=== PATIENT | female | born 1955 | race Caucasian/White ===

== ENCOUNTER 2016-03-06 14:26 | Inpatient (IN) | payer BC ==
[2016-03-06] MEDS ORDERED: HYDROmorphone 1 MG/ML 1 ML SYRINGE IVP STA ×2 (15:15→18:24)
[2016-03-06] MEDS ORDERED: SODIUM CHLORIDE 0.9% 1,000 ML IV STA (15:15)
[2016-03-06] MEDS ORDERED: ONDANSETRON ODT 8 MG TAB.RAPDIS PO STA (15:15)
--- NOTE | 2016-03-06 15:19 | ED ---
General Adult HPI - General Source: patient, RN notes reviewed Mode of arrival: ambulatory Limitations: no limitations <Geoff Hale - Last Filed: 03/06/16 18:34> <Maximo Maldonado - Last Filed: 03/10/16 21:47> - General Chief complaint: Abdominal Pain Stated complaint: poss UTI Time Seen by Provider: 03/06/16 14:58 - History of Present Illness Initial comments: Patient is a 60-year-old female who presents emergency room today with a chief complaint of abdominal pain increasing over the last 2 weeks. She also admits to symptoms of nausea vomiting. Admits to history of interstitial cystitis and colon resection back in June 2015. Patient states surgery was performed at [facility]. She states she has a colostomy in place that has been working she's getting either thicker stools or loose and diarrhea over the last 2 weeks. Admits that there have been some sick contacts at home with similar symptoms of nausea vomiting diarrhea. Patient has had nausea vomiting on and off. Has had increased abdominal pain with some distention to the left side. Denies any other complaints or symptoms. Patient denies any recent fever, chills , shortness of breath, chest pain, back pain, numbness or tingling, dysuria or hematuria, headaches or visual changes, or any other complaints. (Geoff Hale ) - Related Data Home Medications Medication Instructions Recorded Confirmed Ferrous Sulfate [Feosol] 325 mg PO DAILY 08/20/15 03/06/16 Folic Acid 1 mg PO DAILY 08/20/15 03/06/16 Levothyroxine Sodium [Synthroid] 75 mcg PO DAILY 08/20/15 03/06/16 Magnesium Oxide [Mag-Ox] 400 mg PO DAILY 08/20/15 03/06/16 Multivitamin [Multivitamins Adult 1 tab PO DAILY 08/20/15 03/06/16 Gummies] Venlafaxine HCl ER [Effexor Xr] 150 mg PO DAILY 08/20/15 03/06/16 azaTHIOprine [Azathioprine] 50 mg PO BID 08/20/15 03/06/16 Multivitamins, Thera [Multivitamin] 1 tab PO DAILY 03/06/16 03/06/16 Allergies Allergy/AdvReac Type Severity Reaction Status Date / Time acetaminophen [From Vicodin] Allergy Itching Verified 03/06/16 15:44 hydrocodone bitartrate Allergy Itching Verified 03/06/16 15:44 [From Vicodin] morphine Allergy Itching Verified 03/06/16 15:44 amoxicillin [From Augmentin] AdvReac Nausea Verified 03/06/16 15:44 clavulanic acid AdvReac Nausea Verified 03/06/16 15:44 [From Augmentin] Review of Systems ROS Other: All systems not noted in ROS Statement are negative. <Geoff Hale - Last Filed: 03/06/16 18:34> ROS Other: All systems not noted in ROS Statement are negative. <Maximo Maldonado - Last Filed: 03/10/16 21:47> ROS Statement: Those systems with pertinent positive or pertinent negative responses have been documented in the HPI. Past Medical History Past Medical History: Liver Disease, Thyroid Disorder Additional Past Medical History / Comment(s): COLOSTOMY History of Any Multi-Drug Resistant Organisms: None Reported Additional Past Surgical History / Comment(s): COLOSTOMY Past Psychological History: Depression Smoking Status: Former smoker Past Alcohol Use History: None Reported Past Drug Use History: Marijuana <Geoff Hale - Last Filed: 03/06/16 18:34> General Exam Limitations: no limitations <HaleGeoff - Last Filed: 03/06/16 18:34> <Maximo Maldonado - Last Filed: 03/10/16 21:47> - General Exam Comments Initial Comments: General: The patient is awake and alert, in no distress, and does not appear acutely ill. Eye: Pupils are equal, round and reactive to light, extra-ocular movements are intact. No nystagmus. There is normal conjunctiva bilaterally. No signs of icterus. Ears, nose, mouth and throat: There are moist mucous membranes and no oral lesions. Neck: The neck is supple, there is no tenderness or JVD. Cardiovascular: There is a regular rate and rhythm. No murmur, rub or gallop is appreciated. Respiratory: Lungs are clear to auscultation, respirations are non-labored, breath sounds are equal. No wheezes, stridor, rales, or rhonchi. Gastrointestinal: Patient does have colostomy in the left side of the abdomen. Mild tenderness locally to left lower quadrant. No rebound tenderness. No guarding. No CVA tenderness. Musculoskeletal: Normal ROM, no tenderness. Strength 5/5. Sensation intact. Pulses equal bilaterally 2+. Neurological: A&O x 3. CN II-XII intact, There are no obvious motor or sensory deficits. Coordination appears grossly intact. Speech is normal. Skin: Skin is warm and dry and no rashes or lesions are noted. Psychiatric: Cooperative, appropriate mood & affect, normal judgment. (Geoff Hale) Medical Decision Making - Lab Data Result diagrams: 03/06/16 15:30 03/06/16 15:30 <Geoff Hale - Last Filed: 03/06/16 18:34> - Lab Data Result diagrams: 03/10/16 07:32 03/10/16 07:32 <Maximo Maldonado - Last Filed: 03/10/16 21:47> - Medical Decision Making Patient's CT reviewed and does show evidence for sigmoid diverticular abscess. Results were discussed with attending physician Dr. Maldonado who did see patient at bedside. Case was discussed with on-call surgeon Dr. Velez will come see the patient here in the emergency room. Case also discussed with admitting physician Dr. Davidson. Patient be started on antibiotics of both Levaquin and Flagyl here in the emergency room. (Geoff Hale) I saw this patient in conjunction with the physician psychiatric assistant. I performed independent history and physical exam. Agree with case management. (Maximo Maldonado) - Lab Data Lab Results 03/06/16 03/06/16 03/06/16 Range/Units 15:30 15:30 15:30 WBC 15.2 H (3.8-10.6) k/uL RBC 4.44 (3.80-5.40) m/uL Hgb 14.0 (11.4-16.0) gm/dL Hct 41.0 (34.0-46.0) % MCV 92.4 (80.0-100.0) fL MCH 31.6 (25.0-35.0) pg MCHC 34.2 (31.0-37.0) g/dL RDW 12.7 (11.5-15.5) % Plt Count 401 (150-450) k/uL Neutrophils % 82 % Lymphocytes % 11 % Monocytes % 6 % Eosinophils % 1 % Basophils % 1 % Neutrophils # 12.5 H (1.3-7.7) k/uL Lymphocytes # 1.6 (1.0-4.8) k/uL Monocytes # 0.9 (0-1.0) k/uL Eosinophils # 0.1 (0-0.7) k/uL Basophils # 0.1 (0-0.2) k/uL Sodium 140 (137-145) mmol/L Potassium 4.2 (3.5-5.1) mmol/L Chloride 100 (98-107) mmol/L Carbon Dioxide 28 (22-30) mmol/L Anion Gap 12 mmol/L BUN 6 L (7-17) mg/dL Creatinine 0.64 (0.52-1.04) mg/dL Est GFR (MDRD) Af Amer >60 (>60 ml/min/1.73 sqM) Est GFR (MDRD) Non-Af >60 (>60 ml/min/1.73 sqM) Glucose 94 (74-99) mg/dL Plasma Lactic Acid Edmundo 0.9 (0.7-2.0) mmol/L Calcium 9.5 (8.4-10.2) mg/dL Total Bilirubin 0.8 (0.2-1.3) mg/dL AST 28 (14-36) U/L ALT 32 (9-52) U/L Alkaline Phosphatase 111 (38-126) U/L Total Protein 8.0 (6.3-8.2) g/dL Albumin 4.1 (3.5-5.0) g/dL Amylase 69 (30-110) U/L Lipase 73 (23-300) U/L Urine Color Urine Appearance (Clear) Urine pH (5.0-8.0) Ur Specific Theodore (1.001-1.035) Urine Protein (Negative) Urine Glucose (UA) (Negative) Urine Ketones (Negative) Urine Blood (Negative) Urine Nitrate (Negative) Urine Bilirubin (Negative) Urine Urobilinogen (<2.0) mg/dL Ur Leukocyte Esterase (Negative) Urine RBC (0-5) /hpf Urine WBC (0-5) /hpf Ur Squamous Epith Cells (0-4) /hpf Urine Bacteria (None) /hpf Urine Mucus (None) /hpf 03/06/16 Range/Units 15:30 WBC (3.8-10.6) k/uL RBC (3.80-5.40) m/uL Hgb (11.4-16.0) gm/dL Hct (34.0-46.0) % MCV (80.0-100.0) fL MCH (25.0-35.0) pg MCHC (31.0-37.0) g/dL RDW (11.5-15.5) % Plt Count (150-450) k/uL Neutrophils % % Lymphocytes % % Monocytes % % Eosinophils % % Basophils % % Neutrophils # (1.3-7.7) k/uL Lymphocytes # (1.0-4.8) k/uL Monocytes # (0-1.0) k/uL Eosinophils # (0-0.7) k/uL Basophils # (0-0.2) k/uL Sodium (137-145) mmol/L Potassium (3.5-5.1) mmol/L Chloride (98-107) mmol/L Carbon Dioxide (22-30) mmol/L Anion Gap mmol/L BUN (7-17) mg/dL Creatinine (0.52-1.04) mg/dL Est GFR (MDRD) Af Amer (>60 ml/min/1.73 sqM) Est GFR (MDRD) Non-Af (>60 ml/min/1.73 sqM) Glucose (74-99) mg/dL Plasma Lactic Acid Edmundo (0.7-2.0) mmol/L Calcium (8.4-10.2) mg/dL Total Bilirubin (0.2-1.3) mg/dL AST (14-36) U/L ALT (9-52) U/L Alkaline Phosphatase (38-126) U/L Total Protein (6.3-8.2) g/dL Albumin (3.5-5.0) g/dL Amylase (30-110) U/L Lipase (23-300) U/L Urine Color Yellow Urine Appearance Clear (Clear) Urine pH 7.5 (5.0-8.0) Ur Specific Theodore 1.007 (1.001-1.035) Urine Protein Negative (Negative) Urine Glucose (UA) Negative (Negative) Urine Ketones Negative (Negative) Urine Blood Trace H (Negative) Urine Nitrate Negative (Negative) Urine Bilirubin Negative (Negative) Urine Urobilinogen <2.0 (<2.0) mg/dL Ur Leukocyte Esterase Negative (Negative) Urine RBC 2 (0-5) /hpf Urine WBC 1 (0-5) /hpf Ur Squamous Epith Cells 5 H (0-4) /hpf Urine Bacteria Rare H (None) /hpf Urine Mucus Rare H (None) /hpf Disposition Time of Disposition: 18:26 <Geoff Hale - Last Filed: 03/06/16 18:34> <Maximo Maldonado - Last Filed: 03/10/16 21:47> Clinical Impression: Colonic diverticular abscess Disposition: ADMITTED IP TO THIS HOSP Condition: Stable
[2016-03-06 15:46] LABS: Basophils # (A) 0.1 k/uL (0-0.2); Basophils % (A) 1 %; CH 32.6; CHCM 35.5; Eosinophils # (A) 0.1 k/uL (0-0.7); Eosinophils % (A) 1 %; HDW 2.92; Luc # (Auto) 0.12; Luc % (Auto) 1; Lymphocytes # (A) 1.6 k/uL (1.0-4.8); Lymphocytes % (A) 11 %; MCH 31.6 pg (25.0-35.0); MCHC 34.2 g/dL (31.0-37.0); MCV 92.4 fL (80.0-100.0); Monocytes # (A) 0.9 k/uL (0-1.0); Monocytes % (A) 6 %; Neutrophils # (A) 12.5 k/uL (1.3-7.7); Neutrophils % (A) 82 %; RBC 4.44 m/uL (3.80-5.40); RDW 12.7 % (11.5-15.5); WBC 15.2 k/uL (3.8-10.6); WBC (Perox) 15.21
[2016-03-06 16:00] LABS: ALT 32 U/L (9-52); AST 28 U/L (14-36); Alkaline Phosphatase 111 U/L (38-126); Amylase 69 U/L (30-110); Anion Gap 12 mmol/L; Blood Urea Nitrogen 6 mg/dL (7-17); Calcium 9.5 mg/dL (8.4-10.2); Carbon Dioxide 28 mmol/L (22-30); Chloride 100 mmol/L (98-107); Glucose 94 mg/dL (74-99); Non-African American GFR(MDRD) >60 (>60 ml/min/1.73 sqM); Potassium 4.2 mmol/L (3.5-5.1); Sodium 140 mmol/L (137-145); Total Bilirubin 0.8 mg/dL (0.2-1.3)
[2016-03-06 16:01] LABS: Appearance,Urine Clear (Clear); Bacteria,Urine Rare /hpf; Bilirubin,Urine Negative (Negative); Glucose,Urine (UA) Negative (Negative); Ketones,Urine Negative (Negative); Leukocyte Esterase,Urine Negative (Negative); Mucus,Urine Rare /hpf; Nitrite,Urine Negative (Negative); PH, Urine 7.5 (5.0-8.0); Particle Count 2877; Protein,Urine Negative (Negative); RBC,Urine 2 /hpf (0-5); Specific Gravity,Urine 1.007 (1.001-1.035); Squamous Epithelial Cell,Urine 5 /hpf (0-4); UA Billing (MACRO vs. MICRO) MICRO; Urobilinogen,Urine <2.0 mg/dL (<2.0); WBC,Urine 1 /hpf (0-5)
[2016-03-06] MEDS ORDERED: RX INFO: IV CONTRAST WAS GIVEN 1 EACH MISC MISCELLANE PRN (16:09)
--- NOTE | 2016-03-06 16:20 | XR ---
EXAMINATION TYPE: XR KUB DATE OF EXAM: 03/06/2016 4:14 PM COMPARISON: 09/29/2014 HISTORY: Left lower quadrant pain FINDINGS: Surgical clips in the right upper quadrant is seen and is evidence of previous lap band surgery. Jake l gas pattern nonspecific. Surgical clips in the pelvis. Arthropathy of the hips. Slight curvature of the spine with mild hypertrophic changes. Previous cholecystectomy clips noted. A few scattered prom inent small bowel loops are seen in the midabdomen with an air-fluid level noted on the left. IMPRESSION: 1. Nonspecific abdomen. Few prominent small bowel loops in the mid abdomen with an air-fluid level o n the left. Could been the basis of an ileitis or enteritis. Correlate clinically.
--- NOTE | 2016-03-06 17:36 | CT ---
EXAMINATION TYPE: CT abdomen pelvis w con DATE OF EXAM: 03/06/2016 5:01 PM COMPARISON: X-ray September 29, 2014 HISTORY: Left lower quadrant pain. CT DLP: 440.4 mGycm Automated exposure control for dose reduction was used. TECHNIQUE: Helical acquisition of images was performed from the lung bases through the pelvis. CONTRAST: Performed without Oral Contrast and with IV Contrast, patient injected with 100 mL of Omnip aque 300. FINDINGS: LUNG BASES: No significant abnormality is appreciated. LIVER/GB: The liver margins are scalloped and there is prominence of the caudate lobe. There are no f ocal findings. Biliary tree unremarkable. PANCREAS: No significant abnormality is seen. SPLEEN: No significant abnormality is seen. ADRENALS: No significant abnormality is seen. KIDNEYS: No significant abnormality is seen. RETROPERITONEAL ADENOPATHY: None visualized URINARY BLADDER: No significant abnormality is seen. PELVIC ADENOPATHY: None visualized. OSSEOUS STRUCTURES: No acute findings, but chronic L5-S1 malalignment due to its on the losses/spond ylolisthesis. BOWEL: In the left lower quadrant, just superior to the urinary bladder, there is a 5 cm diameter bi lobed fluid density spherical mass, with one moiety containing gas bubbles and the other not containi ng gas bubbles. If the left ovary has not been surgically removed, then the fluid moiety could repres ent 2.5 cm ovarian cyst. In any case, the fluid/gas moiety is suspicious for small 2.5 cm distal sigm oid diverticula abscess. There is no associated bowel obstruction or pneumoperitoneum or pneumatosis. A gastric laparoscopic band is in place. The catheter tip does not appear to be related to the left a nterior abdominal subcutaneous port - clinical evaluation requested. Left lower quadrant ostomy is noted. OTHER: Coronary calcifications are noted, and atherosclerotic calcifications throughout the abdominal pelvic arterial vasculature. IMPRESSION: ABNORMALITY IN THE LEFT LOWER QUADRANT; SUSPECT DISTAL SIGMOID DIVERTICULAR ABSCESS.
[2016-03-06] MEDS ORDERED: metroNIDAZOLE-NS PMX 500 MG in SALINE 1 100ML.BAG IVPB STA (18:13)
[2016-03-06] MEDS ORDERED: LEVOFLOXACIN 500MG-D5W PMX 500 MG in DEXTROSE/WATER 1 100ML.BAG IVPB STA (18:13)
[2016-03-06] MEDS ORDERED: SODIUM CHLORIDE 0.9% 1,000 ML IV ONE (18:34)
[2016-03-06] MEDS ORDERED: NALOXONE 0.4 MG/ML 1 ML VIAL IV PRN (18:34)
[2016-03-06] MEDS ORDERED: LORazepam 2 MG/ML SYRINGE IV PRN (18:34)
[2016-03-06] MEDS ORDERED: MELATONIN 5 MG TABLET PO PRN (20:32)
[2016-03-06] MEDS: diphenhydrAMINE 50 MG/ML 1 ML VIAL IVP PRN (21:00)
[2016-03-06] MEDS ORDERED: azaTHIOprine 50 MG TAB PO SCH (21:00)
[2016-03-06] MEDS: HYDROmorphone 1 MG/ML 1 ML SYRINGE IVP PRN (21:01)
[2016-03-06] MEDS: metroNIDAZOLE-NS PMX 500 MG in SALINE 1 100ML.BAG IVPB SCH (23:14)
[2016-03-07] MEDS: HYDROmorphone 1 MG/ML 1 ML SYRINGE IVP PRN ×6 (02:29→22:00)
[2016-03-07] MEDS: diphenhydrAMINE 50 MG/ML 1 ML VIAL IVP PRN ×3 (03:14→15:11)
[2016-03-07] MEDS: LEVOTHYROXINE 75 MCG TAB PO SCH (05:56)
[2016-03-07] MEDS: MAGNESIUM OXIDE 400 MG TAB PO SCH (08:24)
[2016-03-07] MEDS: metroNIDAZOLE-NS PMX 500 MG in SALINE 1 100ML.BAG IVPB SCH ×3 (08:24→23:10)
[2016-03-07] MEDS: FERROUS SULFATE 325 MG TAB PO SCH (08:24)
[2016-03-07] MEDS: FOLIC ACID 1 MG TAB PO SCH (08:24)
[2016-03-07] MEDS: MULTIVITAMINS, THERA 1 EACH TAB PO SCH (08:25)
[2016-03-07] MEDS: VENLAFAXINE HCL ER 150 MG CAP PO SCH ×2 (08:25→11:58)
[2016-03-07 09:12] LABS: ALT 25 U/L (9-52); AST 20 U/L (14-36); Alkaline Phosphatase 86 U/L (38-126); Anion Gap 11 mmol/L; Blood Urea Nitrogen 7 mg/dL (7-17); Calcium 8.8 mg/dL (8.4-10.2); Carbon Dioxide 24 mmol/L (22-30); Chloride 104 mmol/L (98-107); Glucose 78 mg/dL (74-99); Non-African American GFR(MDRD) >60 (>60 ml/min/1.73 sqM); Potassium 4.4 mmol/L (3.5-5.1); Sodium 139 mmol/L (137-145); Total Bilirubin 0.8 mg/dL (0.2-1.3); Total Protein 6.7 g/dL (6.3-8.2)
[2016-03-07 09:14] LABS: Basophils % (A) 0 %; CH 32.6; CHCM 35.2; Eosinophils # (A) 0.1 k/uL (0-0.7); Eosinophils % (A) 1 %; HCT 36.5 % (34.0-46.0); HDW 2.91; HGB 12.7 gm/dL (11.4-16.0); Luc # (Auto) 0.11; Luc % (Auto) 1; Lymphocytes # (A) 1.2 k/uL (1.0-4.8); Lymphocytes % (A) 10 %; MCH 32.4 pg (25.0-35.0); MCHC 34.8 g/dL (31.0-37.0); Mean Platelet Volume 7.7; Monocytes # (A) 0.9 k/uL (0-1.0); Monocytes % (A) 7 %; Neutrophils # (A) 10.1 k/uL (1.3-7.7); Neutrophils % (A) 82 %; RBC 3.93 m/uL (3.80-5.40); RDW 12.8 % (11.5-15.5); WBC 12.4 k/uL (3.8-10.6); WBC (Perox) 13.14
--- NOTE | 2016-03-07 10:28 | P.GSCN ---
History of Present Illness Consult date: 03/07/16 Reason for Consult: Diverticular abscess History of present illness: This is a 60-year-old female who is admitted through the emergency room last night with complaints of abdominal pain. Patient CAT scan performed which shows evidence of a diverticular abscess. The patient states that she has felt sick since [place]. She states the pain is similar to her previous diverticular abscess. The patient underwent Adelaida procedure at [facility] in June of this year for perforated diverticulitis. Patient's colostomy in left lower quadrant. Review of Systems - Constitutional Reports as per HPI Past Medical History Past Medical History: Liver Disease, Thyroid Disorder Additional Past Medical History / Comment(s): COLOSTOMY, stage 4 liver disease, autoimmune hep History of Any Multi-Drug Resistant Organisms: None Reported Past Surgical History: Bariatric Surgery, Breast Surgery, Cholecystectomy, Hysterectomy Additional Past Surgical History / Comment(s): COLOSTOMY, right knee surgery, right foot surgery, benign lump removed from left breast Past Anesthesia/Blood Transfusion Reactions: Unable to Obtain Additional Past Anesthesia/Blood Transfusion Reaction / Comm: pt states problem during surgery Past Psychological History: Depression Smoking Status: Former smoker Past Alcohol Use History: None Reported Past Drug Use History: Marijuana - Past Family History Mother Family Medical History: Cancer, COPD Medications and Allergies Home Medications Medication Instructions Recorded Confirmed Type Ferrous Sulfate [Feosol] 325 mg PO DAILY 08/20/15 03/06/16 History Folic Acid 1 mg PO DAILY 08/20/15 03/06/16 History Levothyroxine Sodium [Synthroid] 75 mcg PO DAILY 08/20/15 03/06/16 History Magnesium Oxide [Mag-Ox] 400 mg PO DAILY 08/20/15 03/06/16 History Multivitamin [Multivitamins Adult 1 tab PO DAILY 08/20/15 03/06/16 History Gummies] Venlafaxine HCl ER [Effexor Xr] 150 mg PO DAILY 08/20/15 03/06/16 History azaTHIOprine [Azathioprine] 50 mg PO BID 08/20/15 03/06/16 History Multivitamins, Thera [Multivitamin] 1 tab PO DAILY 03/06/16 03/06/16 History Allergies Allergy/AdvReac Type Severity Reaction Status Date / Time acetaminophen [From Vicodin] Allergy Itching Verified 03/06/16 15:44 hydrocodone bitartrate Allergy Itching Verified 03/06/16 15:44 [From Vicodin] morphine Allergy Itching Verified 03/06/16 15:44 amoxicillin [From Augmentin] AdvReac Nausea Verified 03/06/16 15:44 clavulanic acid AdvReac Nausea Verified 03/06/16 15:44 [From Augmentin] Surgical - Exam Vital Signs Temp Pulse Resp BP Pulse Ox 97.7 F 76 18 137/71 99 03/06/16 14:28 03/06/16 14:28 03/06/16 14:28 03/06/16 14:28 03/06/16 14:28 - General well developed, moderate distress - Eyes PERRL - ENT normal pinna - Neck no masses - Respiratory normal expansion - Cardiovascular Rhythm: regular - Abdomen Abdomen soft. There is tenderness in the left lower quadrant. The patient has a colostomy in in the left lower quadrant. There is evidence of a parastomal hernia. Results - Labs 03/07/16 08:02 03/07/16 08:02 Abnormal Lab Results - Last 24 Hours (Table) 03/07/16 03/07/16 Range/Units 08:02 08:02 WBC 12.4 H (3.8-10.6) k/uL Neutrophils # 10.1 H (1.3-7.7) k/uL Albumin 3.2 L (3.5-5.0) g/dL Diabetes panel 03/07/16 Range/Units 08:02 Sodium 139 (137-145) mmol/L Potassium 4.4 (3.5-5.1) mmol/L Chloride 104 (98-107) mmol/L Carbon Dioxide 24 (22-30) mmol/L BUN 7 (7-17) mg/dL Creatinine 0.64 (0.52-1.04) mg/dL Glucose 78 (74-99) mg/dL Calcium 8.8 (8.4-10.2) mg/dL AST 20 (14-36) U/L ALT 25 (9-52) U/L Alkaline Phosphatase 86 (38-126) U/L Total Protein 6.7 (6.3-8.2) g/dL Albumin 3.2 L (3.5-5.0) g/dL Calcium panel 03/07/16 Range/Units 08:02 Calcium 8.8 (8.4-10.2) mg/dL Albumin 3.2 L (3.5-5.0) g/dL Pituitary panel 03/07/16 Range/Units 08:02 Sodium 139 (137-145) mmol/L Potassium 4.4 (3.5-5.1) mmol/L Chloride 104 (98-107) mmol/L Carbon Dioxide 24 (22-30) mmol/L BUN 7 (7-17) mg/dL Creatinine 0.64 (0.52-1.04) mg/dL Glucose 78 (74-99) mg/dL Calcium 8.8 (8.4-10.2) mg/dL Adrenal panel 03/07/16 Range/Units 08:02 Sodium 139 (137-145) mmol/L Potassium 4.4 (3.5-5.1) mmol/L Chloride 104 (98-107) mmol/L Carbon Dioxide 24 (22-30) mmol/L BUN 7 (7-17) mg/dL Creatinine 0.64 (0.52-1.04) mg/dL Glucose 78 (74-99) mg/dL Calcium 8.8 (8.4-10.2) mg/dL Total Bilirubin 0.8 (0.2-1.3) mg/dL AST 20 (14-36) U/L ALT 25 (9-52) U/L Alkaline Phosphatase 86 (38-126) U/L Total Protein 6.7 (6.3-8.2) g/dL Albumin 3.2 L (3.5-5.0) g/dL - Imaging Abdominal x-ray: report reviewed Assessment and Plan Plan: History of perforated diverticulitis with recurrent diverticular abscess. The patient received IV antibiotic. We will discuss the case with interventional radiology to see if she is amenable to CT-guided drainage. The potential disconnect between the patient's lap band and port will be repaired as an outpatient once the patient's abscess has resolved. We will follow with you
--- NOTE | 2016-03-07 10:28 | P.CONS ---
History of Present Illness - Reason for Consult Consult date: 03/07/16 Diverticulitis Requesting physician: Chencho Dowling - History of Present Illness 60-year-old female patient Drs. Dowling and Frances Foster; well-known to the GI service for history of autoimmune hepatitis maintained on Azathioprine twice daily, cirrhosis, diverticulosis with perforation July 2015 resulting in colostomy at [facility], depression, and bariatric surgery. Presents with acute generalized abdominal pain, bloatedness, malaise and flulike symptoms since . Pain is diffusely across the abdomen more concentrated around the colostomy site. Intermittent nausea vomiting. Looser stool output. No recent antibiotics. No recurrent episodes of diverticulitis since her surgery in July 2015. CT abdomen and pelvis reported suspected distal sigmoid diverticular abscess 5 cm containing gas bubbles. White count 15.2 currently 12.4. Hemoglobin 12.7. Liver enzymes within normal limits. Denies hematemesis, hematochezia, or melena. Denies fever. Intermittent sweats. Review of Systems All systems: negative (See HPI) Past Medical History Past Medical History: Liver Disease, Thyroid Disorder Additional Past Medical History / Comment(s): COLOSTOMY, stage 4 liver disease, autoimmune hep History of Any Multi-Drug Resistant Organisms: None Reported Past Surgical History: Bariatric Surgery, Breast Surgery, Cholecystectomy, Hysterectomy Additional Past Surgical History / Comment(s): COLOSTOMY, right knee surgery, right foot surgery, benign lump removed from left breast Past Anesthesia/Blood Transfusion Reactions: Unable to Obtain Additional Past Anesthesia/Blood Transfusion Reaction / Comm: pt states problem during surgery Past Psychological History: Depression Smoking Status: Former smoker Past Alcohol Use History: None Reported Past Drug Use History: Marijuana - Past Family History Mother Family Medical History: Cancer, COPD Medications and Allergies Home Medications Medication Instructions Recorded Confirmed Type Ferrous Sulfate [Feosol] 325 mg PO DAILY 08/20/15 03/06/16 History Folic Acid 1 mg PO DAILY 08/20/15 03/06/16 History Levothyroxine Sodium [Synthroid] 75 mcg PO DAILY 08/20/15 03/06/16 History Magnesium Oxide [Mag-Ox] 400 mg PO DAILY 08/20/15 03/06/16 History Multivitamin [Multivitamins Adult 1 tab PO DAILY 08/20/15 03/06/16 History Gummies] Venlafaxine HCl ER [Effexor Xr] 150 mg PO DAILY 08/20/15 03/06/16 History azaTHIOprine [Azathioprine] 50 mg PO BID 08/20/15 03/06/16 History Multivitamins, Thera [Multivitamin] 1 tab PO DAILY 03/06/16 03/06/16 History Allergies Allergy/AdvReac Type Severity Reaction Status Date / Time acetaminophen [From Vicodin] Allergy Itching Verified 03/06/16 15:44 hydrocodone bitartrate Allergy Itching Verified 03/06/16 15:44 [From Vicodin] morphine Allergy Itching Verified 03/06/16 15:44 amoxicillin [From Augmentin] AdvReac Nausea Verified 03/06/16 15:44 clavulanic acid AdvReac Nausea Verified 03/06/16 15:44 [From Augmentin] Physical Exam Vitals: Vital Signs Temp Pulse Resp BP BP Pulse Ox 03/07/16 07:00 98.4 F 78 16 127/83 95 03/06/16 23:00 97.2 F L 76 18 122/69 97 03/06/16 19:49 98.4 F 76 18 140/92 96 Intake and Output 03/06/16 03/07/16 03/07/16 22:59 06:59 14:59 Other: Voiding Method Toilet Toilet # Voids 1 1 General appearance: The patient is alert, oriented, in no acute distress. HET: Head is normocephalic and atraumatic. Pupils are equal and reactive. Oropharynx is clear without lesions. Neck: Supple without lymphadenopathy. Trachea midline. Heart: S1 S2. Regular rate and rhythm. Lungs: No crackles or wheezes are heard. Abdomen: Soft, tenderness around colostomy site/LLQ. Left sided colostomy, nondistended with bowel sounds. No peritoneal signs. No palpable organomegaly or masses. Extremities: Normal skin color and turgor. No cyanosis, rash, ulceration, clubbing, or edema. Radial and pedal pulses are 2/4 bilaterally. Neurological: No focal deficits. Strength and sensation are grossly intact. Results CBC & Chem 7: 03/07/16 08:02 03/07/16 08:02 Labs: Abnormal Lab Results - Last 24 Hours (Table) 03/07/16 03/07/16 Range/Units 08:02 08:02 WBC 12.4 H (3.8-10.6) k/uL Neutrophils # 10.1 H (1.3-7.7) k/uL Albumin 3.2 L (3.5-5.0) g/dL CT scan - abdomen: report reviewed CT scan - pelvis: report reviewed (Reviewed by Dr. Oropeza) Assessment and Plan Plan: Impression: 1. 60-year-old female with a history of autoimmune hepatitis liver cirrhosis presents with 1 month history of diffuse abdominal discomfort flulike symptoms with a history of perforated diverticulitis status post bowel resection/ colostomy July 2015 at [facility] with admission radiographic imaging suggestive of sigmoid diverticular abscess. Plan: 1. IV antibiotics. 2. General surgical consultation we'll defer to surgery for diet and further management of diverticular abscess. 3. In regards to patient's history of autoimmune hepatitis cirrhosis she is scheduled to be seen by Dr. Foster in GI office on 03/17/2016. 4. Will follow closely with you. Thank you for this kind referral and the opportunity to participate in the care of your patient. This consultation was discussed with Dr. Oropeza. The impression and plan of care have been directed as dictated.
[2016-03-07 11:28] VITALS: BMI 24.7
--- NOTE | 2016-03-07 14:04 | P.PN ---
Progress Note - Text Computed tomography scan reviewed with radiologist. No plans for CT-guided drainage of diverticular abscess at this time secondary to small size and inaccessibility. The above impression and plan have been discussed and directed by Dr. Spears. Itz KWONG acting as scribe for Dr. Spears.
--- NOTE | 2016-03-07 14:07 | P.HPIM ---
<Sallie Cintron A - Last Filed: 03/07/16 13:47> History of Present Illness H&P Date: 03/07/16 Chief Complaint: Abdominal pain This is a 60-year-old female. Her primary care doctor is Dr. Dowling. She also follows with Dr. Lugo for autoimmune hepatitis. She has a past medical history for autoimmune hepatitis, cirrhosis of the liver, hypothyroidism , morbid obesity status post lap band, perforated diverticulitis status post colon resection and colostomy by Dr. Sepulveda at [facility] in July 2015 with no plan for reversal of colostomy. Patient states that on February 17 she started feeling sick with watery diarrhea. Her other family members had the same so she wasn't too concerned about it. She states she would have it for about 3-4 days and then she would feel better for about 2 days and then become worse again. She had continued abdominal pain. She finally came into [facility] emergency center for evaluation. CAT scan of the abdomen showed a distal sigmoid diverticular abscess. Patient was afebrile. White count was 15.2 and repeat 12.4. Patient was started on Flagyl and Levaquin and admitted to the [facility] floor. She has been seen in consultation by Dr. Lugo and general surgeon, Dr. Spears, with plan for CT-guided drainage but abscess is not accessible at this time. She is currently nothing by mouth except for ice chips and medications. Review of Systems All systems: negative Constitutional: Denies chills, Denies fever Eyes: denies blurred vision, denies pain Ears, nose, mouth and throat: Denies headache, Denies sore throat Cardiovascular: Denies chest pain, Denies shortness of breath Respiratory: Denies cough Gastrointestinal: Reports abdominal pain, Reports diarrhea, Reports nausea, Reports vomiting Genitourinary: Denies dysuria, Denies hematuria Musculoskeletal: Denies myalgias Integumentary: Denies pruritus, Denies rash Neurological: Denies numbness, Denies weakness Psychiatric: Denies anxiety, Denies depression Endocrine: Denies fatigue, Denies weight change Past Medical History Past Medical History: Liver Disease, Thyroid Disorder Additional Past Medical History / Comment(s): Perforated diverticulum status post colon resection and colostomy at [facility] July 2015, autoimmune hepatitis, cirrhosis of the liver History of Any Multi-Drug Resistant Organisms: None Reported Past Surgical History: Bariatric Surgery, Breast Surgery, Cholecystectomy, Hysterectomy Additional Past Surgical History / Comment(s): Colon resection and colostomy in July 2015 at [facility] with Dr. Baugh knee surgery, right foot surgery, benign lump removed from left breast Past Anesthesia/Blood Transfusion Reactions: Unable to Obtain Additional Past Anesthesia/Blood Transfusion Reaction / Comment(s): pt states problem during surgery Past Psychological History: Depression Smoking Status: Former smoker Past Alcohol Use History: None Reported Additional Past Alcohol Use History / Comment(s): Patient was a smoker one pack per day for 17 years and quit 25 years ago. She denies any medical marijuana, marijuana or street drug use. She drinks alcohol on a rare basis. Past Drug Use History: Marijuana - Past Family History Mother Family Medical History: Cancer, COPD Additional Family Medical History / Comment(s): Mother is age 80 and dying from lung cancer. Father Additional Family Medical History / Comment(s): Father at age 80 from leukemia. Sister(s) Additional Family Medical History / Comment(s): Patient has 1 sister with no major medical problems. She does not have any brothers. She has one daughter and one son with no major medical problems. Medications and Allergies Home Medications Medication Instructions Recorded Confirmed Type Ferrous Sulfate [Feosol] 325 mg PO DAILY 08/20/15 03/06/16 History Folic Acid 1 mg PO DAILY 08/20/15 03/06/16 History Levothyroxine Sodium [Synthroid] 75 mcg PO DAILY 08/20/15 03/06/16 History Magnesium Oxide [Mag-Ox] 400 mg PO DAILY 08/20/15 03/06/16 History Multivitamin [Multivitamins Adult 1 tab PO DAILY 08/20/15 03/06/16 History Gummies] Venlafaxine HCl ER [Effexor Xr] 150 mg PO DAILY 08/20/15 03/06/16 History azaTHIOprine [Azathioprine] 50 mg PO BID 08/20/15 03/06/16 History Multivitamins, Thera [Multivitamin] 1 tab PO DAILY 03/06/16 03/06/16 History Allergies Allergy/AdvReac Type Severity Reaction Status Date / Time acetaminophen [From Vicodin] Allergy Itching Verified 03/06/16 15:44 hydrocodone bitartrate Allergy Itching Verified 03/06/16 15:44 [From Vicodin] morphine Allergy Itching Verified 03/06/16 15:44 amoxicillin [From Augmentin] AdvReac Nausea Verified 03/06/16 15:44 clavulanic acid AdvReac Nausea Verified 03/06/16 15:44 [From Augmentin] Physical Exam Vitals: Vital Signs Temp Pulse Resp BP BP Pulse Ox 03/07/16 07:00 98.4 F 78 16 127/83 95 03/06/16 23:00 97.2 F L 76 18 122/69 97 03/06/16 19:49 98.4 F 76 18 140/92 96 Intake and Output 03/06/16 03/07/16 03/07/16 22:59 06:59 14:59 Other: Voiding Method Toilet Toilet # Voids 1 1 Gen: This is a 60-year-old female. She is sitting up in bed and appears to be in no acute distress. HEENT: Head is atraumatic, normocephalic. Pupils equal, round. Sclerae is anicteric. NECK: Supple. No JVD. No lymphadenopathy. No thyromegaly. LUNGS: Clear to auscultation. No wheezes or rhonchi. No intercostal retractions. HEART: Regular rate and rhythm. No murmur. ABDOMEN: Soft. Bowel sounds are present. No masses. Ostomy in the left abdomen. Mild tenderness to the left lower quadrant. EXTREMITIES: No pedal edema. No calf tenderness. Dorsalis pedis +2 bilaterally NEUROLOGICAL: Patient is awake, alert and oriented x3. Cranial nerves 2 through 12 are grossly intact. Results CBC & Chem 7: 03/07/16 08:02 03/07/16 08:02 Labs: Abnormal Lab Results - Last 24 Hours (Table) 03/07/16 03/07/16 Range/Units 08:02 08:02 WBC 12.4 H (3.8-10.6) k/uL Neutrophils # 10.1 H (1.3-7.7) k/uL Albumin 3.2 L (3.5-5.0) g/dL Thrombosis Risk Factor Assmnt - DVT/VTE Prophylaxis DVT/VTE Prophylaxis: Pharmacologic Prophylaxis ordered - Choose All That Apply Any of the Below Risk Factors Present?: Yes Each Factor Represents 1 point: Age 41-60 years Other Risk Factors: Yes Each Risk Factor Represents 3 Points: History of DVT/PE Other congenital or acquired thrombophilia - If yes, enter type in comment: No Thrombosis Risk Factor Assessment Total Risk Factor Score: 4 Thrombosis Risk Factor Assessment Level: Moderate Risk Assessment and Plan Plan: 1. Diverticulitis. Consult appreciated. Patient is continued on Levaquin and Flagyl. Diet is currently nothing by mouth except for ice chips and medications. Continue current pain management with Dilaudid. Zofran as needed for nausea. Continue incentive spirometry to reduce incidence of atelectasis and hospital-acquired pneumonia. Continue heparin for DVT prophylaxis. 2. History of autoimmune hepatitis and cirrhosis of the liver. Consult with Dr. Lugo appreciated. Patient is normally maintained on azathioprine. 3. Hypothyroidism. Continue Synthroid 75 g daily. 4. History of bowel resection and colostomy for perforated diverticulum, stable. 5. Remote history of obacco use and dependence. 6. Depression recurrent. Continue Effexor XR 150 g daily. 7. Gastrointestinal prophylaxis.. 8. DVT prophylaxis. Heparin subcu. Patient will be admitted to the hospital for a minimum of 3 night stay. Discharge plan: Return home Impression and plan of care have been directed as dictated by the signing physician. Sallie Cintron nurse practitioner acting as scribe for signing physician. Time with Patient: Greater than 30 <Alicia Davidson - Last Filed: 03/09/16 07:49> Physical Exam Vitals: Vital Signs Temp Pulse Resp BP Pulse Ox 03/08/16 23:00 97.4 F L 75 18 130/84 98 03/08/16 15:00 99.5 F 83 16 133/74 95 Intake and Output 03/08/16 03/09/16 03/09/16 22:59 06:59 14:59 Intake Total 500 400 Balance 500 400 Intake: Oral 500 400 Other: # Voids 2 1 Results CBC & Chem 7: 03/08/16 07:47 03/08/16 07:47 Labs: Abnormal Lab Results - Last 24 Hours (Table) 03/08/16 03/08/16 Range/Units 07:47 07:47 WBC 13.7 H (3.8-10.6) k/uL RBC 3.75 L (3.80-5.40) m/uL Glucose 60 L (74-99) mg/dL Assessment and Plan Plan: Diverticulitis with diverticular Abscess not amenable to CT-guided aspiration and drain placement,patient was given the option of going to [facility] to follow up with but she declined. We will continue with conservative treatment and our surgical team led by will continue to follow up with the patient.
[2016-03-07] MEDS: HEPARIN SODIUM,PORCINE 5,000 UNIT/ML 1 ML VIAL SQ SCH ×2 (15:09→23:10)
[2016-03-07] MEDS: LEVOFLOXACIN 500MG-D5W PMX 500 MG in DEXTROSE/WATER 1 100ML.BAG IVPB SCH (17:16)
[2016-03-07] MEDS: ONDANSETRON 4 MG/2 ML VIAL IVP PRN (18:46)
[2016-03-08] MEDS: HYDROmorphone 1 MG/ML 1 ML SYRINGE IVP PRN ×6 (01:22→21:41)
[2016-03-08] MEDS: diphenhydrAMINE 50 MG/ML 1 ML VIAL IVP PRN ×2 (01:22→21:41)
[2016-03-08] MEDS: LEVOTHYROXINE 75 MCG TAB PO SCH (06:32)
[2016-03-08 08:46] LABS: CH 32.4; HDW 3.04; HGB 11.8 gm/dL (11.4-16.0); MCH 31.5 pg (25.0-35.0); MCHC 33.8 g/dL (31.0-37.0); MCV 93.1 fL (80.0-100.0); Mean Platelet Volume 7.4; RBC 3.75 m/uL (3.80-5.40); WBC 13.7 k/uL (3.8-10.6)
[2016-03-08 08:50] LABS: Anion Gap 10 mmol/L; Blood Urea Nitrogen 9 mg/dL (7-17); Calcium 8.7 mg/dL (8.4-10.2); Carbon Dioxide 25 mmol/L (22-30); Chloride 102 mmol/L (98-107); Glucose 60 mg/dL (74-99); Non-African American GFR(MDRD) >60 (>60 ml/min/1.73 sqM); Potassium 4.3 mmol/L (3.5-5.1); Sodium 137 mmol/L (137-145)
[2016-03-08] MEDS: HEPARIN SODIUM,PORCINE 5,000 UNIT/ML 1 ML VIAL SQ SCH ×3 (10:08→23:09)
[2016-03-08] MEDS: MAGNESIUM OXIDE 400 MG TAB PO SCH (10:09)
[2016-03-08] MEDS: MULTIVITAMINS, THERA 1 EACH TAB PO SCH (10:09)
[2016-03-08] MEDS: metroNIDAZOLE-NS PMX 500 MG in SALINE 1 100ML.BAG IVPB SCH ×3 (10:09→23:09)
[2016-03-08] MEDS: VENLAFAXINE HCL ER 150 MG CAP PO SCH (10:09)
[2016-03-08] MEDS: FERROUS SULFATE 325 MG TAB PO SCH (10:09)
[2016-03-08] MEDS: FOLIC ACID 1 MG TAB PO SCH (10:09)
--- NOTE | 2016-03-08 11:56 | PN ---
DATE OF SERVICE: 03/08/2016 The patient is a 60-year-old pleasant lady admitted to the hospital with abdominal pain and low-grade fever for the last few days duration. She underwent colostomy for diverticular abscess at [facility] in July 2015 and they were contemplating for reversal sometime next month. The patient is known to me from her previous autoimmune hepatitis with cirrhosis of the liver that was diagnosed about 3 years ago and she is presently maintained on Imuran 100 mg daily and has been in biochemical remission. Because of the ongoing abdominal pain, low-grade fever, not feeling well and flu-like symptoms, she came into the emergency room and she had a CT scan of the abdomen and pelvis done that showed a 5 cm and 2 cm abscesses in the left lower quadrant suggestive of diverticular abscess and hence Surgery has been consulted. Today she says that she still has some low-grade fever and pain in the left lower quadrant area. She denies any nausea or vomiting. She had low grade fever also. No fever, chills, night sweats. REVIEW OF SYSTEMS: CARDIOPULMONARY: No chest pain or shortness of breath. GENITOURINARY: No dysuria or hematuria. MUSCULOSKELETAL: Unremarkable. SKIN: Unremarkable. ENDOCRINE: Unremarkable. PSYCHIATRIC: Unremarkable. NEUROLOGY: Unremarkable. CONSTITUTIONAL: Low-grade fever. GI: As mentioned above. On physical examination, she appears comfortable in no apparent distress. Vital signs are stable. Blood pressure is 141/80, pulse 88, temperature 98.7. HEENT examination unremarkable. Conjunctivae pink. Sclerae anicteric. Oral cavity, no lesions. NECK: No JVD or lymph node enlargement. CHEST: Clear to auscultation. HEART: Regular rate and rhythm. ABDOMEN: Soft. Bowel sounds are positive. There was tenderness in the left lower quadrant area. Colostomy bag in midline. EXTREMITIES: No pedal edema. SKIN: No rashes. NEURO: Alert and oriented x3. No focal deficits. Labs done from today, WBC 13.7, hemoglobin 11.8, platelets are normal. The rest of the basic metabolic panel is within normal limits. IMPRESSION: 1. Acute sigmoid diverticulitis complicated with left lower quadrant abscess, presently on IV Flagyl and Levaquin. The patient had a similar complicated diverticulitis with pelvic abscess in July of 2015 at which time she was admitted to [facility] and underwent emergency colostomy. Presently Dr. Spears is following the patient closely. Apparently Interventional Radiology did not think it was safe to do CT-guided drainage because of inaccessibility of the abscess. 2. History of autoimmune hepatitis with cirrhosis of the liver diagnosed in 2012, maintained on immunosuppressive therapy with Imuran 100 mg daily and patient has been in clinical and biochemical remission for the last one and a half years. RECOMMENDATIONS: 1. Continue with broad-spectrum antibiotics with IV Levaquin and Flagyl. 2. Keep her n.p.o. 3. In regards to the immunosuppressive therapy, since we are dealing with an active infection I suggested that we can hold off on the Imuran for a couple of weeks and resume her once the infection has been treated appropriately. In the meantime I will follow her serum transaminases on a close basis to see for any relapse. I will follow the patient closely during her hospital stay. Thank you for this consultation.
--- NOTE | 2016-03-08 13:51 | P.PN ---
Subjective Principal diagnosis: The patient is having less pain. She is thirsty. Denies nausea or vomiting. Objective - Vital Signs Vital signs: Vital Signs Temp 99.0 F 03/08/16 07:00 Pulse 82 03/08/16 07:00 Resp 16 03/08/16 07:00 BP 122/69 03/08/16 07:00 Pulse Ox 93 L 03/08/16 07:00 Intake & Output 03/07/16 03/08/16 03/08/16 18:59 06:59 18:59 Intake Total 360 Balance 360 Weight 61.235 kg Intake: Oral 360 Other: Voiding Method Toilet Toilet # Voids 1 2 - Constitutional General appearance: Present: cooperative, no acute distress - Respiratory Respiratory: bilateral: CTA - Gastrointestinal General gastrointestinal: Present: decreased bowel sounds, soft, tenderness ( Minimal right sided and. Umbilical) - Labs CBC & Chem 7: 03/08/16 07:47 03/08/16 07:47 Labs: Abnormal Lab Results - Last 24 Hours (Table) 03/08/16 03/08/16 Range/Units 07:47 07:47 WBC 13.7 H (3.8-10.6) k/uL RBC 3.75 L (3.80-5.40) m/uL Glucose 60 L (74-99) mg/dL Assessment and Plan (1) Colonic diverticular abscess Status: Acute Plan: Continue IV antibiotics, start clear liquid diet. Progressing slowly.
--- NOTE | 2016-03-08 16:52 | P.PN ---
Subjective This is a 60-year-old female. Her primary care doctor is Dr. Dowling. She also follows with Dr. Lugo for autoimmune hepatitis. She has a past medical history for autoimmune hepatitis, cirrhosis of the liver, hypothyroidism , morbid obesity status post lap band, perforated diverticulitis status post colon resection and colostomy by Dr. Sepulveda at [facility] in July 2015 with no plan for reversal of colostomy. Patient states that on February 17 she started feeling sick with watery diarrhea. Her other family members had the same so she wasn't too concerned about it. She states she would have it for about 3-4 days and then she would feel better for about 2 days and then become worse again. She had continued abdominal pain. She finally came into [facility] emergency center for evaluation. CAT scan of the abdomen showed a distal sigmoid diverticular abscess. Patient was afebrile. White count was 15.2 and repeat 12.4. Patient was started on Flagyl and Levaquin and [facility]. She has been seen in consultation by Dr. Lugo and general surgeon, Dr. Spears, with plan for CT-guided drainage but abscess is not accessible at this time. 03/08: Patient still has intermittent chills. Low-grade failure, patient is currently on IV antibiotics with no plan for CT-guided drainage as it is small and inaccessible, Dr. Lugo in Dr. Spears is following. Clear liquid diet was started by Dr. España today. Patient has tattoos no bowel movement in the colostomy Objective - Vital Signs Vital signs: Vital Signs Temp 99.5 F 03/08/16 15:00 Pulse 83 03/08/16 15:00 Resp 16 03/08/16 15:00 BP 133/74 03/08/16 15:00 Pulse Ox 95 03/08/16 15:00 Intake & Output 03/07/16 03/08/16 03/08/16 18:59 06:59 18:59 Intake Total 360 Balance 360 Weight 61.235 kg Intake: Oral 360 Other: Voiding Method Toilet Toilet # Voids 1 2 1 - Constitutional General appearance: Present: cooperative, no acute distress - EENT Eyes: Present: anicteric sclerae, EOMI, PERRLA, dentition normal, normal appearance ENT: Present: hearing grossly normal, NA/AT, normal oropharynx - Neck Neck: Present: normal ROM. Absent: lymphadenopathy, other, rigidity, stridor, thyromegaly - Respiratory Respiratory: bilateral: CTA, negative: diminished, dullness, rales, rhonchi - Cardiovascular Rhythm: regular Heart sounds: normal: S1, S2 Abnormal Heart Sounds: Absent: systolic murmur, diastolic murmur, rub, S3 Gallop , S4 Gallop, click, other - Gastrointestinal General gastrointestinal: Present: normal bowel sounds, soft Localized gastrointestinal: tender: RLQ, LLQ, suprabubic - Integumentary Integumentary: Present: decreased turgor, normal - Neurologic Neurologic: Present: CNII-XII intact - Musculoskeletal Musculoskeletal: Present: gait normal, strength equal bilaterally - Psychiatric Psychiatric: Present: A&O x's 3, appropriate affect, intact judgment & insight - Labs CBC & Chem 7: 03/08/16 07:47 03/08/16 07:47 Labs: Abnormal Lab Results - Last 24 Hours (Table) 03/08/16 03/08/16 Range/Units 07:47 07:47 WBC 13.7 H (3.8-10.6) k/uL RBC 3.75 L (3.80-5.40) m/uL Glucose 60 L (74-99) mg/dL Laboratory Results - last 24 hr 03/08/16 03/08/16 07:47 07:47 WBC 13.7 H RBC 3.75 L Hgb 11.8 Hct 35.0 MCV 93.1 MCH 31.5 MCHC 33.8 RDW 13.0 Plt Count 290 Sodium 137 Potassium 4.3 Chloride 102 Carbon Dioxide 25 Anion Gap 10 BUN 9 Creatinine 0.61 Est GFR (MDRD) Af Amer >60 Est GFR (MDRD) Non-Af >60 Glucose 60 L Calcium 8.7 Assessment and Plan Plan: 1. Diverticulicular abscess. Consult appreciated. Patient is continued on Levaquin and Flagyl. Diet is currently nothing by mouth except for ice chips and medications. Continue current pain management with Dilaudid. Zofran as needed for nausea. Continue incentive spirometry to reduce incidence of atelectasis and hospital-acquired pneumonia. Continue heparin for DVT prophylaxis. 2. History of autoimmune hepatitis and cirrhosis of the liver. Consult with Dr. Parish appreciated. Patient is normally maintained on azathioprine. Imuran currently is held until resolution off diverticular abscess. CAT scan is anticipated as an outpatient for the abscess 3. Hypothyroidism. Continue Synthroid 75 g daily. 4. History of bowel resection and colostomy for perforated diverticulum, stable. 5. Remote history of obacco use and dependence. 6. Depression recurrent. Continue Effexor XR 150 g daily. 7. Gastrointestinal prophylaxis.. 8. DVT prophylaxis. Heparin subcu.
[2016-03-08] MEDS: LEVOFLOXACIN 500MG-D5W PMX 500 MG in DEXTROSE/WATER 1 100ML.BAG IVPB SCH (18:56)
[2016-03-09] MEDS: HYDROmorphone 1 MG/ML 1 ML SYRINGE IVP PRN ×4 (01:19→20:53)
[2016-03-09] MEDS: LEVOTHYROXINE 75 MCG TAB PO SCH (06:41)
[2016-03-09] MEDS: diphenhydrAMINE 50 MG/ML 1 ML VIAL IVP PRN ×2 (06:48→21:15)
[2016-03-09] MEDS: metroNIDAZOLE-NS PMX 500 MG in SALINE 1 100ML.BAG IVPB SCH ×3 (07:42→23:26)
[2016-03-09] MEDS: HEPARIN SODIUM,PORCINE 5,000 UNIT/ML 1 ML VIAL SQ SCH ×3 (07:43→23:26)
[2016-03-09] MEDS: MULTIVITAMINS, THERA 1 EACH TAB PO SCH (07:43)
[2016-03-09] MEDS: FERROUS SULFATE 325 MG TAB PO SCH (07:43)
[2016-03-09] MEDS: VENLAFAXINE HCL ER 150 MG CAP PO SCH (07:43)
[2016-03-09] MEDS: FOLIC ACID 1 MG TAB PO SCH (07:43)
[2016-03-09] MEDS: MAGNESIUM OXIDE 400 MG TAB PO SCH (07:43)
[2016-03-09 08:20] LABS: Basophils % (A) 0 %; CH 32.5; CHCM 35.4; Eosinophils # (A) 0.1 k/uL (0-0.7); Eosinophils % (A) 1 %; HDW 2.97; Luc # (Auto) 0.12; Luc % (Auto) 1; Lymphocytes # (A) 1.3 k/uL (1.0-4.8); Lymphocytes % (A) 13 %; MCH 30.9 pg (25.0-35.0); MCHC 33.5 g/dL (31.0-37.0); MCV 92.2 fL (80.0-100.0); Mean Platelet Volume 6.7; Monocytes # (A) 0.6 k/uL (0-1.0); Monocytes % (A) 6 %; Neutrophils # (A) 7.8 k/uL (1.3-7.7); Neutrophils % (A) 79 %; RDW 12.7 % (11.5-15.5); WBC 9.9 k/uL (3.8-10.6); WBC (Perox) 10.34
[2016-03-09 08:26] LABS: ALT 30 U/L (9-52); AST 29 U/L (14-36); Alkaline Phosphatase 90 U/L (38-126); Anion Gap 11 mmol/L; Blood Urea Nitrogen 5 mg/dL (7-17); Calcium 9.1 mg/dL (8.4-10.2); Carbon Dioxide 30 mmol/L (22-30); Chloride 101 mmol/L (98-107); Glucose 89 mg/dL (74-99); Non-African American GFR(MDRD) >60 (>60 ml/min/1.73 sqM); Potassium 3.9 mmol/L (3.5-5.1); Sodium 142 mmol/L (137-145); Total Bilirubin 0.6 mg/dL (0.2-1.3); Total Protein 6.9 g/dL (6.3-8.2)
--- NOTE | 2016-03-09 12:08 | P.PN ---
Subjective Principal diagnosis: The patient is having less pain. She is thirsty. Denies nausea or vomiting. The patient is feeling better. She's tolerating a diet of clear liquids without nausea or vomiting. She is hungry. Passing some flatus into the ostomy appliance but no bowel movement as of yet. Objective - Vital Signs Vital signs: Vital Signs Temp 97.3 F L 03/09/16 07:00 Pulse 62 03/09/16 11:40 Resp 16 03/09/16 11:40 BP 122/82 03/09/16 07:00 Pulse Ox 98 03/09/16 07:00 Intake & Output 03/08/16 03/09/16 03/09/16 18:59 06:59 18:59 Intake Total 900 Balance 900 Intake: Oral 900 Other: Voiding Method Toilet # Voids 1 1 - Constitutional General appearance: Present: cooperative, no acute distress - Gastrointestinal General gastrointestinal: Present: normal bowel sounds, soft. Absent: tenderness - Labs CBC & Chem 7: 03/09/16 07:25 03/09/16 07:25 Labs: Abnormal Lab Results - Last 24 Hours (Table) 03/09/16 03/09/16 Range/Units 07:25 07:25 Neutrophils # 7.8 H (1.3-7.7) k/uL BUN 5 L (7-17) mg/dL Albumin 3.4 L (3.5-5.0) g/dL Assessment and Plan (1) Colonic diverticular abscess Status: Acute Plan: We will have her diet advanced. Continue antibiotics. Progressing slowly.
[2016-03-09] MEDS: DOCUSATE 100 MG CAP PO SCH (12:20)
--- NOTE | 2016-03-09 12:21 | PN ---
DATE OF SERVICE: 03/09/2016 Patient is a 60-year-old pleasant lady admitted to the hospital with acute diverticulitis/diverticular abscess. She underwent colostomy for acute sigmoid diverticulitis complicated with a pelvic abscess in July of 2015 at [facility] and they were contemplating for reversal next month. In the meantime, she was admitted to the hospital with rectum diverticulitis. She is presently on broad-spectrum antibiotics, Dr. Spears following the patient closely. She has an abscess that is 5 cm which is not drainable as per Interventional Radiology. For now, she is doing much better. Her left lower quadrant abdominal pain is improving. She does have history of autoimmune hepatitis/cirrhosis of the liver and Imuran presently is on hold because of ongoing infection. On physical examination, she appears comfortable, temperature 97.4, blood pressure 130/84, pulse is 75. HEENT: Unremarkable. Conjunctivae pink. Sclerae nonicteric. Oral cavity no lesions. NECK: No JVD or lymph node enlargement. Chest was clear to auscultation. HEART: Regular rate and rhythm. Abdomen is soft. There was tenderness in the left lower quadrant area. Colostomy noted in the midabdomen. EXTREMITIES: No pedal edema. SKIN: No rashes. NEURO: Alert and oriented x3. No further deficits. LABS: WBC 9.9, hemoglobin 12, platelets are normal. The rest of the basic metabolic panel is within normal limits. IMPRESSION: 1. Acute left-sided diverticulitis complicated with a diverticular abscess. Presently on IV Levaquin and Flagyl and gradually improving. Surgery following the patient closely. 2. Status post colostomy in July 2063 for diverticular abscess. 3. Autoimmune hepatitis with cirrhosis of the liver, presently in clinical and biochemical remission. LFTs are within normal limits. Imuran has been on hold for the last 2 days. RECOMMENDATIONS: 1. Continue with broad-spectrum antibiotics. 2. Continue to hold Imuran. Will follow the patient closely.
[2016-03-09] MEDS: ONDANSETRON 4 MG/2 ML VIAL IVP PRN (13:10)
[2016-03-09] MEDS: LEVOFLOXACIN 500MG-D5W PMX 500 MG in DEXTROSE/WATER 1 100ML.BAG IVPB SCH (17:44)
--- NOTE | 2016-03-09 20:45 | P.PN ---
Subjective Principal diagnosis: Diverticular abscess This is a 60-year-old female. Her primary care doctor is Dr. Dowling. She also follows with Dr. Lugo for autoimmune hepatitis. She has a past medical history for autoimmune hepatitis, cirrhosis of the liver, hypothyroidism , morbid obesity status post lap band, perforated diverticulitis status post colon resection and colostomy by Dr. Sepulveda at [facility] in July 2015 with no plan for reversal of colostomy. Patient states that on February 17 she started feeling sick with watery diarrhea. Her other family members had the same so she wasn't too concerned about it. She states she would have it for about 3-4 days and then she would feel better for about 2 days and then become worse again. She had continued abdominal pain. She finally came into [facility] emergency center for evaluation. CAT scan of the abdomen showed a distal sigmoid diverticular abscess. Patient was afebrile. White count was 15.2 and repeat 12.4. Patient was started on Flagyl and Levaquin and admitted to the [facility] floor. She has been seen in consultation by Dr. Lugo and general surgeon, Dr. Spears, with plan for CT-guided drainage but abscess is not accessible at this time. 03/08: Patient still has intermittent chills. Low-grade failure, patient is currently on IV antibiotics with no plan for CT-guided drainage as it is small and inaccessible, Dr. Lugo in Dr. Spears is following. Clear liquid diet was started by Dr. España today. Patient has tattoos no bowel movement in the colostomy 03/09: Patient has some nausea earlier today with few bites of food no increase in abdominal pain. Patient has some flatus no stools from colostomy. One episode of chills no spiking fevers noted Objective - Vital Signs Vital signs: Vital Signs Temp 98.0 F 03/09/16 15:00 Pulse 60 03/09/16 15:00 Resp 18 03/09/16 15:00 BP 109/57 03/09/16 15:00 Pulse Ox 96 03/09/16 15:00 Intake & Output 03/09/16 03/09/16 03/10/16 06:59 18:59 06:59 Intake Total 900 200 Balance 900 200 Intake: Oral 900 200 Other: Voiding Method Toilet # Voids 1 2 - Constitutional General appearance: Present: cooperative, no acute distress - EENT Eyes: Present: anicteric sclerae, EOMI, PERRLA, dentition normal - Neck Neck: Present: normal ROM - Respiratory Respiratory: bilateral: CTA, negative: diminished, dullness, rales, rhonchi, wheezing, prolonged expiration - Cardiovascular Rhythm: regular Heart sounds: normal: S1, S2 - Gastrointestinal General gastrointestinal: Present: normal bowel sounds, soft - Integumentary Integumentary: Present: decreased turgor, normal, normal turgor - Neurologic Neurologic: Present: CNII-XII intact - Musculoskeletal Musculoskeletal: Present: gait normal, strength equal bilaterally - Psychiatric Psychiatric: Present: A&O x's 3, appropriate affect, intact judgment & insight - Labs CBC & Chem 7: 03/09/16 07:25 03/09/16 07:25 Labs: Abnormal Lab Results - Last 24 Hours (Table) 03/09/16 03/09/16 Range/Units 07:25 07:25 Neutrophils # 7.8 H (1.3-7.7) k/uL BUN 5 L (7-17) mg/dL Albumin 3.4 L (3.5-5.0) g/dL Assessment and Plan Plan: 1. Diverticulicular abscess. Consult appreciated. Patient is continued on Levaquin and Flagyl. Diet is currently nothing by mouth except for ice chips and medications. Continue current pain management with Dilaudid. Zofran as needed for nausea. Continue incentive spirometry to reduce incidence of atelectasis and hospital-acquired pneumonia. Continue heparin for DVT prophylaxis. . Patient is slowly progressing, anticipate 2 more days of IV antibiotics prior to switch to oral 2. History of autoimmune hepatitis and cirrhosis of the liver. Consult with Dr. Lugo appreciated. Patient is normally maintained on azathioprine. Imuran currently is held until resolution off diverticular abscess. CAT scan is anticipated as an outpatient for the abscess 3. Hypothyroidism. Continue Synthroid 75 g daily. 4. History of bowel resection and colostomy for perforated diverticulum, stable. 5. Remote history of obacco use and dependence. 6. Depression recurrent. Continue Effexor XR 150 g daily. 7. Gastrointestinal prophylaxis.. 8. DVT prophylaxis. Heparin subcu.
[2016-03-10] MEDS: LEVOTHYROXINE 75 MCG TAB PO SCH (06:40)
[2016-03-10 08:11] LABS: Basophils # (A) 0.1 k/uL (0-0.2); Basophils % (A) 1 %; CH 32.3; CHCM 35.2; Eosinophils # (A) 0.1 k/uL (0-0.7); Eosinophils % (A) 1 %; HCT 34.4 % (34.0-46.0); HDW 3.05; HGB 11.7 gm/dL (11.4-16.0); Luc # (Auto) 0.13; Luc % (Auto) 2; Lymphocytes # (A) 1.1 k/uL (1.0-4.8); Lymphocytes % (A) 18 %; MCH 31.4 pg (25.0-35.0); MCV 92.3 fL (80.0-100.0); Mean Platelet Volume 7.4; Monocytes # (A) 0.5 k/uL (0-1.0); Monocytes % (A) 8 %; Neutrophils # (A) 4.2 k/uL (1.3-7.7); Neutrophils % (A) 71 %; RBC 3.72 m/uL (3.80-5.40); WBC 5.9 k/uL (3.8-10.6); WBC (Perox) 6.04
[2016-03-10] MEDS: DOCUSATE 100 MG CAP PO SCH (08:23)
[2016-03-10] MEDS: HEPARIN SODIUM,PORCINE 5,000 UNIT/ML 1 ML VIAL SQ SCH ×3 (08:23→21:56)
[2016-03-10] MEDS: metroNIDAZOLE-NS PMX 500 MG in SALINE 1 100ML.BAG IVPB SCH ×2 (08:23→16:16)
[2016-03-10] MEDS: MAGNESIUM OXIDE 400 MG TAB PO SCH (08:24)
[2016-03-10] MEDS: VENLAFAXINE HCL ER 150 MG CAP PO SCH (08:24)
[2016-03-10] MEDS: FERROUS SULFATE 325 MG TAB PO SCH (08:24)
[2016-03-10] MEDS: MULTIVITAMINS, THERA 1 EACH TAB PO SCH (08:24)
[2016-03-10] MEDS: FOLIC ACID 1 MG TAB PO SCH (08:24)
[2016-03-10] MEDS: HYDROmorphone 1 MG/ML 1 ML SYRINGE IVP PRN ×4 (08:31→21:12)
[2016-03-10 08:33] LABS: ALT 30 U/L (9-52); AST 25 U/L (14-36); Alkaline Phosphatase 82 U/L (38-126); Anion Gap 8 mmol/L; Blood Urea Nitrogen 5 mg/dL (7-17); Carbon Dioxide 32 mmol/L (22-30); Chloride 102 mmol/L (98-107); Glucose 99 mg/dL (74-99); Non-African American GFR(MDRD) >60 (>60 ml/min/1.73 sqM); Potassium 3.8 mmol/L (3.5-5.1); Sodium 142 mmol/L (137-145); Total Bilirubin 0.4 mg/dL (0.2-1.3); Total Protein 6.2 g/dL (6.3-8.2)
--- NOTE | 2016-03-10 14:14 | PN ---
DATE OF SERVICE: 03/10/2016 Patient is a 60-year-old pleasant lady with history of autoimmune hepatitis/cirrhosis of the liver, diagnosed 3 years ago. Was admitted to the hospital with diverticulitis/diverticular abscess for which Surgery is following the patient closely. She is presently on IV Flagyl and Levaquin and she is feeling better. She still has some pain in the left lower quadrant area. She was started on a soft diet yesterday and tolerating reasonably well. She has complaints of persistent nausea. On physical examination, she appears comfortable, in no apparent distress. Vitals signs are stable. Blood pressure is 118/70, pulse rate 64, temperature 99.1. HEENT EXAMINATION: Unremarkable. Conjunctivae are pink. Sclerae nonicteric. Oral cavity no lesions. NECK: No JVD or lymph node enlargement. Chest was clear to auscultation. HEART: Regular rate and rhythm. Abdomen is soft. Colostomy bag in the lower midline. There is mild tenderness in the left lower quadrant area, but no rebound or rigidity. EXTREMITIES: No pedal edema. SKIN: No rashes. NEURO: Alert and oriented x3. No focal deficits. Labs from today, WBC is 5.9, hemoglobin 11.7, platelets are 283. Basic metabolic panel is within normal limits. IMPRESSION: 1. Acute diverticulitis with diverticular abscess in the left lower quadrant area, presently on IV Flagyl and Levaquin and Surgery following the patient closely. 2. History of colostomy in July of 2014 for diverticular abscess. 3. Autoimmune hepatitis/cirrhosis of the liver. Patient has been maintained on Imuran 100 mg daily for the last 3 years and was in remission. Because of the ongoing infection, the Imuran has been on hold for now and her serum transaminases are still within normal limits. RECOMMENDATIONS: 1. Continue with broad-spectrum antibiotics. 2. Agree with advancing diet as tolerated. 3. Will continue to hold Imuran, possibly for the next 2 weeks and will follow her closely during her hospital stay.
[2016-03-10] MEDS: diphenhydrAMINE 50 MG/ML 1 ML VIAL IVP PRN ×2 (14:31→21:12)
--- NOTE | 2016-03-10 14:41 | P.PN ---
Subjective This is a 60-year-old female. Her primary care doctor is Dr. Dowling. She also follows with Dr. Lugo for autoimmune hepatitis. She has a past medical history for autoimmune hepatitis, cirrhosis of the liver, hypothyroidism , morbid obesity status post lap band, perforated diverticulitis status post colon resection and colostomy by Dr. Sepulveda at [facility] in July 2015 with no plan for reversal of colostomy. Patient states that on February 17 she started feeling sick with watery diarrhea. Her other family members had the same so she wasn't too concerned about it. She states she would have it for about 3-4 days and then she would feel better for about 2 days and then become worse again. She had continued abdominal pain. She finally came into [facility] emergency center for evaluation. CAT scan of the abdomen showed a distal sigmoid diverticular abscess. Patient was afebrile. White count was 15.2 and repeat 12.4. Patient was started on Flagyl and Levaquin and [facility]. She has been seen in consultation by Dr. Lugo and general surgeon, Dr. Spears, with plan for CT-guided drainage but abscess is not accessible at this time. 03/08: Patient still has intermittent chills. Low-grade failure, patient is currently on IV antibiotics with no plan for CT-guided drainage as it is small and inaccessible, Dr. Lugo in Dr. Spears is following. Clear liquid diet was started by Dr. España today. Patient has tattoos no bowel movement in the colostomy 03/09: Patient has some nausea earlier today with few bites of food no increase in abdominal pain. Patient has some flatus no stools from colostomy. One episode of chills no spiking fevers noted 03/10: She is complaining of yeast infection to the belly button area for which nystatin added. She is currently tolerating a soft diet. She is passing flatus. No bowel movement. Objective - Vital Signs Vital signs: Vital Signs Temp 97.7 F 03/10/16 07:00 Pulse 60 03/10/16 07:00 Resp 18 03/10/16 07:00 BP 128/76 03/10/16 07:00 Pulse Ox 98 03/10/16 07:00 Intake & Output 03/09/16 03/10/16 03/10/16 18:59 06:59 18:59 Intake Total 200 Balance 200 Intake: Oral 200 Other: Voiding Method Toilet Toilet # Voids 2 2 # Bowel Movements 0 - Exam General appearance: Present: cooperative, no acute distress - EENT Eyes: Present: anicteric sclerae, EOMI, PERRLA, dentition normal - Neck Neck: Present: normal ROM - Respiratory Respiratory: bilateral: CTA, negative: diminished, dullness, rales, rhonchi, wheezing, prolonged expiration - Cardiovascular Rhythm: regular Heart sounds: normal: S1, S2 - Gastrointestinal General gastrointestinal: Present: normal bowel sounds, soft - Integumentary Integumentary: Present: decreased turgor, normal, normal turgor - Neurologic Neurologic: Present: CNII-XII intact - Musculoskeletal Musculoskeletal: Present: gait normal, strength equal bilaterally - Psychiatric Psychiatric: Present: A&O x's 3, appropriate affect, intact judgment & insight - Labs CBC & Chem 7: 03/10/16 07:32 03/10/16 07:32 Labs: Abnormal Lab Results - Last 24 Hours (Table) 03/10/16 03/10/16 Range/Units 07:32 07:32 RBC 3.72 L (3.80-5.40) m/uL Carbon Dioxide 32 H (22-30) mmol/L BUN 5 L (7-17) mg/dL Total Protein 6.2 L (6.3-8.2) g/dL Albumin 3.1 L (3.5-5.0) g/dL Assessment and Plan Plan: 1. Diverticulitis. Consult appreciated. Patient is continued on Levaquin and Flagyl. Diet is currently soft diet. Continue current pain management with Dilaudid. Zofran as needed for nausea. Continue incentive spirometry to reduce incidence of atelectasis and hospital-acquired pneumonia. Continue heparin for DVT prophylaxis. 2. History of autoimmune hepatitis and cirrhosis of the liver. Consult with Dr. Lugo appreciated. Patient is normally maintained on azathioprine. 3. Hypothyroidism. Continue Synthroid 75 g daily. 4. History of bowel resection and colostomy for perforated diverticulum, stable. 5. Remote history of obacco use and dependence. 6. Depression recurrent. Continue Effexor XR 150 g daily. 7. Gastrointestinal prophylaxis.. 8. DVT prophylaxis. Heparin subcu. Discharge plan: Return home Impression and plan of care have been directed as dictated by the signing physician. Sallie Cintron nurse practitioner acting as scribe for signing physician. Time with Patient: Greater than 30
--- NOTE | 2016-03-10 15:56 | P.PN ---
Subjective Principal diagnosis: Diverticular abscess Patient is a 60-year-old female admitted with diverticular abscess. Patient is evaluated in the medical unit where she is currently complaining of abdominal pain rated 3 out of 10. Tolerating a full liquid diet but states after 3-4 bites she is nauseated. Minimal flatus into ostomy appliance with no bowel movements since admission. Urinating without difficulty. T-max last 24 hours 99.1 at 11 PM last night. Vital signs stable.WBC 5.9. Hemoglobin 11.7. Objective - Vital Signs Vital signs: Vital Signs Temp 97.7 F 03/10/16 07:00 Pulse 60 03/10/16 07:00 Resp 18 03/10/16 07:00 BP 128/76 03/10/16 07:00 Pulse Ox 98 03/10/16 07:00 Intake & Output 03/09/16 03/10/16 03/10/16 18:59 06:59 18:59 Intake Total 200 Balance 200 Intake: Oral 200 Other: Voiding Method Toilet Toilet # Voids 2 2 # Bowel Movements 0 - Exam GENERAL: Pt awake and alert, well-appearing, well-nourished, and in no acute distress. LUNGS: Breath sounds clear to auscultation bilaterally. No wheezes, rales, or rhonchi. HEART: Heart S1, S2, no S3 or S4. Regular rate and rhythm. No murmurs, rubs or gallops. ABDOMEN: Soft, nontender, nondistended, hypoactive bowel sounds. No guarding, no rebound. NEUROLOGICAL: Pt oriented x 3. - Labs CBC & Chem 7: 03/10/16 07:32 03/10/16 07:32 Labs: Abnormal Lab Results - Last 24 Hours (Table) 03/10/16 03/10/16 Range/Units 07:32 07:32 RBC 3.72 L (3.80-5.40) m/uL Carbon Dioxide 32 H (22-30) mmol/L BUN 5 L (7-17) mg/dL Total Protein 6.2 L (6.3-8.2) g/dL Albumin 3.1 L (3.5-5.0) g/dL Assessment and Plan Plan: Impression: 1. Diverticular abscess. Plan: 1. Continue full liquid diet. Continue antibiotics. Continue supportive treatment and pain management. Continue follow with primary service. The above impression and plan have been discussed and directed by Dr. Spears. Itz KWONG acting as scribe for Dr. Spears.
[2016-03-10] MEDS: NYSTATIN 100,000 UNIT/GM OINT 30 GM TUBE TOPICAL SCH ×2 (16:15→21:44)
[2016-03-10] MEDS: LEVOFLOXACIN 500MG-D5W PMX 500 MG in DEXTROSE/WATER 1 100ML.BAG IVPB SCH (18:09)
[2016-03-11] MEDS: metroNIDAZOLE-NS PMX 500 MG in SALINE 1 100ML.BAG IVPB SCH ×4 (00:20→23:18)
[2016-03-11] MEDS: HYDROmorphone 1 MG/ML 1 ML SYRINGE IVP PRN ×6 (00:42→20:38)
[2016-03-11] MEDS: LEVOTHYROXINE 75 MCG TAB PO SCH (06:35)
[2016-03-11] MEDS: diphenhydrAMINE 50 MG/ML 1 ML VIAL IVP PRN ×3 (06:37→20:39)
[2016-03-11] MEDS: DOCUSATE 100 MG CAP PO SCH (08:07)
[2016-03-11] MEDS: HEPARIN SODIUM,PORCINE 5,000 UNIT/ML 1 ML VIAL SQ SCH ×3 (08:07→23:17)
[2016-03-11] MEDS: FOLIC ACID 1 MG TAB PO SCH (08:08)
[2016-03-11] MEDS: VENLAFAXINE HCL ER 150 MG CAP PO SCH (08:08)
[2016-03-11] MEDS: NYSTATIN 100,000 UNIT/GM OINT 30 GM TUBE TOPICAL SCH ×3 (08:08→20:44)
[2016-03-11] MEDS: FERROUS SULFATE 325 MG TAB PO SCH (08:08)
[2016-03-11] MEDS: MAGNESIUM OXIDE 400 MG TAB PO SCH (08:08)
[2016-03-11] MEDS: MULTIVITAMINS, THERA 1 EACH TAB PO SCH (08:08)
[2016-03-11 08:39] LABS: Basophils % (A) 1 %; CH 32.1; CHCM 35.1; Eosinophils # (A) 0.1 k/uL (0-0.7); Eosinophils % (A) 2 %; HCT 35.8 % (34.0-46.0); HDW 3.12; HGB 11.9 gm/dL (11.4-16.0); Luc # (Auto) 0.11; Luc % (Auto) 2; Lymphocytes % (A) 19 %; MCH 30.7 pg (25.0-35.0); MCHC 33.4 g/dL (31.0-37.0); Mean Platelet Volume 7.3; Monocytes # (A) 0.4 k/uL (0-1.0); Monocytes % (A) 8 %; Neutrophils # (A) 3.8 k/uL (1.3-7.7); Neutrophils % (A) 69 %; RBC 3.89 m/uL (3.80-5.40); RDW 13.1 % (11.5-15.5); WBC 5.5 k/uL (3.8-10.6); WBC (Perox) 5.55
[2016-03-11] MEDS: SENNOSIDES-DOCUSATE SODIUM 1 EACH TAB PO SCH (13:01)
--- NOTE | 2016-03-11 13:14 | P.PN ---
Subjective Principal diagnosis: Diverticulitis 60-year-old female with a history of autoimmune hepatitis cirrhosis admitted with acute diverticulitis. Feels better. Tolerating soft diet. Afebrile. Objective - Vital Signs Vital signs: Vital Signs Temp 97.7 F 03/11/16 07:00 Pulse 63 03/11/16 07:00 Resp 18 03/11/16 07:00 BP 122/71 03/11/16 07:00 Pulse Ox 96 03/11/16 07:00 Intake & Output 03/10/16 03/11/16 03/11/16 18:59 06:59 18:59 Intake Total 220 200 100 Balance 220 200 100 Intake: Intake, IV Titration 100 Amount Levofloxacin 500Mg-D5w 100 Pmx 500 mg In Dextrose/ Water 1 100ml.bag @ 100 mls/hr IVPB Q24H [facility] Rx#: [id number] Oral 220 100 100 Other: # Voids 1 0 # Bowel Movements 0 - Exam General appearance: The patient is alert, oriented, in no acute distress. HET: Head is normocephalic and atraumatic. Pupils are equal and reactive. Oropharynx is clear without lesions. Neck: Supple without lymphadenopathy. Trachea midline. Heart: S1 S2. Regular rate and rhythm. Lungs: No crackles or wheezes are heard. Abdomen: Soft, tenderness around colostomy site/LLQ. Left sided colostomy, nondistended with bowel sounds. No peritoneal signs. No palpable organomegaly or masses. Extremities: Normal skin color and turgor. No cyanosis, rash, ulceration, clubbing, or edema. Radial and pedal pulses are 2/4 bilaterally. Neurological: No focal deficits. Strength and sensation are grossly intact. - Labs CBC & Chem 7: 03/11/16 08:07 03/10/16 07:32 Assessment and Plan Plan: Impression: 1. 60-year-old female with a history of autoimmune hepatitis liver cirrhosis presents with 1 month history of diffuse abdominal discomfort flulike symptoms with a history of perforated diverticulitis status post bowel resection/ colostomy July 2015 at [facility] with admission radiographic imaging suggestive of sigmoid diverticular abscess. Plan: 1. Continue IV antibiotics. 2. Hold azathioprine x 2 weeks she is scheduled to be seen by Dr. Foster in GI office on 03/17/2016. Restarting azathioprine will be discussed in follow up office visit. Assessment and plan of care discussed with Dr. Foster
--- NOTE | 2016-03-11 13:15 | XR ---
EXAMINATION TYPE: XR abdomen 1V DATE OF EXAM: 03/11/2016 12:55 PM COMPARISON: 03/06/2016 HISTORY: Pain TECHNIQUE: Single supine KUB image of the abdomen is obtained FINDINGS: Gastric banding device is in place. Cholecystectomy clips are also evident. Small bowel demonstrates no evidence for dilatation or air fluid levels. Gas and fecal material is seen in non-distended colon. No convincing evidence for pneumoperitoneum. No unusual calcifications. The lung bases are clear. The osseous structures are intact. IMPRESSION: 1. Overall nonobstructive bowel gas pattern.
--- NOTE | 2016-03-11 13:28 | P.PN ---
Subjective Principal diagnosis: Diverticulitis; Diverticular abscess Patient is a 60-year-old female admitted with diverticulitis and diverticular abscess. Patient is evaluated on the medical unit. Patient reports intermittent abdominal pain with mild nausea without vomiting. Tolerating a full liquid diet. Minimal flatus into ostomy appliance with no bowel movements since admission. Urinating without difficulty. Afebrile. Vital signs stable. WBC 5.5. Objective - Vital Signs Vital signs: Vital Signs Temp 97.7 F 03/11/16 07:00 Pulse 63 03/11/16 07:00 Resp 18 03/11/16 07:00 BP 122/71 03/11/16 07:00 Pulse Ox 96 03/11/16 07:00 Intake & Output 03/10/16 03/11/16 03/11/16 18:59 06:59 18:59 Intake Total 220 200 100 Balance 220 200 100 Intake: Intake, IV Titration 100 Amount Levofloxacin 500Mg-D5w 100 Pmx 500 mg In Dextrose/ Water 1 100ml.bag @ 100 mls/hr IVPB Q24H [facility] Rx#: [id number] Oral 220 100 100 Other: # Voids 1 0 # Bowel Movements 0 - Exam GENERAL: Pt awake and alert, well-appearing, well-nourished, and in no acute distress. LUNGS: Breath sounds clear to auscultation bilaterally. No wheezes, rales, or rhonchi. HEART: Heart S1, S2, no S3 or S4. Regular rate and rhythm. No murmurs, rubs or gallops. ABDOMEN: Soft, mild left lower quadrant tenderness, nondistended, hypoactive bowel sounds. No guarding, no rebound. Left-sided colostomy. NEUROLOGICAL: Pt oriented x 3. - Labs CBC & Chem 7: 03/11/16 08:07 03/10/16 07:32 Assessment and Plan Plan: Impression: 1. Diverticulitis. 2. Sigmoid diverticular abscess. 3. History of perforated diverticulitis status post bowel resection with colostomy in July 2015. 4. History of autoimmune hepatitis and cirrhosis of the liver. Plan: 1. Continue soft diet. Continue IV antibiotics. Continue supportive treatment and pain management. Continue follow with primary service and gastroenterology. The above impression and plan have been discussed and directed by Dr. Spears. Itz KWONG acting as scribe for Dr. Spears.
[2016-03-11] MEDS ORDERED: MAGNESIUM CITRATE 296 ML BOTTLE PO ONE (13:36)
[2016-03-11 15:06] VITALS: RESP 20
--- NOTE | 2016-03-11 15:10 | P.PN ---
Subjective This is a 60-year-old female. Her primary care doctor is Dr. Dowling. She also follows with Dr. Lugo for autoimmune hepatitis. She has a past medical history for autoimmune hepatitis, cirrhosis of the liver, hypothyroidism , morbid obesity status post lap band, perforated diverticulitis status post colon resection and colostomy by Dr. Sepulveda at [facility] in July 2015 with no plan for reversal of colostomy. Patient states that on February 17 she started feeling sick with watery diarrhea. Her other family members had the same so she wasn't too concerned about it. She states she would have it for about 3-4 days and then she would feel better for about 2 days and then become worse again. She had continued abdominal pain. She finally came into [facility] emergency center for evaluation. CAT scan of the abdomen showed a distal sigmoid diverticular abscess. Patient was afebrile. White count was 15.2 and repeat 12.4. Patient was started on Flagyl and Levaquin and admitted to the [facility] floor. She has been seen in consultation by Dr. Lugo and general surgeon, Dr. Spears, with plan for CT-guided drainage but abscess is not accessible at this time. 03/08: Patient still has intermittent chills. Low-grade failure, patient is currently on IV antibiotics with no plan for CT-guided drainage as it is small and inaccessible, Dr. Lugo in Dr. Spears is following. Clear liquid diet was started by Dr. España today. Patient has tattoos no bowel movement in the colostomy 03/09: Patient has some nausea earlier today with few bites of food no increase in abdominal pain. Patient has some flatus no stools from colostomy. One episode of chills no spiking fevers noted 03/10: She is complaining of yeast infection to the belly button area for which nystatin added. She is currently tolerating a soft diet. She is passing flatus. No bowel movement. 03/11: Patient is complaining of constipation despite use with Colace. This discontinued and patient started on Senokot. White count is 5.5. She states she is eating a little bit more and denies having any vomiting. Abdominal pain is intermittent. Objective - Vital Signs Vital signs: Vital Signs Temp 97.5 F L 03/11/16 15:00 Pulse 74 03/11/16 15:00 Resp 20 03/11/16 15:00 BP 130/79 03/11/16 15:00 Pulse Ox 95 03/11/16 15:00 Intake & Output 03/10/16 03/11/16 03/11/16 18:59 06:59 18:59 Intake Total 220 200 820 Balance 220 200 820 Intake: Intake, IV Titration 100 Amount Levofloxacin 500Mg-D5w 100 Pmx 500 mg In Dextrose/ Water 1 100ml.bag @ 100 mls/hr IVPB Q24H [facility] Rx#: [id number] Oral 220 100 820 Other: # Voids 1 0 3 # Bowel Movements 0 - Exam General appearance: Present: cooperative, no acute distress - EENT Eyes: Present: anicteric sclerae, EOMI, PERRLA, dentition normal - Neck Neck: Present: normal ROM - Respiratory Respiratory: bilateral: CTA, negative: diminished, dullness, rales, rhonchi, wheezing, prolonged expiration - Cardiovascular Rhythm: regular Heart sounds: normal: S1, S2 - Gastrointestinal General gastrointestinal: Present: normal bowel sounds, soft - Integumentary Integumentary: Present: decreased turgor, normal, normal turgor - Neurologic Neurologic: Present: CNII-XII intact - Musculoskeletal Musculoskeletal: Present: gait normal, strength equal bilaterally - Psychiatric Psychiatric: Present: A&O x's 3, appropriate affect, intact judgment & insight - Labs CBC & Chem 7: 03/11/16 08:07 03/10/16 07:32 Assessment and Plan Plan: 1. Diverticulitis. Consult appreciated. Patient is continued on Levaquin and Flagyl. Diet is currently soft diet. Continue current pain management with Dilaudid. Zofran as needed for nausea. Continue incentive spirometry to reduce incidence of atelectasis and hospital-acquired pneumonia. Continue heparin for DVT prophylaxis. 2. History of autoimmune hepatitis and cirrhosis of the liver. Consult with Dr. Lugo appreciated. Patient is normally maintained on azathioprine. 3. Hypothyroidism. Continue Synthroid 75 g daily. 4. History of bowel resection and colostomy for perforated diverticulum, stable. 5. Remote history of tobacco use and dependence. 6. Depression recurrent. Continue Effexor XR 150 g daily. 7. Gastrointestinal prophylaxis.. 8. DVT prophylaxis. Heparin subcu. Discharge plan: Return home Impression and plan of care have been directed as dictated by the signing physician. Sallie Cintron nurse practitioner acting as scribe for signing physician. Time with Patient: Greater than 30
[2016-03-11] MEDS: LEVOFLOXACIN 500MG-D5W PMX 500 MG in DEXTROSE/WATER 1 100ML.BAG IVPB SCH (17:20)
[2016-03-12] MEDS: HYDROmorphone 1 MG/ML 1 ML SYRINGE IVP PRN ×3 (00:13→06:51)
[2016-03-12] MEDS: diphenhydrAMINE 50 MG/ML 1 ML VIAL IVP PRN (03:48)
[2016-03-12] MEDS: LEVOTHYROXINE 75 MCG TAB PO SCH (06:51)
[2016-03-12 07:17] VITALS: BP 120/59; PULSE 65; TEMP 97.3
[2016-03-12 08:48] LABS: Basophils # (A) 0.1 k/uL (0-0.2); Basophils % (A) 1 %; CH 32.2; CHCM 34.7; Eosinophils # (A) 0.1 k/uL (0-0.7); Eosinophils % (A) 2 %; HCT 36.7 % (34.0-46.0); HDW 3.07; HGB 12.1 gm/dL (11.4-16.0); Luc # (Auto) 0.14; Luc % (Auto) 2; Lymphocytes # (A) 1.6 k/uL (1.0-4.8); Lymphocytes % (A) 23 %; MCH 30.7 pg (25.0-35.0); MCHC 32.9 g/dL (31.0-37.0); MCV 93.4 fL (80.0-100.0); Mean Platelet Volume 7.2; Monocytes # (A) 0.5 k/uL (0-1.0); Monocytes % (A) 8 %; Neutrophils # (A) 4.6 k/uL (1.3-7.7); Neutrophils % (A) 65 %; RBC 3.93 m/uL (3.80-5.40); WBC 7.1 k/uL (3.8-10.6); WBC (Perox) 7.17
[2016-03-12 09:16] LABS: Anion Gap 8 mmol/L; Blood Urea Nitrogen 5 mg/dL (7-17); Calcium 8.9 mg/dL (8.4-10.2); Carbon Dioxide 34 mmol/L (22-30); Chloride 100 mmol/L (98-107); Glucose 85 mg/dL (74-99); Non-African American GFR(MDRD) >60 (>60 ml/min/1.73 sqM); Potassium 3.9 mmol/L (3.5-5.1); Sodium 142 mmol/L (137-145)
[2016-03-12] MEDS: SENNOSIDES-DOCUSATE SODIUM 1 EACH TAB PO SCH (09:38)
[2016-03-12] MEDS: HEPARIN SODIUM,PORCINE 5,000 UNIT/ML 1 ML VIAL SQ SCH (09:38)
[2016-03-12] MEDS: NYSTATIN 100,000 UNIT/GM OINT 30 GM TUBE TOPICAL SCH (09:38)
[2016-03-12] MEDS: MAGNESIUM OXIDE 400 MG TAB PO SCH (09:39)
[2016-03-12] MEDS: FERROUS SULFATE 325 MG TAB PO SCH (09:39)
[2016-03-12] MEDS: MULTIVITAMINS, THERA 1 EACH TAB PO SCH (09:39)
[2016-03-12] MEDS: FOLIC ACID 1 MG TAB PO SCH (09:39)
[2016-03-12] MEDS: VENLAFAXINE HCL ER 150 MG CAP PO SCH (09:41)
--- NOTE | 2016-03-12 12:01 | P.PN ---
Subjective Principal diagnosis: Diverticulitis; Diverticular abscess Patient is a 60-year-old female admitted with diverticulitis and diverticular abscess. Patient is evaluated on the medical unit. Patient is feeling better. Patient continues to complain of minimal cramping left lower quadrant but states it's controlled with current pain regimen. Tolerating a soft foods diet. Patient reports flatus with bowel movements. Urinating without difficulty. Afebrile. Vital signs stable. WBC 5.5. Objective - Vital Signs Vital signs: Vital Signs Temp 97.3 F L 03/12/16 07:00 Pulse 65 03/12/16 07:00 Resp 20 03/12/16 07:00 BP 120/59 03/12/16 07:00 Pulse Ox 95 03/12/16 07:00 Intake & Output 03/11/16 03/12/16 03/12/16 18:59 06:59 18:59 Intake Total 820 400 Balance 820 400 Weight 61.235 kg Intake: Oral 820 400 Other: Voiding Method Toilet # Voids 1 1 # Bowel Movements 2 - Exam GENERAL: Pt awake and alert, well-appearing, well-nourished, and in no acute distress. LUNGS: Breath sounds clear to auscultation bilaterally. No wheezes, rales, or rhonchi. HEART: Heart S1, S2, no S3 or S4. Regular rate and rhythm. No murmurs, rubs or gallops. ABDOMEN: Soft, mild left lower quadrant tenderness, nondistended, hyperactive bowel sounds. No guarding, no rebound. Left-sided colostomy. NEUROLOGICAL: Pt oriented x 3. - Labs CBC & Chem 7: 03/12/16 07:58 03/12/16 07:58 Labs: Abnormal Lab Results - Last 24 Hours (Table) 03/12/16 Range/Units 07:58 Carbon Dioxide 34 H (22-30) mmol/L BUN 5 L (7-17) mg/dL Assessment and Plan Plan: Impression: 1. Diverticulitis. 2. Sigmoid diverticular abscess. 3. History of perforated diverticulitis status post bowel resection with colostomy in July 2015. 4. History of autoimmune hepatitis and cirrhosis of the liver. Plan: 1. Continue soft diet. Antibiotics has been transitioned to orals. Continue supportive treatment and pain management. Continue follow with primary service and gastroenterology. Discharge planning in progress per primary service. Patient will follow-up with Dr. Spears in the outpatient setting in 1 week. The above impression and plan have been discussed and directed by Dr. Spears. Itz KWONG acting as scribe for Dr. Spears.
--- NOTE | 2016-03-12 14:46 | P.DS ---
Providers Date of admission: 03/06/16 18:33 Expected date of discharge: 03/12/16 Attending physician: Alicia Davidson Consults: 03/06/16 18:34 Consult Physician Stat Consulting Provider: Taiwo Spears Consult Reason/Comments: Diverticular abscess Do you want consulting provider notified?: Yes Primary care physician: [facility] Course: This is a 60-year-old female. Her primary care doctor is Dr. Dowling. She also follows with Dr. Lugo for autoimmune hepatitis. She has a past medical history for autoimmune hepatitis, cirrhosis of the liver, hypothyroidism , morbid obesity status post lap band, perforated diverticulitis status post colon resection and colostomy by Dr. Sepulveda at [facility] in July 2015 with no plan for reversal of colostomy. Patient states that on February 17 she started feeling sick with watery diarrhea. Her other family members had the same so she wasn't too concerned about it. She states she would have it for about 3-4 days and then she would feel better for about 2 days and then become worse again. She had continued abdominal pain. She finally came into [facility] emergency center for evaluation. CAT scan of the abdomen showed a distal sigmoid diverticular abscess. Patient was afebrile. White count was 15.2 and repeat 12.4. Patient was started on Flagyl and Levaquin and admitted to the [facility] floor. She has been seen in consultation by Dr. Lugo and general surgeon, Dr. Spears, with plan for CT-guided drainage but abscess is not accessible at this time. 03/08: Patient still has intermittent chills. Low-grade failure, patient is currently on IV antibiotics with no plan for CT-guided drainage as it is small and inaccessible, Dr. Lugo in Dr. Spears is following. Clear liquid diet was started by Dr. España today. Patient has tattoos no bowel movement in the colostomy 03/09: Patient has some nausea earlier today with few bites of food no increase in abdominal pain. Patient has some flatus no stools from colostomy. One episode of chills no spiking fevers noted 03/10: She is complaining of yeast infection to the belly button area for which nystatin added. She is currently tolerating a soft diet. She is passing flatus. No bowel movement. 03/11: Patient is complaining of constipation despite use with Colace. This discontinued and patient started on Senokot. White count is 5.5. She states she is eating a little bit more and denies having any vomiting. Abdominal pain is intermittent. 03/12: Patient has had 2 bowel movements after magnesium citrate. She is tolerating a soft diet. Plan for discharge home today in stable condition. Discharge diagnoses: 1. Diverticulitis. 2. History of autoimmune hepatitis and cirrhosis of the liver. 3. Hypothyroidism. 4. History of bowel resection and colostomy for perforated diverticulum, stable. 5. Remote history of tobacco use and dependence. 6. Depression recurrent. Discharge plan: Return home Impression and plan of care have been directed as dictated by the signing physician. Sallie Cintron nurse practitioner acting as scribe for signing physician. Patient Condition at Discharge: Good Plan - Discharge Summary New Discharge Prescriptions: Ciprofloxacin HCl [Cipro] 500 mg PO Q12HR #28 tablet HYDROcodone/APAP 7.5-325MG [[place] 7.5-325] 1 tab PO Q6HR PRN #30 tab PRN Reason: Pain Nystatin 100,000 Unit/gm Oint [Mycostatin Oint] 1 applic TOPICAL TID #30 applic metroNIDAZOLE [Flagyl] 500 mg PO TID #42 tab Discharge Medication List Ferrous Sulfate [Iron (65 MG Elemental)] 325 mg PO DAILY 08/20/15 [History] Folic Acid 1 mg PO DAILY 08/20/15 [History] Levothyroxine Sodium [Synthroid] 75 mcg PO DAILY 08/20/15 [History] Magnesium Oxide [Mag-Ox] 400 mg PO DAILY 08/20/15 [History] Multivitamin [Multivitamins Adult Gummies] 1 tab PO DAILY 08/20/15 [History] Venlafaxine HCl ER [Effexor XR] 150 mg PO DAILY 08/20/15 [History] azaTHIOprine [Azathioprine] 50 mg PO BID 08/20/15 [History] Multivitamins, Thera [Multivitamin] 1 tab PO DAILY 03/06/16 [History] Ciprofloxacin HCl [Cipro] 500 mg PO Q12HR #28 tablet 03/12/16 [Rx] HYDROcodone/APAP 7.5-325MG [[place] 7.5-325] 1 tab PO Q6HR PRN #30 tab 03/12/16 [ Rx] Nystatin 100,000 Unit/gm Oint [Mycostatin Oint] 1 applic TOPICAL TID #30 applic 03/12/16 [Rx] metroNIDAZOLE [Flagyl] 500 mg PO TID #42 tab 03/12/16 [Rx] Follow up Appointment(s)/Referral(s): Chencho Dowling MD [Primary Care Provider] - 03/20/16 10:00 am Frances Foster MD [STAFF PHYSICIAN] - 03/17/16 3:15 pm Taiwo Spears MD [STAFF PHYSICIAN] - 03/20/16 4:00 pm Patient Instructions/Handouts: Diverticulitis (DC) Activity/Diet/Wound Care/Special Instructions: Soft diet. Activity as tolerated. Discharge Disposition: HOME SELF-CARE
== END 2016-03-12 12:59 | disposition home or self-care (01) | DRG 392 ==
LOC: EC 14:26 → 4MS4W 18:33
PROVIDERS: ADMIT Internal Medicine; ATTEND Internal Medicine
DX: K57.20 Diverticulitis of large intestine with perforation and abscess without bleeding (principal); B37.89 Other sites of candidiasis; K74.60 Unspecified cirrhosis of liver; K75.4 Autoimmune hepatitis; F32.9 Major depressive disorder, single episode, unspecified; E03.9 Hypothyroidism, unspecified; K59.00 Constipation, unspecified; Z87.891 Personal history of nicotine dependence; Z93.3 Colostomy status; Z98.84 Bariatric surgery status
CPT/HCPCS: 36415; 74000; 74177; 80048; 80053; 81001; 82150; 83605; 83690; 85025; 85027; 87040; 87086; 96361; 96365; 96375; 96376; 99285

== ENCOUNTER 2016-03-19 14:50 | Inpatient (IN) | payer BC ==
[2016-03-19] MEDS ORDERED: SODIUM CHLORIDE 0.9% 1,000 ML IV STA ×2 (16:01)
[2016-03-19] MEDS ORDERED: PANTOPRAZOLE 40 MG/10 ML VIAL IVP STA (16:01)
[2016-03-19] MEDS ORDERED: ONDANSETRON 4 MG/2 ML VIAL IVP STA (16:01)
[2016-03-19] MEDS ORDERED: MEPERIDINE 50 MG/ML SYRINGE IVP STA ×2 (16:03→17:47)
--- NOTE | 2016-03-19 16:12 | ED ---
General Adult HPI - General Chief complaint: Abdominal Pain Stated complaint: abdominal pain/lightheaded/nausea Time Seen by Provider: 03/19/16 15:36 Source: patient, family, RN notes reviewed, old records reviewed Mode of arrival: ambulatory Limitations: no limitations - History of Present Illness Initial comments: Chief complaint history of present illness a 60-year-old female here with . The patient was recently in hospital for diverticulitis with an abscess. She's been home for 1 week on by mouth antibiotics. This morning she developed increased lower abdominal pain nausea. Increase stool via her colostomy bag. Patient had a perforated diverticulum in July and had partial colon resection at that time and a colostomy was established. - Related Data Home Medications Medication Instructions Recorded Confirmed Ferrous Sulfate [Iron (65 MG 325 mg PO DAILY 08/20/15 03/19/16 Elemental)] Folic Acid 1 mg PO DAILY 08/20/15 03/19/16 Levothyroxine Sodium [Synthroid] 75 mcg PO DAILY 08/20/15 03/19/16 Magnesium Oxide [Mag-Ox] 400 mg PO DAILY 08/20/15 03/19/16 Multivitamin [Multivitamins Adult 1 tab PO DAILY 08/20/15 03/19/16 Gummies] Venlafaxine HCl ER [Effexor XR] 150 mg PO DAILY 08/20/15 03/19/16 azaTHIOprine [Azathioprine] 50 mg PO BID 08/20/15 03/19/16 Multivitamins, Thera [Multivitamin] 1 tab PO DAILY 03/06/16 03/19/16 Previous Rx's Medication Instructions Recorded Ciprofloxacin HCl [Cipro] 500 mg PO Q12HR #28 tablet 03/12/16 HYDROcodone/APAP 7.5-325MG [[place] 1 tab PO Q6HR PRN #30 tab 03/12/16 7.5-325] Nystatin 100,000 Unit/gm Oint 1 applic TOPICAL TID #30 applic 03/12/16 [Mycostatin Oint] metroNIDAZOLE [Flagyl] 500 mg PO TID #42 tab 03/12/16 Allergies Allergy/AdvReac Type Severity Reaction Status Date / Time acetaminophen [From Vicodin] Allergy Itching Verified 03/19/16 15:14 hydrocodone bitartrate Allergy Itching Verified 03/19/16 15:14 [From Vicodin] morphine Allergy Itching Verified 03/19/16 15:14 amoxicillin [From Augmentin] AdvReac Nausea Verified 03/19/16 15:14 clavulanic acid AdvReac Nausea Verified 03/19/16 15:14 [From Augmentin] Review of Systems ROS Statement: Those systems with pertinent positive or pertinent negative responses have been documented in the HPI. Review of systems. No headache no visual acuity changes no chest pain or shortness of breath patient has lower abdominal pain that goes up to the middle of the abdomen. Nausea but no vomiting. No back pain. No neuro deficits. Decreased appetite. All systems were otherwise reviewed. Past medical problems significant for autoimmune cirrhosis, liver disease. Hypothyroidism. Rate ever taken July of this year. Surgeries colostomy at that same time. Patient also had bariatric surgery 15 years ago, breast surgery, post cystectomy and appendectomy. She's had hysterectomy as well. Family history mother had lung cancer and COPD father had leukemia. Patient quit smoking 25 years ago. Drink alcohol socially. ALLERGIES hydrocodone, morphine, penicillin. The patient states she can take Dilaudid but Demerol is preferred. ROS Other: All systems not noted in ROS Statement are negative. Past Medical History Past Medical History: Liver Disease, Thyroid Disorder Additional Past Medical History / Comment(s): Perforated diverticulum status post colon resection and colostomy at [facility] July 2015, autoimmune hepatitis, cirrhosis of the liver History of Any Multi-Drug Resistant Organisms: None Reported Past Surgical History: Bariatric Surgery, Breast Surgery, Cholecystectomy, Hysterectomy Additional Past Surgical History / Comment(s): Colon resection and colostomy in July 2015 at [facility] with Dr. Baugh knee surgery, right foot surgery, benign lump removed from left breast Past Anesthesia/Blood Transfusion Reactions: Unable to Obtain Additional Past Anesthesia/Blood Transfusion Reaction / Comment(s): pt states problem during surgery Past Psychological History: Depression Smoking Status: Former smoker Past Alcohol Use History: None Reported Additional Past Alcohol Use History / Comment(s): Patient was a smoker one pack per day for 17 years and quit 25 years ago. She denies any medical marijuana, marijuana or street drug use. She drinks alcohol on a rare basis. Past Drug Use History: Marijuana - Past Family History Mother Family Medical History: Cancer, COPD Additional Family Medical History / Comment(s): Mother is age 80 and dying from lung cancer. Father Additional Family Medical History / Comment(s): Father at age 80 from leukemia. Sister(s) Additional Family Medical History / Comment(s): Patient has 1 sister with no major medical problems. She does not have any brothers. She has one daughter and one son with no major medical problems. General Exam - General Exam Comments Initial Comments: General: The patient is awake and alert, in moderate distress because of lower abdominal pain nausea. Vital signs show temperature 97.9 pulse 86 respiratory rate 18 pulse ox 97% room air blood pressure 131/89. Elevated systolic and diastolic noted. Patient is in pain. She will be seen by her family physician this week. Eye: Pupils are equal, round and reactive to light, extra-ocular movements are intact ; there is normal conjunctiva bilaterally. No signs of icterus. Ears, nose, mouth and throat: There are moist mucous membranes and no oral lesions. Neck: The neck is supple, there is no tenderness . Cardiovascular: There is a regular rate and rhythm. No murmur, rub or gallop is appreciated. Respiratory: Lungs are clear to auscultation, respirations are non-labored, breath sounds are equal. No wheezes, stridor, rales, or rhonchi. Gastrointestinal: Patient has abdominal pain, is nauseated but not vomiting. Patient has a colostomy. Recently diagnosed with a abdominal abscess secondary to diverticulitis. Currently on oral antibiotics. Colostomy bag functioning. Abdomen tender to palpation. Voluntary guarding. Back: There is no tenderness to palpation in the midline. There is no obvious deformity. No rashes noted. Musculoskeletal: Normal ROM, no tenderness, There is no pedal edema. There is no calf tenderness or swelling. Sensation intact. Pulses equal bilaterally 2+. Neurological: No neuro deficits complained of were noted. Skin: Skin is warm and dry and no rashes or lesions are noted. Limitations: no limitations Course Vital Signs 03/19/16 03/19/16 03/19/16 15:15 17:00 18:59 Temperature 97.9 F Pulse Rate 86 62 76 Respiratory 18 18 20 Rate Blood Pressure 131/89 174/85 153/89 O2 Sat by Pulse 97 96 97 Oximetry Medical Decision Making - Medical Decision Making Medical decision making; patient white count is 9.3 hemoglobin 14 hematocrit 41 , INR 1.3, potassium 4.3, BUN 6 creatinine 0.67 with a GFR greater than 60. Glucose 92. Amylase mildly elevated 115. Lipase normal at 261. Urine clean no signs of infection or blood. Two-view x-rays of the abdomen was done and reviewed by radiologist his findings are there is been a previous cholecystectomy. There is a lap band in place. The tubing is disconnected from the lap band port. There are minimally dilated loops of small bowel throughout the mid abdomen. There are multiple air -fluid levels. There is no evidence obstruction or free air. There are phleboliths within the pelvis. Impression; #1 disconnected LAP-BAND. #2 localized ileus versus early small bowel obstruction. As read by Dr. Young CT of the abdomen was done with IV and oral contrast. The entire report was reviewed. The final impression is #1 staple abscess in the left lower quadrant. The abscess measured 5.2 x 3.8 last week currently is 4.3 x 3.8 cm. There was no evidence of bowel obstruction, no evidence of free fluid or free air is seen. Also #2 stable left lower osteotomy with associated herniation of small bowel but without obstruction. #3 status post LAP-BAND. 4) dilatation of the distal common bile duct as well as pancreatic duct without a definite pancreatic lesion. ERCP versus MRCP may be worthwhile. #5 stable spondylolisthesis of L5 on S1. As read by Dr. Young The case discussed with Dr. dr ruiz, the patient's surgeon. He wants patient admitted his service with IV fluids, pain medication and antibiotics. - Lab Data Result diagrams: 03/19/16 16:20 03/19/16 16:20 Lab Results 03/19/16 03/19/16 03/19/16 Range/Units 16:20 16:20 16:20 WBC 9.3 (3.8-10.6) k/uL RBC 4.46 (3.80-5.40) m/uL Hgb 14.1 (11.4-16.0) gm/dL Hct 41.4 (34.0-46.0) % MCV 92.9 (80.0-100.0) fL MCH 31.7 (25.0-35.0) pg MCHC 34.1 (31.0-37.0) g/dL RDW 13.8 (11.5-15.5) % Plt Count 374 (150-450) k/uL Neutrophils % 72 % Lymphocytes % 19 % Monocytes % 6 % Eosinophils % 1 % Basophils % 1 % Neutrophils # 6.7 (1.3-7.7) k/uL Lymphocytes # 1.8 (1.0-4.8) k/uL Monocytes # 0.5 (0-1.0) k/uL Eosinophils # 0.1 (0-0.7) k/uL Basophils # 0.0 (0-0.2) k/uL PT (9.0-12.0) sec INR (<1.1) APTT (22.0-30.0) sec Sodium 141 (137-145) mmol/L Potassium 4.3 (3.5-5.1) mmol/L Chloride 106 (98-107) mmol/L Carbon Dioxide 23 (22-30) mmol/L Anion Gap 12 mmol/L BUN 6 L (7-17) mg/dL Creatinine 0.67 (0.52-1.04) mg/dL Est GFR (MDRD) Af Amer >60 (>60 ml/min/1.73 sqM) Est GFR (MDRD) Non-Af >60 (>60 ml/min/1.73 sqM) Glucose 92 (74-99) mg/dL Plasma Lactic Acid Edmundo 1.1 (0.7-2.0) mmol/L Calcium 9.7 (8.4-10.2) mg/dL Total Bilirubin 0.5 (0.2-1.3) mg/dL AST 34 (14-36) U/L ALT 37 (9-52) U/L Alkaline Phosphatase 87 (38-126) U/L Total Protein 8.0 (6.3-8.2) g/dL Albumin 4.1 (3.5-5.0) g/dL Amylase 115 H (30-110) U/L Lipase 261 (23-300) U/L Urine Color Urine Appearance (Clear) Urine pH (5.0-8.0) Ur Specific Electra (1.001-1.035) Urine Protein (Negative) Urine Glucose (UA) (Negative) Urine Ketones (Negative) Urine Blood (Negative) Urine Nitrate (Negative) Urine Bilirubin (Negative) Urine Urobilinogen (<2.0) mg/dL Ur Leukocyte Esterase (Negative) 03/19/16 03/19/16 Range/Units 16:20 16:20 WBC (3.8-10.6) k/uL RBC (3.80-5.40) m/uL Hgb (11.4-16.0) gm/dL Hct (34.0-46.0) % MCV (80.0-100.0) fL MCH (25.0-35.0) pg MCHC (31.0-37.0) g/dL RDW (11.5-15.5) % Plt Count (150-450) k/uL Neutrophils % % Lymphocytes % % Monocytes % % Eosinophils % % Basophils % % Neutrophils # (1.3-7.7) k/uL Lymphocytes # (1.0-4.8) k/uL Monocytes # (0-1.0) k/uL Eosinophils # (0-0.7) k/uL Basophils # (0-0.2) k/uL PT 12.4 H (9.0-12.0) sec INR 1.3 (<1.1) APTT 22.3 (22.0-30.0) sec Sodium (137-145) mmol/L Potassium (3.5-5.1) mmol/L Chloride (98-107) mmol/L Carbon Dioxide (22-30) mmol/L Anion Gap mmol/L BUN (7-17) mg/dL Creatinine (0.52-1.04) mg/dL Est GFR (MDRD) Af Amer (>60 ml/min/1.73 sqM) Est GFR (MDRD) Non-Af (>60 ml/min/1.73 sqM) Glucose (74-99) mg/dL Plasma Lactic Acid Edmundo (0.7-2.0) mmol/L Calcium (8.4-10.2) mg/dL Total Bilirubin (0.2-1.3) mg/dL AST (14-36) U/L ALT (9-52) U/L Alkaline Phosphatase (38-126) U/L Total Protein (6.3-8.2) g/dL Albumin (3.5-5.0) g/dL Amylase (30-110) U/L Lipase (23-300) U/L Urine Color Light Yellow Urine Appearance Clear (Clear) Urine pH 7.0 (5.0-8.0) Ur Specific Electra 1.003 (1.001-1.035) Urine Protein Negative (Negative) Urine Glucose (UA) Negative (Negative) Urine Ketones Negative (Negative) Urine Blood Negative (Negative) Urine Nitrate Negative (Negative) Urine Bilirubin Negative (Negative) Urine Urobilinogen <2.0 (<2.0) mg/dL Ur Leukocyte Esterase Negative (Negative) Disposition Clinical Impression: Abdominal abscess, History of diverticulitis of colon Disposition: ADMITTED IP TO THIS HOSP Condition: Serious
[2016-03-19] MEDS ORDERED: RX INFO: IV CONTRAST WAS GIVEN 1 EACH MISC MISCELLANE PRN (16:22)
[2016-03-19] MEDS ORDERED: IOHEXOL 350 MG/ML 25 ML BOTTLE (ORAL USE) PO PRN (16:22)
[2016-03-19 16:39] LABS: Basophils % (A) 1 %; CH 32.3; CHCM 34.9; Eosinophils # (A) 0.1 k/uL (0-0.7); Eosinophils % (A) 1 %; HCT 41.4 % (34.0-46.0); HDW 2.99; HGB 14.1 gm/dL (11.4-16.0); Luc # (Auto) 0.18; Luc % (Auto) 2; Lymphocytes # (A) 1.8 k/uL (1.0-4.8); Lymphocytes % (A) 19 %; MCH 31.7 pg (25.0-35.0); MCHC 34.1 g/dL (31.0-37.0); MCV 92.9 fL (80.0-100.0); Mean Platelet Volume 6.9; Monocytes # (A) 0.5 k/uL (0-1.0); Monocytes % (A) 6 %; Neutrophils # (A) 6.7 k/uL (1.3-7.7); Neutrophils % (A) 72 %; RBC 4.46 m/uL (3.80-5.40); RDW 13.8 % (11.5-15.5); WBC 9.3 k/uL (3.8-10.6); WBC (Perox) 9.47
[2016-03-19 16:42] LABS: Appearance,Urine Clear (Clear); Bilirubin,Urine Negative (Negative); Glucose,Urine (UA) Negative (Negative); Ketones,Urine Negative (Negative); Leukocyte Esterase,Urine Negative (Negative); Nitrite,Urine Negative (Negative); Protein,Urine Negative (Negative); Specific Gravity,Urine 1.003 (1.001-1.035); UA Billing (MACRO vs. MICRO) CHEM; Urobilinogen,Urine <2.0 mg/dL (<2.0)
--- NOTE | 2016-03-19 16:52 | XR ---
EXAMINATION TYPE: XR abdomen 2V DATE OF EXAM ORDERED: 03/19/2016 4:48 PM HISTORY: Right-sided abdominal pain. COMPARISON: Previous study dated 03/11/2016. FINDINGS: There has been a previous cholecystectomy. There is a lap band in place. The tubing is dis connected from the lap band port. There are minimally dilated loops of small bowel throughout the mid abdomen. There are multiple air-f luid levels. There is no evidence of obstruction or free air. There are phleboliths within the pelvis . IMPRESSION: 1. DISCONNECTED LAP BAND. 2. LOCALIZED ILEUS VERSUS EARLY SMALL BOWEL OBSTRUCTION.
[2016-03-19 16:55] LABS: ALT 37 U/L (9-52); AST 34 U/L (14-36); Alkaline Phosphatase 87 U/L (38-126); Amylase 115 U/L (30-110); Anion Gap 12 mmol/L; Blood Urea Nitrogen 6 mg/dL (7-17); Calcium 9.7 mg/dL (8.4-10.2); Carbon Dioxide 23 mmol/L (22-30); Chloride 106 mmol/L (98-107); Glucose 92 mg/dL (74-99); Non-African American GFR(MDRD) >60 (>60 ml/min/1.73 sqM); Potassium 4.3 mmol/L (3.5-5.1); Sodium 141 mmol/L (137-145); Total Bilirubin 0.5 mg/dL (0.2-1.3)
[2016-03-19 17:05] LABS: INR 1.3 (<1.1); Partial Thromboplastin Time 22.3 sec (22.0-30.0); Prothrombin Time 12.4 sec (9.0-12.0)
--- NOTE | 2016-03-19 19:00 | CT ---
EXAMINATION TYPE: CT abdomen pelvis w con DATE OF EXAM: 03/19/2016 6:46 PM REFERENCE: Previous study dated 03/06/2016 HISTORY: Abdominal pain, recent dx diverticular abscess HISTORY: Mid to left pelvic pain. History of diverticular abscess. CT DLP: 389.90 mGy Automated exposure control for dose reduction was used. TECHNIQUE: Helical acquisition through the abdomen and pelvis was obtained following the oral ingesti on of with Oral Contrast and following intravenous administration of 100 mL of Omnipaque 300. The cindy a was reformatted in axial, coronal and sagittal projections. Delayed images were also obtained. FINDINGS: There is minimal dependent atelectasis in the dependent portions of the lungs. There is no pleural or pericardial fluid. There is a lap band in place. There is a mature pouch. Within the abdomen, the gallbladder has been removed. The liver and spleen appear normal. Both adrenal glands are normal. There is prominence of the distal common bile duct. The pancreatic duct is also prominent measuring 3.8 mm. No definite pancreatic lesion is seen. There are parapelvic cysts involving the left kidney. The kidneys are otherwise unremarkable. There is no significant retroperitoneal, iliac or inguinal adenopathy. There is vascular calcification including the coronary arteries. The uterus and ovaries are not visualized. The bladder is unremarkable. The loculated fluid collection in the left hemipelvis which previously measured 5.2 x 3.8 cm today me asures 4.3 x 3.8 cm. There is a left lower quadrant osteotomy and there is an associated hernia containing nonobstructed s mall bowel. There is no evidence of bowel obstruction. No free fluid and no free air is seen. There is a grade 3 bordering on grade 4 fused spondylolisthesis of L5 on S1 due to a bilateral lysis. IMPRESSION: 1. STABLE ABSCESS IN THE LEFT LOWER QUADRANT. 2. STABLE LEFT LOWER OSTEOTOMY WITH ASSOCIATED HERNIATION OF SMALL BOWEL BUT WITHOUT OBSTRUCTION. 3. STATUS POST LAP BAND. 4. DILATATION OF THE DISTAL COMMON BILE DUCT WELL THE PANCREATIC DUCT WITHOUT A DEFINITE PANCRE ATIC LESION. ERCP VERSUS MRCP MAY BE WORTHWHILE. 5. STABLE SPONDYLOLISTHESIS OF L5 ON S1.
[2016-03-19] MEDS ORDERED: ONDANSETRON 4 MG/2 ML VIAL IVP PRN (19:27)
[2016-03-19] MEDS ORDERED: NALOXONE 0.4 MG/ML 1 ML VIAL IV PRN (19:27)
[2016-03-19] MEDS ORDERED: LEVOFLOXACIN 500MG-D5W PMX 500 MG in DEXTROSE/WATER 1 100ML.BAG IVPB STA (19:31)
[2016-03-19] MEDS: HYDROmorphone 1 MG/ML 1 ML SYRINGE IV PRN ×2 (19:50→23:25)
[2016-03-19] MEDS: SODIUM CHLORIDE 0.9% 1,000 ML IV SCH (22:00)
[2016-03-19] MEDS: metroNIDAZOLE-NS PMX 500 MG in SALINE 1 100ML.BAG IVPB SCH ×2 (22:09→23:33)
[2016-03-19 22:31] VITALS: BMI 24.7
[2016-03-19] MEDS: diphenhydrAMINE 50 MG/ML 1 ML VIAL IVP PRN (23:27)
[2016-03-20] MEDS: HYDROmorphone 1 MG/ML 1 ML SYRINGE IV PRN ×6 (02:29→20:29)
[2016-03-20] MEDS: metroNIDAZOLE-NS PMX 500 MG in SALINE 1 100ML.BAG IVPB SCH ×4 (05:41→22:59)
[2016-03-20] MEDS: SODIUM CHLORIDE 0.9% 1,000 ML IV SCH ×3 (05:43→21:16)
[2016-03-20] MEDS: diphenhydrAMINE 50 MG/ML 1 ML VIAL IVP PRN (05:46)
[2016-03-20 08:15] LABS: Basophils # (A) 0.1 k/uL (0-0.2); Basophils % (A) 1 %; CH 31.7; CHCM 33.3; Eosinophils # (A) 0.2 k/uL (0-0.7); Eosinophils % (A) 4 %; HCT 39.7 % (34.0-46.0); HGB 12.9 gm/dL (11.4-16.0); Luc # (Auto) 0.17; Luc % (Auto) 3; Lymphocytes # (A) 1.8 k/uL (1.0-4.8); Lymphocytes % (A) 29 %; MCH 31.2 pg (25.0-35.0); MCHC 32.5 g/dL (31.0-37.0); MCV 95.9 fL (80.0-100.0); Mean Platelet Volume 6.9; Monocytes # (A) 0.4 k/uL (0-1.0); Monocytes % (A) 7 %; Neutrophils # (A) 3.6 k/uL (1.3-7.7); Neutrophils % (A) 57 %; RBC 4.14 m/uL (3.80-5.40); RDW 13.8 % (11.5-15.5); WBC 6.3 k/uL (3.8-10.6); WBC (Perox) 6.46
--- NOTE | 2016-03-20 08:29 | P.GSHP ---
History of Present Illness H&P Date: 03/20/16 Chief Complaint: Severe lower quadrant pain This a 60-year-old female who presents emergency room last night. Patient is a known history of diverticular abscess. Patient states the pain increased significantly last night. She was unable tolerate the pain with her oral medication. She has been on outpatient treatment for diverticular abscess for several weeks. - Constitutional Constitutional: Reports as per HPI Past Medical History Past Medical History: Liver Disease, Thyroid Disorder Additional Past Medical History / Comment(s): Perforated diverticulum status post colon resection and colostomy at [facility] July 2015, autoimmune hepatitis, cirrhosis of the liver History of Any Multi-Drug Resistant Organisms: None Reported Past Surgical History: Bariatric Surgery, Breast Surgery, Cholecystectomy, Hysterectomy Additional Past Surgical History / Comment(s): Colon resection and colostomy in July 2015 at [facility] with Dr. Baugh knee surgery, right foot surgery, benign lump removed from left breast Past Anesthesia/Blood Transfusion Reactions: Unable to Obtain Additional Past Anesthesia/Blood Transfusion Reaction / Comment(s): pt states problem during surgery Past Psychological History: Depression Smoking Status: Former smoker Past Alcohol Use History: None Reported Additional Past Alcohol Use History / Comment(s): Patient was a smoker one pack per day for 17 years and quit 25 years ago. She denies any medical marijuana, marijuana or street drug use. She drinks alcohol on a rare basis. Past Drug Use History: Marijuana - Past Family History Mother Family Medical History: Cancer, COPD Additional Family Medical History / Comment(s): Mother is age 80 and dying from lung cancer. Father Additional Family Medical History / Comment(s): Father at age 80 from leukemia. Sister(s) Additional Family Medical History / Comment(s): Patient has 1 sister with no major medical problems. She does not have any brothers. She has one daughter and one son with no major medical problems. Medications and Allergies Home Medications Medication Instructions Recorded Confirmed Type Ferrous Sulfate [Iron (65 MG 325 mg PO DAILY 08/20/15 03/19/16 History Elemental)] Folic Acid 1 mg PO DAILY 08/20/15 03/19/16 History Levothyroxine Sodium [Synthroid] 75 mcg PO DAILY 08/20/15 03/19/16 History Magnesium Oxide [Mag-Ox] 400 mg PO DAILY 08/20/15 03/19/16 History Multivitamin [Multivitamins Adult 1 tab PO DAILY 08/20/15 03/19/16 History Gummies] Venlafaxine HCl ER [Effexor XR] 150 mg PO DAILY 08/20/15 03/19/16 History azaTHIOprine [Azathioprine] 50 mg PO BID 08/20/15 03/19/16 History Multivitamins, Thera [Multivitamin] 1 tab PO DAILY 03/06/16 03/19/16 History Allergies Allergy/AdvReac Type Severity Reaction Status Date / Time acetaminophen [From Vicodin] Allergy Itching Verified 03/19/16 15:14 hydrocodone bitartrate Allergy Itching Verified 03/19/16 15:14 [From Vicodin] morphine Allergy Itching Verified 03/19/16 15:14 amoxicillin [From Augmentin] AdvReac Nausea Verified 03/19/16 15:14 clavulanic acid AdvReac Nausea Verified 03/19/16 15:14 [From Augmentin] Surgical - Exam Vital Signs Temp Pulse Resp BP Pulse Ox 97.9 F 86 18 131/89 97 03/19/16 15:15 03/19/16 15:15 03/19/16 15:15 03/19/16 15:15 03/19/16 15:15 - General well developed, moderate distress - Eyes PERRL - ENT normal pinna - Neck no masses - Respiratory normal expansion - Cardiovascular Rhythm: regular - Abdomen Abdomen soft. There is tenderness in the right left lower quadrant. There is minimal rebound tenderness. There is a parastomal hernia. Abdomen: soft Results - Labs 03/20/16 07:49 03/19/16 16:20 - Imaging CT scan - abdomen: report reviewed (4 x 4 centimeter loculated fluid collection in the left lower quadrant.) Assessment and Plan Plan: Diverticular abscess with failed outpatient antibiotic therapy. Patient will undergo exploratory laparotomy and drainage of abscess today.
[2016-03-20 08:35] LABS: Anion Gap 10 mmol/L; Blood Urea Nitrogen 4 mg/dL (7-17); Calcium 9.1 mg/dL (8.4-10.2); Carbon Dioxide 24 mmol/L (22-30); Chloride 110 mmol/L (98-107); Glucose 78 mg/dL (74-99); Non-African American GFR(MDRD) >60 (>60 ml/min/1.73 sqM); Potassium 4.3 mmol/L (3.5-5.1); Sodium 144 mmol/L (137-145)
[2016-03-20] MEDS: PANTOPRAZOLE 40 MG/10 ML VIAL IV SCH (09:18)
[2016-03-20] MEDS ORDERED: IV FLUID CONTINUATION 1,000 ML IV ONE (11:08)
[2016-03-20] MEDS ORDERED: MIDAZOLAM 2 MG/2 ML VIAL IV ONE (11:29)
[2016-03-20] MEDS ORDERED: MIDAZOLAM 2 MG/2 ML VIAL ONE (12:12)
[2016-03-20] MEDS ORDERED: ePHEDrine 50 MG/ML 1 ML AMP ONE (12:12)
[2016-03-20] MEDS ORDERED: ROCURONIUM BROMIDE 10 MG/ML 10 ML VIAL IV ONE (12:12)
[2016-03-20] MEDS ORDERED: PROPOFOL 10 MG/ML 20 ML VIAL IV ONE (12:12)
[2016-03-20] MEDS ORDERED: PHENYLEPHRINE-0.9% NACL SYG 1 MG/10 ML SYRINGE ONE (12:12)
[2016-03-20] MEDS ORDERED: GLYCOPYRROLATE 0.2 MG/ML 2 ML VIAL ONE (12:12)
[2016-03-20] MEDS ORDERED: SUCCINYLCHOLINE CHLORIDE 100 MG/5 ML SYR IV ONE (12:12)
[2016-03-20] MEDS ORDERED: HYDROmorphone (PF) 1 MG/ML ONE (12:12)
[2016-03-20] MEDS ORDERED: ONDANSETRON 4 MG/2 ML VIAL ONE (12:12)
[2016-03-20] MEDS ORDERED: HEPARIN SODIUM,PORCINE 5,000 UNIT/ML 1 ML VIAL ONE (12:12)
[2016-03-20] MEDS ORDERED: NEOSTIGMINE 1 MG/ML 10 ML VIAL ONE (12:12)
[2016-03-20] MEDS ORDERED: LIDOCAINE 1% INJ 10MG/ML (20 ML MDV) ONE (12:12)
[2016-03-20] MEDS ORDERED: fentaNYL (PF) 50 MCG/ML 2 ML AMP ONE (12:12)
[2016-03-20] MEDS ORDERED: LACTATED RINGERS 1,000 ML IV ONE ×3 (12:53→13:16)
[2016-03-20] MEDS ORDERED: fentaNYL (PF) 50 MCG/ML 2 ML AMP IV ONE ×2 (13:06→13:11)
[2016-03-20] MEDS ORDERED: KETOROLAC 30 MG/ML 1 ML VIAL IVP PRN (13:25)
[2016-03-20] MEDS ORDERED: BENZOCAINE/MENTHOL LOZENG 1 EACH LOZENGE MUCOUS MEM PRN (13:25)
--- NOTE | 2016-03-20 13:30 | P.OP ---
Date of Procedure: 03/20/16 Preoperative Diagnosis: Diverticular abscess Postoperative Diagnosis: Left lower quadrant abscess related to rectal stump Procedure(s) Performed: Exposure laparotomy Lysis adhesion Drainage of intra-abdominal abscess Small bowel resection Anesthesia: PEDRO Surgeon: Taiwo Spears Estimated Blood Loss (ml): 40 Pathology: other (Small bowel) Condition: stable Disposition: PACU Description of Procedure: The patient's placed the operative table in the supine position. She received general anesthesia. Her abdomen was prepped and draped in usual sterile fashion. The axilla was entered through a low midline incision. Upon entering the pleural cavity there were dense adhesions. These were lysed with sharp dissection. The small bowel was stuck down on the left pelvis. The small bowel was freed using sharp dissection. The abscess cavity is entered. The abscess cavity appeared to be related to the rectal stump. Prolene sutures rectal stump were seen. At this point the abscess cavity inflamed tissue resected. And then a NELDA drain is placed across here the abscess cavity. The small bowel was examined. There appeared to be evidence of inflammation of serosal tears where the small bowel stuck to the abscess. A limited small bowel resection was performed by dividing the small bowel proximally distally with the FELICITAS stapler and then a [id number] functional end-to-end staple as was created with the FELICITAS and TA stapler. At this point the abdomen was irrigated. There is no bleeding seen. The patient had a pair colostomy hernia. Due to the abscess cavity infection. Decided not repair the hernia. The fascial was closed with looped #1 PDS suture. The skin was closed with serafin. Several Telfa celia were placed in the skin incision site. The patient was sent to recovery in stable condition.
[2016-03-20 16:19] LABS: Anion Gap 8 mmol/L; Blood Urea Nitrogen 4 mg/dL (7-17); Calcium 8.5 mg/dL (8.4-10.2); Carbon Dioxide 25 mmol/L (22-30); Chloride 106 mmol/L (98-107); Glucose 110 mg/dL (74-99); Non-African American GFR(MDRD) >60 (>60 ml/min/1.73 sqM); Potassium 4.1 mmol/L (3.5-5.1); Sodium 139 mmol/L (137-145)
[2016-03-20 16:25] LABS: Basophils # (A) 0.1 k/uL (0-0.2); Basophils % (A) 1 %; CH 31.8; CHCM 33.8; Eosinophils # (A) 0.1 k/uL (0-0.7); Eosinophils % (A) 1 %; HCT 38.8 % (34.0-46.0); HDW 3.06; HGB 12.8 gm/dL (11.4-16.0); Luc # (Auto) 0.07; Luc % (Auto) 1; Lymphocytes # (A) 0.8 k/uL (1.0-4.8); Lymphocytes % (A) 6 %; MCH 31.2 pg (25.0-35.0); MCHC 32.9 g/dL (31.0-37.0); MCV 94.9 fL (80.0-100.0); Mean Platelet Volume 7.8; Monocytes # (A) 0.6 k/uL (0-1.0); Monocytes % (A) 4 %; Neutrophils # (A) 12.5 k/uL (1.3-7.7); Neutrophils % (A) 88 %; RBC 4.09 m/uL (3.80-5.40); RDW 13.8 % (11.5-15.5); WBC 14.1 k/uL (3.8-10.6); WBC (Perox) 14.93
[2016-03-20] MEDS: D5-0.45% NACL WITH KCL 20MEQ/L 1,000 ML IV SCH ×2 (21:06→21:41)
[2016-03-20] MEDS: LEVOFLOXACIN 500MG-D5W PMX 500 MG in DEXTROSE/WATER 1 100ML.BAG IVPB SCH (21:12)
[2016-03-20] MEDS: HEPARIN SODIUM,PORCINE 5,000 UNIT/ML 1 ML VIAL SQ SCH (21:15)
[2016-03-20] MEDS: HYDROmorphone 2 MG/ML 1 ML SYRINGE IVP PRN (23:01)
[2016-03-21] MEDS: HYDROmorphone 2 MG/ML 1 ML SYRINGE IVP PRN ×5 (02:25→12:40)
[2016-03-21] MEDS: SODIUM CHLORIDE 0.9% 1,000 ML IV SCH ×3 (05:30→21:43)
[2016-03-21] MEDS: D5-0.45% NACL WITH KCL 20MEQ/L 1,000 ML IV SCH ×3 (05:30→21:44)
[2016-03-21] MEDS: HEPARIN SODIUM,PORCINE 5,000 UNIT/ML 1 ML VIAL SQ SCH ×2 (07:36→20:21)
[2016-03-21] MEDS: PANTOPRAZOLE 40 MG/10 ML VIAL IV SCH (07:36)
[2016-03-21] MEDS: metroNIDAZOLE-NS PMX 500 MG in SALINE 1 100ML.BAG IVPB SCH ×4 (07:40→23:27)
[2016-03-21 09:46] LABS: Basophils # (A) 0.1 k/uL (0-0.2); Basophils % (A) 1 %; Eosinophils # (A) 0.2 k/uL (0-0.7); Eosinophils % (A) 2 %; HCT 40.5 % (34.0-46.0); HDW 3.06; HGB 13.2 gm/dL (11.4-16.0); Luc # (Auto) 0.07; Luc % (Auto) 1; Lymphocytes # (A) 0.9 k/uL (1.0-4.8); Lymphocytes % (A) 7 %; MCH 30.9 pg (25.0-35.0); MCHC 32.6 g/dL (31.0-37.0); MCV 94.6 fL (80.0-100.0); Monocytes # (A) 0.7 k/uL (0-1.0); Monocytes % (A) 6 %; Neutrophils % (A) 84 %; RBC 4.28 m/uL (3.80-5.40); RDW 13.7 % (11.5-15.5); WBC 11.8 k/uL (3.8-10.6); WBC (Perox) 12.92
[2016-03-21 10:11] LABS: Anion Gap 9 mmol/L; Blood Urea Nitrogen 8 mg/dL (7-17); Calcium 8.4 mg/dL (8.4-10.2); Carbon Dioxide 23 mmol/L (22-30); Chloride 106 mmol/L (98-107); Glucose 114 mg/dL (74-99); Non-African American GFR(MDRD) >60 (>60 ml/min/1.73 sqM); Potassium 4.2 mmol/L (3.5-5.1); Sodium 138 mmol/L (137-145)
[2016-03-21] MEDS: ONDANSETRON 4 MG/2 ML VIAL IVP PRN ×2 (12:42→19:40)
[2016-03-21] MEDS ORDERED: NALOXONE 0.4 MG/ML 1 ML VIAL IV PRN (14:55)
[2016-03-21] MEDS: HYDROmorphone PCA 5 MG/25 ML SYRINGE IV PRN ×2 (15:14→21:22)
--- NOTE | 2016-03-21 15:28 | P.CONS ---
History of Present Illness - Reason for Consult Consult date: 03/19/16 Medical management Requesting physician: Taiwo Spears - Chief Complaint Abdominal pain, distal sigmoid abscess, autoimmune hepatitis, hypothyroidis - History of Present Illness 60-year-old female one of my office patient who seen Dr. Lugo for autoimmune hepatitis who is known to have history of hypothyroidism and advance liver disease who was admitted to [facility] back in July 2015 and was taking care by Dr. Mitchell for perforated diverticuli had colon resection and colostomy at the time and has done well up till January 2016 when around the developed to have significant pain and discomfort with increase diarrhea ended up coming to [facility] on 03/06 and admitted until 03/12/2016 for severe abdominal pain found to have diverticulitis with abscess measure at the time 5.2 time 3.[address] Spears and Dr. Lugo, was stabilized and sent home on March 12 on Cipro and metronidazole. Patient for the last 48 hours developed to have severe pain and increase symptom was with worsening discomfort lower abdominal region especially the left lower quadrant become much worse. Ended up coming to the emergency department at [facility] was seen by Dr. Lujan CAT scan of the abdomen showed the abscess currently slightly bit smaller and stable with no sign of free air under the diaphragma. She had other finding consistent with previous surgery and dilated common duct and pancreatic duct as well recommended possibly doing MRCP or ERCP down the road. Patient was started on Levaquin and metronidazole IV along with pantoprazole and admitted to the hospital Review of Systems Constitutional: Reports anorexia, Reports chronic headaches, Reports chronic pain, Reports fatigue, Reports fever, Reports lethargy, Reports malaise, Reports poor appetite, Reports weakness, Reports weight loss, Denies as per HPI , Denies chills, Denies daytime sleepiness, Denies night sweats, Denies sweats, Denies weight gain Eyes: bilateral as per HPI Ears: bilateral: decreased hearing Ears, nose, mouth and throat: Reports ant. neck pain, Reports mouth pain, Reports nasal congestion, Reports sinus pain, Reports sinus pressure, Denies as per HPI, Denies bleeding gums, Denies dental pain, Denies dysphagia, Denies epistaxis, Denies headache, Denies hoarseness, Denies nasal discharge, Denies neck fullness/pressure, Denies neck lump, Denies nose pain, Denies odynophagia, Denies post-nasal drip, Denies swelling in mouth, Denies swelling in throat, Denies sore throat, Denies vertigo, Denies voice changes Breasts: bilateral: as per HPI Cardiovascular: Reports chest pain, Reports decreased exercise tolerance, Reports edema, Reports high blood pressure, Reports irregular heart beat, Reports orthopnea, Reports phlebitis, Reports shortness of breath, Denies as per HPI, Denies claudication, Denies dyspnea on exertion, Denies leg edema, Denies lightheadedness, Denies palpitations, Denies paroxysmal nocturnal dyspnea , Denies rapid heart beat, Denies syncope Respiratory: Reports congestion, Reports cough with sputum, Reports pain on inspiration, Denies as per HPI, Denies cough, Denies dyspnea, Denies excessive sputum, Denies hemoptysis, Denies home oxygen, Denies pain, Denies pleurisy, Denies respiratory infections, Denies sleep apnea, Denies snoring, Denies wheezing Gastrointestinal: Reports abdominal pain, Reports bloating, Reports change in bowel habits, Reports dyspepsia, Reports loss of appetite, Reports nausea, Reports vomiting, Denies as per HPI, Denies belching, Denies BRBPR, Denies coffee ground emesis, Denies constipation, Denies diarrhea, Denies early satiety , Denies excessive gas, Denies heartburn, Denies hematemesis, Denies hematochezia, Denies indigestion, Denies jaundice, Denies lactose intolerance, Denies melena Genitourinary: Reports stress incontinence, Reports urge incontinence, Reports urgency, Reports urinary frequency, Denies as per HPI, Denies abnormal vaginal bleeding, Denies decreased libido, Denies difficulty conceiving, Denies difficulty voiding, Denies dysmenorrhea, Denies dyspareunia, Denies dysuria, Denies flank pain, Denies genital sores, Denies hematuria, Denies hot flashes, Denies incomplete emptying, Denies kidney stones, Denies menorrhagia, Denies mixed incontinence, Denies nocturia, Denies pelvic pain, Denies post void dribbling, Denies , Denies prolapse symptoms, Denies vaginal discharge, Denies vaginal dryness, Denies vaginal itching, Denies vaginal odor Menstruation: Denies as per HPI, Denies amenorrhea, Denies amenorrhea on BC, Denies currently menstrual, Denies cycle < 21 days, Denies cycle > 35 days, Denies cycle variable, Denies menses 1-7 days, Denies menses 8 or > days, Denies menses variable, Denies period heavy, Denies period light, Denies period normal, Denies period spotting, Denies post hysterectomy, Denies postmenopausal , Denies premenarcheal Musculoskeletal: Reports arm numbness/tingling, Reports leg numbness/tingling, Reports limitation of motion, Reports myalgias, Reports neck pain, Denies as per HPI, Denies atrophy, Denies fractures, Denies frequent falls, Denies gait dysfunction, Denies hot joints, Denies loss of height, Denies low back pain, Denies morning stiffness, Denies muscle cramps, Denies muscle weakness, Denies neck stiffness, Denies prior amputations, Denies redness of joints, Denies shooting arm pain, Denies shooting leg pain Musculoskeletal: bilateral: ankle stiffness Integumentary: Reports rash, Reports sores, Denies as per HPI, Denies acne, Denies boils, Denies brittle nails, Denies change in hair/nails, Denies color changes, Denies darkening of skin, Denies depigmentation, Denies dryness, Denies foot/leg ulcers, Denies growths, Denies hirsutism, Denies lesions, Denies onychomycosis, Denies pruritus, Denies striae, Denies unusual bruising, Denies wounds Neurological: Reports ataxia, Reports migraines, Reports motor disturbance, Reports numbness, Reports paralysis, Reports spasticity, Reports tingling, Denies as per HPI, Denies aphasia, Denies balance difficulties, Denies burning pain, Denies change in mentation, Denies change in smell/taste, Denies change in speech, Denies confusion, Denies convulsions, Denies double vision, Denies gait dysfunction, Denies head injury, Denies headaches, Denies hearing difficulties, Denies lack of coordination, Denies loss of vision, Denies memory loss, Denies paresthesias, Denies seizures, Denies sensory deficit, Denies syncope, Denies tic, Denies transient paralysis, Denies tremors, Denies vertigo , Denies weakness, Denies visual changes Psychiatric: Reports anhedonia, Reports anxiety, Reports depression, Reports mood swings, Denies as per HPI, Denies anxiety attacks, Denies change in appetite, Denies change in libido, Denies change in sleep habits, Denies confusion, Denies difficulty concentrating, Denies disorientation, Denies hallucinations, Denies hopelessness, Denies hypersomnia, Denies insomnia, Denies irritability, Denies memory loss, Denies paranoia, Denies sadness/ tearfulness, Denies sleep disturbances, Denies suicidal ideation Endocrine: Reports cold intolerance, Reports excessive sweating, Reports excessive thirst, Reports fatigue, Reports polyphagia, Reports polyuria, Denies as per HPI, Denies deepening of the voice, Denies flushing, Denies heat intolerance, Denies high blood sugars, Denies increase in ring/shoe/hat size, Denies low blood sugars, Denies nocturia, Denies palpitations, Denies polydipsia , Denies proptosis, Denies recent glucocorticoid use, Denies thyroid mass, Denies weight change Hematologic/Lymphatic: Reports easy bruising, Denies as per HPI, Denies easy bleeding, Denies lymphadenopathy, Denies lymphedema, Denies thrombophilia Allergic/Immunologic: Denies as per HPI, Denies allergic rhinitis, Denies anaphylaxis, Denies angioedema, Denies gluten intolerance, Denies persistent infections, Denies seasonal allergies, Denies urticaria, Denies wheezing Past Medical History Past Medical History: Liver Disease, Thyroid Disorder Additional Past Medical History / Comment(s): Perforated diverticulum status post colon resection and colostomy at [facility] July 2015, autoimmune hepatitis, cirrhosis of the liver History of Any Multi-Drug Resistant Organisms: None Reported Past Surgical History: Bariatric Surgery, Breast Surgery, Cholecystectomy, Hysterectomy Additional Past Surgical History / Comment(s): Colon resection and colostomy in July 2015 at [facility] with Dr. Baugh knee surgery, right foot surgery, benign lump removed from left breast Past Anesthesia/Blood Transfusion Reactions: Unable to Obtain Additional Past Anesthesia/Blood Transfusion Reaction / Comm: pt states problem during surgery Past Psychological History: Depression Smoking Status: Former smoker Past Alcohol Use History: None Reported Additional Past Alcohol Use History / Comment(s): Patient was a smoker one pack per day for 17 years and quit 25 years ago. She denies any medical marijuana, marijuana or street drug use. She drinks alcohol on a rare basis. Past Drug Use History: Marijuana - Past Family History Mother Family Medical History: Cancer, COPD Additional Family Medical History / Comment(s): Mother is age 80 and dying from lung cancer. Father Additional Family Medical History / Comment(s): Father at age 80 from leukemia. Sister(s) Additional Family Medical History / Comment(s): Patient has 1 sister with no major medical problems. She does not have any brothers. She has one daughter and one son with no major medical problems. Medications and Allergies Home Medications Medication Instructions Recorded Confirmed Type Ferrous Sulfate [Iron (65 MG 325 mg PO DAILY 08/20/15 03/19/16 History Elemental)] Folic Acid 1 mg PO DAILY 08/20/15 03/19/16 History Levothyroxine Sodium [Synthroid] 75 mcg PO DAILY 08/20/15 03/19/16 History Magnesium Oxide [Mag-Ox] 400 mg PO DAILY 08/20/15 03/19/16 History Multivitamin [Multivitamins Adult 1 tab PO DAILY 08/20/15 03/19/16 History Gummies] Venlafaxine HCl ER [Effexor XR] 150 mg PO DAILY 08/20/15 03/19/16 History azaTHIOprine [Azathioprine] 50 mg PO BID 08/20/15 03/19/16 History Multivitamins, Thera [Multivitamin] 1 tab PO DAILY 03/06/16 03/19/16 History Allergies Allergy/AdvReac Type Severity Reaction Status Date / Time acetaminophen [From Vicodin] Allergy Itching Verified 03/20/16 10:56 hydrocodone bitartrate Allergy Itching Verified 03/20/16 10:56 [From Vicodin] morphine Allergy Nausea Verified 03/20/16 10:56 amoxicillin [From Augmentin] AdvReac Nausea Verified 03/20/16 10:56 clavulanic acid AdvReac Nausea Verified 03/20/16 10:56 [From Augmentin] Physical Exam Vitals: Vital Signs Temp Pulse Resp BP Pulse Ox 03/19/16 20:22 97.9 F 64 18 155/91 96 03/19/16 19:53 78 18 146/84 96 - Constitutional General appearance: no average body habitus, cooperative, no disheveled, no mild distress, no morbidly obese, no acute distress, no obese, no severe distress, thin - EENT Eyes: abnormal pupil, no anicteric sclerae, no disc margins sharp, no edentulous , no EOMI, no PERRLA, no fundus normal, no photophobia, no dentition normal, no poor dentition, no ptosis, no scleral icterus, normal appearance ENT: no hard of hearing, no hearing grossly normal, no NA/AT, normal oropharynx , no other, pharyngeal erythema, no thrush, no tonsillar exudates, no tonsillar swelling Ears: bilateral: normal - Neck Neck: no lymphadenopathy, normal ROM, no other, no rigidity, no stridor, no thyromegaly Carotids: bilateral: upstroke normal, upstroke delayed Thyroid: bilateral: normal size - Respiratory Respiratory: bilateral: CTA, diminished - Cardiovascular Rhythm: regular Heart sounds: normal: S1, S2 Abnormal Heart Sounds: systolic murmur, S3 Gallop - Gastrointestinal There is colostomy bag with significant tenderness in the lower part of the abdominal region with slight distention and hyper active bowel sounds General gastrointestinal: distended, hyperactive bowel sounds, organomegaly, tenderness - Integumentary Integumentary: no calor, no cellulitis, no cyanotic, no decreased turgor, flushed, no jaundiced, normal, no normal turgor, pale, rash, no ulcer - Neurologic Neurologic: CNII-XII intact - Musculoskeletal Musculoskeletal: gait normal, generalized weakness, strength equal bilaterally, no right sided weakness, no left sided weakness - Psychiatric Psychiatric: A&O x's 3, appropriate affect Results CBC & Chem 7: 03/21/16 09:32 03/21/16 09:32 Assessment and Plan Plan: 1 severe abdominal pain: Secondary to diverticulitis with large abscess, continue IV antibiotics continue surgical observation whether she is getting need surgical drain are not scaly be left up to surgery. 2 severe diverticulitis: Continue antibiotics at least for the next 2 weeks. 3 anemia: Has been on iron supplement. 4 autoimmune hepatitis: Was on Azathioprine and seen Dr. Lugo on regular basis continue current management. 5 hypothyroidism: Continue patient on levothyroxine. 6 pain and pain management: Patient will be on hydrocodone and IV Dilaudid as needed. 7 GI prophylaxis: Patient will be on pantoprazole IV. 8 DVT prophylaxis: Patient will be on heparin 5000 units subcutaneous twice a day. CODE STATUS: Full code. Dr. Spears thank you very much for the consult if I can be any further help to please let me know.
--- NOTE | 2016-03-21 16:14 | P.PN ---
Subjective 60-year-old female one of my office patient who seen Dr. Lugo for autoimmune hepatitis who is known to have history of hypothyroidism and advance liver disease who was admitted to [facility] back in July 2015 and was taking care by Dr. Mitchell for perforated diverticuli had colon resection and colostomy at the time and has done well up till January 2016 when around the developed to have significant pain and discomfort with increase diarrhea ended up coming to [facility] on 03/06 and admitted until 03/12/2016 for severe abdominal pain found to have diverticulitis with abscess measure at the time 5.2 time 3.[address] Spears and Dr. Lugo, was stabilized and sent home on March 12 on Cipro and metronidazole. Patient for the last 48 hours developed to have severe pain and increase symptom was with worsening discomfort lower abdominal region especially the left lower quadrant become much worse. Ended up coming to the emergency department at [facility] was seen by Dr. Lujan CAT scan of the abdomen showed the abscess currently slightly bit smaller and stable with no sign of free air under the diaphragma. She had other finding consistent with previous surgery and dilated common duct and pancreatic duct as well recommended possibly doing MRCP or ERCP down the road. Patient was started on Levaquin and metronidazole IV along with pantoprazole and admitted to the hospital 03/20: Patient underwent laparotomy with lysis of adhesions and drainage of intra -abdominal abscess and small bowel resection. Objective - Vital Signs Vital signs: Vital Signs Temp 97.8 F 03/20/16 10:47 Pulse 69 03/20/16 10:47 Resp 16 03/20/16 10:47 BP 143/92 03/20/16 10:47 Pulse Ox 96 03/20/16 10:47 Intake & Output 03/19/16 03/20/16 03/20/16 18:59 06:59 18:59 Intake Total 500 300 Balance 500 300 Weight 61.235 kg Intake: IV 300 Intake, IV Titration 500 Amount Sodium Chloride 0.9% 1, 500 000 ml @ 125 mls/hr IV . Q8H [facility] Rx#:[id number] Other: Voiding Method Toilet Toilet # Voids 1 1 - Exam General appearance: no average body habitus, cooperative, no disheveled, no mild distress, no morbidly obese, no acute distress, no obese, no severe distress, thin - EENT Eyes: abnormal pupil, no anicteric sclerae, no disc margins sharp, no edentulous , no EOMI, no PERRLA, no fundus normal, no photophobia, no dentition normal, no poor dentition, no ptosis, no scleral icterus, normal appearance ENT: no hard of hearing, no hearing grossly normal, no NA/AT, normal oropharynx , no other, pharyngeal erythema, no thrush, no tonsillar exudates, no tonsillar swelling Ears: bilateral: normal - Neck Neck: no lymphadenopathy, normal ROM, no other, no rigidity, no stridor, no thyromegaly Carotids: bilateral: upstroke normal, upstroke delayed Thyroid: bilateral: normal size - Respiratory Respiratory: bilateral: CTA, diminished - Cardiovascular Rhythm: regular Heart sounds: normal: S1, S2 Abnormal Heart Sounds: systolic murmur, S3 Gallop - Gastrointestinal There is colostomy bag with significant tenderness in the lower part of the abdominal region with slight distention and hyper active bowel sounds General gastrointestinal: distended, hyperactive bowel sounds, organomegaly, tenderness - Integumentary Integumentary: no calor, no cellulitis, no cyanotic, no decreased turgor, flushed, no jaundiced, normal, no normal turgor, pale, rash, no ulcer - Neurologic Neurologic: CNII-XII intact - Musculoskeletal Musculoskeletal: gait normal, generalized weakness, strength equal bilaterally, no right sided weakness, no left sided weakness - Psychiatric Psychiatric: A&O x's 3, appropriate affect - Labs CBC & Chem 7: 03/21/16 09:32 03/21/16 09:32 Labs: Abnormal Lab Results - Last 24 Hours (Table) 03/20/16 Range/Units 07:49 Chloride 110 H (98-107) mmol/L BUN 4 L (7-17) mg/dL Assessment and Plan Plan: 1 severe abdominal pain: Secondary to diverticulitis with large abscess, continue IV antibiotics continue surgical observation whether she is getting need surgical drain are not scaly be left up to surgery. 2 severe diverticulitis: Continue antibiotics at least for the next 2 weeks. 3 anemia: Has been on iron supplement. 4 autoimmune hepatitis: Was on Azathioprine and seen Dr. Lugo on regular basis continue current management. 5 hypothyroidism: Continue patient on levothyroxine. 6 pain and pain management: Patient will be on hydrocodone and IV Dilaudid as needed. 7 GI prophylaxis: Patient will be on pantoprazole IV. 8 DVT prophylaxis: Patient will be on heparin 5000 units subcutaneous twice a day. CODE STATUS: Full code. Impression and plan of care have been directed as dictated by the signing physician. Sallie Cintron nurse practitioner acting as scribe for signing physician. Time with Patient: Greater than 30
--- NOTE | 2016-03-21 16:16 | P.PN ---
Subjective 60-year-old female one of my office patient who seen Dr. Lugo for autoimmune hepatitis who is known to have history of hypothyroidism and advance liver disease who was admitted to [facility] back in July 2015 and was taking care by Dr. Mitchell for perforated diverticuli had colon resection and colostomy at the time and has done well up till January 2016 when around the developed to have significant pain and discomfort with increase diarrhea ended up coming to [facility] on 03/06 and admitted until 03/12/2016 for severe abdominal pain found to have diverticulitis with abscess measure at the time 5.2 time 3.[address] Spears and Dr. Lugo, was stabilized and sent home on March 12 on Cipro and metronidazole. Patient for the last 48 hours developed to have severe pain and increase symptom was with worsening discomfort lower abdominal region especially the left lower quadrant become much worse. Ended up coming to the emergency department at [facility] was seen by Dr. Lujan CAT scan of the abdomen showed the abscess currently slightly bit smaller and stable with no sign of free air under the diaphragma. She had other finding consistent with previous surgery and dilated common duct and pancreatic duct as well recommended possibly doing MRCP or ERCP down the road. Patient was started on Levaquin and metronidazole IV along with pantoprazole and admitted to the hospital 03/20: Patient underwent laparotomy with lysis of adhesions and drainage of intra -abdominal abscess and small bowel resection. 03/21: Patient is having severe pain and unable to get comfortable. ACADEMIC MANAGER ordered and Valium as well. Soto catheter in place. No gas in her colostomy. WBC count 11.8 and hemoglobin 13.2. She has been afebrile. Objective - Vital Signs Vital signs: Vital Signs Temp 98.9 F 03/21/16 07:17 Pulse 81 03/21/16 07:17 Resp 16 03/21/16 07:17 BP 130/79 03/21/16 07:17 Pulse Ox 94 L 03/21/16 07:17 Intake & Output 03/20/16 03/21/16 03/21/16 18:59 06:59 18:59 Intake Total 1999 Output Total 640 0 40 Balance 1360 -0 -40 Intake: IV 1999 Output: Drainage 50 50 40 Right Lower Abdomen 50 50 40 Urine 500 1999 Estimated Blood Loss 90 Other: Voiding Method Toilet Indwelling Catheter Indwelling Catheter # Voids 1 - Exam General appearance: no average body habitus, cooperative, no disheveled, no mild distress, no morbidly obese, no acute distress, no obese, no severe distress, thin - EENT Eyes: abnormal pupil, no anicteric sclerae, no disc margins sharp, no edentulous , no EOMI, no PERRLA, no fundus normal, no photophobia, no dentition normal, no poor dentition, no ptosis, no scleral icterus, normal appearance ENT: no hard of hearing, no hearing grossly normal, no NA/AT, normal oropharynx , no other, pharyngeal erythema, no thrush, no tonsillar exudates, no tonsillar swelling Ears: bilateral: normal - Neck Neck: no lymphadenopathy, normal ROM, no other, no rigidity, no stridor, no thyromegaly Carotids: bilateral: upstroke normal, upstroke delayed Thyroid: bilateral: normal size - Respiratory Respiratory: bilateral: CTA, diminished - Cardiovascular Rhythm: regular Heart sounds: normal: S1, S2 Abnormal Heart Sounds: systolic murmur, S3 Gallop - Gastrointestinal There is colostomy bag with significant tenderness in the lower part of the abdominal region with slight distention and hyper active bowel sounds General gastrointestinal: distended, hyperactive bowel sounds, organomegaly, tenderness - Integumentary Integumentary: no calor, no cellulitis, no cyanotic, no decreased turgor, flushed, no jaundiced, normal, no normal turgor, pale, rash, no ulcer - Neurologic Neurologic: CNII-XII intact - Musculoskeletal Musculoskeletal: gait normal, generalized weakness, strength equal bilaterally, no right sided weakness, no left sided weakness - Psychiatric Psychiatric: A&O x's 3, appropriate affect - Labs CBC & Chem 7: 03/21/16 09:32 03/21/16 09:32 Labs: Abnormal Lab Results - Last 24 Hours (Table) 03/20/16 03/20/16 03/21/16 Range/Units 15:46 15:46 09:32 WBC 14.1 H 11.8 H (3.8-10.6) k/uL Neutrophils # 12.5 H 10.0 H (1.3-7.7) k/uL Lymphocytes # 0.8 L 0.9 L (1.0-4.8) k/uL BUN 4 L (7-17) mg/dL Glucose 110 H (74-99) mg/dL 03/21/16 Range/Units 09:32 WBC (3.8-10.6) k/uL Neutrophils # (1.3-7.7) k/uL Lymphocytes # (1.0-4.8) k/uL BUN (7-17) mg/dL Glucose 114 H (74-99) mg/dL Microbiology - Last 24 Hours (Table) 03/20/16 13:49 Gram Stain - Preliminary Abdomen Wound Culture - Preliminary Gram Neg Bacilli 03/20/16 13:49 Anaerobic Culture - Preliminary Abdomen Assessment and Plan Plan: 1 severe abdominal pain: Secondary to diverticulitis with large abscess, continue IV antibiotics status post laparotomy, lysis of adhesion and small bowel resection. ACADEMIC MANAGER to be started for pain control and Valium added. 2 severe diverticulitis: Continue antibiotics at least for the next 2 weeks. 3 anemia: Has been on iron supplement. 4 autoimmune hepatitis: Was on Azathioprine and seen Dr. Lugo on regular basis continue current management. 5 hypothyroidism: Continue patient on levothyroxine. 6 pain and pain management: Patient will be on hydrocodone and IV Dilaudid as needed. 7 GI prophylaxis: Patient will be on pantoprazole IV. 8 DVT prophylaxis: Patient will be on heparin 5000 units subcutaneous twice a day. CODE STATUS: Full code. Impression and plan of care have been directed as dictated by the signing physician. Sallie Cintron nurse practitioner acting as scribe for signing physician. Time with Patient: Greater than 30
[2016-03-21] MEDS: LEVOFLOXACIN 500MG-D5W PMX 500 MG in DEXTROSE/WATER 1 100ML.BAG IVPB SCH (20:21)
[2016-03-21] MEDS: METOCLOPRAMIDE 5 MG/ML 2 ML VIAL IVP PRN (23:29)
[2016-03-22] MEDS: SODIUM CHLORIDE 0.9% 1,000 ML IV SCH ×3 (04:14→19:36)
[2016-03-22] MEDS: D5-0.45% NACL WITH KCL 20MEQ/L 1,000 ML IV SCH ×2 (04:14→13:35)
[2016-03-22] MEDS: ONDANSETRON 4 MG/2 ML VIAL IVP PRN ×3 (05:11→19:39)
[2016-03-22] MEDS: metroNIDAZOLE-NS PMX 500 MG in SALINE 1 100ML.BAG IVPB SCH ×2 (05:23→12:20)
[2016-03-22 07:26] LABS: Basophils % (A) 0 %; CH 32.1; CHCM 33.7; Eosinophils # (A) 0.3 k/uL (0-0.7); Eosinophils % (A) 2 %; HCT 38.4 % (34.0-46.0); HDW 2.91; HGB 12.5 gm/dL (11.4-16.0); Luc # (Auto) 0.17; Luc % (Auto) 1; Lymphocytes # (A) 1.3 k/uL (1.0-4.8); Lymphocytes % (A) 11 %; MCH 31.2 pg (25.0-35.0); MCHC 32.6 g/dL (31.0-37.0); MCV 95.7 fL (80.0-100.0); Mean Platelet Volume 6.8; Monocytes # (A) 0.7 k/uL (0-1.0); Monocytes % (A) 6 %; Neutrophils # (A) 9.5 k/uL (1.3-7.7); Neutrophils % (A) 79 %; RBC 4.01 m/uL (3.80-5.40); RDW 13.6 % (11.5-15.5); WBC 11.9 k/uL (3.8-10.6); WBC (Perox) 11.59
[2016-03-22 07:30] LABS: Anion Gap 10 mmol/L; Blood Urea Nitrogen 8 mg/dL (7-17); Calcium 8.4 mg/dL (8.4-10.2); Carbon Dioxide 22 mmol/L (22-30); Chloride 104 mmol/L (98-107); Glucose 101 mg/dL (74-99); Non-African American GFR(MDRD) >60 (>60 ml/min/1.73 sqM); Potassium 4.4 mmol/L (3.5-5.1); Sodium 136 mmol/L (137-145)
[2016-03-22] MEDS: HEPARIN SODIUM,PORCINE 5,000 UNIT/ML 1 ML VIAL SQ SCH ×2 (08:39→19:40)
[2016-03-22] MEDS: PANTOPRAZOLE 40 MG/10 ML VIAL IV SCH (08:39)
--- NOTE | 2016-03-22 09:25 | P.PN ---
Subjective 60-year-old female one of my office patient who seen Dr. Lugo for autoimmune hepatitis who is known to have history of hypothyroidism and advance liver disease who was admitted to [facility] back in July 2015 and was taking care by Dr. Mitchell for perforated diverticuli had colon resection and colostomy at the time and has done well up till January 2016 when around the developed to have significant pain and discomfort with increase diarrhea ended up coming to [facility] on 03/06 and admitted until 03/12/2016 for severe abdominal pain found to have diverticulitis with abscess measure at the time 5.2 time 3.[address] Spears and Dr. Lugo, was stabilized and sent home on March 12 on Cipro and metronidazole. Patient for the last 48 hours developed to have severe pain and increase symptom was with worsening discomfort lower abdominal region especially the left lower quadrant become much worse. Ended up coming to the emergency department at [facility] was seen by Dr. Lujan CAT scan of the abdomen showed the abscess currently slightly bit smaller and stable with no sign of free air under the diaphragma. She had other finding consistent with previous surgery and dilated common duct and pancreatic duct as well recommended possibly doing MRCP or ERCP down the road. Patient was started on Levaquin and metronidazole IV along with pantoprazole and admitted to the hospital 03/20: Patient underwent laparotomy with lysis of adhesions and drainage of intra -abdominal abscess and small bowel resection. 03/21: Patient is having severe pain and unable to get comfortable. ELECTRONICS TECHNICIAN APPRENTICE ordered and Valium as well. Soto catheter in place. No gas in her colostomy. WBC count 11.8 and hemoglobin 13.2. She has been afebrile. 03/22: Patient complains of feeling tired today and only slept on and off during the night. She is still nauseated. Patient's pain is much better controlled with ELECTRONICS TECHNICIAN APPRENTICE. She has not had gas or output from ostomy. She remains nothing by mouth. Objective - Vital Signs Vital signs: Vital Signs Temp 97.9 F 03/22/16 01:36 Pulse 82 03/22/16 01:36 Resp 18 03/22/16 01:36 BP 140/83 03/22/16 01:36 Pulse Ox 96 03/22/16 01:36 Intake & Output 03/21/16 03/22/16 03/22/16 18:59 06:59 18:59 Intake Total 1000 Output Total 1040 1580 Balance -1040 -580 Intake: IV 1000 D5-0.45% NaCl with KCl 1000 20Meq/l 1,000 ml @ 125 mls/hr IV .Q8H [facility] Rx#: [id number] Output: Drainage 40 60 Right Lower Abdomen 40 60 Urine 1000 1520 Uretheral (Soto) 1000 1520 Other: Voiding Method Indwelling Catheter Indwelling Catheter - Exam General appearance: no average body habitus, cooperative, no disheveled, no mild distress, no morbidly obese, no acute distress, no obese, no severe distress, thin - EENT Eyes: abnormal pupil, no anicteric sclerae, no disc margins sharp, no edentulous , no EOMI, no PERRLA, no fundus normal, no photophobia, no dentition normal, no poor dentition, no ptosis, no scleral icterus, normal appearance ENT: no hard of hearing, no hearing grossly normal, no NA/AT, normal oropharynx , no other, pharyngeal erythema, no thrush, no tonsillar exudates, no tonsillar swelling Ears: bilateral: normal - Neck Neck: no lymphadenopathy, normal ROM, no other, no rigidity, no stridor, no thyromegaly Carotids: bilateral: upstroke normal, upstroke delayed Thyroid: bilateral: normal size - Respiratory Respiratory: bilateral: CTA, diminished - Cardiovascular Rhythm: regular Heart sounds: normal: S1, S2 Abnormal Heart Sounds: systolic murmur, S3 Gallop - Gastrointestinal There is colostomy bag with significant tenderness in the lower part of the abdominal region with slight distention and hyper active bowel sounds General gastrointestinal: distended, hyperactive bowel sounds, organomegaly, tenderness - Integumentary Integumentary: no calor, no cellulitis, no cyanotic, no decreased turgor, flushed, no jaundiced, normal, no normal turgor, pale, rash, no ulcer - Neurologic Neurologic: CNII-XII intact - Musculoskeletal Musculoskeletal: gait normal, generalized weakness, strength equal bilaterally, no right sided weakness, no left sided weakness - Psychiatric Psychiatric: A&O x's 3, appropriate affect - Labs CBC & Chem 7: 03/22/16 06:16 03/22/16 06:16 Labs: Abnormal Lab Results - Last 24 Hours (Table) 03/21/16 03/21/16 03/22/16 Range/Units 09:32 09:32 06:16 WBC 11.8 H 11.9 H (3.8-10.6) k/uL Neutrophils # 10.0 H 9.5 H (1.3-7.7) k/uL Lymphocytes # 0.9 L (1.0-4.8) k/uL Sodium (137-145) mmol/L Creatinine (0.52-1.04) mg/dL Glucose 114 H (74-99) mg/dL 03/22/16 Range/Units 06:16 WBC (3.8-10.6) k/uL Neutrophils # (1.3-7.7) k/uL Lymphocytes # (1.0-4.8) k/uL Sodium 136 L (137-145) mmol/L Creatinine 0.50 L (0.52-1.04) mg/dL Glucose 101 H (74-99) mg/dL Microbiology - Last 24 Hours (Table) 03/20/16 13:49 Gram Stain - Preliminary Abdomen Wound Culture - Preliminary Gram Neg Bacilli Assessment and Plan Plan: 1 severe abdominal pain: Secondary to diverticulitis with large abscess, continue IV antibiotics status post laparotomy, lysis of adhesion and small bowel resection. ELECTRONICS TECHNICIAN APPRENTICE to be started for pain control and Valium added. Nothing by mouth. 2 severe diverticulitis: Continue antibiotics at least for the next 2 weeks. 3 anemia: Has been on iron supplement. 4 autoimmune hepatitis: Was on Azathioprine and seen Dr. Lugo on regular basis continue current management. 5 hypothyroidism: Continue patient on levothyroxine. 6 pain and pain management: Patient will be on hydrocodone and IV Dilaudid as needed. Patient started on ELECTRONICS TECHNICIAN APPRENTICE pump for now. 7 GI prophylaxis: Patient will be on pantoprazole IV. 8 DVT prophylaxis: Patient will be on heparin 5000 units subcutaneous twice a day. CODE STATUS: Full code. Impression and plan of care have been directed as dictated by the signing physician. Sallie Cintron nurse practitioner acting as scribe for signing physician. Time with Patient: Greater than 30
[2016-03-22] MEDS: HYDROmorphone PCA 5 MG/25 ML SYRINGE IV PRN (09:38)
[2016-03-22] MEDS ORDERED: ACETAMINOPHEN TAB 325 MG TAB PO PRN (10:02)
[2016-03-22] MEDS ORDERED: HYDROmorphone 1 MG/ML 1 ML SYRINGE IVP PRN (10:03)
--- NOTE | 2016-03-22 10:23 | P.PN ---
Progress Note - Text Patient had drainage of the pelvic abscess by Dr. Schmidt that was noted around her pelvic rectal stump. Also had partial small bowel resection. She is stable. No fever. Abdomen usual postoperative tenderness. Dressings are dry. Laboratory studies are noted. Impression stable post open drainage of the pelvic abscess and partial small bowel resection. Recurrent recommendation continued IV fluids close monitoring
[2016-03-22] MEDS: METOCLOPRAMIDE 5 MG/ML 2 ML VIAL IVP PRN (15:03)
[2016-03-22] MEDS: ERTAPENEM 1 GM in SODIUM CHLORIDE 0.9% 50 ML IVPB SCH (17:57)
[2016-03-23] MEDS: METOCLOPRAMIDE 5 MG/ML 2 ML VIAL IVP PRN (00:27)
[2016-03-23] MEDS: DIAZEPAM 5 MG/ML 2 ML SYRINGE IVP PRN ×2 (01:27→21:10)
[2016-03-23] MEDS: D5-0.45% NACL WITH KCL 20MEQ/L 1,000 ML IV SCH ×4 (02:18→15:04)
[2016-03-23] MEDS: HYDROmorphone PCA 5 MG/25 ML SYRINGE IV PRN (04:06)
[2016-03-23] MEDS: ERTAPENEM 1 GM in SODIUM CHLORIDE 0.9% 50 ML IVPB SCH (10:54)
[2016-03-23] MEDS: PANTOPRAZOLE 40 MG/10 ML VIAL IV SCH (10:54)
[2016-03-23] MEDS: HEPARIN SODIUM,PORCINE 5,000 UNIT/ML 1 ML VIAL SQ SCH ×2 (10:54→21:11)
--- NOTE | 2016-03-23 16:23 | P.PN ---
Progress Note - Text Patient is a stable afebrile. Hungry. Amount of flatus per ostomy. On examination patient is afebrile vitals are good. Abdomen is soft. Incision looks good. Stoma is healthy with small amount of flatus. Impression progressive improvement status post drainage of pelvic abscess. Plan Will start on clear liquids. Continue IV antibiotics and supportive care.
--- NOTE | 2016-03-23 17:08 | P.CONS ---
History of Present Illness - Reason for Consult Consult date: 03/23/16 - Chief Complaint Abdominal pain and fever - History of Present Illness Very pleasant 60-year-old woman has had a very significant recent history. She has a known history of autoimmune hepatitis and was cared for in the past [facility]. In the summer of 2015 she developed acute abdominal pain with evidence of a perforated diverticulum and was seen at [facility] for colonic resection and colostomy. In 02/18/2016 she developed increasing amounts of abdominal pain. Presented to the emergency center. If that time she was found evidence of abdominal abscess related to diverticulosis measuring at 5.2 x 3.8 cm. She was managed medically with antibiotic therapy with ciprofloxacin and metronidazole. She was hospitalized from the was discharged home. However on March 19 she came with increasing amounts of abdominal pain. Evidence of the ongoing abscess was noted. It is her ongoing symptoms she was taken to the operating room and had drainage of the intra-abdominal abscess. Also had limited small bowel resection at that time. She is feeling slightly better today. 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 She is feeling somewhat better. But there is concern because of the ESBL E. coli that has now been isolated. With at the infectious diseases consultation was requested. Review of Systems HEENT:Denies headache or acute visual change. Denies sinus or mouth discomforts. Denies neck stiffness or pain. Denies significant oral cavity pain. Denies difficulty on swallowing. Lungs: Denies significant shortness of breath, cough, sputum production, or hemoptysis. Cardiovascular: Denies significant shortness of breath, chest pain, chest wall pain, orthopnea, dyspnea on exertion, syncope Gastrointestinal: As per the HPI, is having ongoing abdominal pain after surgery. She is denying nausea or emesis. Is awaiting return of function from her ostomy. Musculoskeletal: denies significant myalgias or arthralgias. No new joint swelling. Denies new back pain. Skin: Denies new rash or lesions. No new ulcers or wounds are related.. Neuro: Denies headache or visual change. Denies any new onset weakness or difficulty with ambulation. Denies falls or seizures. Psychiatric:Denies anxiety or depression. Endocrine: fatigue weight loss over the last several weeks Past Medical History Past Medical History: Liver Disease, Thyroid Disorder Additional Past Medical History / Comment(s): Perforated diverticulum status post colon resection and colostomy at [facility] July 2015, autoimmune hepatitis, cirrhosis of the liver History of Any Multi-Drug Resistant Organisms: None Reported Past Surgical History: Bariatric Surgery, Breast Surgery, Cholecystectomy, Hysterectomy Additional Past Surgical History / Comment(s): Colon resection and colostomy in July 2015 at [facility] with Dr. Baugh knee surgery, right foot surgery, benign lump removed from left breast Past Anesthesia/Blood Transfusion Reactions: Unable to Obtain Additional Past Anesthesia/Blood Transfusion Reaction / Comm: pt states problem during surgery Past Psychological History: Depression Additional Psychological History / Comment(s): . no experience. no travel pet cat. remote tobacco >25years Smoking Status: Former smoker Past Alcohol Use History: None Reported Additional Past Alcohol Use History / Comment(s): Patient was a smoker one pack per day for 17 years and quit 25 years ago. She denies any medical marijuana, marijuana or street drug use. She drinks alcohol on a rare basis. Past Drug Use History: Marijuana - Past Family History Mother Family Medical History: Cancer, COPD Additional Family Medical History / Comment(s): Mother is age 80 and dying from lung cancer. Father Additional Family Medical History / Comment(s): Father at age 80 from leukemia. Sister(s) Additional Family Medical History / Comment(s): Patient has 1 sister with no major medical problems. She does not have any brothers. She has one daughter and one son with no major medical problems. Medications and Allergies Home Medications and Allergies Comment(s): Current Medications Acetaminophen (Tylenol Tab) 325 mg PO Q6HR PRN PRN Reason: Headache Benzocaine/Menthol (Cepacol Lozenge) 1 each MUCOUS MEM Q1HR PRN PRN Reason: Sore Throat Diazepam (Valium) 5 mg IVP Q4HR PRN PRN Reason: Muscle Spasm Last Admin: 03/23/16 01:27 Dose: 5 mg Diphenhydramine HCl (Benadryl) 50 mg IVP Q6HR PRN PRN Reason: Allergy Symptoms Last Admin: 03/20/16 05:46 Dose: 50 mg Heparin Sodium (Porcine) (Heparin) 5,000 unit SQ Q12HR [facility] Last Admin: 03/23/16 10:54 Dose: 5,000 unit Hydromorphone HCl (Dilaudid Plant Propagator) 5 mg IV PER PROTOCOL PRN; Protocol PRN Reason: Pain Control Last Admin: 03/23/16 04:06 Dose: 5 mg Hydromorphone HCl (Dilaudid) 1 mg IVP Q2HR PRN PRN Reason: Pain Potassium Chloride/Dextrose/Sod Cl (D5%-1/2ns-Kcl 20 Meq/L Iv Solution) 1,000 mls @ 125 mls/hr IV .Q8H [facility] Last Admin: 03/23/16 15:04 Dose: 125 mls/hr Ertapenem 1 gm/ Sodium (Chloride) 50 mls @ 100 mls/hr IVPB Q24HR [facility] Last Admin: 03/23/16 10:54 Dose: 100 mls/hr Metoclopramide HCl (Reglan) 10 mg IVP Q6HR PRN PRN Reason: Nausea Last Admin: 03/23/16 00:27 Dose: 10 mg Naloxone HCl (Narcan) 0.2 mg IV Q2M PRN PRN Reason: Opioid Reversal Ondansetron HCl (Zofran) 4 mg IVP Q6HR PRN PRN Reason: Vomiting Last Admin: 03/22/16 19:39 Dose: 4 mg Pantoprazole Sodium (Protonix) 40 mg IV DAILY [facility] Last Admin: 03/23/16 10:54 Dose: 40 mg Home Medications Medication Instructions Recorded Confirmed Type Ferrous Sulfate [Iron (65 MG 325 mg PO DAILY 08/20/15 03/19/16 History Elemental)] Folic Acid 1 mg PO DAILY 08/20/15 03/19/16 History Levothyroxine Sodium [Synthroid] 75 mcg PO DAILY 08/20/15 03/19/16 History Magnesium Oxide [Mag-Ox] 400 mg PO DAILY 08/20/15 03/19/16 History Multivitamin [Multivitamins Adult 1 tab PO DAILY 08/20/15 03/19/16 History Gummies] Venlafaxine HCl ER [Effexor XR] 150 mg PO DAILY 08/20/15 03/19/16 History azaTHIOprine [Azathioprine] 50 mg PO BID 08/20/15 03/19/16 History Multivitamins, Thera [Multivitamin] 1 tab PO DAILY 03/06/16 03/19/16 History Allergies Allergy/AdvReac Type Severity Reaction Status Date / Time acetaminophen [From Vicodin] Allergy Itching Verified 03/20/16 10:56 hydrocodone bitartrate Allergy Itching Verified 03/20/16 10:56 [From Vicodin] morphine Allergy Nausea Verified 03/20/16 10:56 amoxicillin [From Augmentin] AdvReac Nausea Verified 03/20/16 10:56 clavulanic acid AdvReac Nausea Verified 03/20/16 10:56 [From Augmentin] Physical Exam Vitals: Vital Signs Temp Pulse Resp BP Pulse Ox 03/23/16 15:10 98.5 F 88 16 133/88 98 03/23/16 15:00 98 03/23/16 08:00 99.1 F 82 16 143/83 97 03/23/16 01:30 98.2 F 83 18 155/94 95 03/22/16 22:38 98.5 F 85 18 156/83 95 Intake and Output 03/23/16 03/23/16 03/23/16 06:59 14:59 22:59 Intake Total 1175 Output Total 505 1200 Balance 670 -1200 Intake: IV 1175 D5-0.45% NaCl with KCl 1125 20Meq/l 1,000 ml @ 125 mls/hr IV .Q8H [facility] Rx#: [id number] Ertapenem 1 gm In Sodium 50 Chloride 0.9% 50 ml @ 100 mls/hr IVPB Q24HR [facility] Rx #:[id number] Output: Drainage 30 Right Lower Abdomen 30 Urine 475 1200 Uretheral (Soto) 1200 Pleasant 60-year-old woman relates her pain is under better control HEENT: Anicteric conjunctiva are pink and moist nasal mucosa grossly intact without significant lesions, there is no thrush. Neck: The neck is supple without significant lymphadenopathy or thyromegaly. Lungs: Good bilateral air entry without significant crackles or wheezing. There is no significant bronchial sounds. There is no egophony or dullness. Heart: Regular rate and rhythm with an audible S1-S2, no S3 no S4. There is no significant murmur click or rub, PMI was nondisplaced. Abdomen: Few bowel sounds. Ostomy site looks well. Surgical incision was scant drainage. Abdominal wall is tungsten tender. Extremities: The upper extremities have excellent pulses they are symmetric, no significant petechiae or telangiectasia. No splinter hemorrhages were noted. The lower extremities are free from significant edema. The peripheral pulses were 2+ and symmetric. Neuro: Awake alert oriented to person place and time. There are no acute new gross focal sensory motor deficits. Results CBC & Chem 7: 03/22/16 06:16 03/22/16 06:16 Labs: Microbiology - Last 24 Hours (Table) 03/20/16 13:49 Gram Stain - Final Abdomen Wound Culture - Final Escherichia coli 03/20/16 13:49 Anaerobic Culture - Preliminary Abdomen Laboratory Results WBC 11.9 k/uL (3.8-10.6) H 03/22/16 06:16 RBC 4.01 m/uL (3.80-5.40) 03/22/16 06:16 Hgb 12.5 gm/dL (11.4-16.0) 03/22/16 06:16 Hct 38.4 % (34.0-46.0) 03/22/16 06:16 MCV 95.7 fL (80.0-100.0) 03/22/16 06:16 MCH 31.2 pg (25.0-35.0) 03/22/16 06:16 MCHC 32.6 g/dL (31.0-37.0) 03/22/16 06:16 RDW 13.6 % (11.5-15.5) 03/22/16 06:16 Plt Count 299 k/uL (150-450) 03/22/16 06:16 Neutrophils % 79 % 03/22/16 06:16 Lymphocytes % 11 % 03/22/16 06:16 Monocytes % 6 % 03/22/16 06:16 Eosinophils % 2 % 03/22/16 06:16 Basophils % 0 % 03/22/16 06:16 Neutrophils # 9.5 k/uL (1.3-7.7) H 03/22/16 06:16 Lymphocytes # 1.3 k/uL (1.0-4.8) 03/22/16 06:16 Monocytes # 0.7 k/uL (0-1.0) 03/22/16 06:16 Eosinophils # 0.3 k/uL (0-0.7) 03/22/16 06:16 Basophils # 0.0 k/uL (0-0.2) 03/22/16 06:16 PT 12.4 sec (9.0-12.0) H 03/19/16 16:20 INR 1.3 (<1.1) 03/19/16 16:20 APTT 22.3 sec (22.0-30.0) 03/19/16 16:20 Sodium 136 mmol/L (137-145) L 03/22/16 06:16 Potassium 4.4 mmol/L (3.5-5.1) 03/22/16 06:16 Chloride 104 mmol/L (98-107) 03/22/16 06:16 Carbon Dioxide 22 mmol/L (22-30) 03/22/16 06:16 Anion Gap 10 mmol/L 03/22/16 06:16 BUN 8 mg/dL (7-17) 03/22/16 06:16 Creatinine 0.50 mg/dL (0.52-1.04) L 03/22/16 06:16 Est GFR (MDRD) Af Amer >60 (>60 ml/min/1.73 sqM) 03/22/16 06:16 Est GFR (MDRD) Non-Af >60 (>60 ml/min/1.73 sqM) 03/22/16 06:16 Glucose 101 mg/dL (74-99) H 03/22/16 06:16 Plasma Lactic Acid Edmundo 1.1 mmol/L (0.7-2.0) 03/19/16 16:20 Calcium 8.4 mg/dL (8.4-10.2) 03/22/16 06:16 Total Bilirubin 0.5 mg/dL (0.2-1.3) 03/19/16 16:20 AST 34 U/L (14-36) 03/19/16 16:20 ALT 37 U/L (9-52) 03/19/16 16:20 Alkaline Phosphatase 87 U/L (38-126) 03/19/16 16:20 Total Protein 8.0 g/dL (6.3-8.2) 03/19/16 16:20 Albumin 4.1 g/dL (3.5-5.0) 03/19/16 16:20 Amylase 115 U/L (30-110) H 03/19/16 16:20 Lipase 261 U/L (23-300) 03/19/16 16:20 Urine Color Light Yellow 03/19/16 16:20 Urine Appearance Clear (Clear) 03/19/16 16:20 Urine pH 7.0 (5.0-8.0) 03/19/16 16:20 Ur Specific [place] 1.003 (1.001-1.035) 03/19/16 16:20 Urine Protein Negative (Negative) 03/19/16 16:20 Urine Glucose (UA) Negative (Negative) 03/19/16 16:20 Urine Ketones Negative (Negative) 03/19/16 16:20 Urine Blood Negative (Negative) 03/19/16 16:20 Urine Nitrate Negative (Negative) 03/19/16 16:20 Urine Bilirubin Negative (Negative) 03/19/16 16:20 Urine Urobilinogen <2.0 mg/dL (<2.0) 03/19/16 16:20 Ur Leukocyte Esterase Negative (Negative) 03/19/16 16:20 Microbiology 03/20/16 13:49 Abdomen Gram Stain - Final 03/20/16 13:49 Abdomen Wound Culture - Final Escherichia coli 03/20/16 13:49 Abdomen Anaerobic Culture - Preliminary 03/19/16 16:20 Urine,Voided Urine Culture - Final Assessment and Plan (1) Colonic diverticular abscess Narrative/Plan: 60-year-old woman who has a complex past medical history who presents to hospital with ongoing abdominal pain. Find evidence of worsening diverticular abscess. She's been taking the operating room she's had an incision and drainage performed. She is now recovering postoperative period wound culture showing evidence of E. coli ESBL. The patient relates that she does have some exposure from her mother who is been quite ill recently. And the patient herself has been on multiple antibiotics in the recent past also has risk factors for acquiring E. coli ESBL. The patient is educated about the bacteria. In the right therapy was altered at the time of the consultation to ertapenem. She is very concerned about having to have a PICC line at discharge. Fortunately we will have some potential oral options at the time of her discharge when she is improved. Continuing with supportive care and nutritional supplementation as indicated. Status: Acute (2) Infection due to ESBL-producing Escherichia coli Status: Acute
--- NOTE | 2016-03-23 23:41 | P.PN ---
Subjective Principal diagnosis: Abdominal pain, distal sigmoid abscess, autoimmune hepatitis, hypothyroidis. Post partial bowel resection and abscess removed with drainage with EBLS last infection 60-year-old female one of my office patient who seen Dr. Lugo for autoimmune hepatitis who is known to have history of hypothyroidism and advance liver disease who was admitted to [facility] back in July 2015 and was taking care by Dr. Mitchell for perforated diverticuli had colon resection and colostomy at the time and has done well up till January 2016 when around the developed to have significant pain and discomfort with increase diarrhea ended up coming to [facility] on 03/06 and admitted until 03/12/2016 for severe abdominal pain found to have diverticulitis with abscess measure at the time 5.2 time 3.[address] Spears and Dr. Lugo, was stabilized and sent home on March 12 on Cipro and metronidazole. Patient for the last 48 hours developed to have severe pain and increase symptom was with worsening discomfort lower abdominal region especially the left lower quadrant become much worse. Ended up coming to the emergency department at [facility] was seen by Dr. Lujan CAT scan of the abdomen showed the abscess currently slightly bit smaller and stable with no sign of free air under the diaphragma. She had other finding consistent with previous surgery and dilated common duct and pancreatic duct as well recommended possibly doing MRCP or ERCP down the road. Patient was started on Levaquin and metronidazole IV along with pantoprazole and admitted to the hospital 03/20: Patient underwent laparotomy with lysis of adhesions and drainage of intra -abdominal abscess and small bowel resection. 03/21: Patient is having severe pain and unable to get comfortable. TEMPERING KILN TENDER ordered and Valium as well. Soto catheter in place. No gas in her colostomy. WBC count 11.8 and hemoglobin 13.2. She has been afebrile. 03/22: Patient complains of feeling tired today and only slept on and off during the night. She is still nauseated. Patient's pain is much better controlled with TEMPERING KILN TENDER. She has not had gas or output from ostomy. She remains nothing by mouth. 03/23/2016: Patient is feeling much better no stool in the ostomy patient is pain is much better control with TEMPERING KILN TENDER. She was diagnosed with ESBL from the abscess and patient is on antibiotic currently for it infectious disease consultation has not been finalized so far. Objective - Vital Signs Vital signs: Vital Signs Temp 98.5 F 03/23/16 15:10 Pulse 88 03/23/16 15:10 Resp 16 03/23/16 15:10 BP 133/88 03/23/16 15:10 Pulse Ox 98 03/23/16 15:10 Intake & Output 03/22/16 03/23/16 03/23/16 18:59 06:59 18:59 Intake Total 975 1175 Output Total 6782 877 3000 Balance -225 670 -1200 Weight 61.235 kg Intake: IV 975 1175 D5-0.45% NaCl with KCl 875 1125 20Meq/l 1,000 ml @ 125 mls/hr IV .Q8H [facility] Rx#: [id number] Ertapenem 1 gm In Sodium 50 Chloride 0.9% 50 ml @ 100 mls/hr IVPB Q24HR [facility] Rx #:[id number] metroNIDAZOLE-NS PMX 500 100 mg In Saline 1 100ml.bag @ 100 mls/hr IVPB Q6HR [facility] Rx#:[id number] Output: Drainage 30 Right Lower Abdomen 30 Urine 3343 542 0978 Uretheral (Soto) 1200 1200 Other: Voiding Method Indwelling Catheter Indwelling Catheter - Constitutional General appearance: Present: cooperative, disheveled, no acute distress. Absent : average body habitus, mild distress, morbidly obese, obese, severe distress, thin - EENT Eyes: Present: normal appearance. Absent: abnormal pupil, anicteric sclerae, disc margins sharp, edentulous, EOMI, PERRLA, fundus normal, photophobia, dentition normal, poor dentition, ptosis, scleral icterus ENT: Present: normal oropharynx. Absent: hard of hearing, hearing grossly normal, NA/AT, other, pharyngeal erythema, thrush, tonsillar exudates, tonsillar swelling Ears: bilateral: normal, bulging - Neck Neck: Present: normal ROM. Absent: lymphadenopathy, other, rigidity, stridor, thyromegaly Carotids: bilateral: upstroke normal, upstroke delayed Thyroid: bilateral: normal size - Respiratory Respiratory: bilateral: diminished, dullness, rales - Cardiovascular Rhythm: regular Heart sounds: normal: S1, S2 Abnormal Heart Sounds: Present: systolic murmur, S3 Gallop - Gastrointestinal Gastrointestinal Comment(s): Surgical side With no drainage no sign of infection, ostomy still have no draining no stool the stoma looking good shape and healthy with no infection. General gastrointestinal: Present: decreased bowel sounds, distended, soft - Integumentary Integumentary: Present: cyanotic, normal, pale, rash. Absent: calor, cellulitis , decreased turgor, flushed, jaundiced, normal turgor, ulcer - Neurologic Neurologic: Present: CNII-XII intact - Musculoskeletal Musculoskeletal: Present: gait normal, generalized weakness, strength equal bilaterally. Absent: right sided weakness, left sided weakness - Psychiatric Psychiatric: Present: A&O x's 3, appropriate affect. Absent: intact judgment & insight - Labs CBC & Chem 7: 03/22/16 06:16 03/22/16 06:16 Labs: Microbiology - Last 24 Hours (Table) 03/20/16 13:49 Gram Stain - Final Abdomen Wound Culture - Final Escherichia coli 03/20/16 13:49 Anaerobic Culture - Preliminary Abdomen Assessment and Plan Plan: 1 severe abdominal pain: Secondary to diverticulitis with large abscess, continue IV antibiotics status post laparotomy, lysis of adhesion and small bowel resection. TEMPERING KILN TENDER to be started for pain control and Valium added. Nothing by mouth. 2 severe diverticulitis: Continue antibiotics at least for the next 2 weeks. 3 anemia: Has been on iron supplement. 4 autoimmune hepatitis: Was on Azathioprine and seen Dr. Lugo on regular basis continue current management. 5 hypothyroidism: Continue patient on levothyroxine. 6 pain and pain management: Patient will be on hydrocodone and IV Dilaudid as needed. Patient started on TEMPERING KILN TENDER pump for now. 7 GI prophylaxis: Patient will be on pantoprazole IV. 8 DVT prophylaxis: Patient will be on heparin 5000 units subcutaneous twice a day. 9 ESBL infection: From the abscess. Patient was started on ertapenem 1 g IV every 24 hours was seen infectious disease for final management. Was on metronidazole early and was taking off.
[2016-03-24] MEDS: HYDROmorphone PCA 5 MG/25 ML SYRINGE IV PRN (02:09)
[2016-03-24] MEDS: D5-0.45% NACL WITH KCL 20MEQ/L 1,000 ML IV SCH ×3 (05:41→21:45)
[2016-03-24 07:58] LABS: Basophils % (A) 1 %; CH 32.2; CHCM 34.4; Eosinophils # (A) 0.3 k/uL (0-0.7); Eosinophils % (A) 5 %; HCT 31.1 % (34.0-46.0); HDW 3.03; HGB 10.4 gm/dL (11.4-16.0); Luc # (Auto) 0.18; Luc % (Auto) 3; Lymphocytes # (A) 1.3 k/uL (1.0-4.8); Lymphocytes % (A) 20 %; MCH 31.5 pg (25.0-35.0); MCHC 33.5 g/dL (31.0-37.0); Monocytes # (A) 0.4 k/uL (0-1.0); Monocytes % (A) 6 %; Neutrophils # (A) 4.1 k/uL (1.3-7.7); Neutrophils % (A) 65 %; RBC 3.31 m/uL (3.80-5.40); RDW 13.6 % (11.5-15.5); WBC 6.3 k/uL (3.8-10.6); WBC (Perox) 6.95
[2016-03-24 08:11] LABS: ALT 29 U/L (9-52); AST 19 U/L (14-36); Alkaline Phosphatase 47 U/L (38-126); Anion Gap 7 mmol/L; Blood Urea Nitrogen <2 mg/dL (7-17); Calcium 8.5 mg/dL (8.4-10.2); Carbon Dioxide 25 mmol/L (22-30); Chloride 107 mmol/L (98-107); Glucose 112 mg/dL (74-99); Non-African American GFR(MDRD) >60 (>60 ml/min/1.73 sqM); Potassium 4.2 mmol/L (3.5-5.1); Sodium 139 mmol/L (137-145); Total Bilirubin 0.5 mg/dL (0.2-1.3); Total Protein 5.4 g/dL (6.3-8.2)
[2016-03-24] MEDS: PANTOPRAZOLE 40 MG/10 ML VIAL IV SCH (08:33)
[2016-03-24] MEDS: HEPARIN SODIUM,PORCINE 5,000 UNIT/ML 1 ML VIAL SQ SCH ×2 (08:33→21:03)
[2016-03-24] MEDS: ERTAPENEM 1 GM in SODIUM CHLORIDE 0.9% 50 ML IVPB SCH (08:33)
--- NOTE | 2016-03-24 13:00 | P.PN ---
Subjective Principal diagnosis: Diverticular abscess Patient is a 60-year-old female with medical history significant for diverticular abscess treated with antibiotics in the outpatient setting, presenting to the emergency department with severe lower left quadrant pain and CT of abdomen with evidence of a 4 x 4 centimeter loculated fluid collection in the left lower quadrant. Patient was taken to the operating room where she was found to have left lower quadrant abscess related to rectal stump and underwent exposure laparotomy with lysis of adhesions; drainage of intra-abdominal abscess ; and small bowel resection. Patient is evaluated on surgical unit where she is postop day # 4. Patient is doing better. Denies chills, fevers, nausea, vomiting, shortness of breath, or chest pain. Incisional pain controlled. Passing flatus with dark brown/black stool in colostomy bag. Patient is urinating without difficulty. Patient is hungry. Tolerating clear liquid diet. Afebrile. WBC 6.3. Hemoglobin 10.4. Abdominal wound cultures positive for E. coli ESBL. Objective - Vital Signs Vital signs: Vital Signs Temp 98.7 F 03/24/16 08:32 Pulse 74 03/24/16 08:32 Resp 16 03/24/16 08:32 BP 131/79 03/24/16 08:32 Pulse Ox 100 03/24/16 08:32 Intake & Output 03/23/16 03/24/16 03/24/16 18:59 06:59 18:59 Intake Total 1125 360 Output Total 1220 Balance -1220 1125 360 Intake: IV 1125 D5-0.45% NaCl with KCl 1125 20Meq/l 1,000 ml @ 125 mls/hr IV .Q8H [facility] Rx#: [id number] Oral 360 Output: Drainage 20 Right Lower Abdomen 20 Urine 1200 Uretheral (Stoo) 1200 Other: Voiding Method Indwelling Catheter Indwelling Catheter # Voids 3 - Exam GENERAL: Pt awake and alert, sitting up in bed, in no acute distress. LUNGS: Breath sounds clear to auscultation bilaterally. No wheezes, rales, or rhonchi. HEART: Heart S1, S2, no S3 or S4. Regular rate and rhythm. No murmurs, rubs or gallops. ABDOMEN: Soft, mild incisional tenderness, nondistended, active bowel sounds. No guarding, no rebound. Midline abdominal incision dry and intact with minimal serosanguineous drainage, Telfa celia intact. Colostomy to left lower quadrant with moderate brown/black output, ostomy healthy. NEUROLOGICAL: Pt oriented x 3. - Labs CBC & Chem 7: 03/24/16 07:22 03/24/16 07:22 Labs: Abnormal Lab Results - Last 24 Hours (Table) 03/24/16 03/24/16 Range/Units 07:22 07:22 RBC 3.31 L (3.80-5.40) m/uL Hgb 10.4 L (11.4-16.0) gm/dL Hct 31.1 L (34.0-46.0) % BUN <2 L (7-17) mg/dL Creatinine 0.44 L (0.52-1.04) mg/dL Glucose 112 H (74-99) mg/dL Total Protein 5.4 L (6.3-8.2) g/dL Albumin 2.6 L (3.5-5.0) g/dL Assessment and Plan Plan: Impression: 1. Left lower quadrant abscess related to rectal stump, failed outpatient treatment, status post exposure laparotomy with lysis of adhesions; drainage of intra-abdominal abscess; and small bowel resection on 03/21/2016. Plan: 1. Advance diet to full liquids. Continue local wound care. Continue IV antibiotics per infectious disease recommendations. Continue supportive treatment and pain management. Increase activity. Continue follow with medical team. The above impression and plan have been discussed and directed by Dr. Spears. Itz KWONG acting as scribe for Dr. Spears.
[2016-03-24] MEDS: DIAZEPAM 5 MG/ML 2 ML SYRINGE IVP PRN (14:43)
--- NOTE | 2016-03-24 16:06 | P.PN ---
Subjective 60-year-old female one of my office patient who seen Dr. Lugo for autoimmune hepatitis who is known to have history of hypothyroidism and advance liver disease who was admitted to [facility] back in July 2015 and was taking care by Dr. Mitchell for perforated diverticuli had colon resection and colostomy at the time and has done well up till January 2016 when around the developed to have significant pain and discomfort with increase diarrhea ended up coming to [facility] on 03/06 and admitted until 03/12/2016 for severe abdominal pain found to have diverticulitis with abscess measure at the time 5.2 time 3.[address] Spears and Dr. Lugo, was stabilized and sent home on March 12 on Cipro and metronidazole. Patient for the last 48 hours developed to have severe pain and increase symptom was with worsening discomfort lower abdominal region especially the left lower quadrant become much worse. Ended up coming to the emergency department at [facility] was seen by Dr. Lujan CAT scan of the abdomen showed the abscess currently slightly bit smaller and stable with no sign of free air under the diaphragma. She had other finding consistent with previous surgery and dilated common duct and pancreatic duct as well recommended possibly doing MRCP or ERCP down the road. Patient was started on Levaquin and metronidazole IV along with pantoprazole and admitted to the hospital 03/20: Patient underwent laparotomy with lysis of adhesions and drainage of intra -abdominal abscess and small bowel resection. 03/21: Patient is having severe pain and unable to get comfortable. CHEMICAL MANAGER ordered and Valium as well. Soto catheter in place. No gas in her colostomy. WBC count 11.8 and hemoglobin 13.2. She has been afebrile. 03/22: Patient complains of feeling tired today and only slept on and off during the night. She is still nauseated. Patient's pain is much better controlled with CHEMICAL MANAGER. She has not had gas or output from ostomy. She remains nothing by mouth. 03/23/2016: Patient is feeling much better no stool in the ostomy patient is pain is much better control with CHEMICAL MANAGER. She was diagnosed with ESBL from the abscess and patient is on antibiotic currently for it infectious disease consultation has not been finalized so far. 03/24: Objective - Vital Signs Vital signs: Vital Signs Temp 98.7 F 03/24/16 08:32 Pulse 74 03/24/16 08:32 Resp 16 03/24/16 08:32 BP 131/79 03/24/16 08:32 Pulse Ox 100 03/24/16 08:32 Intake & Output 03/23/16 03/24/16 03/24/16 18:59 06:59 18:59 Intake Total 1125 360 Output Total 1220 Balance -1220 1125 360 Intake: IV 1125 D5-0.45% NaCl with KCl 1125 20Meq/l 1,000 ml @ 125 mls/hr IV .Q8H [facility] Rx#: [id number] Oral 360 Output: Drainage 20 Right Lower Abdomen 20 Urine 1200 Uretheral (Soto) 1200 Other: Voiding Method Indwelling Catheter Indwelling Catheter # Voids 3 - Exam General appearance: no average body habitus, cooperative, no disheveled, no mild distress, no morbidly obese, no acute distress, no obese, no severe distress, thin - EENT Eyes: abnormal pupil, no anicteric sclerae, no disc margins sharp, no edentulous , no EOMI, no PERRLA, no fundus normal, no photophobia, no dentition normal, no poor dentition, no ptosis, no scleral icterus, normal appearance ENT: no hard of hearing, no hearing grossly normal, no NA/AT, normal oropharynx , no other, pharyngeal erythema, no thrush, no tonsillar exudates, no tonsillar swelling Ears: bilateral: normal - Neck Neck: no lymphadenopathy, normal ROM, no other, no rigidity, no stridor, no thyromegaly Carotids: bilateral: upstroke normal, upstroke delayed Thyroid: bilateral: normal size - Respiratory Respiratory: bilateral: CTA, diminished - Cardiovascular Rhythm: regular Heart sounds: normal: S1, S2 Abnormal Heart Sounds: systolic murmur, S3 Gallop - Gastrointestinal There is colostomy bag with significant tenderness in the lower part of the abdominal region with slight distention and hyper active bowel sounds General gastrointestinal: distended, hyperactive bowel sounds, organomegaly, tenderness - Integumentary Integumentary: no calor, no cellulitis, no cyanotic, no decreased turgor, flushed, no jaundiced, normal, no normal turgor, pale, rash, no ulcer - Neurologic Neurologic: CNII-XII intact - Musculoskeletal Musculoskeletal: gait normal, generalized weakness, strength equal bilaterally, no right sided weakness, no left sided weakness - Psychiatric Psychiatric: A&O x's 3, appropriate affect - Labs CBC & Chem 7: 03/24/16 07:22 03/24/16 07:22 Labs: Abnormal Lab Results - Last 24 Hours (Table) 03/24/16 03/24/16 Range/Units 07:22 07:22 RBC 3.31 L (3.80-5.40) m/uL Hgb 10.4 L (11.4-16.0) gm/dL Hct 31.1 L (34.0-46.0) % BUN <2 L (7-17) mg/dL Creatinine 0.44 L (0.52-1.04) mg/dL Glucose 112 H (74-99) mg/dL Total Protein 5.4 L (6.3-8.2) g/dL Albumin 2.6 L (3.5-5.0) g/dL Microbiology - Last 24 Hours (Table) 03/20/16 13:49 Anaerobic Culture - Final Abdomen Anaerobic Gm Positive Bacill Assessment and Plan Plan: 1 severe abdominal pain: Secondary to diverticulitis with large abscess with E. coli ESBL and will culture, continue IV antibiotics status post laparotomy, lysis of adhesion and small bowel resection. CHEMICAL MANAGER to be started for pain control and Valium added. Full liquid diet. Continue ertapenem. Consult with Dr. Yepez appreciated.. 2 severe diverticulitis: Continue antibiotics at least for the next 2 weeks. 3 anemia: Has been on iron supplement. 4 autoimmune hepatitis: Was on Azathioprine and seen Dr. Lugo on regular basis continue current management. 5 hypothyroidism: Continue patient on levothyroxine. 6 pain and pain management: Patient will be on hydrocodone and IV Dilaudid as needed. Patient started on CHEMICAL MANAGER pump for now. 7 GI prophylaxis: Patient will be on pantoprazole IV. 8 DVT prophylaxis: Patient will be on heparin 5000 units subcutaneous twice a day. CODE STATUS: Full code. Impression and plan of care have been directed as dictated by the signing physician. Sallie Cintron nurse practitioner acting as scribe for signing physician. Time with Patient: Greater than 30
--- NOTE | 2016-03-24 19:32 | P.PN ---
Subjective Principal diagnosis: Abdominal pain and fever Very pleasant 60-year-old woman has had a very significant recent history. She has a known history of autoimmune hepatitis and was cared for in the past [facility]. In the summer of 2015 she developed acute abdominal pain with evidence of a perforated diverticulum and was seen at [facility] for colonic resection and colostomy. In 02/18/2016 she developed increasing amounts of abdominal pain. Presented to the emergency center. If that time she was found evidence of abdominal abscess related to diverticulosis measuring at 5.2 x 3.8 cm. She was managed medically with antibiotic therapy with ciprofloxacin and metronidazole. She was hospitalized from the was discharged home. However on March 19 she came with increasing amounts of abdominal pain. Evidence of the ongoing abscess was noted. It is her ongoing symptoms she was taken to the operating room and had drainage of the intra-abdominal abscess. Also had limited small bowel resection at that time. She is feeling slightly better today. Still on the CAFETERIA COUNTER ATTENDANT pump with is sitting upright and ate a Popsicle. She is feeling somewhat better. But there is concern because of the ESBL E. coli that has now been isolated. Is feeling somewhat better today. Has had more fluids and clear liquids today. Remains on the CAFETERIA COUNTER ATTENDANT pump. But is comfortable. Objective - Vital Signs Vital signs: Vital Signs Temp 98.2 F 03/24/16 14:40 Pulse 76 03/24/16 14:40 Resp 16 03/24/16 14:40 BP 127/82 03/24/16 14:40 Pulse Ox 97 03/24/16 15:00 Intake & Output 03/24/16 03/24/16 03/25/16 06:59 18:59 06:59 Intake Total 1125 1310 Balance 1125 1310 Intake: IV 1125 D5-0.45% NaCl with KCl 1125 20Meq/l 1,000 ml @ 125 mls/hr IV .Q8H [facility] Rx#: [id number] Oral 1310 Other: Voiding Method Indwelling Catheter # Voids 3 - Exam Pleasant 60-year-old woman relates her pain is under better control HEENT: Anicteric conjunctiva are pink and moist nasal mucosa grossly intact without significant lesions, there is no thrush. Neck: The neck is supple without significant lymphadenopathy or thyromegaly. Lungs: Good bilateral air entry without significant crackles or wheezing. There is no significant bronchial sounds. There is no egophony or dullness. Heart: Regular rate and rhythm with an audible S1-S2, no S3 no S4. There is no significant murmur click or rub, PMI was nondisplaced. Abdomen: Few bowel sounds. Ostomy site looks well. Surgical incision was scant drainage. Abdominal wall is oil process stillman. Extremities: The upper extremities have excellent pulses they are symmetric, no significant petechiae or telangiectasia. No splinter hemorrhages were noted. The lower extremities are free from significant edema. The peripheral pulses were 2+ and symmetric. Neuro: Awake alert oriented to person place and time. There are no acute new gross focal sensory motor deficits. - Labs CBC & Chem 7: 03/24/16 07:22 03/24/16 07:22 Labs: Abnormal Lab Results - Last 24 Hours (Table) 03/24/16 03/24/16 Range/Units 07:22 07:22 RBC 3.31 L (3.80-5.40) m/uL Hgb 10.4 L (11.4-16.0) gm/dL Hct 31.1 L (34.0-46.0) % BUN <2 L (7-17) mg/dL Creatinine 0.44 L (0.52-1.04) mg/dL Glucose 112 H (74-99) mg/dL Total Protein 5.4 L (6.3-8.2) g/dL Albumin 2.6 L (3.5-5.0) g/dL Microbiology - Last 24 Hours (Table) 03/20/16 13:49 Anaerobic Culture - Final Abdomen Anaerobic Gm Positive [facility] Results WBC 6.3 k/uL (3.8-10.6) 03/24/16 07:22 RBC 3.31 m/uL (3.80-5.40) L 03/24/16 07:22 Hgb 10.4 gm/dL (11.4-16.0) L 03/24/16 07:22 Hct 31.1 % (34.0-46.0) L 03/24/16 07:22 MCV 94.0 fL (80.0-100.0) 03/24/16 07:22 MCH 31.5 pg (25.0-35.0) 03/24/16 07:22 MCHC 33.5 g/dL (31.0-37.0) 03/24/16 07:22 RDW 13.6 % (11.5-15.5) 03/24/16 07:22 Plt Count 265 k/uL (150-450) 03/24/16 07:22 Neutrophils % 65 % 03/24/16 07:22 Lymphocytes % 20 % 03/24/16 07:22 Monocytes % 6 % 03/24/16 07:22 Eosinophils % 5 % 03/24/16 07:22 Basophils % 1 % 03/24/16 07:22 Neutrophils # 4.1 k/uL (1.3-7.7) 03/24/16 07:22 Lymphocytes # 1.3 k/uL (1.0-4.8) 03/24/16 07:22 Monocytes # 0.4 k/uL (0-1.0) 03/24/16 07:22 Eosinophils # 0.3 k/uL (0-0.7) 03/24/16 07:22 Basophils # 0.0 k/uL (0-0.2) 03/24/16 07:22 PT 12.4 sec (9.0-12.0) H 03/19/16 16:20 INR 1.3 (<1.1) 03/19/16 16:20 APTT 22.3 sec (22.0-30.0) 03/19/16 16:20 Sodium 139 mmol/L (137-145) 03/24/16 07:22 Potassium 4.2 mmol/L (3.5-5.1) 03/24/16 07:22 Chloride 107 mmol/L (98-107) 03/24/16 07:22 Carbon Dioxide 25 mmol/L (22-30) 03/24/16 07:22 Anion Gap 7 mmol/L 03/24/16 07:22 BUN <2 mg/dL (7-17) L 03/24/16 07:22 Creatinine 0.44 mg/dL (0.52-1.04) L 03/24/16 07:22 Est GFR (MDRD) Af Amer >60 (>60 ml/min/1.73 sqM) 03/24/16 07:22 Est GFR (MDRD) Non-Af >60 (>60 ml/min/1.73 sqM) 03/24/16 07:22 Glucose 112 mg/dL (74-99) H 03/24/16 07:22 Plasma Lactic Acid Edmundo 1.1 mmol/L (0.7-2.0) 03/19/16 16:20 Calcium 8.5 mg/dL (8.4-10.2) 03/24/16 07:22 Total Bilirubin 0.5 mg/dL (0.2-1.3) 03/24/16 07:22 AST 19 U/L (14-36) 03/24/16 07:22 ALT 29 U/L (9-52) 03/24/16 07:22 Alkaline Phosphatase 47 U/L (38-126) 03/24/16 07:22 Total Protein 5.4 g/dL (6.3-8.2) L 03/24/16 07:22 Albumin 2.6 g/dL (3.5-5.0) L 03/24/16 07:22 Amylase 115 U/L (30-110) H 03/19/16 16:20 Lipase 261 U/L (23-300) 03/19/16 16:20 Urine Color Light Yellow 03/19/16 16:20 Urine Appearance Clear (Clear) 03/19/16 16:20 Urine pH 7.0 (5.0-8.0) 03/19/16 16:20 Ur Specific G[place] 1.003 (1.001-1.035) 03/19/16 16:20 Urine Protein Negative (Negative) 03/19/16 16:20 Urine Glucose (UA) Negative (Negative) 03/19/16 16:20 Urine Ketones Negative (Negative) 03/19/16 16:20 Urine Blood Negative (Negative) 03/19/16 16:20 Urine Nitrate Negative (Negative) 03/19/16 16:20 Urine Bilirubin Negative (Negative) 03/19/16 16:20 Urine Urobilinogen <2.0 mg/dL (<2.0) 03/19/16 16:20 Ur Leukocyte Esterase Negative (Negative) 03/19/16 16:20 Microbiology 03/20/16 13:49 Abdomen Anaerobic Culture - Final Anaerobic Gm Positive Bacill 03/20/16 13:49 Abdomen Gram Stain - Final 03/20/16 13:49 Abdomen Wound Culture - Final Escherichia coli 03/19/16 16:20 Urine,Voided Urine Culture - Final Assessment and Plan (1) Colonic diverticular abscess Narrative/Plan: 60-year-old woman who has a complex past medical history who presents to hospital with ongoing abdominal pain. Find evidence of worsening diverticular abscess. She's been taking the operating room she's had an incision and drainage performed. She is now recovering postoperative period wound culture showing evidence of E. coli ESBL. The patient relates that she does have some exposure from her mother who is been quite ill recently. And the patient herself has been on multiple antibiotics in the recent past also has risk factors for acquiring E. coli ESBL. The patient is educated about the bacteria. The antibiotic therapy was altered at the time of the consultation to ertapenem. She is very concerned about having to have a PICC line at discharge. Fortunately we will have some potential oral options at the time of her discharge when she is improved. Continuing with supportive care and nutritional supplementation as indicated. Status: Acute (2) Infection due to ESBL-producing Escherichia coli Status: Acute
[2016-03-24] MEDS: VENLAFAXINE HCL ER 150 MG CAP PO SCH (21:04)
[2016-03-25] MEDS: ONDANSETRON 4 MG/2 ML VIAL IVP PRN ×2 (00:49→09:37)
[2016-03-25] MEDS: HYDROmorphone PCA 5 MG/25 ML SYRINGE IV PRN (00:50)
[2016-03-25] MEDS: D5-0.45% NACL WITH KCL 20MEQ/L 1,000 ML IV SCH ×3 (05:22→20:57)
[2016-03-25] MEDS: LEVOTHYROXINE 75 MCG TAB PO SCH (05:23)
[2016-03-25 07:50] LABS: Basophils % (A) 1 %; CH 32.3; CHCM 34.5; Eosinophils # (A) 0.4 k/uL (0-0.7); Eosinophils % (A) 8 %; HDW 3.08; HGB 10.4 gm/dL (11.4-16.0); Luc # (Auto) 0.18; Luc % (Auto) 4; Lymphocytes % (A) 20 %; MCH 31.4 pg (25.0-35.0); MCHC 33.5 g/dL (31.0-37.0); Mean Platelet Volume 6.5; Monocytes # (A) 0.3 k/uL (0-1.0); Monocytes % (A) 6 %; Neutrophils # (A) 3.1 k/uL (1.3-7.7); Neutrophils % (A) 62 %; RBC 3.29 m/uL (3.80-5.40); RDW 13.5 % (11.5-15.5); WBC (Perox) 5.51
[2016-03-25 07:58] LABS: Anion Gap 8 mmol/L; Blood Urea Nitrogen <2 mg/dL (7-17); Calcium 8.8 mg/dL (8.4-10.2); Carbon Dioxide 25 mmol/L (22-30); Chloride 105 mmol/L (98-107); Glucose 109 mg/dL (74-99); Non-African American GFR(MDRD) >60 (>60 ml/min/1.73 sqM); Potassium 4.6 mmol/L (3.5-5.1); Sodium 138 mmol/L (137-145)
[2016-03-25] MEDS: VENLAFAXINE HCL ER 150 MG CAP PO SCH (08:49)
[2016-03-25] MEDS: FERROUS SULFATE 325 MG TAB PO SCH (08:49)
[2016-03-25] MEDS: MAGNESIUM OXIDE 400 MG TAB PO SCH (08:50)
[2016-03-25] MEDS: MULTIVITAMINS, THERA 1 EACH TAB PO SCH (08:50)
[2016-03-25] MEDS: FOLIC ACID 1 MG TAB PO SCH (08:50)
[2016-03-25] MEDS: HEPARIN SODIUM,PORCINE 5,000 UNIT/ML 1 ML VIAL SQ SCH ×2 (08:59→20:57)
[2016-03-25] MEDS: ERTAPENEM 1 GM in SODIUM CHLORIDE 0.9% 50 ML IVPB SCH (08:59)
[2016-03-25] MEDS: PANTOPRAZOLE 40 MG/10 ML VIAL IV SCH (08:59)
[2016-03-25] MEDS: METOCLOPRAMIDE 5 MG/ML 2 ML VIAL IVP PRN (10:53)
--- NOTE | 2016-03-25 14:12 | P.PN ---
Subjective Principal diagnosis: Diverticular abscess Patient is a 60-year-old female with medical history significant for diverticular abscess treated with antibiotics in the outpatient setting, presenting to the emergency department with severe lower left quadrant pain and CT of abdomen with evidence of a 4 x 4 centimeter loculated fluid collection in the left lower quadrant. Patient was taken to the operating room where she was found to have left lower quadrant abscess related to rectal stump and underwent exposure laparotomy with lysis of adhesions; drainage of intra-abdominal abscess ; and small bowel resection. Patient is evaluated on surgical unit where she is postop day #5. Patient is complaining of nausea without vomiting. Denies chills, fevers, shortness of breath, or chest pain. Incisional pain controlled. Passing flatus with dark brown/black stool in colostomy bag. Patient is urinating without difficulty. Cruzito Forbes drain with 10 mL of serosanguineous drainage the last 24 hours. Afebrile. WBC 5.0. Hemoglobin stable at 10.4. Objective - Vital Signs Vital signs: Vital Signs Temp 97.3 F L 03/25/16 09:04 Pulse 71 03/25/16 09:04 Resp 16 03/25/16 09:04 BP 129/67 03/25/16 09:04 Pulse Ox 97 03/25/16 09:04 Intake & Output 03/24/16 03/25/16 03/25/16 18:59 06:59 18:59 Intake Total 1310 Output Total 10 30 Balance 1310 -10 -30 Weight 61.235 kg Intake: Oral 1310 Output: Drainage 10 30 Right Lower Abdomen 10 30 Other: Voiding Method Toilet - Exam GENERAL: Pt awake and alert, sitting up in bed, in no acute distress. LUNGS: Breath sounds clear to auscultation bilaterally. No wheezes, rales, or rhonchi. HEART: Heart S1, S2, no S3 or S4. Regular rate and rhythm. No murmurs, rubs or gallops. ABDOMEN: Soft, mild incisional tenderness, nondistended, active bowel sounds. No guarding, no rebound. Midline abdominal incision dry and intact with minimal serosanguineous drainage, Telfa celia intact. Colostomy to left lower quadrant with moderate brown/black output, ostomy healthy. NELDA drain is compressed with serosanguineous drainage. NEUROLOGICAL: Pt oriented x 3. - Labs CBC & Chem 7: 01/31/17 07:26 03/25/16 07:26 Labs: Abnormal Lab Results - Last 24 Hours (Table) 03/25/16 03/25/16 Range/Units 07:26 07:26 RBC 3.29 L (3.80-5.40) m/uL Hgb 10.4 L (11.4-16.0) gm/dL Hct 31.0 L (34.0-46.0) % BUN <2 L (7-17) mg/dL Creatinine 0.49 L (0.52-1.04) mg/dL Glucose 109 H (74-99) mg/dL Microbiology - Last 24 Hours (Table) 03/20/16 13:49 Anaerobic Culture - Final Abdomen Anaerobic Gm Positive Bacill Assessment and Plan Plan: Impression: 1. Left lower quadrant abscess related to rectal stump, failed outpatient treatment, status post exposure laparotomy with lysis of adhesions; drainage of intra-abdominal abscess; and small bowel resection on 03/21/2016. Plan: 1. Continue full liquid diet. Continue local wound care. Continue IV antibiotics per infectious disease recommendations. Continue supportive treatment and pain management. Increase activity. Continue follow with medical team. The above impression and plan have been discussed and directed by Dr. Spears. Itz KWONG acting as scribe for Dr. Spears.
--- NOTE | 2016-03-25 15:15 | P.PN ---
Subjective 60-year-old female one of my office patient who seen Dr. Lugo for autoimmune hepatitis who is known to have history of hypothyroidism and advance liver disease who was admitted to [facility] back in July 2015 and was taking care by Dr. Mitchell for perforated diverticuli had colon resection and colostomy at the time and has done well up till January 2016 when around the th developed to have significant pain and discomfort with increase diarrhea ended up coming to [facility] on 03/06 and admitted until 03/12/2016 for severe abdominal pain found to have diverticulitis with abscess measure at the time 5.2 time 3.[address] Spears and Dr. Lugo, was stabilized and sent home on March 12 on Cipro and metronidazole. Patient for the last 48 hours developed to have severe pain and increase symptom was with worsening discomfort lower abdominal region especially the left lower quadrant become much worse. Ended up coming to the emergency department at [facility] was seen by Dr. Lujan CAT scan of the abdomen showed the abscess currently slightly bit smaller and stable with no sign of free air under the diaphragma. She had other finding consistent with previous surgery and dilated common duct and pancreatic duct as well recommended possibly doing MRCP or ERCP down the road. Patient was started on Levaquin and metronidazole IV along with pantoprazole and admitted to the hospital 03/20: Patient underwent laparotomy with lysis of adhesions and drainage of intra -abdominal abscess and small bowel resection. 03/21: Patient is having severe pain and unable to get comfortable. ACCOUNTANT CONTROLLER ordered and Valium as well. Soto catheter in place. No gas in her colostomy. WBC count 11.8 and hemoglobin 13.2. She has been afebrile. 03/22: Patient complains of feeling tired today and only slept on and off during the night. She is still nauseated. Patient's pain is much better controlled with ACCOUNTANT CONTROLLER. She has not had gas or output from ostomy. She remains nothing by mouth. 03/23/2016: Patient is feeling much better no stool in the ostomy patient is pain is much better control with ACCOUNTANT CONTROLLER. She was diagnosed with ESBL from the abscess and patient is on antibiotic currently for it infectious disease consultation has not been finalized so far. 03/25: patient states she had nausea after eating oatmeal this morning. She is having stool in her ostomy. ACCOUNTANT CONTROLLER is in place. Pain is well controlled. Objective - Vital Signs Vital signs: Vital Signs Temp 97.3 F L 03/25/16 09:04 Pulse 71 03/25/16 09:04 Resp 16 03/25/16 09:04 BP 129/67 03/25/16 09:04 Pulse Ox 97 03/25/16 09:04 Intake & Output 03/24/16 03/25/16 03/25/16 18:59 06:59 18:59 Intake Total 1310 Output Total 10 30 Balance 1310 -10 -30 Weight 61.235 kg Intake: Oral 1310 Output: Drainage 10 30 Right Lower Abdomen 10 30 Other: Voiding Method Toilet - Exam General appearance: no average body habitus, cooperative, no disheveled, no mild distress, no morbidly obese, no acute distress, no obese, no severe distress, thin - EENT Eyes: abnormal pupil, no anicteric sclerae, no disc margins sharp, no edentulous , no EOMI, no PERRLA, no fundus normal, no photophobia, no dentition normal, no poor dentition, no ptosis, no scleral icterus, normal appearance ENT: no hard of hearing, no hearing grossly normal, no NA/AT, normal oropharynx , no other, pharyngeal erythema, no thrush, no tonsillar exudates, no tonsillar swelling Ears: bilateral: normal - Neck Neck: no lymphadenopathy, normal ROM, no other, no rigidity, no stridor, no thyromegaly Carotids: bilateral: upstroke normal, upstroke delayed Thyroid: bilateral: normal size - Respiratory Respiratory: bilateral: CTA, diminished - Cardiovascular Rhythm: regular Heart sounds: normal: S1, S2 Abnormal Heart Sounds: systolic murmur, S3 Gallop - Gastrointestinal There is colostomy bag with significant tenderness in the lower part of the abdominal region with slight distention and hyper active bowel sounds General gastrointestinal: distended, hyperactive bowel sounds, organomegaly, tenderness - Integumentary Integumentary: no calor, no cellulitis, no cyanotic, no decreased turgor, flushed, no jaundiced, normal, no normal turgor, pale, rash, no ulcer - Neurologic Neurologic: CNII-XII intact - Musculoskeletal Musculoskeletal: gait normal, generalized weakness, strength equal bilaterally, no right sided weakness, no left sided weakness - Psychiatric Psychiatric: A&O x's 3, appropriate affect - Labs CBC & Chem 7: 03/25/16 07:26 03/25/16 07:26 Labs: Abnormal Lab Results - Last 24 Hours (Table) 03/25/16 03/25/16 Range/Units 07:26 07:26 RBC 3.29 L (3.80-5.40) m/uL Hgb 10.4 L (11.4-16.0) gm/dL Hct 31.0 L (34.0-46.0) % BUN <2 L (7-17) mg/dL Creatinine 0.49 L (0.52-1.04) mg/dL Glucose 109 H (74-99) mg/dL Microbiology - Last 24 Hours (Table) 03/20/16 13:49 Anaerobic Culture - Final Abdomen Anaerobic Gm Positive Bacill Assessment and Plan Plan: 1 severe abdominal pain: Secondary to diverticulitis with large abscess with E. coli ESBL and will culture, continue IV antibiotics status post laparotomy, lysis of adhesion and small bowel resection. ACCOUNTANT CONTROLLER to be started for pain control and Valium added. Full liquid diet. Continue ertapenem. Consult with Dr. Yepez appreciated.. 2 severe diverticulitis: Continue antibiotics at least for the next 2 weeks. 3 anemia: Has been on iron supplement. 4 autoimmune hepatitis: Was on Azathioprine and seen Dr. Lugo on regular basis continue current management. 5 hypothyroidism: Continue patient on levothyroxine. 6 pain and pain management: Patient will be on hydrocodone and IV Dilaudid as needed. Patient started on ACCOUNTANT CONTROLLER pump for now. 7 GI prophylaxis: Patient will be on pantoprazole IV. 8 DVT prophylaxis: Patient will be on heparin 5000 units subcutaneous twice a day. CODE STATUS: Full code. Impression and plan of care have been directed as dictated by the signing physician. Sallie Cintron nurse practitioner acting as scribe for signing physician. Time with Patient: Greater than 30
--- NOTE | 2016-03-25 22:11 | P.PN ---
Subjective Principal diagnosis: Abdominal pain and fever Very pleasant 60-year-old woman has had a very significant recent history. She has a known history of autoimmune hepatitis and was cared for in the past [facility]. In the summer of 2015 she developed acute abdominal pain with evidence of a perforated diverticulum and was seen at [facility] for colonic resection and colostomy. In 02/18/2016 she developed increasing amounts of abdominal pain. Presented to the emergency center. If that time she was found evidence of abdominal abscess related to diverticulosis measuring at 5.2 x 3.8 cm. She was managed medically with antibiotic therapy with ciprofloxacin and metronidazole. She was hospitalized from the was discharged home. However on March 19 she came with increasing amounts of abdominal pain. Evidence of the ongoing abscess was noted. It is her ongoing symptoms she was taken to the operating room and had drainage of the intra-abdominal abscess. Also had limited small bowel resection at that time. She is feeling slightly better today. Still on the MAILING SECTION CLERK pump But there is concern because of the ESBL E. coli that has now been isolated. Is feeling somewhat better today. Has had more fluids and clear liquids today. Objective - Vital Signs Vital signs: Vital Signs Temp 97.8 F 03/25/16 20:59 Pulse 80 03/25/16 20:59 Resp 16 03/25/16 20:59 BP 114/69 03/25/16 20:59 Pulse Ox 94 L 03/25/16 20:59 Intake & Output 03/25/16 03/25/16 03/26/16 06:59 18:59 06:59 Output Total 10 30 10 Balance -10 -30 -10 Weight 61.235 kg Output: Drainage 10 30 10 Right Lower Abdomen 10 30 10 Other: Voiding Method Toilet Toilet - Exam Pleasant 60-year-old woman relates her pain is under better control HEENT: Anicteric conjunctiva are pink and moist nasal mucosa grossly intact without significant lesions, there is no thrush. Neck: The neck is supple without significant lymphadenopathy or thyromegaly. Lungs: Good bilateral air entry without significant crackles or wheezing. There is no significant bronchial sounds. There is no egophony or dullness. Heart: Regular rate and rhythm with an audible S1-S2, no S3 no S4. There is no significant murmur click or rub, PMI was nondisplaced. Abdomen: Few bowel sounds. Ostomy site looks well. Surgical incision was scant drainage. 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 Extremities: The upper extremities have excellent pulses they are symmetric, no significant petechiae or telangiectasia. No splinter hemorrhages were noted. The lower extremities are free from significant edema. The peripheral pulses were 2+ and symmetric. Neuro: Awake alert oriented to person place and time. There are no acute new gross focal sensory motor deficits. - Labs CBC & Chem 7: 03/25/16 07:26 03/25/16 07:26 Labs: Abnormal Lab Results - Last 24 Hours (Table) 03/25/16 03/25/16 Range/Units 07:26 07:26 RBC 3.29 L (3.80-5.40) m/uL Hgb 10.4 L (11.4-16.0) gm/dL Hct 31.0 L (34.0-46.0) % BUN <2 L (7-17) mg/dL Creatinine 0.49 L (0.52-1.04) mg/dL Glucose 109 H (74-99) mg/dL Assessment and Plan (1) Colonic diverticular abscess Narrative/Plan: 60-year-old woman who has a complex past medical history who presents to hospital with ongoing abdominal pain. Find evidence of worsening diverticular abscess. She's been taking the operating room she's had an incision and drainage performed. She is now recovering postoperative period wound culture showing evidence of E. coli ESBL. The patient relates that she does have some exposure from her mother who is been quite ill recently. And the patient herself has been on multiple antibiotics in the recent past also has risk factors for acquiring E. coli ESBL. The patient is educated about the bacteria. The antibiotic therapy was altered at the time of the consultation to ertapenem. She is very concerned about having to have a PICC line at discharge. Fortunately we will have some potential oral options at the time of her discharge when she is improved. Continuing with supportive care and nutritional supplementation as indicated. Status: Acute (2) Infection due to ESBL-producing Escherichia coli Status: Acute
[2016-03-26] MEDS: D5-0.45% NACL WITH KCL 20MEQ/L 1,000 ML IV SCH ×2 (02:59→16:13)
[2016-03-26] MEDS: LEVOTHYROXINE 75 MCG TAB PO SCH (05:20)
[2016-03-26] MEDS: ERTAPENEM 1 GM in SODIUM CHLORIDE 0.9% 50 ML IVPB SCH (09:21)
[2016-03-26] MEDS: VENLAFAXINE HCL ER 150 MG CAP PO SCH (09:21)
[2016-03-26] MEDS: PANTOPRAZOLE 40 MG TABLET PO SCH (09:21)
[2016-03-26] MEDS: HEPARIN SODIUM,PORCINE 5,000 UNIT/ML 1 ML VIAL SQ SCH ×2 (09:21→20:09)
[2016-03-26] MEDS: HYDROmorphone PCA 5 MG/25 ML SYRINGE IV PRN (13:16)
[2016-03-26] MEDS: FERROUS SULFATE 325 MG TAB PO SCH (13:17)
[2016-03-26] MEDS: MAGNESIUM OXIDE 400 MG TAB PO SCH (13:17)
[2016-03-26] MEDS: FOLIC ACID 1 MG TAB PO SCH (13:17)
[2016-03-26] MEDS: METOCLOPRAMIDE 5 MG/ML 2 ML VIAL IVP PRN (14:10)
--- NOTE | 2016-03-26 14:13 | P.PN ---
Subjective Principal diagnosis: Diverticular abscess Patient is a 60-year-old female with medical history significant for diverticular abscess treated with antibiotics in the outpatient setting, presenting to the emergency department with severe lower left quadrant pain and CT of abdomen with evidence of a 4 x 4 centimeter loculated fluid collection in the left lower quadrant. Patient was taken to the operating room where she was found to have left lower quadrant abscess related to rectal stump and underwent exposure laparotomy with lysis of adhesions; drainage of intra-abdominal abscess ; and small bowel resection. Patient is evaluated on surgical unit where she is postop day #6. Patient is complaining of mild nausea without vomiting after eating oatmeal this morning which has since resolved. Denies chills, fevers, shortness of breath, or chest pain. Incisional pain controlled. Passing flatus with dark brown/black stool in colostomy bag. Patient is urinating without difficulty. Cruzito Forbes drain with serosanguineous drainage. Afebrile. Objective - Vital Signs Vital signs: Vital Signs Temp 97.8 F 03/26/16 07:40 Pulse 70 03/26/16 07:40 Resp 16 03/26/16 07:40 BP 108/64 03/26/16 07:40 Pulse Ox 95 03/26/16 07:40 Intake & Output 03/25/16 03/26/16 03/26/16 18:59 06:59 18:59 Intake Total 360 Output Total 30 10 Balance -30 -10 360 Weight 61.235 kg Intake: Oral 360 Output: Drainage 30 10 Right Lower Abdomen 30 10 Other: Voiding Method Toilet # Voids 1 - Exam GENERAL: Pt awake and alert, sitting up in bed, in no acute distress. LUNGS: Breath sounds clear to auscultation bilaterally. No wheezes, rales, or rhonchi. HEART: Heart S1, S2, no S3 or S4. Regular rate and rhythm. No murmurs, rubs or gallops. ABDOMEN: Soft, mild incisional tenderness, nondistended, active bowel sounds. No guarding, no rebound. Midline abdominal incision dry and intact with minimal serosanguineous drainage, Telfa celia intact. Colostomy to left lower quadrant with moderate brown/black output, ostomy healthy. NELDA drain is compressed with serosanguineous drainage. NEUROLOGICAL: Pt oriented x 3. - Labs CBC & Chem 7: 03/25/16 07:26 03/25/16 07:26 Assessment and Plan Plan: Impression: 1. Left lower quadrant abscess related to rectal stump, failed outpatient treatment, status post exposure laparotomy with lysis of adhesions; drainage of intra-abdominal abscess; and small bowel resection on 03/21/2016. Plan: 1. Advance diet to soft. Continue local wound care. Continue IV antibiotics per infectious disease recommendations. Continue supportive treatment and pain management. Increase activity. Continue follow with medical team. The above impression and plan have been discussed and directed by Dr. Spears. Itz KWONG acting as scribe for Dr. Spears.
[2016-03-26] MEDS: MULTIVITAMINS, THERA 1 EACH TAB PO SCH (16:13)
[2016-03-26] MEDS: SODIUM CHLORIDE 0.9% 1,000 ML IV SCH ×2 (20:08→20:09)
--- NOTE | 2016-03-26 23:35 | P.PN ---
Subjective Principal diagnosis: Abdominal pain and fever Very pleasant 60-year-old woman has had a very significant recent history. She has a known history of autoimmune hepatitis and was cared for in the past [facility]. In the summer of 2015 she developed acute abdominal pain with evidence of a perforated diverticulum and was seen at [facility] for colonic resection and colostomy. In 02/18/2016 she developed increasing amounts of abdominal pain. Presented to the emergency center. If that time she was found evidence of abdominal abscess related to diverticulosis measuring at 5.2 x 3.8 cm. She was managed medically with antibiotic therapy with ciprofloxacin and metronidazole. She was hospitalized from the was discharged home. However on March 19 she came with increasing amounts of abdominal pain. Evidence of the ongoing abscess was noted. It is her ongoing symptoms she was taken to the operating room and had drainage of the intra-abdominal abscess. Also had limited small bowel resection at that time. She is feeling slightly better today. Still on the DEPALLETIZER OPERATOR pump But there is concern because of the ESBL E. coli that has now been isolated. Is feeling somewhat better today. Ate normal tray without problem Objective - Vital Signs Vital signs: Vital Signs Temp 98.1 F 03/26/16 20:34 Pulse 77 03/26/16 20:34 Resp 16 03/26/16 20:34 BP 118/75 03/26/16 20:34 Pulse Ox 96 03/26/16 20:34 Intake & Output 03/26/16 03/26/16 03/27/16 06:59 18:59 06:59 Intake Total 840 Output Total 10 70 30 Balance -10 770 -30 Intake: Oral 840 Output: Drainage 10 70 30 Right Lower Abdomen 10 70 30 Other: Voiding Method Toilet Toilet # Voids 1 - Exam Pleasant 60-year-old woman relates her pain is under better control HEENT: Anicteric conjunctiva are pink and moist nasal mucosa grossly intact without significant lesions, there is no thrush. Neck: The neck is supple without significant lymphadenopathy or thyromegaly. Lungs: Good bilateral air entry without significant crackles or wheezing. There is no significant bronchial sounds. There is no egophony or dullness. Heart: Regular rate and rhythm with an audible S1-S2, no S3 no S4. There is no significant murmur click or rub, PMI was nondisplaced. Abdomen: Few bowel sounds. Ostomy site looks well. Surgical incision was scant drainage. 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 Extremities: The upper extremities have excellent pulses they are symmetric, no significant petechiae or telangiectasia. No splinter hemorrhages were noted. The lower extremities are free from significant edema. The peripheral pulses were 2+ and symmetric. Neuro: Awake alert oriented to person place and time. There are no acute new gross focal sensory motor deficits. - Labs CBC & Chem 7: 03/25/16 07:26 03/25/16 07:26 Labs: Laboratory Results WBC 5.0 k/uL (3.8-10.6) 03/25/16 07:26 RBC 3.29 m/uL (3.80-5.40) L 03/25/16 07:26 Hgb 10.4 gm/dL (11.4-16.0) L 03/25/16 07:26 Hct 31.0 % (34.0-46.0) L 03/25/16 07:26 MCV 94.0 fL (80.0-100.0) 03/25/16 07:26 MCH 31.4 pg (25.0-35.0) 03/25/16 07: MCHC 33.5 g/dL (31.0-37.0) 03/25/16 07:26 RDW 13.5 % (11.5-15.5) 03/25/16 07:26 Plt Count 291 k/uL (150-450) 03/25/16 07:26 Neutrophils % 62 % 03/25/16 07:26 Lymphocytes % 20 % 03/25/16 07:26 Monocytes % 6 % 03/25/16 07:26 Eosinophils % 8 % 03/25/16 07:26 Basophils % 1 % 03/25/16 07:26 Neutrophils # 3.1 k/uL (1.3-7.7) 03/25/16 07:26 Lymphocytes # 1.0 k/uL (1.0-4.8) 03/25/16 07:26 Monocytes # 0.3 k/uL (0-1.0) 03/25/16 07:26 Eosinophils # 0.4 k/uL (0-0.7) 03/25/16 07:26 Basophils # 0.0 k/uL (0-0.2) 03/25/16 07:26 PT 12.4 sec (9.0-12.0) H 03/19/16 16:20 INR 1.3 (<1.1) 03/19/16 16:20 APTT 22.3 sec (22.0-30.0) 03/19/16 16:20 Sodium 138 mmol/L (137-145) 03/25/16 07:26 Potassium 4.6 mmol/L (3.5-5.1) 03/25/16 07:26 Chloride 105 mmol/L (98-107) 03/25/16 07:26 Carbon Dioxide 25 mmol/L (22-30) 03/25/16 07:26 Anion Gap 8 mmol/L 03/25/16 07:26 BUN <2 mg/dL (7-17) L 03/25/16 07:26 Creatinine 0.49 mg/dL (0.52-1.04) L 03/25/16 07:26 Est GFR (MDRD) Af Amer >60 (>60 ml/min/1.73 sqM) 03/25/16 07:26 Est GFR (MDRD) Non-Af >60 (>60 ml/min/1.73 sqM) 03/25/16 07:26 Glucose 109 mg/dL (74-99) H 03/25/16 07:26 Plasma Lactic Acid Edmundo 1.1 mmol/L (0.7-2.0) 03/19/16 16:20 Calcium 8.8 mg/dL (8.4-10.2) 03/25/16 07:26 Total Bilirubin 0.5 mg/dL (0.2-1.3) 03/24/16 07:22 AST 19 U/L (14-36) 03/24/16 07:22 ALT 29 U/L (9-52) 03/24/16 07:22 Alkaline Phosphatase 47 U/L (38-126) 03/24/16 07:22 Total Protein 5.4 g/dL (6.3-8.2) L 03/24/16 07:22 Albumin 2.6 g/dL (3.5-5.0) L 03/24/16 07:22 Amylase 115 U/L (30-110) H 03/19/16 16:20 Lipase 261 U/L (23-300) 03/19/16 16:20 Urine Color Light Yellow 03/19/16 16:20 Urine Appearance Clear (Clear) 03/19/16 16:20 Urine pH 7.0 (5.0-8.0) 03/19/16 16:20 Ur Specific [place] 1.003 (1.001-1.035) 03/19/16 16:20 Urine Protein Negative (Negative) 03/19/16 16:20 Urine Glucose (UA) Negative (Negative) 03/19/16 16:20 Urine Ketones Negative (Negative) 03/19/16 16:20 Urine Blood Negative (Negative) 03/19/16 16:20 Urine Nitrate Negative (Negative) 03/19/16 16:20 Urine Bilirubin Negative (Negative) 03/19/16 16:20 Urine Urobilinogen <2.0 mg/dL (<2.0) 03/19/16 16:20 Ur Leukocyte Esterase Negative (Negative) 03/19/16 16:20 Microbiology 03/20/16 13:49 Abdomen Anaerobic Culture - Final Anaerobic Gm Positive Bacill 03/20/16 13:49 Abdomen Gram Stain - Final 03/20/16 13:49 Abdomen Wound Culture - Final Escherichia coli 03/19/16 16:20 Urine,Voided Urine Culture - Final Assessment and Plan (1) Colonic diverticular abscess Narrative/Plan: 60-year-old woman who has a complex past medical history who presents to hospital with ongoing abdominal pain. Find evidence of worsening diverticular abscess. She's been taking the operating room she's had an incision and drainage performed. She is now recovering postoperative period wound culture showing evidence of E. coli ESBL. The patient relates that she does have some exposure from her mother who is been quite ill recently. And the patient herself has been on multiple antibiotics in the recent past also has risk factors for acquiring E. coli ESBL. The patient is educated about the bacteria. The antibiotic therapy was altered at the time of the consultation to ertapenem. She is very concerned about having to have a PICC line at discharge. Fortunately we will have some potential oral options at the time of her discharge when she is improved.Bactrim with metronidazole should be effective. Continuing with supportive care and nutritional supplementation as indicated. Status: Acute (2) Infection due to ESBL-producing Escherichia coli Status: Acute
[2016-03-27] MEDS: LEVOTHYROXINE 75 MCG TAB PO SCH (06:14)
[2016-03-27 08:14] LABS: CH 32.3; CHCM 34.6; HCT 36.2 % (34.0-46.0); HDW 3.08; MCH 31.1 pg (25.0-35.0); MCHC 33.1 g/dL (31.0-37.0); MCV 93.9 fL (80.0-100.0); Mean Platelet Volume 7.8; RBC 3.85 m/uL (3.80-5.40); WBC 7.2 k/uL (3.8-10.6)
[2016-03-27] MEDS: PANTOPRAZOLE 40 MG TABLET PO SCH (08:19)
[2016-03-27] MEDS: ERTAPENEM 1 GM in SODIUM CHLORIDE 0.9% 50 ML IVPB SCH (08:19)
[2016-03-27] MEDS: HEPARIN SODIUM,PORCINE 5,000 UNIT/ML 1 ML VIAL SQ SCH ×2 (08:19→20:29)
[2016-03-27] MEDS: VENLAFAXINE HCL ER 150 MG CAP PO SCH (08:19)
[2016-03-27 08:23] LABS: ALT 37 U/L (9-52); AST 26 U/L (14-36); Alkaline Phosphatase 66 U/L (38-126); Anion Gap 9 mmol/L; Blood Urea Nitrogen 4 mg/dL (7-17); Calcium 9.5 mg/dL (8.4-10.2); Carbon Dioxide 32 mmol/L (22-30); Chloride 100 mmol/L (98-107); Glucose 86 mg/dL (74-99); Non-African American GFR(MDRD) >60 (>60 ml/min/1.73 sqM); Potassium 4.8 mmol/L (3.5-5.1); Sodium 141 mmol/L (137-145); Total Bilirubin 0.5 mg/dL (0.2-1.3); Total Protein 6.9 g/dL (6.3-8.2)
[2016-03-27] MEDS: ONDANSETRON 4 MG/2 ML VIAL IVP PRN ×2 (08:31→14:27)
--- NOTE | 2016-03-27 11:34 | P.PN ---
Subjective Principal diagnosis: Diverticular abscess Patient is a 60-year-old female with medical history significant for diverticular abscess treated with antibiotics in the outpatient setting, presenting to the emergency department with severe lower left quadrant pain and CT of abdomen with evidence of a 4 x 4 centimeter loculated fluid collection in the left lower quadrant. Patient was taken to the operating room where she was found to have left lower quadrant abscess related to rectal stump and underwent exposure laparotomy with lysis of adhesions; drainage of intra-abdominal abscess ; and small bowel resection. Patient is evaluated on surgical unit where she is postop day #7. Patient is complaining of mild nausea without vomiting after eating pancakes this morning which has since resolved. Denies chills, fevers, shortness of breath, or chest pain. Incisional pain controlled. Passing flatus with dark brown/black stool in colostomy bag. Patient is urinating without difficulty. Cruzito Forbes drain with 70 mL of serosanguineous drainage in the last 24 hours. Afebrile. WBC 7.2. Hemoglobin 12. Objective - Vital Signs Vital signs: Vital Signs Temp 98.7 F 03/27/16 07:54 Pulse 73 03/27/16 07:54 Resp 16 03/27/16 07:54 BP 124/64 03/27/16 07:54 Pulse Ox 95 03/27/16 07:54 Intake & Output 03/26/16 03/27/16 03/27/16 18:59 06:59 18:59 Intake Total 840 100 Output Total 70 30 45 Balance 770 -30 55 Intake: IV 100 Ertapenem 1 gm In Sodium 100 Chloride 0.9% 50 ml @ 100 mls/hr IVPB Q24HR [facility] Rx #:[id number] Oral 840 0 Output: Drainage 70 30 45 Right Lower Abdomen 70 30 45 Other: Voiding Method Toilet Toilet # Voids 1 - Exam GENERAL: Pt awake and alert, sitting up in bed, in no acute distress. LUNGS: Breath sounds clear to auscultation bilaterally. No wheezes, rales, or rhonchi. HEART: Heart S1, S2, no S3 or S4. Regular rate and rhythm. No murmurs, rubs or gallops. ABDOMEN: Soft, mild incisional tenderness, nondistended, active bowel sounds. No guarding, no rebound. Midline abdominal incision dry and intact with minimal serosanguineous drainage, Telfa celia intact. Colostomy to left lower quadrant with moderate brown/black output, ostomy healthy. NELDA drain is compressed with serosanguineous drainage. NEUROLOGICAL: Pt oriented x 3. - Labs CBC & Chem 7: 03/27/16 07:40 03/27/16 07:40 Labs: Abnormal Lab Results - Last 24 Hours (Table) 03/27/16 Range/Units 07:40 Carbon Dioxide 32 H (22-30) mmol/L BUN 4 L (7-17) mg/dL Assessment and Plan Plan: Impression: 1. Left lower quadrant abscess related to rectal stump, failed outpatient treatment, status post exposure laparotomy with lysis of adhesions; drainage of intra-abdominal abscess; and small bowel resection on 03/21/2016. Plan: 1. Continue soft diet. Patient will be transitioned from OPERATIONS CONSULTANT pump to oral pain medications. Continue local wound care. Continue antibiotics per infectious disease recommendations. Continue supportive treatment and pain management. Increase activity. Continue follow with medical team. Patient possibly discharge home within next 24 hours. The above impression and plan have been discussed and directed by Dr. Spears. Itz KWONG acting as scribe for Dr. Spears.
[2016-03-27] MEDS: HYDROcodone/APAP 7.5-325MG 1 EACH TAB PO PRN ×2 (12:09→18:53)
[2016-03-27] MEDS: MAGNESIUM OXIDE 400 MG TAB PO SCH (12:10)
[2016-03-27] MEDS: FERROUS SULFATE 325 MG TAB PO SCH (12:10)
[2016-03-27] MEDS: MULTIVITAMINS, THERA 1 EACH TAB PO SCH (12:10)
[2016-03-27] MEDS: FOLIC ACID 1 MG TAB PO SCH (12:10)
--- NOTE | 2016-03-27 13:25 | P.PN ---
Subjective 60-year-old female one of my office patient who seen Dr. Lugo for autoimmune hepatitis who is known to have history of hypothyroidism and advance liver disease who was admitted to [facility] back in July 2015 and was taking care by Dr. Mitchell for perforated diverticuli had colon resection and colostomy at the time and has done well up till January 2016 when around the th developed to have significant pain and discomfort with increase diarrhea ended up coming to [facility] on 03/06 and admitted until 03/12/2016 for severe abdominal pain found to have diverticulitis with abscess measure at the time 5.2 time 3.[address] Spears and Dr. Lugo, was stabilized and sent home on March 12 on Cipro and metronidazole. Patient for the last 48 hours developed to have severe pain and increase symptom was with worsening discomfort lower abdominal region especially the left lower quadrant become much worse. Ended up coming to the emergency department at [facility] was seen by Dr. Lujan CAT scan of the abdomen showed the abscess currently slightly bit smaller and stable with no sign of free air under the diaphragma. She had other finding consistent with previous surgery and dilated common duct and pancreatic duct as well recommended possibly doing MRCP or ERCP down the road. Patient was started on Levaquin and metronidazole IV along with pantoprazole and admitted to the hospital 03/20: Patient underwent laparotomy with lysis of adhesions and drainage of intra -abdominal abscess and small bowel resection. 03/21: Patient is having severe pain and unable to get comfortable. RUST PROOFER ordered and Valium as well. Soto catheter in place. No gas in her colostomy. WBC count 11.8 and hemoglobin 13.2. She has been afebrile. 03/22: Patient complains of feeling tired today and only slept on and off during the night. She is still nauseated. Patient's pain is much better controlled with RUST PROOFER. She has not had gas or output from ostomy. She remains nothing by mouth. 03/23/2016: Patient is feeling much better no stool in the ostomy patient is pain is much better control with RUST PROOFER. She was diagnosed with ESBL from the abscess and patient is on antibiotic currently for it infectious disease consultation has not been finalized so far. 03/25: patient states she had nausea after eating oatmeal this morning. She is having stool in her ostomy. RUST PROOFER is in place. Pain is well controlled. 03/26: She continues to have stool and flatus in her colostomy bag. Diet has been advanced to soft for supper and she is very happy to have mashed potatoes. Pain is controlled. Dr. Yepez has recommended Flagyl and Bactrim for home. Anticipate discharge in the next 24-48 hours. Objective - Vital Signs Vital signs: Vital Signs Temp 97.8 F 03/26/16 07:40 Pulse 70 03/26/16 07:40 Resp 16 03/26/16 07:40 BP 108/64 03/26/16 07:40 Pulse Ox 95 03/26/16 07:40 Intake & Output 03/25/16 03/26/16 03/26/16 18:59 06:59 18:59 Intake Total 360 Output Total 30 10 Balance -30 -10 360 Weight 61.235 kg Intake: Oral 360 Output: Drainage 30 10 Right Lower Abdomen 30 10 Other: Voiding Method Toilet # Voids 1 - Exam General appearance: no average body habitus, cooperative, no disheveled, no mild distress, no morbidly obese, no acute distress, no obese, no severe distress, thin - EENT Eyes: abnormal pupil, no anicteric sclerae, no disc margins sharp, no edentulous , no EOMI, no PERRLA, no fundus normal, no photophobia, no dentition normal, no poor dentition, no ptosis, no scleral icterus, normal appearance ENT: no hard of hearing, no hearing grossly normal, no NA/AT, normal oropharynx , no other, pharyngeal erythema, no thrush, no tonsillar exudates, no tonsillar swelling Ears: bilateral: normal - Neck Neck: no lymphadenopathy, normal ROM, no other, no rigidity, no stridor, no thyromegaly Carotids: bilateral: upstroke normal, upstroke delayed Thyroid: bilateral: normal size - Respiratory Respiratory: bilateral: CTA, diminished - Cardiovascular Rhythm: regular Heart sounds: normal: S1, S2 Abnormal Heart Sounds: systolic murmur, S3 Gallop - Gastrointestinal There is colostomy bag with significant tenderness in the lower part of the abdominal region with slight distention and hyper active bowel sounds General gastrointestinal: distended, hyperactive bowel sounds, organomegaly, tenderness - Integumentary Integumentary: no calor, no cellulitis, no cyanotic, no decreased turgor, flushed, no jaundiced, normal, no normal turgor, pale, rash, no ulcer - Neurologic Neurologic: CNII-XII intact - Musculoskeletal Musculoskeletal: gait normal, generalized weakness, strength equal bilaterally, no right sided weakness, no left sided weakness - Psychiatric Psychiatric: A&O x's 3, appropriate affect - Labs CBC & Chem 7: 03/27/16 07:40 03/27/16 07:40 Assessment and Plan Plan: 1 severe abdominal pain: Secondary to diverticulitis with large abscess with E. coli ESBL wound culture, continue IV antibiotics status post laparotomy, lysis of adhesion and small bowel resection. RUST PROOFER to be started for pain control and Valium added. Soft diet. Continue ertapenem. Consult with Dr. Yepez appreciated. 2 severe diverticulitis: Continue antibiotics at least for the next 2 weeks. 3 anemia: Has been on iron supplement. 4 autoimmune hepatitis: Was on Azathioprine and seen Dr. Foster on regular basis continue current management. 5 hypothyroidism: Continue patient on levothyroxine. 6 pain and pain management: Patient will be on hydrocodone and IV Dilaudid as needed. Patient started on RUST PROOFER pump for now. 7 GI prophylaxis: Patient will be on pantoprazole IV. 8 DVT prophylaxis: Patient will be on heparin 5000 units subcutaneous twice a day. CODE STATUS: Full code. Impression and plan of care have been directed as dictated by the signing physician. Sallie Cintron nurse practitioner acting as scribe for signing physician. Time with Patient: Greater than 30
--- NOTE | 2016-03-27 21:22 | P.PN ---
Subjective Principal diagnosis: Abdominal pain and fever Very pleasant 60-year-old woman has had a very significant recent history. She has a known history of autoimmune hepatitis and was cared for in the past [facility]. In the summer of 2015 she developed acute abdominal pain with evidence of a perforated diverticulum and was seen at [facility] for colonic resection and colostomy. In 02/18/2016 she developed increasing amounts of abdominal pain. Presented to the emergency center. If that time she was found evidence of abdominal abscess related to diverticulosis measuring at 5.2 x 3.8 cm. She was managed medically with antibiotic therapy with ciprofloxacin and metronidazole. She was hospitalized from the was discharged home. However on March 19 she came with increasing amounts of abdominal pain. Evidence of the ongoing abscess was noted. It is her ongoing symptoms she was taken to the operating room and had drainage of the intra-abdominal abscess. Also had limited small bowel resection at that time. She is feeling slightly better today. Still on the [employer] pump But there is concern because of the ESBL E. coli that has now been isolated. Is feeling somewhat better today. Ate normal tray without problem Objective - Vital Signs Vital signs: Vital Signs Temp 97.1 F L 03/27/16 18:26 Pulse 69 03/27/16 18:26 Resp 16 03/27/16 18:26 BP 132/80 03/27/16 18:26 Pulse Ox 98 03/27/16 18:26 Intake & Output 03/27/16 03/27/16 03/28/16 06:59 18:59 06:59 Intake Total 100 Output Total 30 145 Balance -30 -45 Intake: IV 100 Ertapenem 1 gm In Sodium 100 Chloride 0.9% 50 ml @ 100 mls/hr IVPB Q24HR [facility] Rx #:[id number] Oral 0 Output: Drainage 30 45 Right Lower Abdomen 30 45 Stool 100 Other: Voiding Method Toilet Toilet # Voids 1 - Exam Pleasant 60-year-old woman relates her pain is under better control HEENT: Anicteric conjunctiva are pink and moist nasal mucosa grossly intact without significant lesions, there is no thrush. Neck: The neck is supple without significant lymphadenopathy or thyromegaly. Lungs: Good bilateral air entry without significant crackles or wheezing. There is no significant bronchial sounds. There is no egophony or dullness. Heart: Regular rate and rhythm with an audible S1-S2, no S3 no S4. There is no significant murmur click or rub, PMI was nondisplaced. Abdomen: Few bowel sounds. Ostomy site looks well. Surgical incision was scant drainage. Abdominal wall is tar distillation supervisor. Some minimal erythema to the surgical site. There celia were in place is scant drainage Aquacel silver will be placed in these areas Extremities: The upper extremities have excellent pulses they are symmetric, no significant petechiae or telangiectasia. No splinter hemorrhages were noted. The lower extremities are free from significant edema. The peripheral pulses were 2+ and symmetric. Neuro: Awake alert oriented to person place and time. There are no acute new gross focal sensory motor deficits. - Labs CBC & Chem 7: 03/27/16 07:40 03/27/16 07:40 Labs: Abnormal Lab Results - Last 24 Hours (Table) 03/27/16 Range/Units 07:40 Carbon Dioxide 32 H (22-30) mmol/L BUN 4 L (7-17) mg/dL Laboratory Results WBC 7.2 k/uL (3.8-10.6) 03/27/16 07:40 RBC 3.85 m/uL (3.80-5.40) 03/27/16 07:40 Hgb 12.0 gm/dL (11.4-16.0) 03/27/16 07:40 Hct 36.2 % (34.0-46.0) 03/27/16 07:40 MCV 93.9 fL (80.0-100.0) 03/27/16 07:40 MCH 31.1 pg (25.0-35.0) 03/27/16 07:40 MCHC 33.1 g/dL (31.0-37.0) 03/27/16 07:40 RDW 14.0 % (11.5-15.5) 03/27/16 07:40 Plt Count 337 k/uL (150-450) 03/27/16 07:40 Neutrophils % 62 % 03/25/16 07:26 Lymphocytes % 20 % 03/25/16 07:26 Monocytes % 6 % 03/25/16 07:26 Eosinophils % 8 % 03/25/16 07:26 Basophils % 1 % 03/25/16 07:26 Neutrophils # 3.1 k/uL (1.3-7.7) 03/25/16 07:26 Lymphocytes # 1.0 k/uL (1.0-4.8) 03/25/16 07:26 Monocytes # 0.3 k/uL (0-1.0) 03/25/16 07:26 Eosinophils # 0.4 k/uL (0-0.7) 03/25/16 07:26 Basophils # 0.0 k/uL (0-0.2) 03/25/16 07:26 PT 12.4 sec (9.0-12.0) H 03/19/16 16:20 INR 1.3 (<1.1) 03/19/16 16:20 APTT 22.3 sec (22.0-30.0) 03/19/16 16:20 Sodium 141 mmol/L (137-145) 03/27/16 07:40 Potassium 4.8 mmol/L (3.5-5.1) 03/27/16 07:40 Chloride 100 mmol/L (98-107) 03/27/16 07:40 Carbon Dioxide 32 mmol/L (22-30) H 03/27/16 07:40 Anion Gap 9 mmol/L 03/27/16 07:40 BUN 4 mg/dL (7-17) L 03/27/16 07:40 Creatinine 0.61 mg/dL (0.52-1.04) 03/27/16 07:40 Est GFR (MDRD) Af Amer >60 (>60 ml/min/1.73 sqM) 03/27/16 07:40 Est GFR (MDRD) Non-Af >60 (>60 ml/min/1.73 sqM) 03/27/16 07:40 Glucose 86 mg/dL (74-99) 03/27/16 07:40 Plasma Lactic Acid Edmundo 1.1 mmol/L (0.7-2.0) 03/19/16 16:20 Calcium 9.5 mg/dL (8.4-10.2) 03/27/16 07:40 Total Bilirubin 0.5 mg/dL (0.2-1.3) 03/27/16 07:40 AST 26 U/L (14-36) 03/27/16 07:40 ALT 37 U/L (9-52) 03/27/16 07:40 Alkaline Phosphatase 66 U/L (38-126) 03/27/16 07:40 Total Protein 6.9 g/dL (6.3-8.2) 03/27/16 07:40 Albumin 3.5 g/dL (3.5-5.0) 03/27/16 07:40 Amylase 115 U/L (30-110) H 03/19/16 16:20 Lipase 261 U/L (23-300) 03/19/16 16:20 Urine Color Light Yellow 03/19/16 16:20 Urine Appearance Clear (Clear) 03/19/16 16:20 Urine pH 7.0 (5.0-8.0) 03/19/16 16:20 Ur Specific [place] 1.003 (1.001-1.035) 03/19/16 16:20 Urine Protein Negative (Negative) 03/19/16 16:20 Urine Glucose (UA) Negative (Negative) 03/19/16 16:20 Urine Ketones Negative (Negative) 03/19/16 16:20 Urine Blood Negative (Negative) 03/19/16 16:20 Urine Nitrate Negative (Negative) 03/19/16 16:20 Urine Bilirubin Negative (Negative) 03/19/16 16:20 Urine Urobilinogen <2.0 mg/dL (<2.0) 03/19/16 16:20 Ur Leukocyte Esterase Negative (Negative) 03/19/16 16:20 Microbiology 03/20/16 13:49 Abdomen Anaerobic Culture - Final Anaerobic Gm Positive Bacill 03/20/16 13:49 Abdomen Gram Stain - Final 03/20/16 13:49 Abdomen Wound Culture - Final Escherichia coli 03/19/16 16:20 Urine,Voided Urine Culture - Final Assessment and Plan (1) Colonic diverticular abscess Narrative/Plan: 60-year-old woman who has a complex past medical history who presents to hospital with ongoing abdominal pain. Find evidence of worsening diverticular abscess. She's been taking the operating room she's had an incision and drainage performed. She is now recovering postoperative period wound culture showing evidence of E. coli ESBL. The patient relates that she does have some exposure from her mother who is been quite ill recently. And the patient herself has been on multiple antibiotics in the recent past also has risk factors for acquiring E. coli ESBL. The patient is educated about the bacteria. The antibiotic therapy was altered at the time of the consultation to ertapenem. She is very concerned about having to have a PICC line at discharge. Fortunately we will have some potential oral options at the time of her discharge when she is improved.Bactrim with metronidazole should be effective. Scripts are left on the chart Continuing with supportive care and nutritional supplementation as indicated. Aquacel silver will be placed to the abdominal wall where the celia have come out Status: Acute (2) Infection due to ESBL-producing Escherichia coli Status: Acute
[2016-03-28] MEDS: HYDROcodone/APAP 7.5-325MG 1 EACH TAB PO PRN ×2 (00:52→09:31)
[2016-03-28] MEDS: LEVOTHYROXINE 75 MCG TAB PO SCH (05:54)
[2016-03-28] MEDS: PANTOPRAZOLE 40 MG TABLET PO SCH (09:31)
[2016-03-28] MEDS: HEPARIN SODIUM,PORCINE 5,000 UNIT/ML 1 ML VIAL SQ SCH (09:31)
[2016-03-28] MEDS: VENLAFAXINE HCL ER 150 MG CAP PO SCH (09:31)
[2016-03-28] MEDS: ERTAPENEM 1 GM in SODIUM CHLORIDE 0.9% 50 ML IVPB SCH (09:33)
[2016-03-28 09:48] VITALS: BP 160/72; PULSE 78; RESP 15; TEMP 97.8
[2016-03-28] MEDS: MAGNESIUM OXIDE 400 MG TAB PO SCH (11:28)
[2016-03-28] MEDS: FOLIC ACID 1 MG TAB PO SCH (11:28)
[2016-03-28] MEDS: FERROUS SULFATE 325 MG TAB PO SCH (11:28)
[2016-03-28] MEDS: MULTIVITAMINS, THERA 1 EACH TAB PO SCH (11:28)
--- NOTE | 2016-03-28 11:53 | P.PN ---
Subjective 60-year-old female one of my office patient who seen Dr. Lugo for autoimmune hepatitis who is known to have history of hypothyroidism and advance liver disease who was admitted to [facility] back in July 2015 and was taking care by Dr. Mitchell for perforated diverticuli had colon resection and colostomy at the time and has done well up till January 2016 when around the th developed to have significant pain and discomfort with increase diarrhea ended up coming to [facility] on 03/06 and admitted until 03/12/2016 for severe abdominal pain found to have diverticulitis with abscess measure at the time 5.2 time 3.[address] Spears and Dr. Lugo, was stabilized and sent home on March 12 on Cipro and metronidazole. Patient for the last 48 hours developed to have severe pain and increase symptom was with worsening discomfort lower abdominal region especially the left lower quadrant become much worse. Ended up coming to the emergency department at [facility] was seen by Dr. Lujan CAT scan of the abdomen showed the abscess currently slightly bit smaller and stable with no sign of free air under the diaphragma. She had other finding consistent with previous surgery and dilated common duct and pancreatic duct as well recommended possibly doing MRCP or ERCP down the road. Patient was started on Levaquin and metronidazole IV along with pantoprazole and admitted to the hospital 03/20: Patient underwent laparotomy with lysis of adhesions and drainage of intra -abdominal abscess and small bowel resection. 03/21: Patient is having severe pain and unable to get comfortable. DOOR TO DOOR SALESPERSON ordered and Valium as well. Soto catheter in place. No gas in her colostomy. WBC count 11.8 and hemoglobin 13.2. She has been afebrile. 03/22: Patient complains of feeling tired today and only slept on and off during the night. She is still nauseated. Patient's pain is much better controlled with DOOR TO DOOR SALESPERSON. She has not had gas or output from ostomy. She remains nothing by mouth. 03/23/2016: Patient is feeling much better no stool in the ostomy patient is pain is much better control with DOOR TO DOOR SALESPERSON. She was diagnosed with ESBL from the abscess and patient is on antibiotic currently for it infectious disease consultation has not been finalized so far. 03/25: patient states she had nausea after eating oatmeal this morning. She is having stool in her ostomy. DOOR TO DOOR SALESPERSON is in place. Pain is well controlled. 03/26: She continues to have stool and flatus in her colostomy bag. Diet has been advanced to soft for supper and she is very happy to have mashed potatoes. Pain is controlled. Dr. Yepez has recommended Flagyl and Bactrim for home. Anticipate discharge in the next 24-48 hours. 03/27: Patient's diet is being advanced. She has been up and ambulating and doing well. Anticipate discharge tomorrow. Objective - Vital Signs Vital signs: Vital Signs Temp 98.7 F 03/27/16 07:54 Pulse 73 03/27/16 07:54 Resp 16 03/27/16 07:54 BP 124/64 03/27/16 07:54 Pulse Ox 95 03/27/16 07:54 Intake & Output 03/26/16 03/27/16 03/27/16 18:59 06:59 18:59 Intake Total 840 100 Output Total 70 30 45 Balance 770 -30 55 Intake: IV 100 Ertapenem 1 gm In Sodium 100 Chloride 0.9% 50 ml @ 100 mls/hr IVPB Q24HR [facility] Rx #:[id number] Oral 840 0 Output: Drainage 70 30 45 Right Lower Abdomen 70 30 45 Other: Voiding Method Toilet Toilet # Voids 1 - Exam General appearance: no average body habitus, cooperative, no disheveled, no mild distress, no morbidly obese, no acute distress, no obese, no severe distress, thin - EENT Eyes: abnormal pupil, no anicteric sclerae, no disc margins sharp, no edentulous , no EOMI, no PERRLA, no fundus normal, no photophobia, no dentition normal, no poor dentition, no ptosis, no scleral icterus, normal appearance ENT: no hard of hearing, no hearing grossly normal, no NA/AT, normal oropharynx , no other, pharyngeal erythema, no thrush, no tonsillar exudates, no tonsillar swelling Ears: bilateral: normal - Neck Neck: no lymphadenopathy, normal ROM, no other, no rigidity, no stridor, no thyromegaly Carotids: bilateral: upstroke normal, upstroke delayed Thyroid: bilateral: normal size - Respiratory Respiratory: bilateral: CTA, diminished - Cardiovascular Rhythm: regular Heart sounds: normal: S1, S2 Abnormal Heart Sounds: systolic murmur, S3 Gallop - Gastrointestinal There is colostomy bag with significant tenderness in the lower part of the abdominal region with slight distention and hyper active bowel sounds General gastrointestinal: distended, hyperactive bowel sounds, organomegaly, tenderness - Integumentary Integumentary: no calor, no cellulitis, no cyanotic, no decreased turgor, flushed, no jaundiced, normal, no normal turgor, pale, rash, no ulcer - Neurologic Neurologic: CNII-XII intact - Musculoskeletal Musculoskeletal: gait normal, generalized weakness, strength equal bilaterally, no right sided weakness, no left sided weakness - Psychiatric Psychiatric: A&O x's 3, appropriate affect - Labs CBC & Chem 7: 03/27/16 07:40 03/27/16 07:40 Labs: Abnormal Lab Results - Last 24 Hours (Table) 03/27/16 Range/Units 07:40 Carbon Dioxide 32 H (22-30) mmol/L BUN 4 L (7-17) mg/dL Assessment and Plan Plan: 1 severe abdominal pain: Secondary to diverticulitis with large abscess with E. coli ESBL wound culture, continue IV antibiotics status post laparotomy, lysis of adhesion and small bowel resection. Soft diet to be advanced. Continue ertapenem. Consult with Dr. Yepez appreciated. Flagyl and Bactrim for home. 2 severe diverticulitis: Continue antibiotics at least for the next 2 weeks. 3 anemia: Has been on iron supplement. 4 autoimmune hepatitis: Was on Azathioprine and seen Dr. Foster on regular basis continue current management. 5 hypothyroidism: Continue patient on levothyroxine. 6 pain and pain management: Patient will be on hydrocodone and IV Dilaudid as needed. Patient started on DOOR TO DOOR SALESPERSON pump for now. 7 GI prophylaxis: Patient will be on pantoprazole IV. 8 DVT prophylaxis: Patient will be on heparin 5000 units subcutaneous twice a day. CODE STATUS: Full code. Impression and plan of care have been directed as dictated by the signing physician. Sallie Cintron nurse practitioner acting as scribe for signing physician. Time with Patient: Greater than 30
--- NOTE | 2016-03-28 15:28 | P.DS ---
Providers Date of admission: 03/19/16 19:27 Expected date of discharge: 03/28/16 Attending physician: Taiwo Spears Consults: 03/20/16 08:37 Consult Physician Urgent Consulting Provider: Chencho Dowling Consult Reason/Comments: Medical management Do you want consulting provider notified?: Already Contacted 03/22/16 16:21 Consult Physician Routine Consulting Provider: Chencho Yepez Reason/Comments: ESBL in culture Do you want consulting provider notified?: Yes Primary care physician: Chencho Dowling [facility] Course: Patient is a 60-year-old female with medical history significant for diverticular abscess treated with antibiotics in the outpatient setting, presenting to the emergency department with severe lower left quadrant pain and CT of abdomen with evidence of a 4 x 4 centimeter loculated fluid collection in the left lower quadrant. Patient was taken to the operating room where she was found to have left lower quadrant abscess related to rectal stump and underwent exposure laparotomy with lysis of adhesions; drainage of intra-abdominal abscess ; and small bowel resection on 03/20/2016. Patient tolerated procedure well. Abdominal wound cultures positive for E. coli ESBL. Patient was seen and evaluated by Dr. Yepez from infectious disease service during hospital stay for antibiotic management. Patient improved significantly during her hospital stay and was felt stable for discharge to home. Patient did decline home care. Discharge diagnoses: 1. Left lower quadrant abscess related to rectal stump, failed outpatient treatment, status post exposure laparotomy with lysis of adhesions; drainage of intra-abdominal abscess; and small bowel resection on 03/21/2016. Abdominal wound culture positive for E. coli ESBL. 2. History of severe diverticulitis. The above impression and plan have been discussed and directed by Dr. Spears. Itz KWONG acting as scribe for Dr. Spears. Pertinent Studies: Abdomen x-ray; abdomen/pelvis CT Procedures: Exposure laparotomy; lysis of adhesions; drainage of intra-abdominal abscess; small bowel resection Patient Condition at Discharge: Good Plan - Discharge Summary New Discharge Prescriptions: HYDROcodone/APAP 7.5-325MG [[place] 7.5-325] 1 tab PO Q6HR PRN #28 tab PRN Reason: Pain Sulfamethox-Tmp 800-160Mg [Bactrim DS 800-160 mg] 1 tab PO Q12HR #28 tab metroNIDAZOLE [Flagyl] 500 mg PO TID #42 tab Discharge Medication List Ferrous Sulfate [Iron (65 MG Elemental)] 325 mg PO DAILY 08/20/15 [History] Folic Acid 1 mg PO DAILY 08/20/15 [History] Levothyroxine Sodium [Synthroid] 75 mcg PO DAILY 08/20/15 [History] Magnesium Oxide [Mag-Ox] 400 mg PO DAILY 08/20/15 [History] Venlafaxine HCl ER [Effexor XR] 150 mg PO DAILY 08/20/15 [History] Multivitamins, Thera [Multivitamin] 1 tab PO DAILY 03/06/16 [History] Sulfamethox-Tmp 800-160Mg [Bactrim DS 800-160 mg] 1 tab PO Q12HR #28 tab [Rx] metroNIDAZOLE [Flagyl] 500 mg PO TID #42 tab 03/27/16 [Rx] HYDROcodone/APAP 7.5-325MG [[place] 7.5-325] 1 tab PO Q6HR PRN #28 tab 03/28/16 [ Rx] Follow up Appointment(s)/Referral(s): Chencho Dowling MD [Primary Care Provider] - 1 Week (Office close. Please call and make appointment. ) Taiwo Spears MD [STAFF PHYSICIAN] - 04/03/16 3:30 pm Patient Instructions/Handouts: Colectomy (DC), Colostomy Creation (DC), Staple Care (DC) Activity/Diet/Wound Care/Special Instructions: No heavy lifting, pushing, or pulling items greater than 10 pounds. Soft diet Shower daily, no soaking in bath tubs, pools, or hot tubs. No driving while taking pain medication. Notify surgeon with any signs or symptoms of infection, increased pain, or not tolerating diet. Wound care: Change incisional dressing daily and as necessary. Colostomy Care Instructions per ostomy nurse Discharge Disposition: HOME SELF-CARE
== END 2016-03-28 17:20 | disposition home or self-care (01) | DRG 330 ==
LOC: EC 14:50 → 3SUR 19:27
PROVIDERS: ADMIT Surgery; ATTEND Surgery
PROC: 0W9J0ZZ Drainage of Pelvic Cavity, Open Approach (ICD-10-PCS; 2016-03-20)
PROC: 0DB80ZZ Excision of Small Intestine, Open Approach (ICD-10-PCS; principal; 2016-03-20 07:30)
DX: K57.20 Diverticulitis of large intestine with perforation and abscess without bleeding (principal); K95.09 Other complications of gastric band procedure; K74.60 Unspecified cirrhosis of liver; K75.4 Autoimmune hepatitis; F32.9 Major depressive disorder, single episode, unspecified; E03.9 Hypothyroidism, unspecified; B96.20 Unspecified Escherichia coli [E. coli] as the cause of diseases classified elsewhere; K66.0 Peritoneal adhesions (postprocedural) (postinfection); M43.17 Spondylolisthesis, lumbosacral region; K43.5 Parastomal hernia without obstruction or gangrene; N39.46 Mixed incontinence; R35.0 Frequency of micturition; D64.9 Anemia, unspecified; Z16.12 Extended spectrum beta lactamase (ESBL) resistance; Z87.891 Personal history of nicotine dependence; Z93.3 Colostomy status; Z98.84 Bariatric surgery status; Z79.899 Other long term (current) drug therapy; Z88.6 Allergy status to analgesic agent; Z88.1 Allergy status to other antibiotic agents; Z88.5 Allergy status to narcotic agent; Z88.0 Allergy status to penicillin; Y83.1 Surgical operation with implant of artificial internal device as the cause of abnormal reaction of the patient, or of later complication, without mention of misadventure at the time of the procedure
CPT/HCPCS: 36415; 74020; 74177; 80048; 80053; 81003; 82150; 83605; 83690; 85025; 85027; 85610; 85730; 87070; 87075; 87077; 87086; 87186; 87205; 88304; 88307; 92950; 94760; 96361; 96365; 96375; 96376; 99285

== ENCOUNTER → 2016-04-16 | Outpatient (CLI) | payer BC ==
[2016-04-16 14:16] LABS: Basophils # (A) 0.1 k/uL (0-0.2); Basophils % (A) 2 %; CH 32.4; CHCM 33.8; Eosinophils # (A) 0.7 k/uL (0-0.7); Eosinophils % (A) 11 %; HCT 44.3 % (34.0-46.0); HDW 2.66; HGB 14.7 gm/dL (11.4-16.0); Luc # (Auto) 0.13; Luc % (Auto) 2; Lymphocytes # (A) 1.6 k/uL (1.0-4.8); Lymphocytes % (A) 25 %; MCHC 33.1 g/dL (31.0-37.0); MCV 96.5 fL (80.0-100.0); Mean Platelet Volume 7.9; Monocytes # (A) 0.4 k/uL (0-1.0); Monocytes % (A) 6 %; Neutrophils # (A) 3.5 k/uL (1.3-7.7); Neutrophils % (A) 55 %; RBC 4.59 m/uL (3.80-5.40); RDW 13.6 % (11.5-15.5); WBC 6.4 k/uL (3.8-10.6); WBC (Perox) 6.44
[2016-04-16 14:44] LABS: ALT 155 U/L (9-52); AST 162 U/L (14-36); Alkaline Phosphatase 118 U/L (38-126); Anion Gap 14 mmol/L; Blood Urea Nitrogen 7 mg/dL (7-17); Carbon Dioxide 27 mmol/L (22-30); Chloride 102 mmol/L (98-107); Glucose 93 mg/dL (74-99); Non-African American GFR(MDRD) >60 (>60 ml/min/1.73 sqM); Potassium 4.6 mmol/L (3.5-5.1); Sodium 143 mmol/L (137-145); Total Bilirubin 0.8 mg/dL (0.2-1.3); Total Protein 8.5 g/dL (6.3-8.2)
== END | disposition home or self-care (01) ==
LOC: LABWHC1 13:06
PROVIDERS: ATTEND Internal Medicine Gastroenterology
DX: K75.4 Autoimmune hepatitis (principal)
CPT/HCPCS: 36415; 80053; 85025

== ENCOUNTER → 2016-05-01 | Outpatient (CLI) | payer BC ==
[2016-05-01 15:01] LABS: Basophils # (A) 0.1 k/uL (0-0.2); Basophils % (A) 1 %; CH 32.1; CHCM 33.1; Eosinophils # (A) 0.4 k/uL (0-0.7); Eosinophils % (A) 5 %; HCT 44.1 % (34.0-46.0); HDW 2.56; HGB 14.1 gm/dL (11.4-16.0); Luc # (Auto) 0.21; Luc % (Auto) 3; Lymphocytes # (A) 1.5 k/uL (1.0-4.8); Lymphocytes % (A) 21 %; MCH 31.1 pg (25.0-35.0); MCV 97.4 fL (80.0-100.0); Mean Platelet Volume 6.8; Monocytes # (A) 0.4 k/uL (0-1.0); Monocytes % (A) 6 %; Neutrophils # (A) 4.6 k/uL (1.3-7.7); Neutrophils % (A) 65 %; RBC 4.53 m/uL (3.80-5.40); RDW 13.5 % (11.5-15.5); WBC 7.1 k/uL (3.8-10.6); WBC (Perox) 7.46
[2016-05-01 15:27] LABS: ALT 36 U/L (9-52); AST 34 U/L (14-36); Alkaline Phosphatase 90 U/L (38-126); Anion Gap 9 mmol/L; Blood Urea Nitrogen 9 mg/dL (7-17); Calcium 9.6 mg/dL (8.4-10.2); Carbon Dioxide 29 mmol/L (22-30); Chloride 105 mmol/L (98-107); Glucose 93 mg/dL (74-99); Non-African American GFR(MDRD) >60 (>60 ml/min/1.73 sqM); Potassium 4.1 mmol/L (3.5-5.1); Sodium 143 mmol/L (137-145); Total Bilirubin 0.5 mg/dL (0.2-1.3); Total Protein 7.7 g/dL (6.3-8.2)
== END | disposition home or self-care (01) ==
LOC: LABWHC1 14:29
PROVIDERS: ATTEND Internal Medicine Gastroenterology
DX: K75.4 Autoimmune hepatitis (principal)
CPT/HCPCS: 36415; 80053; 85025

== ENCOUNTER → 2016-07-08 | Outpatient (CLI) | payer BC ==
[2016-07-08 13:48] LABS: ALT 41 U/L (9-52); AST 46 U/L (14-36); Alkaline Phosphatase 105 U/L (38-126); Anion Gap 10 mmol/L; Blood Urea Nitrogen 12 mg/dL (7-17); Calcium 9.7 mg/dL (8.4-10.2); Carbon Dioxide 25 mmol/L (22-30); Chloride 107 mmol/L (98-107); Glucose 93 mg/dL (74-99); Non-African American GFR(MDRD) >60 (>60 ml/min/1.73 sqM); Potassium 4.5 mmol/L (3.5-5.1); Sodium 142 mmol/L (137-145); Total Bilirubin 0.6 mg/dL (0.2-1.3); Total Protein 8.7 g/dL (6.3-8.2)
[2016-07-08 13:51] LABS: Basophils # (A) 0.1 k/uL (0-0.2); Basophils % (A) 1 %; CH 32.1; CHCM 34.3; Eosinophils # (A) 0.2 k/uL (0-0.7); Eosinophils % (A) 3 %; HCT 43.4 % (34.0-46.0); HGB 14.8 gm/dL (11.4-16.0); Luc # (Auto) 0.18; Luc % (Auto) 3; Lymphocytes # (A) 2.1 k/uL (1.0-4.8); Lymphocytes % (A) 28 %; MCV 94.1 fL (80.0-100.0); Mean Platelet Volume 7.2; Monocytes # (A) 0.5 k/uL (0-1.0); Monocytes % (A) 6 %; Neutrophils # (A) 4.4 k/uL (1.3-7.7); Neutrophils % (A) 59 %; RBC 4.62 m/uL (3.80-5.40); WBC 7.4 k/uL (3.8-10.6); WBC (Perox) 7.41
== END ==
LOC: LABWHC1 13:22
PROVIDERS: ATTEND Internal Medicine Gastroenterology
DX: K74.60 Unspecified cirrhosis of liver (principal)
CPT/HCPCS: 36415; 80053; 85025

== ENCOUNTER → 2016-09-19 | Outpatient (CLI) | payer BC ==
[2016-09-19 14:57] LABS: EKG EKG PERFORMED
[2016-09-19 15:42] LABS: Anion Gap 8 mmol/L; Basophils % (A) 1 %; CH 32.5; CHCM 34.9; Carbon Dioxide 30 mmol/L (22-30); Chloride 103 mmol/L (98-107); Eosinophils # (A) 0.2 k/uL (0-0.7); Eosinophils % (A) 3 %; HDW 2.56; HGB 14.9 gm/dL (11.4-16.0); Luc # (Auto) 0.14; Luc % (Auto) 2; Lymphocytes # (A) 1.6 k/uL (1.0-4.8); Lymphocytes % (A) 23 %; MCH 32.4 pg (25.0-35.0); MCHC 34.6 g/dL (31.0-37.0); MCV 93.5 fL (80.0-100.0); Mean Platelet Volume 7.3; Monocytes # (A) 0.4 k/uL (0-1.0); Monocytes % (A) 6 %; Neutrophils # (A) 4.5 k/uL (1.3-7.7); Neutrophils % (A) 65 %; Potassium 4.5 mmol/L (3.5-5.1); RDW 13.4 % (11.5-15.5); Sodium 141 mmol/L (137-145); WBC 6.9 k/uL (3.8-10.6); WBC (Perox) 7.14
== END | disposition home or self-care (01) ==
LOC: LABPAT 14:27
PROVIDERS: ATTEND Anesthesiology
DX: Z01.810 Encounter for preprocedural cardiovascular examination (principal); R00.1 Bradycardia, unspecified
CPT/HCPCS: 80051; 85025; 93005

== ENCOUNTER 2016-09-24 11:28 | Day surgery (SDC) | payer BC ==
[2016-09-17 14:59] VITALS: BMI 25.6
[~2016-09-24 11:28] MED LIST: LACTATED RINGERS 1,000 ML IV SCH; LIDOCAINE 1% 20 ML VIAL (10MG/ML) FOR IV START INTRADERMA PRN
[2016-09-24 12:25] VITALS: RESP 16; TEMP 97.5
[2016-09-24] MEDS ORDERED: PROPOFOL 10 MG/ML 20 ML VIAL IV ONE (13:45)
--- NOTE | 2016-09-24 13:48 | P.GSHP ---
History of Present Illness H&P Date: 09/24/16 Chief Complaint: History of perforated diverticulitis This is a 7-year-old female who presents today for colonoscopy. She is scheduled for colonoscopy on the tube. She will undergo reversal of colostomy 3. Patient's. History of perforated diverticulitis - Constitutional Constitutional: Reports as per HPI Past Medical History Past Medical History: CVA/TIA, Deep Vein Thrombosis (DVT), Liver Disease, Thyroid Disorder Additional Past Medical History / Comment(s): Perforated diverticulum status post colon resection and colostomy at [facility] July 2015, HX OF ABSCESS POST BOWEL RESECTION, STATES HERNIA NEAR COLOSTOMY, SKIN AROUND STOMA REDDENED AND "RAW" CVA AGE 28, SLIGHT WEAKNESS RT HAND, autoimmune hepatitis, cirrhosis of the liver History of Any Multi-Drug Resistant Organisms: ESBL Date of last positivie culture/infection: 03/20/16 ESBL-E.coli MDRO Source:: Abdomen WOUND Past Surgical History: Bariatric Surgery, Breast Surgery, Cholecystectomy, Heart Catheterization, Hysterectomy Additional Past Surgical History / Comment(s): Colon resection and colostomy in July 2015 at [facility], LAPAROTOMY, LYSIS OF ADHESIONS, AND DRAINAGE OF ABSCESS, 03/20/16.right knee surgery, right foot surgery, benign lump removed from left breast Past Anesthesia/Blood Transfusion Reactions: Previous Problems w/ Anesthesia Additional Past Anesthesia/Blood Transfusion Reaction / Comment(s): WOKE UP DURING COLONOSCOPY, ALSO STATES UNABLE TO PASS GAS POST COLONOSCOPY Additional Psychological History / Comment(s): . Additional Past Alcohol Use History / Comment(s): Patient was a smoker one pack per day for 17 years and quit 25 years ago. Additional Drug Use History / Comment(s): OCCASIONAL USE, INSTRUCTED TO HOLD 24 HRS PRIOR TO PROCEDURE - Past Family History Mother Family Medical History: Cancer, COPD Additional Family Medical History / Comment(s): lung cancer. Father Family Medical History: Cancer Additional Family Medical History / Comment(s): Father at age 80 from leukemia. Sister(s) Additional Family Medical History / Comment(s): Patient has 1 sister with no major medical problems. She does not have any brothers. She has one daughter and one son with no major medical problems. Daughter(s) Family Medical History: Cancer Additional Family Medical History / Comment(s): MELANOMA Medications and Allergies Home Medications Medication Instructions Recorded Confirmed Type Ferrous Sulfate [Iron (65 MG 325 mg PO DAILY 08/20/15 09/24/16 History Elemental)] Folic Acid 1 mg PO DAILY 08/20/15 09/24/16 History Levothyroxine Sodium [Synthroid] 75 mcg PO DAILY 08/20/15 09/24/16 History Magnesium Oxide [Mag-Ox] 400 mg PO DAILY 08/20/15 09/24/16 History Venlafaxine HCl ER [Effexor XR] 150 mg PO DAILY 08/20/15 09/24/16 History Multivitamins, Thera [Multivitamin 1 tab PO DAILY 03/06/16 09/24/16 History (formulary)] azaTHIOprine [Imuran] 100 mg PO DAILY 09/17/16 09/24/16 History Allergies Allergy/AdvReac Type Severity Reaction Status Date / Time morphine Allergy Nausea Verified 03/20/16 10:56 acetaminophen [From Vicodin] AdvReac Itching Verified 09/17/16 13:55 adhesive AdvReac REDNESS, Verified 09/17/16 14:42 SKIN PEALS amoxicillin [From Augmentin] AdvReac Nausea Verified 03/20/16 10:56 clavulanic acid AdvReac Nausea Verified 03/20/16 10:56 [From Augmentin] hydrocodone bitartrate AdvReac Itching Verified 09/17/16 13:55 [From Vicodin] Surgical - Exam Vital Signs Temp Pulse Resp BP Pulse Ox 97.5 F L 122 H 16 149/91 98 09/24/16 12:15 09/24/16 12:15 09/24/16 12:15 09/24/16 12:15 09/24/16 12:15 - General well developed, no distress - Eyes PERRL - ENT normal pinna - Neck no masses - Respiratory normal expansion - Cardiovascular Rhythm: regular - Abdomen Colostomy left lower quadrant Abdomen: soft, non tender Assessment and Plan Plan: History of perforated diverticulitis. We'll perform colonoscopy on 09/24/2016 and reversal colostomy on 09/25/2016
[2016-09-24] MEDS ORDERED: NA PHOS,M-B/NA PHOS,DI-BA 133 ML ENEMA RECTAL ONE (14:02)
--- NOTE | 2016-09-24 14:02 | P.OP ---
Date of Procedure: 09/24/16 Preoperative Diagnosis: History of perforated diverticulitis Postoperative Diagnosis: Diverticulosis Procedure(s) Performed: Colonoscopy Implants: Anesthesia: MAC Surgeon: Taiwo Spears Pathology: none sent Condition: stable Disposition: PACU Indications for Procedure: Operative Findings: Description of Procedure: The patient's placed on the endoscopy table in the lateral position. She received IV sedation. Digital rectal exam was performed which revealed no abnormalities. Flexible colonoscope was then placed patient anus passed into the rectum and sigmoid colon. The; and at approximately 27 cm. There a few scattered diverticula seen. Scope was then brought back the rectum and this appeared normal. Scope was withdrawn for patient. Next digital exam of the stomach was performed. There is no scarring. The flexible colonoscope was then placed patient anus and passed throughout the entire colon. The ileocecal valve visualized. The cecum and ascending colon appeared normal. The transverse colon there was some mild diverticular changes. Scope was brought back the descending colon was a few scattered diverticula. Scope was withdrawn for patient.
[2016-09-24 14:44] VITALS: BP 149/80; PULSE 57
== END 2016-09-24 15:09 | disposition home or self-care (01) ==
LOC: ORWHC2ENDO 11:28
PROVIDERS: ATTEND Surgery
DX: K57.30 Diverticulosis of large intestine without perforation or abscess without bleeding (principal); K75.4 Autoimmune hepatitis; F32.9 Major depressive disorder, single episode, unspecified; E07.9 Disorder of thyroid, unspecified; F12.90 Cannabis use, unspecified, uncomplicated; K74.60 Unspecified cirrhosis of liver; Z86.718 Personal history of other venous thrombosis and embolism; Z87.891 Personal history of nicotine dependence; Z88.5 Allergy status to narcotic agent; Z90.49 Acquired absence of other specified parts of digestive tract; Z93.3 Colostomy status
CPT/HCPCS: 45378; J2704

== ENCOUNTER 2016-09-25 08:51 | Inpatient (IN) | payer BC ==
[2016-09-17 14:48] VITALS: BMI 25.6
[~2016-09-25 08:51] MED LIST changes: +DEXAMETHASONE SOD PHOSPHATE 10 MG/ML 1 ML VIAL IV ONE; +HEPARIN SODIUM,PORCINE 5,000 UNIT/ML 1 ML VIAL SQ NR; +HYDROmorphone 1 MG/ML 1 ML SYRINGE IVP PRN; -LACTATED RINGERS 1,000 ML IV SCH; +METRONIDAZOLE NS PMX IV NR; +MIDAZOLAM 2 MG/2 ML VIAL IV PRN; +ONDANSETRON 4 MG/2 ML VIAL IVP ONE; +SCOPOLAMINE 1.5MG/72HR PATCH TRANSDERM ONE; +ceFAZolin 2 GM in SODIUM CHLORIDE 0.9% 100 ML IVPB NR
[2016-09-25] MEDS: LACTATED RINGERS 1,000 ML IV SCH (09:50)
[2016-09-25] MEDS ORDERED: ONDANSETRON 4 MG/2 ML VIAL IVP ONE (09:52)
[2016-09-25] MEDS ORDERED: DEXAMETHASONE SOD PHOS (MDV) 100 MG/10 ML VIAL IVP ONE (09:55)
[2016-09-25 10:03] LABS: INR 1.2 (<1.2); Partial Thromboplastin Time 24.2 sec (22.0-30.0); Prothrombin Time 11.7 sec (9.0-12.0)
[2016-09-25] MEDS ORDERED: MIDAZOLAM 2 MG/2 ML VIAL IVP ONE ×2 (10:33→10:50)
[2016-09-25] MEDS ORDERED: fentaNYL (PF) 50 MCG/ML 2 ML AMP IVP ONE (10:37)
[2016-09-25] MEDS ORDERED: HEPARIN SODIUM,PORCINE 5,000 UNIT/ML 1 ML VIAL SQ ONE (11:02)
[2016-09-25] MEDS ORDERED: GLYCOPYRROLATE 0.2 MG/ML 2 ML VIAL ONE (11:06)
[2016-09-25] MEDS ORDERED: MIDAZOLAM 2 MG/2 ML VIAL ONE (11:06)
[2016-09-25] MEDS ORDERED: PROPOFOL 10 MG/ML 20 ML VIAL IV ONE (11:06)
[2016-09-25] MEDS ORDERED: ROCURONIUM BROMIDE 10 MG/ML 10 ML VIAL IV ONE (11:06)
[2016-09-25] MEDS ORDERED: SUCCINYLCHOLINE CHLORIDE 100 MG/5 ML SYR IV ONE (11:06)
[2016-09-25] MEDS ORDERED: ePHEDrine 50 MG/ML 1 ML AMP ONE (11:06)
[2016-09-25] MEDS ORDERED: ONDANSETRON 4 MG/2 ML VIAL ONE (11:06)
[2016-09-25] MEDS ORDERED: fentaNYL (PF) 50 MCG/ML 2 ML AMP ONE (11:06)
[2016-09-25] MEDS ORDERED: LIDOCAINE 1% INJ 10MG/ML (20 ML MDV) ONE (11:06)
[2016-09-25] MEDS ORDERED: NEOSTIGMINE 1 MG/ML 10 ML VIAL ONE (11:06)
[2016-09-25] MEDS ORDERED: NALOXONE 0.4 MG/ML 1 ML VIAL IV PRN (11:39)
[2016-09-25] MEDS ORDERED: LACTATED RINGERS 1,000 ML IV ONE (12:10)
[2016-09-25] MEDS ORDERED: ONDANSETRON 4 MG/2 ML VIAL IVP PRN (13:06)
[2016-09-25] MEDS ORDERED: METOCLOPRAMIDE 5 MG/ML 2 ML VIAL IVP PRN (13:06)
[2016-09-25] MEDS: BUPIVACAINE (PF) 0.5% 37.5 ML, HYDROMORPHONE (PF) 5 MG in SODIUM CHLORIDE 0.9% 212 ML EPIDURAL PRN ×3 (13:18→15:04)
[2016-09-25] MEDS ORDERED: LIDOCAINE 2% (PF) 20 MG/ML 10ML INTRAARTIC ONE (13:59)
[2016-09-25] MEDS: D5-0.45% NACL WITH KCL 20MEQ/L 1,000 ML IV SCH ×2 (15:47→23:51)
[2016-09-25 15:59] LABS: Basophils % (A) 0 %; CH 32.8; CHCM 34.4; Eosinophils # (A) 0.1 k/uL (0-0.7); Eosinophils % (A) 0 %; HCT 41.8 % (34.0-46.0); HDW 2.53; HGB 14.4 gm/dL (11.4-16.0); Luc # (Auto) 0.04; Luc % (Auto) 0; Lymphocytes # (A) 0.3 k/uL (1.0-4.8); Lymphocytes % (A) 2 %; MCHC 34.5 g/dL (31.0-37.0); MCV 95.8 fL (80.0-100.0); Mean Platelet Volume 7.6; Monocytes # (A) 0.5 k/uL (0-1.0); Monocytes % (A) 3 %; Neutrophils # (A) 13.5 k/uL (1.3-7.7); Neutrophils % (A) 94 %; RBC 4.36 m/uL (3.80-5.40); RDW 13.6 % (11.5-15.5); WBC 14.4 k/uL (3.8-10.6); WBC (Perox) 14.32
[2016-09-25 16:08] LABS: Anion Gap 12 mmol/L; Blood Urea Nitrogen 12 mg/dL (7-17); Carbon Dioxide 22 mmol/L (22-30); Chloride 107 mmol/L (98-107); Glucose 113 mg/dL (74-99); Non-African American GFR(MDRD) >60 (>60 ml/min/1.73 sqM); Potassium 3.6 mmol/L (3.5-5.1); Sodium 141 mmol/L (137-145)
[2016-09-25] MEDS: HEPARIN SODIUM,PORCINE 5,000 UNIT/ML 1 ML VIAL SQ SCH ×2 (17:43→23:52)
[2016-09-25] MEDS: diphenhydrAMINE 50 MG/ML 1 ML VIAL IVP PRN (22:51)
[2016-09-25] MEDS: BENZOCAINE/MENTHOL LOZENG 1 EACH LOZENGE MUCOUS MEM PRN (23:53)
[2016-09-26] MEDS: diphenhydrAMINE 50 MG/ML 1 ML VIAL IVP PRN ×2 (04:20→09:35)
[2016-09-26] MEDS: LACTATED RINGERS 1,000 ML IV SCH (06:07)
[2016-09-26] MEDS: HEPARIN SODIUM,PORCINE 5,000 UNIT/ML 1 ML VIAL SQ SCH ×2 (08:10→17:38)
[2016-09-26] MEDS: D5-0.45% NACL WITH KCL 20MEQ/L 1,000 ML IV SCH ×2 (08:10→17:38)
[2016-09-26] MEDS: BENZOCAINE/MENTHOL LOZENG 1 EACH LOZENGE MUCOUS MEM PRN (08:20)
[2016-09-26] MEDS ORDERED: NALBUPHINE 10 MG/ML AMPUL IV PRN (09:54)
--- NOTE | 2016-09-26 11:31 | P.PN ---
Progress Note - Text Postop day 1 from reversal of colostomy, epidural catheter inserted for postop pain control. Epidural solution: Bupivacaine 0.075 % with Dilaudid 20 mcgs/ml running at 9 mL an hour. Patient pain is well controlled with visual analog score of 0-1/10. No nausea vomiting, weakness or numbness in the legs or headache reported by the patient. Mild itching noted. Plan: To continue the epidural infusion at the current rate.
[2016-09-26] MEDS: BUPIVACAINE (PF) 0.5% 37.5 ML, HYDROMORPHONE (PF) 5 MG in SODIUM CHLORIDE 0.9% 212 ML EPIDURAL PRN (11:48)
--- NOTE | 2016-09-26 14:34 | P.PN ---
Progress Note - Text The patient's postoperative day 1 from lysis of adhesions and reversal colostomy with repair of parastomal hernia. The patient is doing quite well. She has minimal complaints of pain. On exam her vital signs are stable. Her abdomen is soft. Her incision site is clean dry and intact. Patient will remain nothing by mouth with NG tube. Dr. Velez will be covering me next week.
--- NOTE | 2016-09-26 14:37 | P.OP ---
Date of Procedure: 09/25/16 Preoperative Diagnosis: History of perforated diverticulitis with colostomy Postoperative Diagnosis: History of perforated diverticulitis with colostomy Adhesions Parastomal hernia Procedure(s) Performed: Reversal of colostomy Lysis of adhesions Repair of parastomal hernia Implants: Anesthesia: GETA Surgeon: Taiwo Spears Estimated Blood Loss (ml): 100 Pathology: other (:) Condition: stable Disposition: PACU Indications for Procedure: Operative Findings: Description of Procedure: The patient's placed on the operative table in the lithotomy position. Her abdomen and perineum were prepped and draped usual sterile fashion. The abdomen was entered through midline incision and the Bookwalter retractors placed a wound. There is extensive adhesions. Approximately 25 minutes of operative time used to lyse adhesions. At this point the colon was transected the fascial level. There was a large parastomal hernia noted. The pursestring device is applied to the proximal colon and then the anvil for the 25 mm EEA stapler was placed into the colon and then the pursestring was secured. This point the adhesions in the pelvis were lysed. There was a Prolene visualized which identified the rectal stump. At this point the 25 mm EEA stapler was placed into the anus and then the spike was driven through the anterior rectal wall. The anvil was connected to the stapler. And then the stapler was closed and fired. The stapler was then withdrawn and 2 intact doughnut rings of tissue were removed. A hydrophilic was applied and the proximal colon and then this rectum was insufflated with air via a rigid sigmoidoscope there is no evidence of any extravasation of air at the anastomosis. This point the abdomen was irrigated. The fascia was closed with looped #1 PDS suture. The skin was closed serafin. The colostomy was then extracted I dividing any cutaneous junction with left cautery and then removing the colostomy stump. The parastomal hernia was then repaired using 0 Ethibond and 0 Vicryl suture. The skin was closed serafin. Patient top she will well and was sent to recovery in stable condition.
[2016-09-26] MEDS: VENLAFAXINE HCL ER 150 MG CAP PO SCH (17:37)
[2016-09-27] MEDS: HEPARIN SODIUM,PORCINE 5,000 UNIT/ML 1 ML VIAL SQ SCH ×3 (00:59→16:37)
[2016-09-27] MEDS: D5-0.45% NACL WITH KCL 20MEQ/L 1,000 ML IV SCH ×4 (01:00→22:32)
[2016-09-27] MEDS: LACTATED RINGERS 1,000 ML IV SCH (07:02)
[2016-09-27] MEDS: LEVOTHYROXINE 75 MCG TAB PO SCH (07:59)
[2016-09-27] MEDS: BUPIVACAINE (PF) 0.5% 37.5 ML, HYDROMORPHONE (PF) 5 MG in SODIUM CHLORIDE 0.9% 212 ML EPIDURAL PRN (08:15)
[2016-09-27] MEDS: VENLAFAXINE HCL ER 150 MG CAP PO SCH (08:16)
--- NOTE | 2016-09-27 09:45 | CONS ---
REASON FOR CONSULTATION: Management for patient's chronic immune hepatitis, hypothyroidism and other medial problems. RECOMMENDATION: 1. Status post colostomy takedown. Will continue with NG tube to low intermittent suction per your recommendation, keep patient NPO at this point, advance her diet per surgery recommendation. Remove Soto catheter today and encourage ambulation. Patient is agreeable to the current treatment plan. 2. Immune hepatitis. The patient is currently on Imuran which was placed on hold. The patient discussed with Dr. Foster from GI who informed the patient that she can be off Imuran only for 14 or 20 days maximum as the last time she was off for more than 20 days where she had flare up and she is very concerned about that. The patient did not respond to steroids in the past and she said she responded only to Imuran. 3. Hypothyroidism. Will continue home medication. 4. Anxiety and depression. We will continue Effexor. 5. Anemia. Will continue ferrous sulfate. 6. Leukocytosis, likely reactive. Will continue monitoring. HISTORY OF PRESENT ILLNESS: This is a 61-year-old female with past medical history significant for diverticulosis complicated with abscess and diverticulitis on multiple occasions in the past who had bowel resection and colostomy in the past and presented today for colostomy takedown by Dr. Spears. The patient tolerated that procedure well. Currently sitting in her bed. NG tube to low intermittent suction with minimum output. The patient is denying abdominal pain. Pain under good control with Dilaudid drip and Epidural anesthesia. The patient is still on D5/45 with 20 K at 125 mL per hour , currently strictly NPO and seems to be at her baseline mental status where she is denying chest pain, shortness of breath, nausea, vomiting, abdominal pain , dizziness, lightheadedness or blurry vision. REVIEW OF SYSTEMS: All 14 systems reviewed and negative except as above. ALLERGIES: 1. MORPHINE. 2. TYLENOL. 3. ADHESIVE. 4. AMOXICILLIN. 5. ( ). 6. HYDROCODONE. HOME MEDICATIONS: 1. Imuran 100 mg two tablets daily. 2. Effexor. 3. Multivitamin. 4. Magnesium. 5. Levothyroxine. 6. Folic acid. 7. Ferrous sulfate. PAST MEDICAL AND SURGICAL HISTORY: 1. Immune hepatitis. 2. Anxiety and depression. 3. Hypothyroidism. 4. Anemia. 5. History of diverticulitis with prior surgery for resection and colostomy placement. FAMILY HISTORY: Reviewed and negative. SOCIAL HISTORY: Patient denied tobacco, alcohol or drug abuse. Said that she is independent in all of her daily activity. PHYSICAL EXAMINATION: VITAL SIGNS: All reviewed and stable. LUNGS: Clear to auscultation bilaterally. HEART: Normal S1/S2. ABDOMEN: Soft, distended. Positive for tenderness surrounding the incision. Bowel sounds are hypoactive. LOWER EXTREMITIES: No edema. PSYCH: Alert and oriented x3. SKIN: No rash. NEURO: No focal deficit. ASSESSMENT AND PLAN: As mentioned above. Thank you again, Dr. Spears, for your consultation. We will follow up with you during this hospital stay. ELMA
--- NOTE | 2016-09-27 09:54 | P.PN ---
Subjective Principal diagnosis: Colostomy reversal Patient's pain is well-controlled. T-max 99.7. No labs. Objective - Vital Signs Vital signs: Vital Signs Temp 99.4 F 09/27/16 03:18 Pulse 80 09/27/16 03:18 Resp 16 09/27/16 03:18 BP 113/69 09/27/16 03:18 Pulse Ox 90 L 09/27/16 03:18 Intake & Output 09/26/16 09/27/16 09/27/16 18:59 06:59 18:59 Intake Total 300 0 204.5 Output Total 1300 0 Balance -1000 0 204.5 Weight 63.503 kg Intake: IV 300 D5-0.45% NaCl with KCl 300 20Meq/l 1,000 ml @ 125 mls/hr IV .Q8H [facility] Rx#: [id number] Intake, IV Titration 204.5 Amount Bupivacaine (Pf) 0.5% 37. 204.5 5 ml Hydromorphone (Pf) 5 mg In Sodium Chloride 0. 9% 212 ml @ Per Protocol EPIDURAL .Q0M PRN Rx#: [id number] Oral 0 Output: Urine 1300 0 Other: Voiding Method Indwelling Catheter Indwelling Catheter # Bowel Movements 0 - Exam Abdomen: Soft, nondistended, mild tenderness, dressing intact - Labs CBC & Chem 7: 09/25/16 15:39 09/25/16 15:39 Assessment and Plan (1) Colonic diverticular abscess Narrative/Plan: Check morning labs. Add ice chips and popsicles. Increase activity. Status: Acute
[2016-09-27 10:35] LABS: Basophils # (A) 0.1 k/uL (0-0.2); Basophils % (A) 1 %; CH 33.2; CHCM 34.3; Eosinophils # (A) 0.4 k/uL (0-0.7); Eosinophils % (A) 4 %; HCT 37.6 % (34.0-46.0); HDW 2.64; HGB 12.4 gm/dL (11.4-16.0); Luc # (Auto) 0.14; Luc % (Auto) 1; Lymphocytes # (A) 1.3 k/uL (1.0-4.8); Lymphocytes % (A) 13 %; MCH 32.1 pg (25.0-35.0); MCV 97.2 fL (80.0-100.0); Mean Platelet Volume 7.4; Monocytes # (A) 0.7 k/uL (0-1.0); Monocytes % (A) 7 %; Neutrophils # (A) 7.4 k/uL (1.3-7.7); Neutrophils % (A) 75 %; RBC 3.86 m/uL (3.80-5.40); RDW 14.1 % (11.5-15.5); WBC 9.9 k/uL (3.8-10.6); WBC (Perox) 10.47
[2016-09-27 10:46] LABS: Anion Gap 5 mmol/L; Blood Urea Nitrogen 5 mg/dL (7-17); Calcium 8.4 mg/dL (8.4-10.2); Carbon Dioxide 29 mmol/L (22-30); Chloride 102 mmol/L (98-107); Glucose 101 mg/dL (74-99); Non-African American GFR(MDRD) >60 (>60 ml/min/1.73 sqM); Potassium 4.3 mmol/L (3.5-5.1); Sodium 136 mmol/L (137-145)
[2016-09-27] MEDS: FERROUS SULFATE 325 MG TAB PO SCH (12:34)
[2016-09-27] MEDS: MAGNESIUM OXIDE 400 MG TAB PO SCH (12:34)
[2016-09-27] MEDS: FOLIC ACID 1 MG TAB PO SCH (12:34)
[2016-09-27] MEDS: MULTIVITAMINS, THERA 1 EACH TAB PO SCH (12:34)
--- NOTE | 2016-09-27 15:16 | P.PN ---
Subjective 61-year-old female one of my office patient who seen Dr. Lugo for autoimmune hepatitis who is known to have history of hypothyroidism and advance liver disease who was admitted to [facility] back in July 2015 and was taking care by Dr. Mitchell for perforated diverticuli had colon resection and colostomy at the time and has done well up till January 2016 when around the 26th developed to have significant pain and discomfort with increase diarrhea ended up coming to [facility] on 03/06 and admitted until 03/12/2016 for severe abdominal pain found to have diverticulitis with abscess formation and at that time she was seen in consultation by general surgery as well as gastric nephrology and she underwent multiple laparotomy and she was treated with IV antibiotic, eventually the patient was brought into the hospital for a colostomy takedown which was done by Dr. Maradiaga and we have been following the patient from medicine for medical management. 09/27: Patient is sitting up in the chair in no apparent distress, she denies any chest pain, shortness breath, she has some abdominal pain, she is complaining of dryness in her mouth and she is asking for ice sips and popsicles. She continues to have an NG tube in place. She continues to have epidural catheter in place. Objective - Vital Signs Vital signs: Vital Signs Temp 99.1 F 09/27/16 07:00 Pulse 75 09/27/16 07:00 Resp 16 09/27/16 07:00 BP 119/73 09/27/16 07:00 Pulse Ox 93 L 09/27/16 07:00 Intake & Output 09/26/16 09/27/16 09/27/16 18:59 06:59 18:59 Intake Total 300 1200 204.5 Output Total 1300 1085 250 Balance -1000 115 -45.5 Weight 63.503 kg Intake: IV 300 1200 D5-0.45% NaCl with KCl 300 1200 20Meq/l 1,000 ml @ 125 mls/hr IV .Q8H [facility] Rx#: [id number] Intake, IV Titration 204.5 Amount Bupivacaine (Pf) 0.5% 37. 204.5 5 ml Hydromorphone (Pf) 5 mg In Sodium Chloride 0. 9% 212 ml @ Per Protocol EPIDURAL .Q0M PRN Rx#: [id number] Oral 0 Output: Gastric Drainage 100 Urine 1300 985 250 Uretheral (Soto) 250 Other: Voiding Method Indwelling Catheter Indwelling Catheter Indwelling Catheter # Bowel Movements 0 - Constitutional General appearance: Present: average body habitus, mild distress - EENT Eyes: Present: anicteric sclerae, EOMI, PERRLA, normal appearance. Absent: ptosis, scleral icterus ENT: Present: hearing grossly normal, normal oropharynx, other (NG tube in place.) Ears: bilateral: normal - Neck Neck: Present: normal ROM. Absent: lymphadenopathy, rigidity Carotids: bilateral: upstroke normal Thyroid: bilateral: normal size - Respiratory Respiratory: bilateral: diminished, negative: dullness, rales, rhonchi, wheezing , prolonged expiration, prolonged inspiration - Cardiovascular Rhythm: regular Heart sounds: normal: S1, S2 Abnormal Heart Sounds: Absent: systolic murmur, S3 Gallop, S4 Gallop, click - Gastrointestinal General gastrointestinal: Present: decreased bowel sounds, soft (incision appears to be clean, there is a dressing in tolerated with moderate tenderness without any rebound or guarding.), tenderness. Absent: umbilical hernia, ventral hernia - Integumentary Integumentary: Present: normal, normal turgor - Neurologic Neurologic: Present: CNII-XII intact - Musculoskeletal Musculoskeletal: Present: generalized weakness, strength equal bilaterally - Psychiatric Psychiatric: Present: A&O x's 3, appropriate affect, intact judgment & insight - Labs CBC & Chem 7: 09/27/16 10:15 09/27/16 10:15 Labs: Abnormal Lab Results - Last 24 Hours (Table) 09/27/16 Range/Units 10:15 Sodium 136 L (137-145) mmol/L BUN 5 L (7-17) mg/dL Glucose 101 H (74-99) mg/dL Assessment and Plan Plan: Assessment and plan: 1. Post operative day #1 status post colostomy takedown. Continue patient on NG tube, continue IV fluid, continue epidural catheter, continue current pain management as outlined by general surgery, continues to spirometer to reduce the incidence of atelectasis and hospital-acquired pneumonia. 2. Autoimmune hepatitis: Was on Azathioprine and seen Dr. Foster on regular basis , continue off Imuran. 3. Hypothyroidism: Continue patient on levothyroxine 75 g orally once every day. 4. Pain and pain management: Patient will be on Dilaudid 1 mg IV push every 3 hours as needed, currently has epidural catheter in place. 5. GI prophylaxis. Continue with PPI. 6. DVT prophylaxis. Continue heparin 5000 units subcutaneously every 12 hours as well as bilateral knee-high JORGE hose. 7. Anemia. Continue patient on iron 325 minute gram orally once every day as well as folic acid 1 mg orally once every day. 8. Discharge planning. Patient is to be discharged home with home healthcare.
[2016-09-28] MEDS: HEPARIN SODIUM,PORCINE 5,000 UNIT/ML 1 ML VIAL SQ SCH ×3 (02:00→15:46)
[2016-09-28] MEDS: LEVOTHYROXINE 75 MCG TAB PO SCH (07:07)
[2016-09-28 07:12] LABS: Basophils % (A) 0 %; CH 33.2; Eosinophils # (A) 0.4 k/uL (0-0.7); Eosinophils % (A) 4 %; HCT 38.3 % (34.0-46.0); HDW 2.61; Luc # (Auto) 0.13; Luc % (Auto) 1; Lymphocytes # (A) 1.2 k/uL (1.0-4.8); Lymphocytes % (A) 13 %; MCH 32.4 pg (25.0-35.0); MCV 95.4 fL (80.0-100.0); Mean Platelet Volume 7.4; Monocytes # (A) 0.7 k/uL (0-1.0); Monocytes % (A) 7 %; Neutrophils # (A) 6.8 k/uL (1.3-7.7); Neutrophils % (A) 74 %; RBC 4.02 m/uL (3.80-5.40); RDW 13.5 % (11.5-15.5); WBC 9.2 k/uL (3.8-10.6); WBC (Perox) 9.07
[2016-09-28] MEDS: LACTATED RINGERS 1,000 ML IV SCH (07:18)
[2016-09-28 07:34] LABS: Anion Gap 6 mmol/L; Blood Urea Nitrogen 2 mg/dL (7-17); Calcium 8.7 mg/dL (8.4-10.2); Carbon Dioxide 33 mmol/L (22-30); Chloride 99 mmol/L (98-107); Glucose 94 mg/dL (74-99); Non-African American GFR(MDRD) >60 (>60 ml/min/1.73 sqM); Potassium 4.7 mmol/L (3.5-5.1); Sodium 138 mmol/L (137-145)
[2016-09-28] MEDS: D5-0.45% NACL WITH KCL 20MEQ/L 1,000 ML IV SCH ×2 (07:52→15:45)
[2016-09-28] MEDS: VENLAFAXINE HCL ER 150 MG CAP PO SCH (07:52)
--- NOTE | 2016-09-28 10:20 | P.PN ---
Subjective Principal diagnosis: Colostomy reversal Patient doing well. No significant pains. Still feels somewhat weak when attempting ambulation. White blood cell count normal. No flatus. Objective - Vital Signs Vital signs: Vital Signs Temp 98.4 F 09/28/16 07:00 Pulse 80 09/28/16 07:00 Resp 16 09/28/16 07:00 BP 113/80 09/28/16 07:00 Pulse Ox 98 09/28/16 07:00 Intake & Output 09/27/16 09/28/16 09/28/16 18:59 06:59 18:59 Intake Total 204.5 1500 Output Total 900 1700 300 Balance -695.5 -200 -300 Intake: IV 1500 D5-0.45% NaCl with KCl 1500 20Meq/l 1,000 ml @ 125 mls/hr IV .Q8H [facility] Rx#: [id number] Intake, IV Titration 204.5 Amount Bupivacaine (Pf) 0.5% 37. 204.5 5 ml Hydromorphone (Pf) 5 mg In Sodium Chloride 0. 9% 212 ml @ Per Protocol EPIDURAL .Q0M PRN Rx#: [id number] Output: Gastric Drainage 300 300 Urine 900 1400 Uretheral (Soto) 900 Other: Voiding Method Indwelling Catheter Indwelling Catheter # Bowel Movements 0 - Exam Abdomen: Soft, nondistended, minimal tenderness, dressing intact - Labs CBC & Chem 7: 09/28/16 06:47 09/28/16 06:47 Labs: Abnormal Lab Results - Last 24 Hours (Table) 09/27/16 09/28/16 Range/Units 10:15 06:47 Sodium 136 L (137-145) mmol/L Carbon Dioxide 33 H (22-30) mmol/L BUN 5 L 2 L (7-17) mg/dL Glucose 101 H (74-99) mg/dL Assessment and Plan (1) Colonic diverticular abscess Narrative/Plan: Will DC epidural. Continue nothing by mouth. Ambulate. Status: Acute
--- NOTE | 2016-09-28 11:12 | P.PN ---
Progress Note - Text 09/27 351 61-year-old female status post colostomy reversal by Dr. ruiz. Patient seen and evaluated for pain control, VAS of 0. NG tube in place, still able to ambulate. No motor or sensory deficits. Plan to continue epidural
[2016-09-28] MEDS: KETOROLAC 30 MG/ML 1 ML VIAL IVP SCH ×2 (11:59→17:41)
[2016-09-28] MEDS: MULTIVITAMINS, THERA 1 EACH TAB PO SCH (11:59)
[2016-09-28] MEDS: MAGNESIUM OXIDE 400 MG TAB PO SCH (11:59)
[2016-09-28] MEDS: FOLIC ACID 1 MG TAB PO SCH (11:59)
[2016-09-28] MEDS: FERROUS SULFATE 325 MG TAB PO SCH (11:59)
--- NOTE | 2016-09-28 14:55 | P.PN ---
Subjective 61-year-old female one of my office patient who seen Dr. Lugo for autoimmune hepatitis who is known to have history of hypothyroidism and advance liver disease who was admitted to [facility] back in July 2015 and was taking care by Dr. Gaspar for perforated diverticuli had colon resection and colostomy at the time and has done well up till January 2016 when around the 26th developed to have significant pain and discomfort with increase diarrhea ended up coming to [facility] on 03/06 and admitted until 03/12/2016 for severe abdominal pain found to have diverticulitis with abscess formation and at that time she was seen in consultation by general surgery as well as gastric nephrology and she underwent multiple laparotomy and she was treated with IV antibiotic, eventually the patient was brought into the hospital for a colostomy takedown which was done by Dr. Maradiaga and we have been following the patient from medicine for medical management. 09/27: Patient is sitting up in the chair in no apparent distress, she denies any chest pain, shortness breath, she has some abdominal pain, she is complaining of dryness in her mouth and she is asking for ice sips and popsicles. She continues to have an NG tube in place. She continues to have epidural catheter in place. 09/28: Patient is sitting up in a recliner chair, she is complaining of increased postnasal drip, she continues to have the NG tube in place, she continues to have a large residual, she denies any chest pain, she does plan for occasional cough, she has no orthopnea, PND, she has some abdominal pain, with no nausea. Objective - Vital Signs Vital signs: Vital Signs Temp 98.3 F 09/28/16 02:33 Pulse 81 09/28/16 02:33 Resp 16 09/28/16 02:33 BP 110/70 09/28/16 02:33 Pulse Ox 97 09/28/16 02:33 Intake & Output 09/27/16 09/28/16 09/28/16 18:59 06:59 18:59 Intake Total 204.5 1500 Output Total 900 1700 300 Balance -695.5 -200 -300 Intake: IV 1500 D5-0.45% NaCl with KCl 1500 20Meq/l 1,000 ml @ 125 mls/hr IV .Q8H [facility] Rx#: [id number] Intake, IV Titration 204.5 Amount Bupivacaine (Pf) 0.5% 37. 204.5 5 ml Hydromorphone (Pf) 5 mg In Sodium Chloride 0. 9% 212 ml @ Per Protocol EPIDURAL .Q0M [facility] Rx#: [id number] Output: Gastric Drainage 300 300 Urine 900 1400 Uretheral (Soto) 900 Other: Voiding Method Indwelling Catheter Indwelling Catheter # Bowel Movements 0 - Exam Constitutional General appearance: Present: average body habitus, mild distress - EENT Eyes: Present: anicteric sclerae, EOMI, PERRLA, normal appearance. Absent: ptosis, scleral icterus ENT: Present: hearing grossly normal, normal oropharynx, other (NG tube in place.) Ears: bilateral: normal - Neck Neck: Present: normal ROM. Absent: lymphadenopathy, rigidity Carotids: bilateral: upstroke normal Thyroid: bilateral: normal size - Respiratory Respiratory: bilateral: diminished, negative: dullness, rales, rhonchi, wheezing , prolonged expiration, prolonged inspiration - Cardiovascular Rhythm: regular Heart sounds: normal: S1, S2 Abnormal Heart Sounds: Absent: systolic murmur, S3 Gallop, S4 Gallop, click - Gastrointestinal General gastrointestinal: Present: decreased bowel sounds, soft (incision appears to be clean, there is a dressing in tolerated with moderate tenderness without any rebound or guarding.), tenderness. Absent: umbilical hernia, ventral hernia - Integumentary Integumentary: Present: normal, normal turgor - Neurologic Neurologic: Present: CNII-XII intact - Musculoskeletal Musculoskeletal: Present: generalized weakness, strength equal bilaterally - Psychiatric Psychiatric: Present: A&O x's 3, appropriate affect, intact judgment & insight - Labs CBC & Chem 7: 09/28/16 06:47 09/28/16 06:47 Labs: Abnormal Lab Results - Last 24 Hours (Table) 09/27/16 09/28/16 Range/Units 10:15 06:47 Sodium 136 L (137-145) mmol/L Carbon Dioxide 33 H (22-30) mmol/L BUN 5 L 2 L (7-17) mg/dL Glucose 101 H (74-99) mg/dL Assessment and Plan Plan: Assessment and plan: 1. Post operative day #1 status post colostomy takedown. Continue patient on NG tube, continue IV fluid, continue epidural catheter, continue current pain management as outlined by general surgery, continues to spirometer to reduce the incidence of atelectasis and hospital-acquired pneumonia. 2. Autoimmune hepatitis: Was on Azathioprine and seen Dr. Foster on regular basis , continue off Imuran. 3. Hypothyroidism: Continue patient on levothyroxine 75 g orally once every day. 4. Pain and pain management: Patient will be on Dilaudid 1 mg IV push every 3 hours as needed, currently has epidural catheter in place. 5. GI prophylaxis. Continue with PPI. 6. DVT prophylaxis. Continue heparin 5000 units subcutaneously every 12 hours as well as bilateral knee-high JORGE hose. 7. Anemia. Continue patient on iron 325 minute gram orally once every day as well as folic acid 1 mg orally once every day. 8. Discharge planning. Patient is to be discharged home with home healthcare.
--- NOTE | 2016-09-28 16:41 | P.PN ---
Progress Note - Text 09/28 8621 61-year-old female status post colostomy closure. Patient seen this afternoon and evaluated for pain control. VAS of 1 with no sensory or motor deficits. Epidural DC'd by Dr. Velez at noon time. Patient doing well
[2016-09-29] MEDS: KETOROLAC 30 MG/ML 1 ML VIAL IVP SCH ×5 (00:15→23:09)
[2016-09-29] MEDS: HEPARIN SODIUM,PORCINE 5,000 UNIT/ML 1 ML VIAL SQ SCH ×4 (00:15→23:09)
[2016-09-29] MEDS: D5-0.45% NACL WITH KCL 20MEQ/L 1,000 ML IV SCH ×3 (04:44→18:08)
[2016-09-29] MEDS: LEVOTHYROXINE 75 MCG TAB PO SCH (09:04)
[2016-09-29] MEDS: VENLAFAXINE HCL ER 150 MG CAP PO SCH (10:00)
[2016-09-29] MEDS: FOLIC ACID 1 MG TAB PO SCH (13:00)
[2016-09-29] MEDS: FERROUS SULFATE 325 MG TAB PO SCH (13:00)
[2016-09-29] MEDS: MAGNESIUM OXIDE 400 MG TAB PO SCH (13:00)
[2016-09-29] MEDS: MULTIVITAMINS, THERA 1 EACH TAB PO SCH (13:10)
[2016-09-29] MEDS: LORATADINE 10 MG TAB PO SCH (14:00)
--- NOTE | 2016-09-29 14:38 | P.PN ---
Subjective Principal diagnosis: Colostomy reversal Patient doing well today. She is continuing to have good volume of flatus. No nausea or vomiting. Nasogastric output decreased. She is afebrile. Pain is well-controlled. She is ambulating. Objective - Vital Signs Vital signs: Vital Signs Temp 98.3 F 09/29/16 13:56 Pulse 68 09/29/16 13:56 Resp 16 09/29/16 13:56 BP 149/78 09/29/16 13:56 Pulse Ox 95 09/29/16 13:56 Intake & Output 09/28/16 09/29/16 09/29/16 18:59 06:59 18:59 Intake Total 1500 700 Output Total 1850 200 Balance -1850 1300 700 Weight 63.503 kg Intake: IV 1500 600 D5-0.45% NaCl with KCl 1500 600 20Meq/l 1,000 ml @ 125 mls/hr IV .Q8H [facility] Rx#: [id number] Oral 100 Output: Gastric Drainage 600 200 Urine 1250 Uretheral (Soto) 1250 Other: Voiding Method Indwelling Catheter Indwelling Catheter # Voids 4 - Exam Abdomen: Soft, nondistended, dressing intact, minimal tenderness - Labs CBC & Chem 7: 09/28/16 06:47 09/28/16 06:47 Assessment and Plan (1) Colonic diverticular abscess Narrative/Plan: Will DC nasogastric tube. Begin clear liquid diet. Increase activity. Status: Acute
--- NOTE | 2016-09-29 15:04 | P.PN ---
Subjective 61-year-old female one of my office patient who seen Dr. Lugo for autoimmune hepatitis who is known to have history of hypothyroidism and advance liver disease who was admitted to [facility] back in July 2015 and was taking care by Dr. Gaspar for perforated diverticuli had colon resection and colostomy at the time and has done well up till January 2016 when around the 26th developed to have significant pain and discomfort with increase diarrhea ended up coming to [facility] on 03/06 and admitted until 03/12/2016 for severe abdominal pain found to have diverticulitis with abscess formation and at that time she was seen in consultation by general surgery as well as gastric nephrology and she underwent multiple laparotomy and she was treated with IV antibiotic, eventually the patient was brought into the hospital for a colostomy takedown which was done by Dr. Maradiaga and we have been following the patient from medicine for medical management. 85: Patient is sitting up in the chair in no apparent distress, she denies any chest pain, shortness breath, she has some abdominal pain, she is complaining of dryness in her mouth and she is asking for ice sips and popsicles. She continues to have an NG tube in place. She continues to have epidural catheter in place. 86: Patient is sitting up in a recliner chair, she is complaining of increased postnasal drip, she continues to have the NG tube in place, she continues to have a large residual, she denies any chest pain, she does plan for occasional cough, she has no orthopnea, PND, she has some abdominal pain, with no nausea. 8: Patient continues with NG tube in place which she states it is bothering her. She did have a large amount of output in the past 24 hours but is decreasing. Pain is controlled and epidural was discontinued yesterday. She has been ambulating. She is passing gas this morning but has not had a bowel movement. NG tube is to be discontinued and patient started on clear liquid diet per Dr. Velez. Objective - Vital Signs Vital signs: Vital Signs Temp 98.2 F 09/29/16 07:00 Pulse 74 09/29/16 07:00 Resp 16 09/29/16 07:00 BP 144/82 09/29/16 07:00 Pulse Ox 99 09/29/16 07:00 Intake & Output 0809/29/16 09/29/16 18:59 06:59 18:59 Intake Total 1500 Output Total 1850 200 Balance -1850 1300 Intake: IV 1500 D5-0.45% NaCl with KCl 1500 20Meq/l 1,000 ml @ 125 mls/hr IV .Q8H [facility] Rx#: [id number] Output: Gastric Drainage 600 200 Urine 1250 Uretheral (Soto) 1250 Other: Voiding Method Indwelling Catheter # Voids 2 - Exam General appearance: Present: average body habitus, mild distress - EENT Eyes: Present: anicteric sclerae, EOMI, PERRLA, normal appearance. Absent: ptosis, scleral icterus ENT: Present: hearing grossly normal, normal oropharynx, other (NG tube in place.) Ears: bilateral: normal - Neck Neck: Present: normal ROM. Absent: lymphadenopathy, rigidity Carotids: bilateral: upstroke normal Thyroid: bilateral: normal size - Respiratory Respiratory: bilateral: diminished, negative: dullness, rales, rhonchi, wheezing , prolonged expiration, prolonged inspiration - Cardiovascular Rhythm: regular Heart sounds: normal: S1, S2 Abnormal Heart Sounds: Absent: systolic murmur, S3 Gallop, S4 Gallop, click - Gastrointestinal General gastrointestinal: Present: decreased bowel sounds, soft (incision appears to be clean, there is a dressing in tolerated with moderate tenderness without any rebound or guarding.), tenderness. Absent: umbilical hernia, ventral hernia - Integumentary Integumentary: Present: normal, normal turgor - Neurologic Neurologic: Present: CNII-XII intact - Musculoskeletal Musculoskeletal: Present: generalized weakness, strength equal bilaterally - Psychiatric Psychiatric: Present: A&O x's 3, appropriate affect, intact judgment & insight - Labs CBC & Chem 7: 09/28/16 06:47 09/28/16 06:47 Assessment and Plan Plan: 1. Status post colostomy takedown. NG tube to be discontinued and patient started on a clear liquid diet, increase activity, continue current pain management as outlined by general surgery, continue incentive spirometer to reduce the incidence of atelectasis and hospital-acquired pneumonia. 2. Autoimmune hepatitis: Was on Azathioprine and seen Dr. Foster on regular basis , continue off Imuran. 3. Hypothyroidism: Continue patient on levothyroxine 75 g orally once every day. 4. Pain and pain management: Patient will be on Dilaudid 1 mg IV push every 3 hours as needed, currently has epidural catheter in place. 5. GI prophylaxis. Continue with PPI. 6. DVT prophylaxis. Continue heparin 5000 units subcutaneously every 12 hours as well as bilateral knee-high JORGE hose. 7. Anemia. Continue patient on iron 325 minute gram orally once every day as well as folic acid 1 mg orally once every day. 8. Discharge planning. Patient is to be discharged home with home healthcare. Impression and plan of care have been directed as dictated by the signing physician. Sallie Cintron nurse practitioner acting as scribe for signing physician.
[2016-09-29] MEDS: ONDANSETRON 4 MG/2 ML VIAL IVP PRN (22:30)
[2016-09-30] MEDS: KETOROLAC 30 MG/ML 1 ML VIAL IVP SCH ×4 (06:22→23:42)
[2016-09-30] MEDS: LEVOTHYROXINE 75 MCG TAB PO SCH (06:23)
[2016-09-30] MEDS: HYDROmorphone 1 MG/ML 1 ML SYRINGE IVP PRN ×3 (07:12→21:02)
[2016-09-30] MEDS: LACTATED RINGERS 1,000 ML IV SCH (07:51)
[2016-09-30] MEDS: DEXTROSE 5%-0.45% NACL 1,000 ML IV SCH ×2 (07:52→18:03)
[2016-09-30] MEDS: D5-0.45% NACL WITH KCL 20MEQ/L 1,000 ML IV SCH ×3 (07:52→23:43)
[2016-09-30 08:18] LABS: ALT 31 U/L (9-52); AST 25 U/L (14-36); Alkaline Phosphatase 66 U/L (38-126); Anion Gap 7 mmol/L; Blood Urea Nitrogen 3 mg/dL (7-17); Calcium 8.7 mg/dL (8.4-10.2); Carbon Dioxide 24 mmol/L (22-30); Chloride 109 mmol/L (98-107); Glucose 93 mg/dL (74-99); Non-African American GFR(MDRD) >60 (>60 ml/min/1.73 sqM); Potassium 4.3 mmol/L (3.5-5.1); Sodium 140 mmol/L (137-145); Total Bilirubin 0.8 mg/dL (0.2-1.3); Total Protein 6.2 g/dL (6.3-8.2)
[2016-09-30] MEDS: HEPARIN SODIUM,PORCINE 5,000 UNIT/ML 1 ML VIAL SQ SCH ×3 (08:35→23:42)
[2016-09-30] MEDS: VENLAFAXINE HCL ER 150 MG CAP PO SCH (08:36)
[2016-09-30] MEDS: LORATADINE 10 MG TAB PO SCH (08:36)
[2016-09-30] MEDS: FERROUS SULFATE 325 MG TAB PO SCH (12:11)
[2016-09-30] MEDS: FOLIC ACID 1 MG TAB PO SCH (12:11)
[2016-09-30] MEDS: MAGNESIUM OXIDE 400 MG TAB PO SCH (12:11)
[2016-09-30] MEDS: MULTIVITAMINS, THERA 1 EACH TAB PO SCH (12:11)
--- NOTE | 2016-09-30 13:35 | P.PN ---
Subjective Principal diagnosis: Colostomy reversal Patient doing well today. Some lower abdominal discomfort. Tolerating clear liquids. She is passing flatus. No bowel movement. Objective - Vital Signs Vital signs: Vital Signs Temp 98.4 F 09/30/16 07:00 Pulse 68 09/30/16 07:00 Resp 16 09/30/16 07:00 BP 155/75 09/30/16 07:00 Pulse Ox 97 09/30/16 07:00 Intake & Output 09/29/16 09/30/16 09/30/16 18:59 06:59 18:59 Intake Total 700 480 360 Output Total 1400 Balance -700 480 360 Weight 63.503 kg Intake: IV 600 D5-0.45% NaCl with KCl 600 20Meq/l 1,000 ml @ 125 mls/hr IV .Q8H [facility] Rx#: [id number] Oral 100 480 360 Output: Urine 1400 Other: Voiding Method Indwelling Catheter # Voids 4 2 # Bowel Movements 0 - Exam Abdomen: Soft, nondistended, minimal lower abdominal tenderness, dressing intact - Labs CBC & Chem 7: 09/28/16 06:47 09/30/16 07:03 Labs: Abnormal Lab Results - Last 24 Hours (Table) 09/30/16 Range/Units 07:03 Chloride 109 H (98-107) mmol/L BUN 3 L (7-17) mg/dL Total Protein 6.2 L (6.3-8.2) g/dL Albumin 3.1 L (3.5-5.0) g/dL Assessment and Plan (1) Colonic diverticular abscess Narrative/Plan: Continue ambulation. Will advance diet to full liquids. Status: Acute
--- NOTE | 2016-09-30 15:47 | P.PN ---
Subjective 61-year-old female one of my office patient who seen Dr. Lugo for autoimmune hepatitis who is known to have history of hypothyroidism and advance liver disease who was admitted to [facility] back in July 2015 and was taking care by Dr. Gaspar for perforated diverticuli had colon resection and colostomy at the time and has done well up till January 2016 when around the 26th developed to have significant pain and discomfort with increase diarrhea ended up coming to [facility] on 03/06 and admitted until 03/12/2016 for severe abdominal pain found to have diverticulitis with abscess formation and at that time she was seen in consultation by general surgery as well as gastric nephrology and she underwent multiple laparotomy and she was treated with IV antibiotic, eventually the patient was brought into the hospital for a colostomy takedown which was done by Dr. Maradiaga and we have been following the patient from medicine for medical management. 09/27: Patient is sitting up in the chair in no apparent distress, she denies any chest pain, shortness breath, she has some abdominal pain, she is complaining of dryness in her mouth and she is asking for ice sips and popsicles. She continues to have an NG tube in place. She continues to have epidural catheter in place. 09/28: Patient is sitting up in a recliner chair, she is complaining of increased postnasal drip, she continues to have the NG tube in place, she continues to have a large residual, she denies any chest pain, she does plan for occasional cough, she has no orthopnea, PND, she has some abdominal pain, with no nausea. 09/29: Patient continues with NG tube in place which she states it is bothering her. She did have a large amount of output in the past 24 hours but is decreasing. Pain is controlled and epidural was discontinued yesterday. She has been ambulating. She is passing gas this morning but has not had a bowel movement. NG tube is to be discontinued and patient started on clear liquid diet per Dr. Velez. 09/30: Patient is doing well today. She is tolerating clear liquid diet. No nausea or vomiting. She is complaining of a little abdominal pain. She is walking in the hallway. No bowel movement. Objective - Vital Signs Vital signs: Vital Signs Temp 98.4 F 09/30/16 07:00 Pulse 68 09/30/16 07:00 Resp 16 09/30/16 07:00 BP 155/75 09/30/16 07:00 Pulse Ox 97 09/30/16 07:00 Intake & Output 09/29/16 09/30/16 09/30/16 18:59 06:59 18:59 Intake Total 700 480 360 Output Total 1400 Balance -700 480 360 Weight 63.503 kg Intake: IV 600 D5-0.45% NaCl with KCl 600 20Meq/l 1,000 ml @ 125 mls/hr IV .Q8H [facility] Rx#: [id number] Oral 100 480 360 Output: Urine 1400 Other: Voiding Method Indwelling Catheter # Voids 4 2 # Bowel Movements 0 - Exam General appearance: Present: average body habitus, mild distress - EENT Eyes: Present: anicteric sclerae, EOMI, PERRLA, normal appearance. Absent: ptosis, scleral icterus ENT: Present: hearing grossly normal, normal oropharynx, other Ears: bilateral: normal - Neck Neck: Present: normal ROM. Absent: lymphadenopathy, rigidity Carotids: bilateral: upstroke normal Thyroid: bilateral: normal size - Respiratory Respiratory: bilateral: diminished, negative: dullness, rales, rhonchi, wheezing , prolonged expiration, prolonged inspiration - Cardiovascular Rhythm: regular Heart sounds: normal: S1, S2 Abnormal Heart Sounds: Absent: systolic murmur, S3 Gallop, S4 Gallop, click - Gastrointestinal General gastrointestinal: Present: decreased bowel sounds, soft (incision appears to be clean, there is a dressing in tolerated with moderate tenderness without any rebound or guarding.), tenderness. Absent: umbilical hernia, ventral hernia - Integumentary Integumentary: Present: normal, normal turgor - Neurologic Neurologic: Present: CNII-XII intact - Musculoskeletal Musculoskeletal: Present: generalized weakness, strength equal bilaterally - Psychiatric Psychiatric: Present: A&O x's 3, appropriate affect, intact judgment & insight - Labs CBC & Chem 7: 09/28/16 06:47 09/30/16 07:03 Labs: Abnormal Lab Results - Last 24 Hours (Table) 09/30/16 Range/Units 07:03 Chloride 109 H (98-107) mmol/L BUN 3 L (7-17) mg/dL Total Protein 6.2 L (6.3-8.2) g/dL Albumin 3.1 L (3.5-5.0) g/dL Assessment and Plan Plan: 1. Status post colostomy takedown. NG tube to be discontinued and patient started on a clear liquid diet, increase activity, continue current pain management as outlined by general surgery, continue incentive spirometer to reduce the incidence of atelectasis and hospital-acquired pneumonia. 2. Autoimmune hepatitis: Was on Azathioprine and seen Dr. Foster on regular basis , continue off Imuran. 3. Hypothyroidism: Continue patient on levothyroxine 75 g orally once every day. 4. Pain and pain management: Patient will be on Dilaudid 1 mg IV push every 3 hours as needed, currently has epidural catheter in place. 5. GI prophylaxis. Continue with PPI. 6. DVT prophylaxis. Continue heparin 5000 units subcutaneously every 12 hours as well as bilateral knee-high JORGE hose. 7. Anemia. Continue patient on iron 325 minute gram orally once every day as well as folic acid 1 mg orally once every day. 8. Discharge planning. Patient is to be discharged home with home healthcare. Impression and plan of care have been directed as dictated by the signing physician. Sallie Cintron nurse practitioner acting as scribe for signing physician.
[2016-09-30] MEDS: ONDANSETRON 4 MG/2 ML VIAL IVP PRN (17:59)
[2016-10-01] MEDS: KETOROLAC 30 MG/ML 1 ML VIAL IVP SCH ×4 (05:59→23:13)
[2016-10-01] MEDS: LEVOTHYROXINE 75 MCG TAB PO SCH (05:59)
[2016-10-01 07:28] LABS: Basophils # (A) 0.1 k/uL (0-0.2); Basophils % (A) 1 %; CH 33.2; CHCM 34.7; Eosinophils # (A) 0.7 k/uL (0-0.7); Eosinophils % (A) 12 %; HCT 35.6 % (34.0-46.0); HDW 2.73; HGB 11.8 gm/dL (11.4-16.0); Luc # (Auto) 0.16; Luc % (Auto) 3; Lymphocytes % (A) 17 %; MCHC 33.2 g/dL (31.0-37.0); MCV 96.3 fL (80.0-100.0); Mean Platelet Volume 7.7; Monocytes # (A) 0.5 k/uL (0-1.0); Monocytes % (A) 8 %; Neutrophils # (A) 3.6 k/uL (1.3-7.7); Neutrophils % (A) 60 %; RDW 13.8 % (11.5-15.5); WBC (Perox) 6.07
[2016-10-01 07:42] LABS: Anion Gap 8 mmol/L; Blood Urea Nitrogen 3 mg/dL (7-17); Calcium 8.8 mg/dL (8.4-10.2); Carbon Dioxide 27 mmol/L (22-30); Chloride 106 mmol/L (98-107); Glucose 85 mg/dL (74-99); Non-African American GFR(MDRD) >60 (>60 ml/min/1.73 sqM); Potassium 4.5 mmol/L (3.5-5.1); Sodium 141 mmol/L (137-145)
[2016-10-01] MEDS: VENLAFAXINE HCL ER 150 MG CAP PO SCH (08:40)
[2016-10-01] MEDS: ONDANSETRON 4 MG/2 ML VIAL IVP PRN (08:40)
[2016-10-01] MEDS: HEPARIN SODIUM,PORCINE 5,000 UNIT/ML 1 ML VIAL SQ SCH ×3 (08:40→23:14)
[2016-10-01] MEDS: D5-0.45% NACL WITH KCL 20MEQ/L 1,000 ML IV SCH ×2 (08:41→15:32)
[2016-10-01] MEDS: DEXTROSE 5%-0.45% NACL 1,000 ML IV SCH (08:41)
[2016-10-01] MEDS: LACTATED RINGERS 1,000 ML IV SCH (08:41)
[2016-10-01] MEDS: LORATADINE 10 MG TAB PO SCH (08:41)
[2016-10-01] MEDS: MULTIVITAMINS, THERA 1 EACH TAB PO SCH (12:45)
[2016-10-01] MEDS: FERROUS SULFATE 325 MG TAB PO SCH (12:45)
[2016-10-01] MEDS: MAGNESIUM OXIDE 400 MG TAB PO SCH (12:45)
[2016-10-01] MEDS: FOLIC ACID 1 MG TAB PO SCH (12:45)
--- NOTE | 2016-10-01 14:56 | P.PN ---
Subjective 61-year-old female one of my office patient who seen Dr. Lugo for autoimmune hepatitis who is known to have history of hypothyroidism and advance liver disease who was admitted to [facility] back in July 2015 and was taking care by Dr. Gaspar for perforated diverticuli had colon resection and colostomy at the time and has done well up till January 2016 when around the 26th developed to have significant pain and discomfort with increase diarrhea ended up coming to [facility] on 03/06 and admitted until 03/12/2016 for severe abdominal pain found to have diverticulitis with abscess formation and at that time she was seen in consultation by general surgery as well as gastric nephrology and she underwent multiple laparotomy and she was treated with IV antibiotic, eventually the patient was brought into the hospital for a colostomy takedown which was done by Dr. Maradiaga and we have been following the patient from medicine for medical management. 5: Patient is sitting up in the chair in no apparent distress, she denies any chest pain, shortness breath, she has some abdominal pain, she is complaining of dryness in her mouth and she is asking for ice sips and popsicles. She continues to have an NG tube in place. She continues to have epidural catheter in place. 86: Patient is sitting up in a recliner chair, she is complaining of increased postnasal drip, she continues to have the NG tube in place, she continues to have a large residual, she denies any chest pain, she does plan for occasional cough, she has no orthopnea, PND, she has some abdominal pain, with no nausea. 8: Patient continues with NG tube in place which she states it is bothering her. She did have a large amount of output in the past 24 hours but is decreasing. Pain is controlled and epidural was discontinued yesterday. She has been ambulating. She is passing gas this morning but has not had a bowel movement. NG tube is to be discontinued and patient started on clear liquid diet per Dr. Velez. 09/30: Patient is doing well today. She is tolerating clear liquid diet. No nausea or vomiting. She is complaining of a little abdominal pain. She is walking in the hallway. No bowel movement. 10/01: patient is currently on full liquid diet and tolerating. she is passing gas. She has had good bowel sounds. She is complaining of more sores in her mouth for which nystatin has been added. Objective - Vital Signs Vital signs: Vital Signs Temp 98.1 F 10/01/16 07:00 Pulse 61 10/01/16 07:00 Resp 16 10/01/16 07:00 BP 129/73 10/01/16 07:00 Pulse Ox 99 10/01/16 07:00 Intake & Output 09/30/16 10/01/16 10/01/16 18:59 06:59 18:59 Intake Total 2080 900 Balance 2080 900 Intake: IV 1000 D5-0.45% NaCl with KCl 1000 20Meq/l 1,000 ml @ 125 mls/hr IV .Q8H [facility] Rx#: [id number] Intake, IV Titration 900 Amount Dextrose 5%-0.45% NaCl 1, 900 000 ml @ 75 mls/hr IV . [id number] [facility] Rx#:[id number] Oral 1080 - Exam General appearance: Present: average body habitus, mild distress - EENT Eyes: Present: anicteric sclerae, EOMI, PERRLA, normal appearance. Absent: ptosis, scleral icterus ENT: Present: hearing grossly normal, normal oropharynx, other Ears: bilateral: normal - Neck Neck: Present: normal ROM. Absent: lymphadenopathy, rigidity Carotids: bilateral: upstroke normal Thyroid: bilateral: normal size - Respiratory Respiratory: bilateral: diminished, negative: dullness, rales, rhonchi, wheezing , prolonged expiration, prolonged inspiration - Cardiovascular Rhythm: regular Heart sounds: normal: S1, S2 Abnormal Heart Sounds: Absent: systolic murmur, S3 Gallop, S4 Gallop, click - Gastrointestinal General gastrointestinal: Present: decreased bowel sounds, soft (incision appears to be clean, there is a dressing in tolerated with moderate tenderness without any rebound or guarding.), tenderness. Absent: umbilical hernia, ventral hernia - Integumentary Integumentary: Present: normal, normal turgor - Neurologic Neurologic: Present: CNII-XII intact - Musculoskeletal Musculoskeletal: Present: generalized weakness, strength equal bilaterally - Psychiatric Psychiatric: Present: A&O x's 3, appropriate affect, intact judgment & insight - Labs CBC & Chem 7: 10/01/16 06:51 10/01/16 06:51 Labs: Abnormal Lab Results - Last 24 Hours (Table) 10/01/16 10/01/16 Range/Units 06:51 06:51 RBC 3.70 L (3.80-5.40) m/uL BUN 3 L (7-17) mg/dL Assessment and Plan Plan: 1. Status post colostomy takedown. NG tube discontinued and patient started on a full liquid diet, increase activity, continue current pain management as outlined by general surgery, continue incentive spirometer to reduce the incidence of atelectasis and hospital-acquired pneumonia. 2. Autoimmune hepatitis: Was on Azathioprine and seen Dr. Foster on regular basis , continue off Imuran. 3. Hypothyroidism: Continue patient on levothyroxine 75 g orally once every day. 4. Pain and pain management: Patient will be on Dilaudid 1 mg IV push every 3 hours as needed, currently has epidural catheter in place. 5. GI prophylaxis. Continue with PPI. 6. DVT prophylaxis. Continue heparin 5000 units subcutaneously every 12 hours as well as bilateral knee-high JORGE hose. 7. Anemia. Continue patient on iron 325 minute gram orally once every day as well as folic acid 1 mg orally once every day. 8. thrush. Nystatin ordered. Discharge planning. Patient is to be discharged home with home healthcare. Impression and plan of care have been directed as dictated by the signing physician. Sallie Cintron nurse practitioner acting as scribe for signing physician.
[2016-10-01] MEDS: HYDROmorphone 1 MG/ML 1 ML SYRINGE IVP PRN ×2 (15:29→20:03)
[2016-10-01] MEDS: NYSTATIN 100,000 UNIT/ML SUSP 500,000 UNIT/5 ML CUP PO SCH ×3 (15:30→23:14)
--- NOTE | 2016-10-01 23:01 | P.PN ---
Subjective Principal diagnosis: Colostomy reversal Patient doing well today. Minimal abdominal pain. Passing flatus. No bowel movement. Normal white blood cell Objective - Vital Signs Vital signs: Vital Signs Temp 98.8 F 10/01/16 19:55 Pulse 69 10/01/16 19:55 Resp 16 10/01/16 19:55 BP 125/74 10/01/16 19:55 Pulse Ox 97 10/01/16 19:55 Intake & Output 10/01/16 10/01/16 10/02/16 06:59 18:59 06:59 Intake Total 900 1960 Balance 900 1960 Intake: IV 1000 D5-0.45% NaCl with KCl 1000 20Meq/l 1,000 ml @ 125 mls/hr IV .Q8H [facility] Rx#: [id number] Intake, IV Titration 900 Amount Dextrose 5%-0.45% NaCl 1, 900 000 ml @ 75 mls/hr IV . [id number] [facility] Rx#:[id number] Oral 960 Other: Voiding Method Toilet # Voids 1 - Exam Abdomen: Soft, nondistended, mild incisional tenderness, incision clean and dry - Labs CBC & Chem 7: 10/01/16 06:51 10/01/16 06:51 Labs: Abnormal Lab Results - Last 24 Hours (Table) 10/01/16 10/01/16 Range/Units 06:51 06:51 RBC 3.70 L (3.80-5.40) m/uL BUN 3 L (7-17) mg/dL Assessment and Plan (1) Colonic diverticular abscess Narrative/Plan: Shower today. Increase diet. Anticipate discharge. Status: Acute
[2016-10-02] MEDS: DEXTROSE 5%-0.45% NACL 1,000 ML IV SCH ×2 (01:25→08:58)
[2016-10-02] MEDS: D5-0.45% NACL WITH KCL 20MEQ/L 1,000 ML IV SCH ×2 (01:25→06:09)
[2016-10-02] MEDS: LACTATED RINGERS 1,000 ML IV SCH (06:08)
[2016-10-02 07:40] VITALS: BP 127/70; PULSE 68; RESP 17; TEMP 97.9
[2016-10-02] MEDS: KETOROLAC 30 MG/ML 1 ML VIAL IVP SCH (08:17)
[2016-10-02] MEDS: LEVOTHYROXINE 75 MCG TAB PO SCH (08:20)
[2016-10-02] MEDS: HEPARIN SODIUM,PORCINE 5,000 UNIT/ML 1 ML VIAL SQ SCH (08:20)
[2016-10-02] MEDS: LORATADINE 10 MG TAB PO SCH (08:20)
[2016-10-02] MEDS: VENLAFAXINE HCL ER 150 MG CAP PO SCH (08:57)
[2016-10-02] MEDS: NYSTATIN 100,000 UNIT/ML SUSP 500,000 UNIT/5 ML CUP PO SCH ×2 (08:57→11:59)
[2016-10-02] MEDS ORDERED: TRIAMCINOLONE ACET 0.1% ORAL PASTE 5 GM TUBE MUCOUS MEM SCH (11:15)
[2016-10-02] MEDS: MAGNESIUM OXIDE 400 MG TAB PO SCH (11:59)
[2016-10-02] MEDS: MULTIVITAMINS, THERA 1 EACH TAB PO SCH (11:59)
[2016-10-02] MEDS: FERROUS SULFATE 325 MG TAB PO SCH (11:59)
[2016-10-02] MEDS: FOLIC ACID 1 MG TAB PO SCH (11:59)
--- NOTE | 2016-10-02 12:18 | P.DS ---
Providers Date of admission: 09/25/16 08:51 Expected date of discharge: 10/02/16 Attending physician: Taiwo Spears Consults: 09/25/16 13:08 Consult Physician Routine Consulting Provider: Chencho Dowling Reason/Comments: med Do you want consulting provider notified?: Yes Primary care physician: Chencho Dowling [facility] Course: This is a 7-year-old female who underwent reversal of colostomy and repair of parastomal hernia. Patient did well postoperatively. Please see hospital chart for details. Procedures: Reversal of colostomy and repair of parastomal hernia Plan - Discharge Summary New Discharge Prescriptions: New Docusate [Colace] 100 mg PO BID #20 capsule HYDROcodone/APAP 7.5-325MG [Newton 7.5] 1 each PO Q4H PRN #60 tab PRN Reason: Pain No Action Venlafaxine HCl ER [Effexor XR] 150 mg PO DAILY Magnesium Oxide [Mag-Ox] 400 mg PO DAILY Levothyroxine Sodium [Synthroid] 75 mcg PO DAILY Folic Acid 1 mg PO DAILY Ferrous Sulfate [Iron (65 MG Elemental)] 325 mg PO DAILY Multivitamins, Thera [Multivitamin (formulary)] 1 tab PO DAILY azaTHIOprine [Imuran] 100 mg PO DAILY Discharge Medication List Ferrous Sulfate [Iron (65 MG Elemental)] 325 mg PO DAILY 08/20/15 [History] Folic Acid 1 mg PO DAILY 08/20/15 [History] Levothyroxine Sodium [Synthroid] 75 mcg PO DAILY 08/20/15 [History] Magnesium Oxide [Mag-Ox] 400 mg PO DAILY 08/20/15 [History] Venlafaxine HCl ER [Effexor XR] 150 mg PO DAILY 08/20/15 [History] Multivitamins, Thera [Multivitamin (formulary)] 1 tab PO DAILY 03/06/16 [History ] azaTHIOprine [Imuran] 100 mg PO DAILY 09/17/16 [History] Docusate [Colace] 100 mg PO BID #20 capsule 10/02/16 [Rx] HYDROcodone/APAP 7.5-325MG [Newton 7.5] 1 each PO Q4H PRN #60 tab 10/02/16 [Rx] Follow up Appointment(s)/Referral(s): Taiwo Spears MD [Family Provider] - 1 Week Discharge Disposition: HOME SELF-CARE
--- NOTE | 2016-10-02 12:18 | P.PN ---
Subjective 61-year-old female one of my office patient who seen Dr. Lugo for autoimmune hepatitis who is known to have history of hypothyroidism and advance liver disease who was admitted to [facility] back in July 2015 and was taking care by Dr. Gaspar for perforated diverticuli had colon resection and colostomy at the time and has done well up till January 2016 when around the 26th developed to have significant pain and discomfort with increase diarrhea ended up coming to [facility] on 03/06 and admitted until 03/12/2016 for severe abdominal pain found to have diverticulitis with abscess formation and at that time she was seen in consultation by general surgery as well as gastric nephrology and she underwent multiple laparotomy and she was treated with IV antibiotic, eventually the patient was brought into the hospital for a colostomy takedown which was done by Dr. Maradiaga and we have been following the patient from medicine for medical management. 5: Patient is sitting up in the chair in no apparent distress, she denies any chest pain, shortness breath, she has some abdominal pain, she is complaining of dryness in her mouth and she is asking for ice sips and popsicles. She continues to have an NG tube in place. She continues to have epidural catheter in place. 86: Patient is sitting up in a recliner chair, she is complaining of increased postnasal drip, she continues to have the NG tube in place, she continues to have a large residual, she denies any chest pain, she does plan for occasional cough, she has no orthopnea, PND, she has some abdominal pain, with no nausea. 8: Patient continues with NG tube in place which she states it is bothering her. She did have a large amount of output in the past 24 hours but is decreasing. Pain is controlled and epidural was discontinued yesterday. She has been ambulating. She is passing gas this morning but has not had a bowel movement. NG tube is to be discontinued and patient started on clear liquid diet per Dr. Velez. 09/30: Patient is doing well today. She is tolerating clear liquid diet. No nausea or vomiting. She is complaining of a little abdominal pain. She is walking in the hallway. No bowel movement. 10/01: patient is currently on full liquid diet and tolerating. she is passing gas. She has had good bowel sounds. She is complaining of more sores in her mouth for which nystatin has been added. 10/02: Patient continues to improve. Abdominal pain is improving as well. She is passing gas and did have a bowel movement yesterday. Anticipate that Dr. Velez will discharge the patient today. Patient continues to have oral lesions for which Oralone paste ordered. Objective - Vital Signs Vital signs: Vital Signs Temp 97.9 F 10/02/16 07:40 Pulse 68 10/02/16 07:40 Resp 17 10/02/16 07:40 BP 127/70 10/02/16 07:40 Pulse Ox 99 10/02/16 07:40 Intake & Output 10/01/16 10/02/16 10/02/16 18:59 06:59 18:59 Intake Total 1960 500 360 Balance 1960 500 360 Intake: IV 1000 500 D5-0.45% NaCl with KCl 1000 500 20Meq/l 1,000 ml @ 125 mls/hr IV .Q8H E[facility] Rx#: [id number] Oral 960 360 Other: Voiding Method Toilet Toilet Toilet # Voids 1 - Exam General appearance: Present: average body habitus, mild distress - EENT Eyes: Present: anicteric sclerae, EOMI, PERRLA, normal appearance. Absent: ptosis, scleral icterus ENT: Present: hearing grossly normal, normal oropharynx, other Ears: bilateral: normal - Neck Neck: Present: normal ROM. Absent: lymphadenopathy, rigidity Carotids: bilateral: upstroke normal Thyroid: bilateral: normal size - Respiratory Respiratory: bilateral: diminished, negative: dullness, rales, rhonchi, wheezing , prolonged expiration, prolonged inspiration - Cardiovascular Rhythm: regular Heart sounds: normal: S1, S2 Abnormal Heart Sounds: Absent: systolic murmur, S3 Gallop, S4 Gallop, click - Gastrointestinal General gastrointestinal: Present: bowel sounds, soft (incision appears to be clean, there is a dressing without any rebound or guarding.), minimal tenderness. Absent: umbilical hernia, ventral hernia - Integumentary Integumentary: Present: normal, normal turgor - Neurologic Neurologic: Present: CNII-XII intact - Musculoskeletal Musculoskeletal: Present: generalized weakness, strength equal bilaterally - Psychiatric Psychiatric: Present: A&O x's 3, appropriate affect, intact judgment & insight - Labs CBC & Chem 7: 10/01/16 06:51 10/01/16 06:51 Assessment and Plan Plan: 1. Status post colostomy takedown. NG tube discontinued and patient started on a low fiber diet, increase activity, continue current pain management as outlined by general surgery, continue incentive spirometer to reduce the incidence of atelectasis and hospital-acquired pneumonia. 2. Autoimmune hepatitis: Was on Azathioprine and seen Dr. Foster on regular basis , continue off Imuran. 3. Hypothyroidism: Continue patient on levothyroxine 75 g orally once every day. 4. Pain and pain management: Patient will be on Dilaudid 1 mg IV push every 3 hours as needed, currently has epidural catheter in place. 5. GI prophylaxis. Continue with PPI. 6. DVT prophylaxis. Continue heparin 5000 units subcutaneously every 12 hours as well as bilateral knee-high JORGE hose. 7. Anemia. Continue patient on iron 325 minute gram orally once every day as well as folic acid 1 mg orally once every day. 8. thrush. Nystatin ordered. Discharge planning. Patient is to be discharged home with home healthcare. Impression and plan of care have been directed as dictated by the signing physician. Sallie Cintron nurse practitioner acting as scribe for signing physician.
== END 2016-10-02 14:10 | disposition home or self-care (01) | DRG 331 ==
LOC: 2ORWHC 08:51 → 3SUR 13:38
PROVIDERS: ADMIT Surgery; ATTEND Surgery
PROC: 0DQN0ZZ Repair Sigmoid Colon, Open Approach (ICD-10-PCS; principal; 2016-09-26)
PROC: 0DQP0ZZ Repair Rectum, Open Approach (ICD-10-PCS; 2016-09-26)
PROC: 0DNW0ZZ Release Peritoneum, Open Approach (ICD-10-PCS; 2016-09-26)
PROC: 0WQF0ZZ Repair Abdominal Wall, Open Approach (ICD-10-PCS; 2016-09-26)
DX: Z43.3 Encounter for attention to colostomy (principal); K75.4 Autoimmune hepatitis; F32.9 Major depressive disorder, single episode, unspecified; D64.9 Anemia, unspecified; B37.9 Candidiasis, unspecified; E03.9 Hypothyroidism, unspecified; K43.5 Parastomal hernia without obstruction or gangrene; F41.9 Anxiety disorder, unspecified; K57.90 Diverticulosis of intestine, part unspecified, without perforation or abscess without bleeding; D72.829 Elevated white blood cell count, unspecified; Z79.899 Other long term (current) drug therapy; Z88.5 Allergy status to narcotic agent; Z88.0 Allergy status to penicillin
CPT/HCPCS: 80048; 80053; 85025; 85610; 85730; 86850; 86900; 86901; 88304

== ENCOUNTER → 2016-10-16 | Outpatient (CLI) | payer BC ==
--- NOTE | 2016-10-16 18:12 | CT ---
EXAMINATION TYPE: CT abdomen pelvis w con DATE OF EXAM: 10/16/2016 COMPARISON: 03/19/2016 HISTORY: LOWER PELVIC PAIN RADIATING INFERIORLY. HX OF COLOSTOMY WITH REVERSAL. CT DLP: 466.1 mGycm CONTRAST: CT scan of the abdomen and pelvis is performed with Oral Contrast and with IV Contrast, patient injec armando with 100 mL of Omnipaque 300. FINDINGS: LUNG BASES-: No visible nodule. No infiltrate. Small hiatal hernia noted. LIVER/GB: Cystectomy clips are in place. No space occupying hepatic lesion. PANCREAS: No inflammation. No distinct mass. SPLEEN: No splenic enlargement. No lesion seen. ADRENALS: Mild nodular thickening left adrenal gland may reflect adenoma or hyperplasia. KIDNEYS/BLADDER: No hydronephrosis. No nephrolithiasis. No disctinct renal mass. Urinary bladder g rossly unremarkable. BOWEL: Left ostomy reversal. Postsurgical changes rectosigmoid region. Soft tissue density within the left hemipelvis at the anastomotic site and site of prior abscess are clear related to postinflammat ory change and scarring in this region. I do not see evidence for abscess or perforation at this time . Disorganized bowel is noted in this region. GENITAL ORGANS: No gross abnormality. LYMPH NODES: No greater than 1cm abdominal or pelvic lymph nodes are appreciated. AORTA: No significant abnormality. OSSEOUS STRUCTURES: No significant abnormality is seen. OTHER: No significant additional abnormality is seen. IMPRESSION: 1. Soft tissue density within the left hemipelvis at the anastomotic site and site of prior abscess a re clear related to postinflammatory change and scarring in this region. I do not see evidence for ab scess or perforation at this time.
== END | disposition home or self-care (01) ==
LOC: RADCTMAIN 14:55
PROVIDERS: ATTEND Internal Medicine Geriatric Medicine
DX: R10.84 Generalized abdominal pain (principal); Z98.890 Other specified postprocedural states
CPT/HCPCS: 74177; Q9967

== ENCOUNTER → 2017-04-28 | Outpatient (CLI) | payer BC ==
--- NOTE | 2017-04-28 21:41 | BD ---
EXAMINATION TYPE: MG DEXA axial skeleton. DATE OF EXAM: 04/28/2017 COMPARISON: NONE CLINICAL HISTORY: 61 YR OLD FEMALE....ICD-10 CODE: M81.0 AGE RELATED OSTEOPOROSIS Height: 61.4 Weight: 139 FRAX RISK QUESTIONS: Alcohol (3 or more units per day): NO Family History (Parent hip fracture): NO Glucocorticoids (More than 3mos): YES, ON AND OFF (Ex: prednisone, prednisolone, methylprednisolone, dexamethasone, and hydrocortisone). History of Fracture in Adulthood: YES Secondary Osteoporosis: NO 1. Type 1 Diabetes: NO 2. Hyperthyroidism: NO 3. Menopause before 45: NO, AT 45YRS 4. Malnutrition: NO 5. Chronic liver disease: YES, STAGE 4 Rheumatoid Arthritis: NO Current Tobacco Use: QUIT 20 YRS AGO RISK FACTORS HISTORY OF: RT ANKLE AND FOOT WITH SURG...> AGE 51 Family History of Osteoporosis: YES HER SISTER, NO FX OF HIPS Active: NOT REALLY Diet low in dairy products/other sources of calcium: NO Postmenopausal woman:AT 46 YRS OLD Take estrogen and/or progesterone medications: 6 MONTHS IN PAST NONE NOW Lost more than 2 inches in height since high school: NOT QUITE 1 AND 1/2 INCHES Hyperparathyroidism: NO Adrenal Insufficiency: NO MEDICATIONS: Prednisone or other steroids: HIGH DOSES OF PREDNISONE ON AND OFF FOR LIVER CIRRHOSIS. How Long: FOR YRS Thyroid Medications: YES, SYNTHROID FOR 20 + YRS Additional Medications: EFFEXOR, AZOTHORAPRENE FOR HER LIVER, . Additional History: AUTO IMMUNE HEPATITIS, LIVER CIRRHOSIS, HX OF MELONIE BAND SURG, HAS BECOME UNHOOKED , REVERSAL COLOSTOMY SURG EXAM MEASUREMENTS: Bone mineral densitometry was performed using the [employer] System. Bone mineral density as measured about the Lumbar spine is: ----- L1-L4(G/cm2): 1.025 T Score Values are as follows: ----- L1: -1.9 ----- L2: -2.2 ----- L3: -1.4 ----- L4: 0.0 ----- L1-L4: -1.3 Bone mineral density FIRST DEXA SCAN....BASELINE STUDY Bone mineral density about the R hip (g/cm2): 0.906 Bone mineral density about the L hip (g/cm2): 0.931 T Score values are as follows: -----R Neck: -1.5 -----L Neck: -1.3 -----R Total: -0.8 -----L Total: -0.6 Bone mineral density BASELINE STUDY FRAX%S: THERE IS A 21.9% CHANCE OF A MAJOR OSTEOPOROTIC FX AND A 2.4% FOR HIP FX....PROBABILITY OF FX IN 10 YRS TIME IMPRESSION: Osteopenia (T Score between -2.5 and -1). There is slightly increased risk of fracture and the patient may be considered for treatment. Re-Screen 2-5 years. NOTE: T-SCORE=SD OF THE YOUNG ADULT MEAN.
--- NOTE | 2017-04-30 07:49 | MM ---
Reason for exam: screening (asymptomatic). Last mammogram was performed 2 years and 6 months ago. History: Patient is postmenopausal. Family history of breast cancer in grandmother, breast cancer in aunt, and breast cancer in cousin. Benign excisional biopsy of the left breast, August 23, 1999. Took hormonal contraceptives for 6 months beginning at age 22. Physical Findings: A clinical breast exam by your physician is recommended on an annual basis and results should be correlated with mammographic findings. MG 3D Screening Mammo W/Cad Bilateral CC and MLO view(s) were taken. Prior study comparison: November 09, 2014, bilateral MG screening mammo w CAD. Finding: There are typically benign dystrophic calcifications in the lower inner quadrant, anterior position of the left breast. No significant changes in finding since November 09, 2014. ASSESSMENT: Benign, BI-RAD 2 RECOMMENDATION: Routine screening mammogram of both breasts in 1 year.
== END | disposition home or self-care (01) ==
LOC: RADMAMWWP 10:22
PROVIDERS: ATTEND Internal Medicine Geriatric Medicine
DX: Z12.31 Encounter for screening mammogram for malignant neoplasm of breast (principal); M85.80 Other specified disorders of bone density and structure, unspecified site
CPT/HCPCS: 77063; 77067; 77080

== ENCOUNTER 2017-07-07 16:27 | Inpatient (IN) | payer BC ==
[2017-07-07] MEDS ORDERED: SODIUM CHLORIDE 0.9% 1,000 ML IV STA (16:57)
[2017-07-07] MEDS ORDERED: LORazepam 2 MG/ML INJ IV STA (16:57)
[2017-07-07] MEDS ORDERED: ONDANSETRON 4 MG/2 ML VIAL IVP STA (16:57)
[2017-07-07] MEDS ORDERED: RX INFO: IV CONTRAST WAS GIVEN 1 EACH MISC MISCELLANE PRN (16:58)
--- NOTE | 2017-07-07 17:02 | ED ---
General Adult HPI - General Source: patient, RN notes reviewed Mode of arrival: wheelchair Limitations: no limitations <Geoff Hale - Last Filed: 07/07/17 19:19> <Christian Yan - Last Filed: 07/07/17 19:30> - General Chief complaint: Abdominal Pain Stated complaint: Vomiting Time Seen by Provider: 07/07/17 16:50 - History of Present Illness Initial comments: Patient 62-year-old female presenting to the emergency room today with a chief complaint of increased abdominal pain over the last 3 or 4 days. Patient does admit that she's had decreased bowel movements. States going to small amount. Has had some nausea vomiting. Does admit to abdominal pain both in the epigastric and lower abdomen. Patient does admit to a history of diverticulitis and had a colonoscopy that was reversed approximately one year ago. Patient admits to decreased flatulence. Patient denies any other complaints symptoms at this time. (Geoff Hale) - Related Data Home Medications Medication Instructions Recorded Confirmed Folic Acid 1 mg PO DAILY 08/20/15 07/07/17 Levothyroxine Sodium [Synthroid] 75 mcg PO DAILY 08/20/15 07/07/17 azaTHIOprine [Imuran] 100 mg PO DAILY 09/17/16 07/07/17 Doxycycline Hyclate [Vibramycin] 100 mg PO DAILY 07/07/17 07/07/17 Allergies Allergy/AdvReac Type Severity Reaction Status Date / Time morphine Allergy Nausea Verified 07/07/17 16:50 acetaminophen [From Vicodin] AdvReac Itching Verified 07/07/17 16:50 adhesive AdvReac REDNESS, Verified 07/07/17 16:50 SKIN PEALS amoxicillin [From Augmentin] AdvReac Nausea Verified 07/07/17 16:50 clavulanic acid AdvReac Nausea Verified 07/07/17 16:50 [From Augmentin] hydrocodone bitartrate AdvReac Itching Verified 07/07/17 16:50 [From Vicodin] Review of Systems ROS Other: All systems not noted in ROS Statement are negative. <Geoff Hale - Last Filed: 07/07/17 19:19> ROS Other: All systems not noted in ROS Statement are negative. <Christian Yan - Last Filed: 07/07/17 19:30> ROS Statement: Those systems with pertinent positive or pertinent negative responses have been documented in the HPI. Past Medical History Past Medical History: CVA/TIA, Deep Vein Thrombosis (DVT), Liver Disease, Thyroid Disorder Additional Past Medical History / Comment(s): Perforated diverticulum status post colon resection and colostomy at [facility] July 2015, HX OF ABSCESS POST BOWEL RESECTION, STATES HERNIA NEAR COLOSTOMY, SKIN AROUND STOMA REDDENED AND "RAW" CVA AGE 28, SLIGHT WEAKNESS RT HAND, autoimmune hepatitis, cirrhosis of the liver History of Any Multi-Drug Resistant Organisms: ESBL Date of last positivie culture/infection: 03/20/16 ESBL-E.coli MDRO Source:: Abdomen WOUND Past Surgical History: Bariatric Surgery, Breast Surgery, Cholecystectomy, Heart Catheterization, Hysterectomy Additional Past Surgical History / Comment(s): Colon resection and colostomy in July 2015 at [facility], LAPAROTOMY, LYSIS OF ADHESIONS, AND DRAINAGE OF ABSCESS, 03/20/16.right knee surgery, right foot surgery, benign lump removed from left breast Past Anesthesia/Blood Transfusion Reactions: Previous Problems w/ Anesthesia Additional Past Anesthesia/Blood Transfusion Reaction / Comment(s): WOKE UP DURING COLONOSCOPY, ALSO STATES UNABLE TO PASS GAS POST COLONOSCOPY Past Psychological History: Depression Smoking Status: Former smoker Past Alcohol Use History: None Reported Past Drug Use History: Marijuana - Past Family History Mother Family Medical History: Cancer, COPD Additional Family Medical History / Comment(s): lung cancer. Father Family Medical History: Cancer Additional Family Medical History / Comment(s): Father at age 80 from leukemia. Sister(s) Additional Family Medical History / Comment(s): Patient has 1 sister with no major medical problems. She does not have any brothers. She has one daughter and one son with no major medical problems. Daughter(s) Family Medical History: Cancer Additional Family Medical History / Comment(s): MELANOMA <Geoff Hale - Last Filed: 07/07/17 19:19> General Exam Limitations: no limitations <Geoff Hale - Last Filed: 07/07/17 19:19> <Christian Yan - Last Filed: 07/07/17 19:30> - General Exam Comments Initial Comments: General: The patient is awake and alert, in mild discomfort. Eye: Pupils are equal, round and reactive to light, extra-ocular movements are intact. No nystagmus. There is normal conjunctiva bilaterally. No signs of icterus. Ears, nose, mouth and throat: There are moist mucous membranes and no oral lesions. Neck: The neck is supple, there is no tenderness or JVD. Cardiovascular: There is a regular rate and rhythm. No murmur, rub or gallop is appreciated. Respiratory: Lungs are clear to auscultation, respirations are non-labored, breath sounds are equal. No wheezes, stridor, rales, or rhonchi. Gastrointestinal: Abdomen soft on palpation. Patient does have mild tenderness epigastric and lower abdomen midline. No rebound tenderness. No guarding. No CVA. Musculoskeletal: Normal ROM, no tenderness. Strength 5/5. Sensation intact. Pulses equal bilaterally 2+. Neurological: A&O x 3. CN II-XII intact, There are no obvious motor or sensory deficits. Coordination appears grossly intact. Speech is normal. Skin: Skin is warm and dry and no rashes or lesions are noted. Psychiatric: Cooperative, appropriate mood & affect, normal judgment. (Geoff Hale) Course <Geoff Hale - Last Filed: 07/07/17 19:19> <Christian Yan - Last Filed: 07/07/17 19:30> Vital Signs 07/07/17 16:48 Temperature 98.6 F Pulse Rate 101 H Respiratory 18 Rate Blood Pressure 163/99 O2 Sat by Pulse 96 Oximetry - Reevaluation(s) Reevaluation #1: 07/07/17 19:30 Patient does meet suspicion for sepsis diagnosed at 1930. Lactic acid and blood culture and IV antibiotics have been ordered. (Christian Yan) Medical Decision Making - Lab Data Result diagrams: 07/07/17 17:15 07/07/17 17:15 <Geoff Hale - Last Filed: 07/07/17 19:19> - Lab Data Result diagrams: 07/07/17 17:15 07/07/17 17:15 <Christian Yan - Last Filed: 07/07/17 19:30> - Medical Decision Making Patient's labs been reviewed does show an 18,000 white count. Hemoccult positive. Patient was able to have bowel movement here in the emergency room is feeling some improvement. Soft on palpation at this time. Patient's CT the abdomen and pelvis shows: Moderate to severe distention and fecal retention/ impaction of the colon to the level of sutures should chest stricture or partial obstruction at the site of anastomosis. No suspicious small bowel dilation is seen to suggest a complete obstruction. Possible mild distal colitis involving the left colon and proximal sigmoid. Case discussed with attending physician Dr. Yan reducing patient at bedside. He did discuss case with admitting physician Dr. Spears who recommending antibiotics. Patient was started on Levaquin and Flagyl due to amoxicillin ALLERGY. (Geoff Hale) Patient reevaluated and resting comfortably in bed. Abdomen soft and nontender. CT results reviewed. Patient updated. Case was discussed in detail with Dr. Galindo, who will admit for Dr. Schmidt with medicine consult. He does recommend antibiotics at this time. (Christian Yan) - Lab Data Lab Results 07/07/17 07/07/17 07/07/17 Range/Units 17:15 17:15 17:15 WBC 18.0 H (3.8-10.6) k/uL RBC 5.11 (3.80-5.40) m/uL Hgb 16.2 H (11.4-16.0) gm/dL Hct 47.1 H (34.0-46.0) % MCV 92.1 (80.0-100.0) fL MCH 31.6 (25.0-35.0) pg MCHC 34.3 (31.0-37.0) g/dL RDW 13.4 (11.5-15.5) % Plt Count 299 (150-450) k/uL Neutrophils % 90 % Lymphocytes % 3 % Monocytes % 5 % Eosinophils % 1 % Basophils % 0 % Neutrophils # 16.2 H (1.3-7.7) k/uL Lymphocytes # 0.5 L (1.0-4.8) k/uL Monocytes # 0.9 (0-1.0) k/uL Eosinophils # 0.2 (0-0.7) k/uL Basophils # 0.1 (0-0.2) k/uL PT 10.6 (9.0-12.0) sec INR 1.1 (<1.2) APTT 23.0 (22.0-30.0) sec Sodium 143 (137-145) mmol/L Potassium 4.0 (3.5-5.1) mmol/L Chloride 106 (98-107) mmol/L Carbon Dioxide 21 L (22-30) mmol/L Anion Gap 16 mmol/L BUN 14 (7-17) mg/dL Creatinine 0.60 (0.52-1.04) mg/dL Est GFR (CKD-EPI)AfAm >90 (>60 ml/min/1.73 sqM) Est GFR (CKD-EPI)NonAf >90 (>60 ml/min/1.73 sqM) Glucose 136 H (74-99) mg/dL Calcium 10.1 (8.4-10.2) mg/dL Total Bilirubin 1.0 (0.2-1.3) mg/dL AST 99 H (14-36) U/L ALT 77 H (9-52) U/L Alkaline Phosphatase 127 H (38-126) U/L Total Protein 8.4 H (6.3-8.2) g/dL Albumin 4.7 (3.5-5.0) g/dL Amylase 108 (30-110) U/L Lipase 111 (23-300) U/L Stool Occult Blood (Negative) 07/07/17 Range/Units 18:53 WBC (3.8-10.6) k/uL RBC (3.80-5.40) m/uL Hgb (11.4-16.0) gm/dL Hct (34.0-46.0) % MCV (80.0-100.0) fL MCH (25.0-35.0) pg MCHC (31.0-37.0) g/dL RDW (11.5-15.5) % Plt Count (150-450) k/uL Neutrophils % % Lymphocytes % % Monocytes % % Eosinophils % % Basophils % % Neutrophils # (1.3-7.7) k/uL Lymphocytes # (1.0-4.8) k/uL Monocytes # (0-1.0) k/uL Eosinophils # (0-0.7) k/uL Basophils # (0-0.2) k/uL PT (9.0-12.0) sec INR (<1.2) APTT (22.0-30.0) sec Sodium (137-145) mmol/L Potassium (3.5-5.1) mmol/L Chloride (98-107) mmol/L Carbon Dioxide (22-30) mmol/L Anion Gap mmol/L BUN (7-17) mg/dL Creatinine (0.52-1.04) mg/dL Est GFR (CKD-EPI)AfAm (>60 ml/min/1.73 sqM) Est GFR (CKD-EPI)NonAf (>60 ml/min/1.73 sqM) Glucose (74-99) mg/dL Calcium (8.4-10.2) mg/dL Total Bilirubin (0.2-1.3) mg/dL AST (14-36) U/L ALT (9-52) U/L Alkaline Phosphatase (38-126) U/L Total Protein (6.3-8.2) g/dL Albumin (3.5-5.0) g/dL Amylase (30-110) U/L Lipase (23-300) U/L Stool Occult Blood Positive H (Negative) Disposition Is patient prescribed a controlled substance at d/c from ED?: No Time of Disposition: 19:20 <Geoff Hale - Last Filed: 07/07/17 19:19> <Christian Yan - Last Filed: 07/07/17 19:30> Clinical Impression: Colitis, Leukocytosis, GI bleed Disposition: ADMITTED IP TO THIS HOSP Condition: Stable Referrals: Chencho Dowling MD [Primary Care Provider] - 1-2 days
[2017-07-07 17:33] LABS: Basophils # (A) 0.1 k/uL (0-0.2); Basophils % (A) 0 %; Eosinophils # (A) 0.2 k/uL (0-0.7); Eosinophils % (A) 1 %; HCT 47.1 % (34.0-46.0); HGB 16.2 gm/dL (11.4-16.0); Lymphocytes # (A) 0.5 k/uL (1.0-4.8); Lymphocytes % (A) 3 %; MCH 31.6 pg (25.0-35.0); MCHC 34.3 g/dL (31.0-37.0); MCV 92.1 fL (80.0-100.0); Mean Platelet Volume 6.6; Monocytes # (A) 0.9 k/uL (0-1.0); Monocytes % (A) 5 %; Neutrophils # (A) 16.2 k/uL (1.3-7.7); Neutrophils % (A) 90 %; Platelet Count 299 k/uL (150-450); RBC 5.11 m/uL (3.80-5.40); RDW 13.4 % (11.5-15.5)
[2017-07-07 17:43] LABS: INR 1.1 (<1.2); Prothrombin Time 10.6 sec (9.0-12.0)
[2017-07-07 17:47] LABS: ALT 77 U/L (9-52); AST 99 U/L (14-36); Albumin 4.7 g/dL (3.5-5.0); Alkaline Phosphatase 127 U/L (38-126); Amylase 108 U/L (30-110); Anion Gap 16 mmol/L; Blood Urea Nitrogen 14 mg/dL (7-17); Calcium 10.1 mg/dL (8.4-10.2); Carbon Dioxide 21 mmol/L (22-30); Chloride 106 mmol/L (98-107); Glucose 136 mg/dL (74-99); Lipase 111 U/L (23-300); Sodium 143 mmol/L (137-145); Total Protein 8.4 g/dL (6.3-8.2)
--- NOTE | 2017-07-07 18:10 | CT ---
EXAMINATION TYPE: CT abdomen pelvis w con DATE OF EXAM: 07/07/2017 HISTORY: Abdominal pain, vomiting and constipation. CT DLP: 555.9mGycm Automated Exposure Control for Dose Reduction was Utilized. CONTRAST: CT scan of the abdomen and pelvis is performed without oral but with IV Contrast, patient injected wi th 100 mL of Isovue M300. COMPARISON: CT abdomen and pelvis July 07, 2017. FINDINGS: LUNG BASES: In the medial left breast there is metallic foreign body or possible clip axial image 6, correlate clinically. Dependent atelectasis right lung base is present. LIVER/GB: Liver is slightly small with lobulated peripheral contour, underlying cirrhosis should be c onsidered. No significant change from prior. Cholecystectomy clips are redemonstrated.. PANCREAS: No significant abnormality is seen. SPLEEN: No significant abnormality is seen. ADRENALS: No significant abnormality is seen. KIDNEYS: Some cortical scarring is felt present in both kidneys. BOWEL: There is lap band device epigastric region felt stable and satisfactory in position. There is focal dilated esophagus just superior to this in diaphragm redemonstrated. There is no suspicious sma ll bowel dilatation. There is fecal filled prominent right and transverse colon extending through lef t: End proximal sigmoid colon up to level of surgical sutures in the mid to distal sigmoid colon and axial image 73 where there is focal narrowing identified. Small amount of adjacent free fluid is seen in pelvis axial image 69. Terminal ileum is unremarkable. There is mild irregular wall thickening of the left colon and proximal sigmoid colon. There are additional surgical sutures seen in the anterio r small bowel loop lower abdomen axial image 57. UTERUS/ADNEXA: Uterus is surgically absent or markedly atrophic in appearance. LYMPH NODES: No greater than 1cm abdominal or pelvic lymph nodes are appreciated. OSSEOUS STRUCTURES: There are bilateral pars defects with grade 2 spondylolisthesis L5 on S1 redemons trated. OTHER: There is moderate mixed plaque and ectatic distal abdominal aorta. IMPRESSION: Moderate to severe distention and fecal retention/impaction of the colon up to level of s utures suggest stricture or partial obstruction at site of anastomosis. No suspicious small bowel dil atation is seen to suggest complete obstruction. Possible mild distal colitis involving left colon an d proximal sigmoid colon. Correlate clinically.
[2017-07-07] MEDS ORDERED: LEVOFLOXACIN 500MG-D5W PMX 500 MG in DEXTROSE/WATER 1 100ML.BAG IVPB STA (19:14)
[2017-07-07] MEDS ORDERED: metroNIDAZOLE-NS PMX 500 MG in SALINE 1 100ML.BAG IVPB STA (19:14)
[2017-07-07] MEDS ORDERED: SODIUM CHLORIDE 0.9% 1,000 ML IV ONE (19:15)
[2017-07-07] MEDS ORDERED: LORazepam 2 MG/ML INJ IV PRN (19:18)
[2017-07-07] MEDS ORDERED: NALOXONE 0.4 MG/ML 1 ML VIAL IV PRN (19:18)
[2017-07-07] MEDS ORDERED: hydrALAZINE HCL 20 MG/ML 1 ML VIAL IVP STA (19:47)
[2017-07-07 21:45] VITALS: BMI 23.8
[2017-07-07] MEDS ORDERED: hydrALAZINE HCL 20 MG/ML 1 ML VIAL IVP PRN (22:23)
[2017-07-08] MEDS: metroNIDAZOLE-NS PMX 500 MG in SALINE 1 100ML.BAG IVPB SCH ×4 (02:36→23:40)
[2017-07-08] MEDS: HYDROmorphone 0.5 MG/0.5 ML SYRINGE IVP PRN ×4 (02:39→18:16)
[2017-07-08 07:48] LABS: Basophils % (A) 0 %; Eosinophils % (A) 0 %; HCT 41.1 % (34.0-46.0); HGB 13.9 gm/dL (11.4-16.0); Lymphocytes # (A) 1.5 k/uL (1.0-4.8); Lymphocytes % (A) 11 %; MCH 31.9 pg (25.0-35.0); MCHC 33.9 g/dL (31.0-37.0); Mean Platelet Volume 6.7; Monocytes # (A) 0.7 k/uL (0-1.0); Monocytes % (A) 5 %; Neutrophils # (A) 11.2 k/uL (1.3-7.7); Neutrophils % (A) 82 %; Platelet Count 266 k/uL (150-450); RBC 4.37 m/uL (3.80-5.40); RDW 13.5 % (11.5-15.5); WBC 13.6 k/uL (3.8-10.6)
[2017-07-08 08:03] LABS: ALT 54 U/L (9-52); AST 50 U/L (14-36); Albumin 3.6 g/dL (3.5-5.0); Alkaline Phosphatase 76 U/L (38-126); Anion Gap 11 mmol/L; Blood Urea Nitrogen 12 mg/dL (7-17); Calcium 8.8 mg/dL (8.4-10.2); Carbon Dioxide 26 mmol/L (22-30); Chloride 103 mmol/L (98-107); Glucose 95 mg/dL (74-99); Potassium 4.2 mmol/L (3.5-5.1); Sodium 140 mmol/L (137-145); Total Bilirubin 0.8 mg/dL (0.2-1.3); Total Protein 6.5 g/dL (6.3-8.2)
--- NOTE | 2017-07-08 11:27 | P.GSHP ---
<Rehana Skinner Nicolette - Last Filed: 07/08/17 11:10> History of Present Illness H&P Date: 07/08/17 A 62-year-old female presented on the day of admission to the emergency room to be evaluated for epigastric abdominal pain radiating to the bilateral lower abdominal wall onset 3-4 days stated that the pain started out as a cramping became more intensified with a nausea sensation poor oral intake poor appetite. Patient reported that she noted that she was having small bowel movements Decreased amount.. Patient stated that she felt like she had chills did not take her temperature. Patient reported that when she came into the emergency room had a bloody bright red rectal stool. States was not passing gas. Patient does have a history of perforated diverticulitis with colostomy. Reversal of colostomy done september with a repair of a parastomal hernia. Before the procedure on 09/24/2016 did have a colonoscopy which showed reviewing report diverticulitis disease mild in the transverse colon Reports prior to this incident since the reversal of the ostomy has been doing well no episodes of blood noted in the stool Emergency room the computed tomography scan of the abdomen pelvis report reviewed showed moderate to severe distention and fecal retention of the colon up to the level of the suture suggesting stricture at the anastomosis site possible mid distal colitis involving left colon and proximal sigmoid - Review of Systems Comment: Essentially unremarkable except as mentioned in the present illness Past Medical History Past Medical History: CVA/TIA, Deep Vein Thrombosis (DVT), Liver Disease, Thyroid Disorder Additional Past Medical History / Comment(s): Perforated diverticulum status post colon resection and colostomy at [facility] July 2015, HX OF ABSCESS POST BOWEL RESECTION, STATES HERNIA NEAR COLOSTOMY, SKIN AROUND STOMA REDDENED AND "RAW" CVA AGE 28, SLIGHT WEAKNESS RT HAND, autoimmune hepatitis, cirrhosis of the liver History of Any Multi-Drug Resistant Organisms: ESBL Date of last positivie culture/infection: 03/20/16 ESBL-E.coli MDRO Source:: Abdomen WOUND Past Surgical History: Bariatric Surgery, Breast Surgery, Cholecystectomy, Heart Catheterization, Hysterectomy Additional Past Surgical History / Comment(s): Colon resection and colostomy in July 2015 at [facility], LAPAROTOMY, LYSIS OF ADHESIONS, AND DRAINAGE OF ABSCESS, 03/20/16.right knee surgery, right foot surgery, benign lump removed from left breast Past Anesthesia/Blood Transfusion Reactions: Previous Problems w/ Anesthesia Additional Past Anesthesia/Blood Transfusion Reaction / Comment(s): WOKE UP DURING COLONOSCOPY, ALSO STATES UNABLE TO PASS GAS POST COLONOSCOPY Past Psychological History: Depression Additional Psychological History / Comment(s): . Smoking Status: Former smoker Past Alcohol Use History: None Reported Additional Past Alcohol Use History / Comment(s): Patient was a smoker one pack per day for 17 years and quit 25 years ago. Past Drug Use History: Marijuana Additional Drug Use History / Comment(s): OCCASIONAL USE, INSTRUCTED TO HOLD 24 HRS PRIOR TO PROCEDURE - Past Family History Mother Family Medical History: Cancer, COPD Additional Family Medical History / Comment(s): lung cancer. Father Family Medical History: Cancer Additional Family Medical History / Comment(s): Father at age 80 from leukemia. Sister(s) Additional Family Medical History / Comment(s): Patient has 1 sister with no major medical problems. She does not have any brothers. She has one daughter and one son with no major medical problems. Daughter(s) Family Medical History: Cancer Additional Family Medical History / Comment(s): MELANOMA Medications and Allergies Home Medications Medication Instructions Recorded Confirmed Type Folic Acid 1 mg PO DAILY 08/20/15 07/07/17 History Levothyroxine Sodium [Synthroid] 75 mcg PO DAILY 08/20/15 07/07/17 History azaTHIOprine [Imuran] 100 mg PO DAILY 09/17/16 07/07/17 History Doxycycline Hyclate [Vibramycin] 100 mg PO DAILY 07/07/17 07/07/17 History Allergies Allergy/AdvReac Type Severity Reaction Status Date / Time morphine Allergy Nausea Verified 07/07/17 16:50 acetaminophen [From Vicodin] AdvReac Itching Verified 07/07/17 16:50 adhesive AdvReac REDNESS, Verified 07/07/17 16:50 SKIN PEALS amoxicillin [From Augmentin] AdvReac Nausea Verified 07/07/17 16:50 clavulanic acid AdvReac Nausea Verified 07/07/17 16:50 [From Augmentin] hydrocodone bitartrate AdvReac Itching Verified 07/07/17 16:50 [From Vicodin] Surgical - Exam Vital Signs Temp Pulse Resp BP Pulse Ox 98.6 F 101 H 18 163/99 96 07/07/17 16:48 07/07/17 16:48 07/07/17 16:48 07/07/17 16:48 07/07/17 16:48 GENERAL APPEARANCE: Pleasant 62-year-old female patient is alert, oriented 3 just received pain medication for mid epigastric abdominal discomfort VITAL SIGNS: Reviewed HEENT: Head is normocephalic and atraumatic. Pupils are equal and reactive. The nares are patent. Oropharynx is clear without lesions. NECK: Supple without lymphadenopathy. Traches midline. HEART: S1, S2. Regular rate and rhythm. Denying chest pain LUNGS: No crackles or wheezes are heard. Adequate air movement bilaterally ABDOMEN: Soft, mild tenderness left lower quadrant nondistended with good bowel sounds. No peritoneal signs. No palpable organomegaly or masses. Not passing gas states urinating no difficulty reports no nausea vomiting tolerating ice chips no stool nursing reports patient did have early in the morning one episode of liquid bright red bloody stool EXTREMITIES: Normal skin color and turgor. No cyanosis, rash, ulceration, clubbing or edema. Radial pedal pulses are 2/4 bilaterally. NEUROLOGICAL: No focal deficits. Strength and sensation are grossly intact. Results - Labs 07/08/17 06:40 07/08/17 06:40 Abnormal Lab Results - Last 24 Hours (Table) 07/07/17 07/07/17 07/07/17 Range/Units 17:15 17:15 18:53 WBC 18.0 H (3.8-10.6) k/uL Hgb 16.2 H (11.4-16.0) gm/dL Hct 47.1 H (34.0-46.0) % Neutrophils # 16.2 H (1.3-7.7) k/uL Lymphocytes # 0.5 L (1.0-4.8) k/uL Carbon Dioxide 21 L (22-30) mmol/L Glucose 136 H (74-99) mg/dL AST 99 H (14-36) U/L ALT 77 H (9-52) U/L Alkaline Phosphatase 127 H (38-126) U/L Total Protein 8.4 H (6.3-8.2) g/dL Stool Occult Blood Positive H (Negative) 07/08/17 07/08/17 Range/Units 06:40 06:40 WBC 13.6 H (3.8-10.6) k/uL Hgb (11.4-16.0) gm/dL Hct (34.0-46.0) % Neutrophils # 11.2 H (1.3-7.7) k/uL Lymphocytes # (1.0-4.8) k/uL Carbon Dioxide (22-30) mmol/L Glucose (74-99) mg/dL AST 50 H (14-36) U/L ALT 54 H (9-52) U/L Alkaline Phosphatase (38-126) U/L Total Protein (6.3-8.2) g/dL Stool Occult Blood (Negative) Microbiology - Last 24 Hours (Table) 07/07/17 23:50 Urine Culture - Preliminary Urine,Voided Diabetes panel 07/07/17 07/08/17 Range/Units 17: 06:40 Sodium 143 140 (137-145) mmol/L Potassium 4.0 4.2 (3.5-5.1) mmol/L Chloride 106 103 (98-107) mmol/L Carbon Dioxide 21 L 26 (22-30) mmol/L BUN 14 12 (7-17) mg/dL Creatinine 0.60 0.56 (0.52-1.04) mg/dL Glucose 136 H 95 (74-99) mg/dL Calcium 10.1 8.8 (8.4-10.2) mg/dL AST 99 H 50 H (14-36) U/L ALT 77 H 54 H (9-52) U/L Alkaline Phosphatase 127 H 76 (38-126) U/L Total Protein 8.4 H 6.5 (6.3-8.2) g/dL Albumin 4.7 3.6 (3.5-5.0) g/dL Calcium panel 07/07/17 07/08/17 Range/Units 17: 06:40 Calcium 10.1 8.8 (8.4-10.2) mg/dL Albumin 4.7 3.6 (3.5-5.0) g/dL Pituitary panel 07/07/17 07/08/17 Range/Units 17:15 06:40 Sodium 143 140 (137-145) mmol/L Potassium 4.0 4.2 (3.5-5.1) mmol/L Chloride 106 103 (98-107) mmol/L Carbon Dioxide 21 L 26 (22-30) mmol/L BUN 14 12 (7-17) mg/dL Creatinine 0.60 0.56 (0.52-1.04) mg/dL Glucose 136 H 95 (74-99) mg/dL Calcium 10.1 8.8 (8.4-10.2) mg/dL Adrenal panel 07/07/17 07/08/17 Range/Units 17:15 06:40 Sodium 143 140 (137-145) mmol/L Potassium 4.0 4.2 (3.5-5.1) mmol/L Chloride 106 103 (98-107) mmol/L Carbon Dioxide 21 L 26 (22-30) mmol/L BUN 14 12 (7-17) mg/dL Creatinine 0.60 0.56 (0.52-1.04) mg/dL Glucose 136 H 95 (74-99) mg/dL Calcium 10.1 8.8 (8.4-10.2) mg/dL Total Bilirubin 1.0 0.8 (0.2-1.3) mg/dL AST 99 H 50 H (14-36) U/L ALT 77 H 54 H (9-52) U/L Alkaline Phosphatase 127 H 76 (38-126) U/L Total Protein 8.4 H 6.5 (6.3-8.2) g/dL Albumin 4.7 3.6 (3.5-5.0) g/dL Assessment and Plan Assessment: Impression Present on admission abdominal pain nausea vomiting with constipation suspect due to stricture at the anastomosis site CAT scan abdomen and pelvis with contrast moderate to severe distention and fecal retention impaction up to the level of sutures suggesting stricture at the site of anastomosis History of perforated diverticulitis with an colostomy Reversal of colostomy and repair of parastomal hernia done on 09/25/2016 Hypothyroid on supplements Autoimmune hepatitis followed by Dr. Lugo and GI on imuran Plan SOAP otis enema 1 now IV fluid for hydration Ice chips as tolerated Resume home meds as appropriate DVT and GI prophylaxis Check hemoglobin at noon follow up on results Pain control Continue IV Levaquin and Flagyl as ordered Further surgical recommendations pending surgical course History and physical note dictated for Dr. Agustin luevano on behalf of Dr. ruiz The above impression and plan of care have been discussed and directed by signing physician. Rehana Skinner nurse practitioner acting as scribe for signing physician. <Geoff Velez - Last Filed: 07/08/17 18:16> Surgical - Exam Vital Signs Temp Pulse Resp BP Pulse Ox 98.6 F 101 H 18 163/99 96 07/07/17 16:48 07/07/17 16:48 07/07/17 16:48 07/07/17 16:48 07/07/17 16:48 Results - Labs 07/08/17 12:46 07/08/17 06:40 Abnormal Lab Results - Last 24 Hours (Table) 07/07/17 07/08/17 07/08/17 Range/Units 18:53 06:40 06:40 WBC 13.6 H (3.8-10.6) k/uL Neutrophils # 11.2 H (1.3-7.7) k/uL AST 50 H (14-36) U/L ALT 54 H (9-52) U/L Urine Blood (Negative) Stool Occult Blood Positive H (Negative) 07/08/17 07/08/17 Range/Units 12:46 12:50 WBC 13.8 H (3.8-10.6) k/uL Neutrophils # 11.0 H (1.3-7.7) k/uL AST (14-36) U/L ALT (9-52) U/L Urine Blood Small H (Negative) Stool Occult Blood (Negative) Microbiology - Last 24 Hours (Table) 07/07/17 23:50 Urine Culture - Preliminary Urine,Voided Diabetes panel 07/08/17 Range/Units 06:40 Sodium 140 (137-145) mmol/L Potassium 4.2 (3.5-5.1) mmol/L Chloride 103 (98-107) mmol/L Carbon Dioxide 26 (22-30) mmol/L BUN 12 (7-17) mg/dL Creatinine 0.56 (0.52-1.04) mg/dL Glucose 95 (74-99) mg/dL Calcium 8.8 (8.4-10.2) mg/dL AST 50 H (14-36) U/L ALT 54 H (9-52) U/L Alkaline Phosphatase 76 (38-126) U/L Total Protein 6.5 (6.3-8.2) g/dL Albumin 3.6 (3.5-5.0) g/dL Calcium panel 07/08/17 Range/Units 06:40 Calcium 8.8 (8.4-10.2) mg/dL Albumin 3.6 (3.5-5.0) g/dL Pituitary panel 07/08/17 Range/Units 06:40 Sodium 140 (137-145) mmol/L Potassium 4.2 (3.5-5.1) mmol/L Chloride 103 (98-107) mmol/L Carbon Dioxide 26 (22-30) mmol/L BUN 12 (7-17) mg/dL Creatinine 0.56 (0.52-1.04) mg/dL Glucose 95 (74-99) mg/dL Calcium 8.8 (8.4-10.2) mg/dL Adrenal panel 07/08/17 Range/Units 06:40 Sodium 140 (137-145) mmol/L Potassium 4.2 (3.5-5.1) mmol/L Chloride 103 (98-107) mmol/L Carbon Dioxide 26 (22-30) mmol/L BUN 12 (7-17) mg/dL Creatinine 0.56 (0.52-1.04) mg/dL Glucose 95 (74-99) mg/dL Calcium 8.8 (8.4-10.2) mg/dL Total Bilirubin 0.8 (0.2-1.3) mg/dL AST 50 H (14-36) U/L ALT 54 H (9-52) U/L Alkaline Phosphatase 76 (38-126) U/L Total Protein 6.5 (6.3-8.2) g/dL Albumin 3.6 (3.5-5.0) g/dL Assessment and Plan Assessment: As above. Patient with evidence of constipation and probable anastomotic stricture. Also having some episodes of rectal bleeding. Gentle soapsuds enemas today. Agree with IV antibiotics. Likely will require endoscopy once constipation improved.
[2017-07-08 13:08] LABS: Basophils % (A) 0 %; Eosinophils # (A) 0.1 k/uL (0-0.7); Eosinophils % (A) 1 %; HCT 41.3 % (34.0-46.0); HGB 14.3 gm/dL (11.4-16.0); Lymphocytes # (A) 1.8 k/uL (1.0-4.8); Lymphocytes % (A) 13 %; MCH 32.3 pg (25.0-35.0); MCHC 34.5 g/dL (31.0-37.0); MCV 93.6 fL (80.0-100.0); Mean Platelet Volume 6.7; Monocytes # (A) 0.8 k/uL (0-1.0); Monocytes % (A) 6 %; Neutrophils % (A) 79 %; Platelet Count 242 k/uL (150-450); RBC 4.41 m/uL (3.80-5.40); RDW 13.4 % (11.5-15.5); WBC 13.8 k/uL (3.8-10.6)
[2017-07-08 13:25] LABS: Appearance,Urine Clear (Clear); Bilirubin,Urine Negative (Negative); Blood,Urine Small (Negative); Color,Urine Light Yellow; Glucose,Urine (UA) Negative (Negative); Ketones,Urine Negative (Negative); Leukocyte Esterase,Urine Negative (Negative); Nitrite,Urine Negative (Negative); Protein,Urine Negative (Negative); RBC,Urine 2 /hpf (0-5); Specific Gravity,Urine 1.008 (1.001-1.035); Urobilinogen,Urine <2.0 mg/dL (<2.0); WBC,Urine <1 /hpf (0-5)
--- NOTE | 2017-07-08 15:50 | P.CONS ---
History of Present Illness - Reason for Consult Consult date: 07/08/17 Medical management - History of Present Illness 62-year-old female patient of Dr. Davidson who follows with Dr. Foster for autoimmune hepatitis who is known to have history of hypothyroidism and advance liver disease who was admitted to [facility] back in July 2015 and was taking care by Dr. Mitchell for perforated diverticuli had colon resection and colostomy at the time and has done well up till January 2016 when around the 26th developed to have significant pain and discomfort with increase diarrhea ended up coming to [facility] on 03/06 and admitted until 03/12/2016 for severe abdominal pain found to have diverticulitis with abscess formation and at that time she was seen in consultation by general surgery as well as Gi, nephrology and she underwent laparotomy and she was treated with IV antibiotic, eventually the patient was brought into the hospital for a colostomy takedown in September 2016. Patient states that she normally has a very small bowel movement since the reversal was done. Her last bowel movement was 3-4 days ago. She complains of pain and abdominal distention which is what brought her into the hospital. Once here, she states she started having rectal bleeding that is 4-5 times since she arrived and dark red wine color. She is normally on 2 stool softeners, gummy fiber tablet and medical usual only occasionally. CAT scan of the abdomen and pelvis with contrast revealed moderate to severe distention and fecal retention/impaction: Up to the level of sutures suggest stricture or partial obstruction at the site of anastomosis. No suspicious small bowel dilation seen to suggest complete obstruction. Possible mild distal colitis involving the left colon and proximal sigmoid colon. Patient presented with leukocytosis of 18, electrolytes within normal limits. Total bilirubin 1, AST 99, ALT 77, alkaline phosphatase 127. Occult stool was positive. Lactic acid 1.4. Patient has been admitted under the care of Dr. Spears we've asked to consult for medical management. Patient states that she did have an enema which only returned bloody water. Diet is currently nothing by mouth except for medications, ice chips, popsicles.. Review of Systems All systems: negative Constitutional: Reports poor appetite, Denies chills, Denies fever Eyes: denies blurred vision, denies pain Ears, nose, mouth and throat: Denies headache, Denies mouth pain, Denies sore throat, Denies vertigo Cardiovascular: Denies chest pain, Denies decreased exercise tolerance, Denies dyspnea on exertion, Denies leg edema, Denies lightheadedness, Denies shortness of breath, Denies syncope Respiratory: Denies cough, Denies cough with sputum, Denies dyspnea, Denies excessive sputum, Denies hemoptysis, Denies home oxygen Gastrointestinal: Reports abdominal pain, Reports bloating, Reports change in bowel habits, Reports constipation, Reports loss of appetite, Reports melena, Reports nausea, Denies diarrhea, Denies vomiting Genitourinary: Denies dysuria, Denies hematuria Musculoskeletal: Denies myalgias Integumentary: Denies pruritus, Denies rash Neurological: Denies numbness, Denies weakness Psychiatric: Denies anxiety, Denies depression Endocrine: Denies fatigue, Denies weight change Past Medical History Past Medical History: CVA/TIA, Deep Vein Thrombosis (DVT), Liver Disease, Thyroid Disorder Additional Past Medical History / Comment(s): Perforated diverticulum status post colon resection and colostomy at [facility] July 2015, HX OF ABSCESS POST BOWEL RESECTION, STATES HERNIA NEAR COLOSTOMY, SKIN AROUND STOMA REDDENED AND "RAW" 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 28, SLIGHT WEAKNESS RT HAND, autoimmune hepatitis, cirrhosis of the liver History of Any Multi-Drug Resistant Organisms: ESBL Year Discovered:: 03/20/16 ESBL-E.coli MDRO Source:: Abdomen WOUND Past Surgical History: Bariatric Surgery, Breast Surgery, Cholecystectomy, Heart Catheterization, Hysterectomy Additional Past Surgical History / Comment(s): Colon resection and colostomy in July 2015 at [facility], LAPAROTOMY, LYSIS OF ADHESIONS, AND DRAINAGE OF ABSCESS, 03/20/16.right knee surgery, right foot surgery, benign lump removed from left breast Past Anesthesia/Blood Transfusion Reactions: Previous Problems w/ Anesthesia Additional Past Anesthesia/Blood Transfusion Reaction / Comm: WOKE UP DURING COLONOSCOPY, ALSO STATES UNABLE TO PASS GAS POST COLONOSCOPY Past Psychological History: Depression Additional Psychological History / Comment(s): . Smoking Status: Former smoker Past Alcohol Use History: None Reported Additional Past Alcohol Use History / Comment(s): Patient was a smoker one pack per day for 17 years and quit 25 years ago. . She currently only smokes marijuana. She denies any alcohol abuse. Past Drug Use History: Marijuana Additional Drug Use History / Comment(s): OCCASIONAL USE, INSTRUCTED TO HOLD 24 HRS PRIOR TO PROCEDURE - Past Family History Mother Family Medical History: Cancer, COPD Additional Family Medical History / Comment(s): lung cancer. Father Family Medical History: Cancer Additional Family Medical History / Comment(s): Father at age 80 from leukemia. Sister(s) Additional Family Medical History / Comment(s): Patient has 1 sister with no major medical problems. She does not have any brothers. She has one daughter and one son with no major medical problems. Daughter(s) Family Medical History: Cancer Additional Family Medical History / Comment(s): MELANOMA Medications and Allergies Home Medications Medication Instructions Recorded Confirmed Type Folic Acid 1 mg PO DAILY 08/20/15 07/07/17 History Levothyroxine Sodium [Synthroid] 75 mcg PO DAILY 08/20/15 07/07/17 History azaTHIOprine [Imuran] 100 mg PO DAILY 09/17/16 07/07/17 History Doxycycline Hyclate [Vibramycin] 100 mg PO DAILY 07/07/17 07/07/17 History Allergies Allergy/AdvReac Type Severity Reaction Status Date / Time morphine Allergy Nausea Verified 07/07/17 16:50 acetaminophen [From Vicodin] AdvReac Itching Verified 07/07/17 16:50 adhesive AdvReac REDNESS, Verified 07/07/17 16:50 SKIN PEALS amoxicillin [From Augmentin] AdvReac Nausea Verified 07/07/17 16:50 clavulanic acid AdvReac Nausea Verified 07/07/17 16:50 [From Augmentin] hydrocodone bitartrate AdvReac Itching Verified 07/07/17 16:50 [From Vicodin] Physical Exam Vitals: Vital Signs Temp Pulse Pulse Resp BP BP Pulse Ox 07/08/17 14:25 98.5 F 71 16 140/86 96 07/08/17 07:00 97.1 F L 70 16 127/70 95 07/07/17 21:33 97.0 F L 93 14 173/89 95 07/07/17 21:10 97 F L 73 14 173/93 99 07/07/17 20:21 98.0 F 74 18 175/88 97 07/07/17 19:30 67 18 198/97 97 07/07/17 16:48 98.6 F 101 H 18 163/99 96 Intake and Output 0507/08/17 07/08/17 06:59 14:59 22:59 Intake Total 800 Output Total 400 Balance 400 Intake: IV 800 Sodium Chloride 0.9% 1, 800 000 ml @ 100 mls/hr IV . Q10H ONE Rx#:[id number] Output: Urine 400 Other: # Voids 1 2 # Bowel Movements 1 General appearance: Present: average body habitus, mild distress - EENT Eyes: Present: anicteric sclerae, EOMI, PERRLA, normal appearance. Absent: ptosis, scleral icterus ENT: Present: hearing grossly normal, normal oropharynx, other (NG tube in place.) Ears: bilateral: normal - Neck Neck: Present: normal ROM. Absent: lymphadenopathy, rigidity Carotids: bilateral: upstroke normal Thyroid: bilateral: normal size - Respiratory Respiratory: bilateral: diminished, negative: dullness, rales, rhonchi, wheezing , prolonged expiration, prolonged inspiration - Cardiovascular Rhythm: regular Heart sounds: normal: S1, S2 Abnormal Heart Sounds: Absent: systolic murmur, S3 Gallop, S4 Gallop, click - Gastrointestinal General gastrointestinal: Present: Normal bowel sounds, soft, diffuse generalized tenderness. - Integumentary Integumentary: Present: normal, normal turgor - Neurologic Neurologic: Present: CNII-XII intact - Musculoskeletal Musculoskeletal: Present: generalized weakness, strength equal bilaterally - Psychiatric Psychiatric: Present: A&O x's 3, appropriate affect, intact judgment & insight Results CBC & Chem 7: 07/08/17 12:46 07/08/17 06:40 Labs: Abnormal Lab Results - Last 24 Hours (Table) 07/07/17 07/07/17 07/07/17 Range/Units 17:15 17:15 18:53 WBC 18.0 H (3.8-10.6) k/uL Hgb 16.2 H (11.4-16.0) gm/dL Hct 47.1 H (34.0-46.0) % Neutrophils # 16.2 H (1.3-7.7) k/uL Lymphocytes # 0.5 L (1.0-4.8) k/uL Carbon Dioxide 21 L (22-30) mmol/L Glucose 136 H (74-99) mg/dL AST 99 H (14-36) U/L ALT 77 H (9-52) U/L Alkaline Phosphatase 127 H (38-126) U/L Total Protein 8.4 H (6.3-8.2) g/dL Urine Blood (Negative) Stool Occult Blood Positive H (Negative) 07/08/17 07/08/17 07/08/17 Range/Units 06:40 06:40 12:46 WBC 13.6 H 13.8 H (3.8-10.6) k/uL Hgb (11.4-16.0) gm/dL Hct (34.0-46.0) % Neutrophils # 11.2 H 11.0 H (1.3-7.7) k/uL Lymphocytes # (1.0-4.8) k/uL Carbon Dioxide (22-30) mmol/L Glucose (74-99) mg/dL AST 50 H (14-36) U/L ALT 54 H (9-52) U/L Alkaline Phosphatase (38-126) U/L Total Protein (6.3-8.2) g/dL Urine Blood (Negative) Stool Occult Blood (Negative) 07/08/17 Range/Units 12:50 WBC (3.8-10.6) k/uL Hgb (11.4-16.0) gm/dL Hct (34.0-46.0) % Neutrophils # (1.3-7.7) k/uL Lymphocytes # (1.0-4.8) k/uL Carbon Dioxide (22-30) mmol/L Glucose (74-99) mg/dL AST (14-36) U/L ALT (9-52) U/L Alkaline Phosphatase (38-126) U/L Total Protein (6.3-8.2) g/dL Urine Blood Small H (Negative) Stool Occult Blood (Negative) Microbiology - Last 24 Hours (Table) 07/07/17 23:50 Urine Culture - Preliminary Urine,Voided Assessment and Plan Plan: 1. Stricture or partial obstruction of the colon. Continue current pain management as outlined by general surgery, continue incentive spirometry to reduce the incidence of atelectasis and hospital-acquired pneumonia. Patient is currently nothing by mouth except for medications, ice chips and popsicles. Abdominal x-ray ordered for morning. Continue Levaquin and Flagyl IV. Continue Zofran as needed for nausea and Dilaudid as needed for pain. 2. Autoimmune hepatitis: Follows with Dr. Foster on regular basis, hold Imuran. 3. Hypothyroidism: Continue patient on levothyroxine 75 g orally once every day. 4. GI prophylaxis. Continue with PPI. 5. DVT prophylaxis. Continue heparin 5000 units subcutaneously every 12 hours as well as bilateral knee-high JORGE hose. 6. Hypertension not previously diagnosed. Patient will be placed on hydralazine as needed. Discharge plan: Return home Impression and plan of care have been directed as dictated by the signing physician. Sallie Cintron nurse practitioner acting as scribe for signing physician.
[2017-07-08] MEDS: HEPARIN SODIUM,PORCINE 5,000 UNIT/ML 1 ML VIAL SQ SCH ×2 (16:16→23:41)
[2017-07-08] MEDS: LEVOFLOXACIN 500MG-D5W PMX 500 MG in DEXTROSE/WATER 1 100ML.BAG IVPB SCH (17:27)
[2017-07-08] MEDS: ONDANSETRON 4 MG/2 ML VIAL IVP PRN (20:21)
[2017-07-09] MEDS: HYDROmorphone 0.5 MG/0.5 ML SYRINGE IVP PRN ×5 (03:16→23:24)
[2017-07-09] MEDS: LEVOTHYROXINE 75 MCG TAB PO SCH ×2 (06:14→06:17)
[2017-07-09 07:36] LABS: Basophils % (A) 0 %; Eosinophils # (A) 0.2 k/uL (0-0.7); Eosinophils % (A) 2 %; HGB 13.3 gm/dL (11.4-16.0); Lymphocytes # (A) 1.9 k/uL (1.0-4.8); Lymphocytes % (A) 16 %; MCH 31.6 pg (25.0-35.0); MCV 93.1 fL (80.0-100.0); Mean Platelet Volume 7.3; Monocytes # (A) 0.7 k/uL (0-1.0); Monocytes % (A) 6 %; Neutrophils # (A) 8.5 k/uL (1.3-7.7); Neutrophils % (A) 74 %; Platelet Count 229 k/uL (150-450); RBC 4.19 m/uL (3.80-5.40); RDW 13.4 % (11.5-15.5); WBC 11.4 k/uL (3.8-10.6)
[2017-07-09 07:44] LABS: ALT 43 U/L (9-52); AST 32 U/L (14-36); Albumin 3.5 g/dL (3.5-5.0); Alkaline Phosphatase 80 U/L (38-126); Anion Gap 11 mmol/L; Blood Urea Nitrogen 10 mg/dL (7-17); Calcium 8.8 mg/dL (8.4-10.2); Carbon Dioxide 23 mmol/L (22-30); Chloride 105 mmol/L (98-107); Glucose 86 mg/dL (74-99); Sodium 139 mmol/L (137-145); Total Bilirubin 0.8 mg/dL (0.2-1.3); Total Protein 6.5 g/dL (6.3-8.2)
--- NOTE | 2017-07-09 07:50 | XR ---
EXAMINATION TYPE: XR abdomen 1V DATE OF EXAM: 07/09/2017 7:37 AM CLINICAL HISTORY: Constipation. TECHNIQUE: Two Upright KUB images of the abdomen are obtained. COMPARISON: CT abdomen and pelvis from 2 days ago. Abdominal x-ray March 19, 2016. FINDINGS: Lap band position is stable. Subcutaneous Mediport catheter remains fragmented or disconnec armando. Gas is seen in nondistended stomach adjacent to this. Gas is noted in scattered nondistended sma ll and large bowel loops. Cholecystectomy clips are redemonstrated. Lung bases remain clear. Surgical clips in the pelvis are redemonstrated. IMPRESSION: Overall nonobstructive bowel gas pattern. Disconnected lap band redemonstrated.
[2017-07-09] MEDS ORDERED: PEG 3350-NA SULF,BICARB,CL/KCL 4,000 ML BOTTLE PO ONE (08:21)
[2017-07-09] MEDS: PANTOPRAZOLE 40 MG/10 ML VIAL IVP SCH (08:42)
[2017-07-09] MEDS: HEPARIN SODIUM,PORCINE 5,000 UNIT/ML 1 ML VIAL SQ SCH ×3 (08:43→23:23)
[2017-07-09] MEDS: metroNIDAZOLE-NS PMX 500 MG in SALINE 1 100ML.BAG IVPB SCH ×3 (08:43→23:24)
[2017-07-09] MEDS: SODIUM CHLORIDE 0.9% 1,000 ML IV SCH ×2 (10:32→15:13)
--- NOTE | 2017-07-09 10:34 | P.PN ---
Subjective Progress Note Date: 07/09/17 62-year-old seen and examined at bedside. Patient states had a small bowel movement this morning with a small amount of right red blood noted in the toilet bowl. Patient reports less abdominal cramping. Hemoglobin this morning 13.3 reports not passing gas. Tolerating clear liquid diet. Patient is aware of the plan of care. Will be scheduled tomorrow to undergo colonoscopy will start bowel prep today patients being worked up for CAT scan of the abdomen pelvis suggestive of stricture at the anastomosis site Objective - Vital Signs Vital signs: Vital Signs Temp 96.9 F L 07/09/17 07:36 Pulse 65 07/09/17 07:36 Resp 16 07/09/17 07:36 BP 130/76 07/09/17 07:36 Pulse Ox 97 07/09/17 07:36 Intake & Output 07/08/17 07/09/17 07/09/17 18:59 06:59 18:59 Intake Total 800 Output Total 400 Balance 400 Intake: IV 800 Sodium Chloride 0.9% 1, 800 000 ml @ 100 mls/hr IV . Q10H [facility] Rx#:[id number] Output: Urine 400 Other: # Voids 2 3 # Bowel Movements 1 1 - Exam Physical exam 62-year-old female pleasant oriented 3 appears in no acute distress states less abdominal cramping this morning Lungs adequate air movement bilaterally on room air no cough noted no shortness of breath Heart S1-S2 audible regular no murmur denying chest pain Abdomen soft well-healed surgical scars noted to abdominal wall not distended bowel tones present nontender reports no nausea vomiting 1 small stool this morning Extremities no edema noted - Labs CBC & Chem 7: 07/09/17 07:11 07/09/17 07:11 Labs: Abnormal Lab Results - Last 24 Hours (Table) 07/08/17 07/08/17 07/09/17 Range/Units 12:46 12:50 07:11 WBC 13.8 H 11.4 H (3.8-10.6) k/uL Neutrophils # 11.0 H 8.5 H (1.3-7.7) k/uL Urine Blood Small H (Negative) Microbiology - Last 24 Hours (Table) 07/07/17 19:45 Blood Culture - Final Blood 07/07/17 23:50 Urine Culture - Preliminary Urine,Voided Assessment and Plan Assessment: Impression Present on admission abdominal pain nausea vomiting with constipation suspect due to stricture at the anastomosis site CAT scan abdomen and pelvis with contrast moderate to severe distention and fecal retention impaction up to the level of sutures suggesting stricture at the site of anastomosis History of perforated diverticulitis with an colostomy Reversal of colostomy and repair of parastomal hernia done on 09/25/2016 Hypothyroid on supplements Autoimmune hepatitis followed by Dr. Lugo and GI imkiah on hold Plan Scheduled for colonoscopy on July 10 IV fluid for hydration Clear liquid diet Nothing by mouth after midnight for colonoscopy tomorrow DVT and GI prophylaxis Pain control Continue IV Levaquin and Flagyl as ordered The above impression and plan of care have been discussed and directed by signing physician. Rehana Skinner nurse practitioner acting as scribe for signing physician.
[2017-07-09] MEDS: FOLIC ACID 1 MG TAB PO SCH (11:30)
--- NOTE | 2017-07-09 12:47 | P.PN ---
Subjective Progress Note Date: 07/09/17 62-year-old female patient of Dr. Davidson who follows with Dr. Foster for autoimmune hepatitis who is known to have history of hypothyroidism and advance liver disease who was admitted to [facility] back in July 2015 and was taking care by Dr. Mitchell for perforated diverticuli had colon resection and colostomy at the time and has done well up till January 2016 when around the 26th developed to have significant pain and discomfort with increase diarrhea ended up coming to [facility] on 03/06 and admitted until 03/12/2016 for severe abdominal pain found to have diverticulitis with abscess formation and at that time she was seen in consultation by general surgery as well as Gi, nephrology and she underwent laparotomy and she was treated with IV antibiotic, eventually the patient was brought into the hospital for a colostomy takedown in September 2016. Patient states that she normally has a very small bowel movement since the reversal was done. Her last bowel movement was 3-4 days ago. She complains of pain and abdominal distention which is what brought her into the hospital. Once here, she states she started having rectal bleeding that is 4-5 times since she arrived and dark red wine color. She is normally on 2 stool softeners, gummy fiber tablet and medical usual only occasionally. CAT scan of the abdomen and pelvis with contrast revealed moderate to severe distention and fecal retention/impaction: Up to the level of sutures suggest stricture or partial obstruction at the site of anastomosis. No suspicious small bowel dilation seen to suggest complete obstruction. Possible mild distal colitis involving the left colon and proximal sigmoid colon. Patient presented with leukocytosis of 18, electrolytes within normal limits. Total bilirubin 1, AST 99, ALT 77, alkaline phosphatase 127. Occult stool was positive. Lactic acid 1.4. Patient has been admitted under the care of Dr. Spears we've asked to consult for medical management. Patient states that she did have an enema which only returned bloody water. Diet is currently nothing by mouth except for medications, ice chips, popsicles. 07/09: Patient is currently on a clear liquid diet. She states tenderness or abdomen is less. She has less bloating. She states she has been up to the bathroom and has had lots of gas and blood and clots but no true bowel movement. Hemoglobin is stable at 13.3. Abdominal x-ray shows overall nonobstructive bowel gas pattern. Surgery is planning for colonoscopy tomorrow. Objective - Vital Signs Vital signs: Vital Signs Temp 96.9 F L 07/09/17 07:36 Pulse 65 07/09/17 07:36 Resp 16 07/09/17 07:36 BP 130/76 07/09/17 07:36 Pulse Ox 97 07/09/17 07:36 Intake & Output 07/08/17 07/09/17 07/09/17 18:59 06:59 18:59 Intake Total 800 Output Total 400 Balance 400 Intake: IV 800 Sodium Chloride 0.9% 1, 800 000 ml @ 100 mls/hr IV . Q10H [facility] Rx#:[id number] Output: Urine 400 Other: # Voids 2 3 # Bowel Movements 1 1 - Exam General appearance: Present: average body habitus, mild distress - EENT Eyes: Present: anicteric sclerae, EOMI, PERRLA, normal appearance. Absent: ptosis, scleral icterus ENT: Present: hearing grossly normal, normal oropharynx, other (NG tube in place.) Ears: bilateral: normal - Neck Neck: Present: normal ROM. Absent: lymphadenopathy, rigidity Carotids: bilateral: upstroke normal Thyroid: bilateral: normal size - Respiratory Respiratory: bilateral: diminished, negative: dullness, rales, rhonchi, wheezing , prolonged expiration, prolonged inspiration - Cardiovascular Rhythm: regular Heart sounds: normal: S1, S2 Abnormal Heart Sounds: Absent: systolic murmur, S3 Gallop, S4 Gallop, click - Gastrointestinal General gastrointestinal: Present: Normal bowel sounds, soft, diffuse generalized tenderness. - Integumentary Integumentary: Present: normal, normal turgor - Neurologic Neurologic: Present: CNII-XII intact - Musculoskeletal Musculoskeletal: Present: generalized weakness, strength equal bilaterally - Psychiatric Psychiatric: Present: A&O x's 3, appropriate affect, intact judgment & insight - Labs CBC & Chem 7: 07/09/17 07:11 07/09/17 07:11 Labs: Abnormal Lab Results - Last 24 Hours (Table) 07/08/17 07/08/17 07/09/17 Range/Units 12:46 12:50 07:11 WBC 13.8 H 11.4 H (3.8-10.6) k/uL Neutrophils # 11.0 H 8.5 H (1.3-7.7) k/uL Urine Blood Small H (Negative) Microbiology - Last 24 Hours (Table) 07/07/17 19:45 Blood Culture - Final Blood 07/07/17 23:50 Urine Culture - Preliminary Urine,Voided Assessment and Plan Plan: 1. Stricture or partial obstruction of the colon. Continue current pain management as outlined by general surgery, continue incentive spirometry to reduce the incidence of atelectasis and hospital-acquired pneumonia. Patient is currently her liquid diet. Abdominal x-ray as above. Continue Levaquin and Flagyl IV. Continue Zofran as needed for nausea and Dilaudid as needed for pain. Colonoscopy for tomorrow 2. Autoimmune hepatitis: Follows with Dr. Foster on regular basis, hold Imuran. 3. Hypothyroidism: Continue patient on levothyroxine 75 g orally once every day. 4. GI prophylaxis. Continue with PPI. 5. DVT prophylaxis. Continue heparin 5000 units subcutaneously every 12 hours as well as bilateral knee-high JORGE hose. 6. Hypertension not previously diagnosed. Patient will be placed on hydralazine as needed. Discharge plan: Return home Impression and plan of care have been directed as dictated by the signing physician. Sallie Cintron nurse practitioner acting as scribe for signing physician.
[2017-07-09] MEDS: ONDANSETRON 4 MG/2 ML VIAL IVP PRN (15:13)
[2017-07-09] MEDS: LEVOFLOXACIN 500MG-D5W PMX 500 MG in DEXTROSE/WATER 1 100ML.BAG IVPB SCH (17:25)
[2017-07-10] MEDS: ONDANSETRON 4 MG/2 ML VIAL IVP PRN (03:42)
[2017-07-10] MEDS: SODIUM CHLORIDE 0.9% 1,000 ML IV SCH ×2 (06:42→16:05)
[2017-07-10] MEDS: LEVOTHYROXINE 75 MCG TAB PO SCH (07:09)
[2017-07-10] MEDS: LACTATED RINGERS 1,000 ML IV SCH (07:10)
--- NOTE | 2017-07-10 09:15 | P.PN ---
Subjective Progress Note Date: 07/10/17 62-year-old female seen sitting up in bed. Just returned from the bathroom had a watery light brown liquid stool no blood noted states abdominal cramping persist. Nausea sensation improved no emesis. Patient scheduled today for colonoscopy states is passing gas and belching Objective - Vital Signs Vital signs: Vital Signs Temp 98.7 F 07/10/17 08:04 Pulse 68 07/10/17 08:04 Resp 16 07/10/17 08:04 BP 136/74 07/10/17 08:04 Pulse Ox 96 07/10/17 08:04 Intake & Output 07/09/17 07/10/17 07/10/17 18:59 06:59 18:59 Intake Total 1600 Balance 1600 Intake: Intake, IV Titration 1600 Amount Sodium Chloride 0.9% 1, 1600 000 ml @ 100 mls/hr IV . Q10H [facility] Rx#:[id number] Other: Voiding Method Toilet # Voids 3 3 # Bowel Movements 1 - Exam Physical exam 62-year-old female pleasant cooperative appears in no acute distress Lungs adequate air movement bilaterally on room air Heart S1-S2 audible regular Abdomen soft not distended slight tenderness bowel tones present passing gas stooling from bowel prep nausea sensation no emesis Extremities no edema - Labs CBC & Chem 7: 07/09/17 07:11 07/09/17 07:11 Labs: Microbiology - Last 24 Hours (Table) 07/09/17 00:16 Blood Culture - Preliminary Blood No Growth after 24 hours 07/08/17 23:51 Blood Culture - Preliminary Blood No Growth after 24 hours 07/07/17 19:45 Blood Culture Gram Stain - Preliminary Blood Blood Culture - Preliminary Coagulase Negative Staph 07/07/17 23:50 Urine Culture - Final Urine,Voided Assessment and Plan Assessment: Impression Present on admission abdominal pain nausea vomiting with constipation suspect due to stricture at the anastomosis site CAT scan abdomen and pelvis with contrast moderate to severe distention and fecal retention impaction up to the level of sutures suggesting stricture at the site of anastomosis History of perforated diverticulitis with an colostomy Reversal of colostomy and repair of parastomal hernia done on 09/25/2016 Hypothyroid on supplements Autoimmune hepatitis followed by Dr. Lugo and GI imkiah on hold Plan Scheduled for colonoscopy today IV fluid for hydration Clear liquid diet when appropriate DVT and GI prophylaxis Pain control Continue IV Levaquin and Flagyl as ordered The above impression and plan of care have been discussed and directed by signing physician. Rehana Skinner nurse practitioner acting as scribe for signing physician.
[2017-07-10] MEDS: metroNIDAZOLE-NS PMX 500 MG in SALINE 1 100ML.BAG IVPB SCH ×2 (09:21→16:06)
[2017-07-10] MEDS: PANTOPRAZOLE 40 MG/10 ML VIAL IVP SCH (09:22)
[2017-07-10] MEDS: HEPARIN SODIUM,PORCINE 5,000 UNIT/ML 1 ML VIAL SQ SCH ×2 (09:22→16:06)
[2017-07-10] MEDS ORDERED: IV FLUID CONTINUATION 600 ML IV ONE (10:20)
[2017-07-10] MEDS ORDERED: MIDAZOLAM 2 MG/2 ML VIAL ONE (10:35)
[2017-07-10] MEDS ORDERED: fentaNYL (PF) 50 MCG/ML 2 ML AMP ONE (10:35)
[2017-07-10] MEDS ORDERED: PROPOFOL 10 MG/ML 20 ML VIAL IV ONE (10:35)
--- NOTE | 2017-07-10 11:08 | P.OP ---
Date of Procedure: 07/10/17 Preoperative Diagnosis: Anastomotic stricture Postoperative Diagnosis: Colorectal anastomotic stricture Left colon inflammation Procedure(s) Performed: Colonoscopy Dilation of colorectal anastomotic stricture Left colon biopsy Anesthesia: MAC Surgeon: Taiwo Spears Pathology: other (Left colon) Condition: stable Disposition: PACU Description of Procedure: The patient was placed on the endoscopy table lateral position. She received IV sedation. Digital rectal exam was performed which revealed no abnormalities. The flexible colonoscope was then placed patient anus and passed in the rectum. The patient had a rectal stump from previous sigmoid resection. The anastomosis was visualized. Initially the anastomosis was thought to be a diverticulum however he was found to be the anastomosis after careful inspection of the rectum. The anastomosis was quite tight. The colonoscope could not be advanced in through the anastomosis. At this point a a smaller gastroscope was placed the rectum and it too could not fit through the anastomosis. Using a 12 mm balloon sequential dilations of the anastomosis was performed. The anastomosis was dilated to 12 mm. At this point the scope was passed beyond the anastomosis. The left colon was visualized. The left colon appeared to be inflamed and a biopsies of colon was performed. The scope was withdrawn the anastomosis visualized. There was no apparent injury injury to the bowel. Scope was brought back the rectum and this appeared normal. Scope was withdrawn for patient.
[2017-07-10] MEDS: FOLIC ACID 1 MG TAB PO SCH (13:27)
--- NOTE | 2017-07-10 13:55 | P.PN ---
Subjective Progress Note Date: 07/10/17 62-year-old female patient of Dr. Davidson who follows with Dr. Foster for autoimmune hepatitis who is known to have history of hypothyroidism and advance liver disease who was admitted to [facility] back in July 2015 and was taking care by Dr. Mitchell for perforated diverticuli had colon resection and colostomy at the time and has done well up till January 2016 when around the 26th developed to have significant pain and discomfort with increase diarrhea ended up coming to [facility] on 03/06 and admitted until 03/12/2016 for severe abdominal pain found to have diverticulitis with abscess formation and at that time she was seen in consultation by general surgery as well as Gi, nephrology and she underwent laparotomy and she was treated with IV antibiotic, eventually the patient was brought into the hospital for a colostomy takedown in September 2016. Patient states that she normally has a very small bowel movement since the reversal was done. Her last bowel movement was 3-4 days ago. She complains of pain and abdominal distention which is what brought her into the hospital. Once here, she states she started having rectal bleeding that is 4-5 times since she arrived and dark red wine color. She is normally on 2 stool softeners, gummy fiber tablet and medical usual only occasionally. CAT scan of the abdomen and pelvis with contrast revealed moderate to severe distention and fecal retention/impaction: Up to the level of sutures suggest stricture or partial obstruction at the site of anastomosis. No suspicious small bowel dilation seen to suggest complete obstruction. Possible mild distal colitis involving the left colon and proximal sigmoid colon. Patient presented with leukocytosis of 18, electrolytes within normal limits. Total bilirubin 1, AST 99, ALT 77, alkaline phosphatase 127. Occult stool was positive. Lactic acid 1.4. Patient has been admitted under the care of Dr. Spears we've asked to consult for medical management. Patient states that she did have an enema which only returned bloody water. Diet is currently nothing by mouth except for medications, ice chips, popsicles. 07/09: Patient is currently on a clear liquid diet. She states tenderness or abdomen is less. She has less bloating. She states she has been up to the bathroom and has had lots of gas and blood and clots but no true bowel movement. Hemoglobin is stable at 13.3. Abdominal x-ray shows overall nonobstructive bowel gas pattern. Surgery is planning for colonoscopy tomorrow. 07/10: Patient underwent colonoscopy and dilation of the colorectal anastomotic stricture and left colon biopsy. Patient is now on a clear liquid diet which she is tolerating but not eating very much as she does not like Jell-O. Anticipate that her diet will be advanced possible discharge tomorrow. Patient is anxious to be discharged. Objective - Vital Signs Vital signs: Vital Signs Temp 98.1 F 07/10/17 11:30 Pulse 63 07/10/17 12:04 Resp 16 07/10/17 11:30 BP 132/75 07/10/17 12:04 Pulse Ox 96 07/10/17 11:30 Intake & Output 07/09/17 07/10/17 07/10/17 18:59 06:59 18:59 Intake Total 1600 500 Balance 1600 500 Weight 58.967 kg Intake: IV 500 Intake, IV Titration 1600 Amount Sodium Chloride 0.9% 1, 1600 000 ml @ 100 mls/hr IV . Q10H [facility] Rx#:[id number] Other: Voiding Method Toilet Toilet # Voids 3 3 # Bowel Movements 1 - Exam General appearance: Present: average body habitus, mild distress - EENT Eyes: Present: anicteric sclerae, EOMI, PERRLA, normal appearance. Absent: ptosis, scleral icterus ENT: Present: hearing grossly normal, normal oropharynx, other (NG tube in place.) Ears: bilateral: normal - Neck Neck: Present: normal ROM. Absent: lymphadenopathy, rigidity Carotids: bilateral: upstroke normal Thyroid: bilateral: normal size - Respiratory Respiratory: bilateral: diminished, negative: dullness, rales, rhonchi, wheezing , prolonged expiration, prolonged inspiration - Cardiovascular Rhythm: regular Heart sounds: normal: S1, S2 Abnormal Heart Sounds: Absent: systolic murmur, S3 Gallop, S4 Gallop, click - Gastrointestinal General gastrointestinal: Present: Normal bowel sounds, soft, diffuse generalized tenderness. - Integumentary Integumentary: Present: normal, normal turgor - Neurologic Neurologic: Present: CNII-XII intact - Musculoskeletal Musculoskeletal: Present: generalized weakness, strength equal bilaterally - Psychiatric Psychiatric: Present: A&O x's 3, appropriate affect, intact judgment & insight - Labs CBC & Chem 7: 07/09/17 07:11 07/09/17 07:11 Labs: Microbiology - Last 24 Hours (Table) 07/09/17 00:16 Blood Culture - Preliminary Blood No Growth after 24 hours 07/08/17 23:51 Blood Culture - Preliminary Blood No Growth after 24 hours 07/07/17 19:45 Blood Culture Gram Stain - Preliminary Blood Blood Culture - Preliminary Coagulase Negative Staph 07/07/17 23:50 Urine Culture - Final Urine,Voided Assessment and Plan Plan: 1. Stricture or partial obstruction of the colon status post colonoscopy and dilation of colorectal anastomotic stricture, left colon biopsy. Continue current pain management as outlined by general surgery, continue incentive spirometry to reduce the incidence of atelectasis and hospital-acquired pneumonia. Patient is currently her liquid diet. Abdominal x-ray as above. Continue Levaquin and Flagyl IV. Continue Zofran as needed for nausea and Dilaudid as needed for pain. Colonoscopy for tomorrow 2. Autoimmune hepatitis: Follows with Dr. Foster on regular basis, hold Imuran. 3. Hypothyroidism: Continue patient on levothyroxine 75 g orally once every day. 4. GI prophylaxis. Continue with PPI. 5. DVT prophylaxis. Continue heparin 5000 units subcutaneously every 12 hours as well as bilateral knee-high JORGE hose. 6. Hypertension not previously diagnosed. Patient will be placed on hydralazine as needed. Discharge plan: Return home probably on Thursday Impression and plan of care have been directed as dictated by the signing physician. Sallie Cintron nurse practitioner acting as scribe for signing physician.
[2017-07-10] MEDS: LEVOFLOXACIN 500MG-D5W PMX 500 MG in DEXTROSE/WATER 1 100ML.BAG IVPB SCH (17:39)
[2017-07-10] MEDS: HYDROmorphone 0.5 MG/0.5 ML SYRINGE IVP PRN ×2 (17:43→21:48)
[2017-07-11] MEDS: metroNIDAZOLE-NS PMX 500 MG in SALINE 1 100ML.BAG IVPB SCH ×4 (01:02→23:37)
[2017-07-11] MEDS: HEPARIN SODIUM,PORCINE 5,000 UNIT/ML 1 ML VIAL SQ SCH ×4 (01:02→23:36)
[2017-07-11] MEDS: HYDROmorphone 0.5 MG/0.5 ML SYRINGE IVP PRN ×5 (01:47→23:42)
[2017-07-11] MEDS: SODIUM CHLORIDE 0.9% 1,000 ML IV SCH ×3 (01:48→19:52)
[2017-07-11] MEDS: LACTATED RINGERS 1,000 ML IV SCH (08:51)
[2017-07-11] MEDS: PANTOPRAZOLE 40 MG/10 ML VIAL IVP SCH (08:52)
[2017-07-11] MEDS: FOLIC ACID 1 MG TAB PO SCH (08:52)
[2017-07-11] MEDS: LEVOTHYROXINE 75 MCG TAB PO SCH (08:53)
--- NOTE | 2017-07-11 13:20 | P.PN ---
Subjective Progress Note Date: 07/11/17 Patient is s/p colon dilation for stricture. She is tolerating full liquid diet but desires more. She is passing flatus. No reports of abdominal pain today. She is eager to go home, but blood pressure systolic has been over 190s. She is yet to be seen by the medicine this morning. She is conversant with her roommate Objective - Vital Signs Vital signs: Vital Signs Temp 98.3 F 07/11/17 08:50 Pulse 65 07/11/17 08:50 Resp 16 07/11/17 09:11 BP 144/78 07/11/17 08:50 Pulse Ox 99 07/11/17 08:50 Intake & Output 07/10/17 07/11/17 07/11/17 18:59 06:59 18:59 Intake Total 500 1800 Balance 500 1800 Weight 58.967 kg Intake: IV 500 Intake, IV Titration 1800 Amount Sodium Chloride 0.9% 1, 1600 000 ml @ 100 mls/hr IV . Q10H [facility] Rx#:[id number] metroNIDAZOLE-NS PMX 500 200 mg In Saline 1 100ml.bag @ 100 mls/hr IVPB Q8HR [facility] Rx#:[id number] Other: Voiding Method Toilet Toilet Toilet # Voids 3 1 - Exam GENERAL: Well-developed pleasant in no acute distress. HEENT: No scleral icterus. Extraocular movements grossly intact. Moist buccal mucosa. NECK: Supple without lymphadenopathy. CHEST: Unlabored respirations. Equal bilateral excursions. CARDIOVASCULAR: Regular rate and rhythm. Distal 2+ pulses. ABDOMEN: Soft, nondistended. No peritoneal signs. Non-tender. MUSCULOSKELETAL: No clubbing, cyanosis, or edema. NEURO: No focal or lateralizing signs PSYCH: Appropriate affect. Alert and oriented to person, place, and time. SKIN: Well perfused and good skin turgor. - Labs CBC & Chem 7: 07/09/17 07:11 07/09/17 07:11 Labs: Microbiology - Last 24 Hours (Table) 07/09/17 00:16 Blood Culture - Preliminary Blood No Growth after 48 hours 07/08/17 23:51 Blood Culture - Preliminary Blood No Growth after 48 hours 07/07/17 19:45 Blood Culture Gram Stain - Final Blood Blood Culture - Final Staphylococcus epidermidis Assessment and Plan (1) Colonic stricture Current Visit: Yes Status: Acute Code(s): K56.699 - OTHER INTESTNL OBST UNSP TO PARTIAL VERSUS COMPLETE OBST SNOMED Code(s): 5705903 (2) Colitis Current Visit: Yes Status: Acute Code(s): K52.9 - NONINFECTIVE GASTROENTERITIS AND COLITIS, UNSPECIFIED SNOMED Code(s): 07416084 (3) Uncontrolled hypertension Current Visit: Yes Status: Acute Code(s): I10 - ESSENTIAL (PRIMARY) HYPERTENSION SNOMED Code(s): 85749134 Plan: 1. She is having episodic uncontrolled hypertension however clinically asymptomatic. 2. Pending further recommendations from medicine regarding blood pressure control. 3. Will advance diet to soft without straws.
[2017-07-11] MEDS: LEVOFLOXACIN 500MG-D5W PMX 500 MG in DEXTROSE/WATER 1 100ML.BAG IVPB SCH (17:12)
[2017-07-11] MEDS: ONDANSETRON 4 MG/2 ML VIAL IVP PRN (19:58)
[2017-07-12 07:31] VITALS: PULSE 68
[2017-07-12] MEDS ORDERED: metroNIDAZOLE 500 MG TAB PO SCH (08:00)
[2017-07-12] MEDS: SODIUM CHLORIDE 0.9% 1,000 ML IV SCH (08:02)
[2017-07-12] MEDS: LEVOTHYROXINE 75 MCG TAB PO SCH (08:02)
[2017-07-12] MEDS: HEPARIN SODIUM,PORCINE 5,000 UNIT/ML 1 ML VIAL SQ SCH (08:02)
[2017-07-12] MEDS: LACTATED RINGERS 1,000 ML IV SCH (08:02)
[2017-07-12] MEDS: FOLIC ACID 1 MG TAB PO SCH (08:03)
[2017-07-12] MEDS: PANTOPRAZOLE 40 MG/10 ML VIAL IVP SCH (08:03)
[2017-07-12] MEDS: HYDROmorphone 0.5 MG/0.5 ML SYRINGE IVP PRN (12:11)
[2017-07-12] MEDS: ONDANSETRON 4 MG/2 ML VIAL IVP PRN (12:11)
--- NOTE | 2017-07-12 13:25 | P.PN ---
Subjective Progress Note Date: 07/12/17 Patient is s/p colon dilation for stricture. She is on regular diet. 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 No fevers or chills. Objective - Vital Signs Vital signs: Vital Signs Temp 98.4 F 07/12/17 07:30 Pulse 68 07/12/17 07:30 Resp 16 07/12/17 07:31 BP 136/80 07/12/17 07:30 Pulse Ox 99 07/12/17 07:30 Intake & Output 07/11/17 07/12/17 07/12/17 18:59 06:59 18:59 Intake Total 237 1190 120 Balance 237 1190 120 Weight 58.967 kg Intake: Intake, IV Titration 600 Amount Sodium Chloride 0.9% 1, 600 000 ml @ 100 mls/hr IV . Q10H [facility] Rx#:[id number] Oral 237 590 120 Other: Voiding Method Toilet Toilet # Voids 1 3 1 - Exam GENERAL: Well-developed pleasant in no acute distress. HEENT: No scleral icterus. Extraocular movements grossly intact. Moist buccal mucosa. NECK: Supple without lymphadenopathy. CHEST: Unlabored respirations. Equal bilateral excursions. CARDIOVASCULAR: Regular rate and rhythm. Distal 2+ pulses. ABDOMEN: Soft, nondistended. No peritoneal signs. Non-tender. MUSCULOSKELETAL: No clubbing, cyanosis, or edema. NEURO: No focal or lateralizing signs PSYCH: Appropriate affect. Alert and oriented to person, place, and time. SKIN: Well perfused and good skin turgor. - Labs CBC & Chem 7: 07/09/17 07:11 07/09/17 07:11 Labs: Microbiology - Last 24 Hours (Table) 07/09/17 00:16 Blood Culture - Preliminary Blood No Growth after 72 hours 07/08/17 23:51 Blood Culture - Preliminary Blood No Growth after 72 hours Assessment and Plan (1) Colonic stricture Current Visit: Yes Status: Acute Code(s): K56.699 - OTHER INTESTNL OBST UNSP TO PARTIAL VERSUS COMPLETE OBST SNOMED Code(s): 9315882 (2) Colitis Current Visit: Yes Status: Acute Code(s): K52.9 - NONINFECTIVE GASTROENTERITIS AND COLITIS, UNSPECIFIED SNOMED Code(s): 26152122 (3) Uncontrolled hypertension Current Visit: Yes Status: Acute Code(s): I10 - ESSENTIAL (PRIMARY) HYPERTENSION SNOMED Code(s): 01246723 Plan: 1. Blood pressure range improved in the last 24 hrs. 2. May be discharged home with follow-up with Dr. Spears.
[2017-07-12 16:03] VITALS: BP 134/74; RESP 20; TEMP 98
[2017-07-12] MEDS ORDERED: LEVOFLOXACIN 500 MG TAB PO SCH (18:00)
== END 2017-07-12 15:30 | disposition home or self-care (01) | DRG 394 ==
LOC: EC 16:27 → OBSVTOIN 19:30 → 3SUR 19:30
PROVIDERS: ADMIT Surgery; ATTEND Surgery
PROC: 0D7G8ZZ Dilation of Left Large Intestine, Via Natural or Artificial Opening Endoscopic (ICD-10-PCS; principal; 2017-07-07)
PROC: 0DBG8ZX Excision of Left Large Intestine, Via Natural or Artificial Opening Endoscopic, Diagnostic (ICD-10-PCS; 2017-07-07)
DX: K91.89 Other postprocedural complications and disorders of digestive system (principal); K92.2 Gastrointestinal hemorrhage, unspecified; E03.9 Hypothyroidism, unspecified; F32.9 Major depressive disorder, single episode, unspecified; I10 Essential (primary) hypertension; K52.9 Noninfective gastroenteritis and colitis, unspecified; I69.931 Monoplegia of upper limb following unspecified cerebrovascular disease affecting right dominant side; K75.4 Autoimmune hepatitis; K74.60 Unspecified cirrhosis of liver; K57.90 Diverticulosis of intestine, part unspecified, without perforation or abscess without bleeding; D72.829 Elevated white blood cell count, unspecified; K59.00 Constipation, unspecified; Z90.710 Acquired absence of both cervix and uterus; Z90.49 Acquired absence of other specified parts of digestive tract; Z87.891 Personal history of nicotine dependence; Z79.890 Hormone replacement therapy; Z79.899 Other long term (current) drug therapy; Z88.6 Allergy status to analgesic agent; Z88.5 Allergy status to narcotic agent; Z88.0 Allergy status to penicillin; Z91.048 Other nonmedicinal substance allergy status; Z86.718 Personal history of other venous thrombosis and embolism; Z82.5 Family history of asthma and other chronic lower respiratory diseases; Z80.1 Family history of malignant neoplasm of trachea, bronchus and lung; Z80.6 Family history of leukemia; Z80.8 Family history of malignant neoplasm of other organs or systems; Y83.2 Surgical operation with anastomosis, bypass or graft as the cause of abnormal reaction of the patient, or of later complication, without mention of misadventure at the time of the procedure; Y73.8 Miscellaneous gastroenterology and urology devices associated with adverse incidents, not elsewhere classified
CPT/HCPCS: 36415; 45380; 74018; 74177; 80053; 81001; 82150; 82272; 83605; 83690; 85025; 85610; 85730; 87040; 87077; 87086; 87186; 88305; 94760; 96361; 96365; 96375; 99285

== ENCOUNTER 2017-09-14 07:23 | Day surgery (SDC) | payer BC ==
[2017-09-11 08:44] VITALS: BMI 24.5
[~2017-09-14 07:23] MED LIST changes: -DEXAMETHASONE SOD PHOSPHATE 10 MG/ML 1 ML VIAL IV ONE; -HEPARIN SODIUM,PORCINE 5,000 UNIT/ML 1 ML VIAL SQ NR; -HYDROmorphone 1 MG/ML 1 ML SYRINGE IVP PRN; +LACTATED RINGERS 1,000 ML IV SCH; -METRONIDAZOLE NS PMX IV NR; -ONDANSETRON 4 MG/2 ML VIAL IVP ONE; -SCOPOLAMINE 1.5MG/72HR PATCH TRANSDERM ONE; -ceFAZolin 2 GM in SODIUM CHLORIDE 0.9% 100 ML IVPB NR
[2017-09-14] MEDS ORDERED: NA PHOS,M-B/NA PHOS,DI-BA 133 ML ENEMA RECTAL ONE (07:42)
[2017-09-14 07:55] VITALS: TEMP 97.3
[2017-09-14] MEDS ORDERED: MIDAZOLAM 2 MG/2 ML VIAL IVP ONE (08:29)
[2017-09-14] MEDS ORDERED: fentaNYL (PF) 50 MCG/ML 2 ML AMP ONE (08:39)
[2017-09-14] MEDS ORDERED: PROPOFOL 10 MG/ML 20 ML VIAL IV ONE (08:39)
--- NOTE | 2017-09-14 08:45 | P.GSHP ---
History of Present Illness H&P Date: 09/14/17 Chief Complaint: Rectal anastomotic stricture Sepsis 62-year-old female with. History of diverticular abscess with colostomy. And then subsequent reversal colostomy. Patient developed a stricture of the colorectal anastomosis. She does today for balloon dilatation. Past Medical History Past Medical History: CVA/TIA, Fibromyalgia, Hyperlipidemia, Liver Disease, Osteoarthritis (OA), Thyroid Disorder Additional Past Medical History / Comment(s): Perforated diverticulum status post colon resection and colostomy at [facility] July 2015, HX OF ABSCESS POST BOWEL RESECTION, stroke AGE 28-SLIGHT WEAKNESS RT HAND, autoimmune hepatitis, cirrhosis of the liver stage 4, heart murmer, hx superfiscial blood clot rt calf, colitis, hx kidney stones, hx sepsis History of Any Multi-Drug Resistant Organisms: ESBL Date of last positivie culture/infection: 03/20/16 ESBL-E.coli MDRO Source:: Abdomen WOUND Past Surgical History: Appendectomy, Bariatric Surgery, Breast Surgery, Cholecystectomy, Heart Catheterization, Hysterectomy Additional Past Surgical History / Comment(s): Colon resection and colostomy in July 2015 at [facility]/later colostomy reversed, LAPAROTOMY, LYSIS OF ADHESIONS AND DRAINAGE OF ABSCESS, right foot surgery, benign lump removed from left breast, rt knee arthroscopy x 2, lithotripsy Past Anesthesia/Blood Transfusion Reactions: Previous Problems w/ Anesthesia, Motion Sickness Additional Past Anesthesia/Blood Transfusion Reaction / Comment(s): WOKE UP DURING COLONOSCOPY, ALSO STATES UNABLE TO PASS GAS POST COLONOSCOPY. had episode day after surgery feeling very SOB and very fatigued. claustrophobia Smoking Status: Former smoker - Past Family History Mother Family Medical History: Cancer Additional Family Medical History / Comment(s): lung/stomach Father Family Medical History: Cancer Additional Family Medical History / Comment(s): Father at age 80 from leukemia. Sister(s) Additional Family Medical History / Comment(s): Patient has 1 sister with no major medical problems. She does not have any brothers. She has one daughter and one son with no major medical problems. Daughter(s) Family Medical History: Cancer, Pulmonary Embolus Additional Family Medical History / Comment(s): MELANOMA Medications and Allergies Home Medications Medication Instructions Recorded Confirmed Type Folic Acid 1 mg PO DAILY 08/20/15 09/11/17 History Levothyroxine Sodium [Synthroid] 75 mcg PO DAILY 08/20/15 09/11/17 History azaTHIOprine [Imuran] 100 mg PO DAILY 09/17/16 09/11/17 History L.acidoph,Paracasei, B.lactis 2 each PO DAILY 09/11/17 09/11/17 History [Probiotic] Multivitamins, Thera [Multivitamin 1 tab PO DAILY 09/11/17 09/11/17 History (formulary)] Stool Softner 2 tab PO DAILY 09/11/17 09/11/17 History Allergies Allergy/AdvReac Type Severity Reaction Status Date / Time hydrocodone [From [place]] Allergy Itching Verified 09/14/17 07:39 acetaminophen [From Vicodin] AdvReac Itching Verified 09/14/17 07:39 adhesive AdvReac REDNESS, Verified 09/14/17 07:39 SKIN PEALS amoxicillin [From Augmentin] AdvReac Nausea Verified 09/14/17 07:39 clavulanic acid AdvReac Nausea Verified 09/14/17 07:39 [From Augmentin] morphine AdvReac Nausea Verified 09/14/17 07:39 Surgical - Exam Vital Signs Temp Pulse Resp BP Pulse Ox 97.3 F L 55 L 17 149/73 100 09/14/17 07:53 09/14/17 07:53 09/14/17 07:53 09/14/17 07:53 09/14/17 07:53 - General well developed, no distress - Eyes PERRL - ENT normal pinna - Neck no masses - Respiratory normal expansion - Cardiovascular Rhythm: regular - Abdomen Abdomen: soft Assessment and Plan Assessment: Colorectal anastomotic stricture. We'll perform balloon dilatation.
--- NOTE | 2017-09-14 08:58 | P.OP ---
Date of Procedure: 09/14/17 Preoperative Diagnosis: Colorectal anastomosis stricture Postoperative Diagnosis: Colorectal Stricture Procedure(s) Performed: Balloon dilatation of colorectal anastomotic stricture Anesthesia: MAC Surgeon: Taiwo Spears Pathology: none sent Condition: stable Disposition: PACU Description of Procedure: The patient's placed on the endoscopy table in the lateral position. Digital rectal exam was performed which revealed no ebonized. The flexible colonoscope was placed patient anus. The colon rectal anastomotic stricture was visualized approximately 20 cm. The stricture was quite tight. The scope could not be passed through the anastomosis. This point the 15-18 mm balloon was placed in the area of the anastomosis. The balloon was sequentially inflated from 15-18 mm. The balloon was then withdrawn. There is some minimal bleeding seen at the anastomosis. There is no evidence of any perforation. Scope was then withdrawn for patient.
[2017-09-14 09:01] VITALS: RESP 18
[2017-09-14 09:18] VITALS: BP 137/85; PULSE 50
== END 2017-09-14 10:15 | disposition home or self-care (01) ==
LOC: ORWHC2ENDO 07:23
PROVIDERS: ATTEND Surgery
DX: K56.699 Other intestinal obstruction unspecified as to partial versus complete obstruction (principal); K63.89 Other specified diseases of intestine; E78.5 Hyperlipidemia, unspecified; Z93.3 Colostomy status; Z86.73 Personal history of transient ischemic attack (TIA), and cerebral infarction without residual deficits; M79.7 Fibromyalgia; M19.90 Unspecified osteoarthritis, unspecified site; Z88.0 Allergy status to penicillin; Z87.891 Personal history of nicotine dependence; Z88.5 Allergy status to narcotic agent; Z90.49 Acquired absence of other specified parts of digestive tract; Z98.84 Bariatric surgery status; Z79.899 Other long term (current) drug therapy; Z91.048 Other nonmedicinal substance allergy status
CPT/HCPCS: 45386; J2250; J3010; J2704; C1726

== ENCOUNTER → 2017-11-09 | Day surgery (SDC) | payer BC ==
[2017-11-05 17:56] VITALS: BMI 24.1
[~2017-11-09] MED LIST changes: +DEXAMETHASONE SOD PHOSPHATE 10 MG/ML 1 ML VIAL IV ONE; +HEPARIN SODIUM,PORCINE 5,000 UNIT/ML 1 ML VIAL SQ ONE; +HYDROmorphone 0.5 MG/0.5 ML SYRINGE IVP PRN; -LIDOCAINE 1% 20 ML VIAL (10MG/ML) FOR IV START INTRADERMA PRN; -MIDAZOLAM 2 MG/2 ML VIAL IV PRN; +NA PHOS,M-B/NA PHOS,DI-BA 133 ML ENEMA RECTAL ONE; +ONDANSETRON 4 MG/2 ML VIAL IVP ONE; +PROPOFOL 10 MG/ML 20 ML VIAL IV ONE
[2017-11-09 09:08] VITALS: RESP 16; TEMP 98.5
--- NOTE | 2017-11-09 09:30 | P.GSHP ---
History of Present Illness H&P Date: 11/09/17 Chief Complaint: Colorectal anastomotic stricture This a 62-year-old female who has a previous history of perforated diverticulitis. Patient has undergone reversal of colostomy. She has developed a stricture of her colorectal anastomosis. She presents today for balloon dilatation. Patient aware of the risk of surgery including colonic disruption and possible colostomy. Past Medical History Past Medical History: CVA/TIA, Fibromyalgia, Hyperlipidemia, Liver Disease, Osteoarthritis (OA), Sleep Apnea/CPAP/BIPAP, Thyroid Disorder Additional Past Medical History / Comment(s): Perforated diverticulum, status post colon resection/colostomy 07/2015, HX OF ABSCESS POST BOWEL RESECTION, REVERSAL COLOSTOMY. CVA AGE 28-SLIGHT WEAKNESS RT HAND. Autoimmune Hepatitis, Cirrhosis Liver Stage 4. MINOR Heart Murmer. Hx superficial blood clot rt calf , Colitis. Hx Kidney Stones, Hx Sepsis. RAYNAUD'S. HAS LAP BAND. SL VARICOSE VEINS. 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 History of Any Multi-Drug Resistant Organisms: ESBL Date of last positivie culture/infection: 03/20/16 ESBL-E.coli MDRO Source:: Abdomen WOUND Past Surgical History: Appendectomy, Bariatric Surgery, Breast Surgery, Cholecystectomy, Heart Catheterization, Hysterectomy Additional Past Surgical History / Comment(s): Colon resection, Colostomy in July 2015, at [facility]/later colostomy reversed, LAPAROTOMY, LYSIS OF ADHESIONS AND DRAINAGE OF ABSCESS, Rt foot surgery, Benign lump removed from left breast, rt knee arthroscopy x 2, lithotripsy. LAP BAND. RECTAL DILATION . Past Anesthesia/Blood Transfusion Reactions: Previous Problems w/ Anesthesia, Motion Sickness Additional Past Anesthesia/Blood Transfusion Reaction / Comment(s): WOKE UP DURING COLONOSCOPY, ALSO STATES UNABLE TO PASS GAS POST COLONOSCOPY. Had 1 episode day after surgery, feeling very SOB and very fatigued. Claustrophobia Smoking Status: Former smoker - Past Family History Mother Family Medical History: Cancer Additional Family Medical History / Comment(s): lung/stomach Father Family Medical History: Cancer Additional Family Medical History / Comment(s): Father at age 80 from leukemia. Sister(s) Additional Family Medical History / Comment(s): Patient has 1 sister with no major medical problems. She does not have any brothers. She has one daughter and one son with no major medical problems. Daughter(s) Family Medical History: Cancer, Pulmonary Embolus Additional Family Medical History / Comment(s): MELANOMA Medications and Allergies Home Medications Medication Instructions Recorded Confirmed Type Folic Acid 1 mg PO DAILY 08/20/15 11/05/17 History Levothyroxine Sodium [Synthroid] 75 mcg PO DAILY 08/20/15 11/05/17 History azaTHIOprine [Imuran] 100 mg PO DAILY 09/17/16 11/05/17 History L.acidoph,Paracasei, B.lactis 2 each PO DAILY 09/11/17 11/05/17 History [Probiotic] Multivitamins, Thera [Multivitamin 1 tab PO DAILY 09/11/17 11/05/17 History (formulary)] Stool Softner 2 cap PO DAILY 09/11/17 11/05/17 History Fiber Capsules 1 cap PO DAILY 11/05/17 11/05/17 History Allergies Allergy/AdvReac Type Severity Reaction Status Date / Time amoxicillin [From Augmentin] Allergy Nausea Verified 11/09/17 09:21 clavulanic acid Allergy Nausea Verified 11/09/17 09:21 [From Augmentin] acetaminophen [From Vicodin] AdvReac Itching Verified 11/09/17 09:21 adhesive AdvReac REDNESS, Verified 11/09/17 09:21 SKIN PEALS hydrocodone [From [place]] AdvReac Itching Verified 11/09/17 09:21 AROUND NOSE/MOUTH morphine AdvReac Nausea & Verified 11/09/17 09:21 Vomiting Surgical - Exam Vital Signs Temp Pulse Resp BP Pulse Ox 98.5 F 71 16 144/76 100 11/09/17 09:07 11/09/17 09:07 11/09/17 09:07 11/09/17 09:07 11/09/17 09:07 - General well developed, no distress - Eyes PERRL - ENT normal pinna - Neck no masses - Respiratory normal expansion - Cardiovascular Rhythm: regular - Abdomen Abdomen: soft, non tender Assessment and Plan Assessment: Colorectal anastomosis stricture. We'll perform balloon dilatation.
--- NOTE | 2017-11-09 09:57 | P.OP ---
Date of Procedure: 11/09/17 Preoperative Diagnosis: Colorectal anastomotic stricture Postoperative Diagnosis: Colorectal anastomotic stricture Procedure(s) Performed: Balloon dilation of anastomotic stricture with 20 mm balloon Anesthesia: MAC Surgeon: Taiwo Spears Pathology: none sent Condition: stable Disposition: PACU Description of Procedure: The patient's placed on the endoscopy table in the lateral position. She received IV sedation. Digital rectal exam was performed which revealed no abnormalities. The flexible sigmoidoscope was placed patient anus and passed into the rectum. The anastomotic stricture was visualized. The stricture was tight and the colonoscope could not be advanced through the stricture. This point the balloon dilator was placed into the stricture. The stricture was sequentially dilated to 20 mm. The balloon was then withdrawn. The anastomosis visualized. There is no evidence of any injury to the anastomosis. The scope then easily passed beyond the stricture after dilation. Scope was withdrawn for patient.
[2017-11-09 10:12] VITALS: BP 142/82; PULSE 52
== END | disposition home or self-care (01) ==
LOC: OR 08:35
PROVIDERS: ATTEND Surgery
DX: K56.699 Other intestinal obstruction unspecified as to partial versus complete obstruction (principal); Z90.49 Acquired absence of other specified parts of digestive tract; E78.5 Hyperlipidemia, unspecified; E07.9 Disorder of thyroid, unspecified; M19.90 Unspecified osteoarthritis, unspecified site; M79.7 Fibromyalgia; K75.4 Autoimmune hepatitis; K74.69 Other cirrhosis of liver; G47.33 Obstructive sleep apnea (adult) (pediatric); Z99.89 Dependence on other enabling machines and devices; G47.30 Sleep apnea, unspecified; I69.351 Hemiplegia and hemiparesis following cerebral infarction affecting right dominant side; Z86.718 Personal history of other venous thrombosis and embolism; Z87.442 Personal history of urinary calculi; I73.00 Raynaud's syndrome without gangrene; Z98.84 Bariatric surgery status; Z87.891 Personal history of nicotine dependence; Z79.890 Hormone replacement therapy; Z79.899 Other long term (current) drug therapy; Z88.5 Allergy status to narcotic agent; Z88.0 Allergy status to penicillin; Z91.09 Other allergy status, other than to drugs and biological substances
CPT/HCPCS: 45340; J2704; C1726

== ENCOUNTER → 2018-06-22 | Outpatient (CLI) | payer BC ==
[2018-06-22 13:40] LABS: Basophils # (A) 0.1 k/uL (0-0.2); Basophils % (A) 1 %; Eosinophils # (A) 0.2 k/uL (0-0.7); Eosinophils % (A) 3 %; HCT 40.4 % (34.0-46.0); HGB 13.5 gm/dL (11.4-16.0); Lymphocytes # (A) 1.2 k/uL (1.0-4.8); Lymphocytes % (A) 20 %; MCH 32.1 pg (25.0-35.0); MCHC 33.4 g/dL (31.0-37.0); MCV 96.2 fL (80.0-100.0); Monocytes # (A) 0.4 k/uL (0-1.0); Monocytes % (A) 6 %; Neutrophils # (A) 4.1 k/uL (1.3-7.7); Neutrophils % (A) 68 %; Platelet Count 253 k/uL (150-450)
== END ==
LOC: LABPAT 12:14
PROVIDERS: ATTEND Surgery
DX: Z01.812 Encounter for preprocedural laboratory examination (principal); K43.2 Incisional hernia without obstruction or gangrene
CPT/HCPCS: 36415; 85025; 93005

== ENCOUNTER 2018-06-24 07:08 | Observation (INO) | payer BC ==
[2018-06-23 09:09] VITALS: BMI 22.8
[~2018-06-24 07:08] MED LIST changes: +LIDOCAINE 1% 20 ML VIAL (10MG/ML) FOR IV START INTRADERMA PRN; -NA PHOS,M-B/NA PHOS,DI-BA 133 ML ENEMA RECTAL ONE; -PROPOFOL 10 MG/ML 20 ML VIAL IV ONE; +SCOPOLAMINE 1.5MG/72HR PATCH TRANSDERM ONE; +ceFAZolin IN SWFI 2 GM/20 ML SYRINGE IVP ONE
[2018-06-24] MEDS ORDERED: BUPIVACAIN-EPI 0.5%-1:200,000 30 ML VIAL SQ ONE ×2 (07:11→08:20)
--- NOTE | 2018-06-24 07:39 | P.GSHP ---
History of Present Illness H&P Date: 06/24/18 Chief Complaint: Incisional hernia This is a 63-year-old female with a previous history of perforated diverticulitis, colostomy and then reversal colostomy. Patient presents today for repair of recurrent incisional hernia. Patient developed an incisional hernia in the low midline position. Past Medical History Past Medical History: CVA/TIA, Fibromyalgia, Hyperlipidemia, Liver Disease, Osteoarthritis (OA), Sleep Apnea/CPAP/BIPAP, Thyroid Disorder Additional Past Medical History / Comment(s): Perforated diverticulum, status post colon resection/colostomy 07/2015, HX OF ABSCESS POST BOWEL RESECTION, REVER ABRAHAN COLOSTOMY. CVA AGE 28-SLIGHT WEAKNESS RT HAND. Autoimmune Hepatitis, Cirrhosis Liver Stage 4. MINOR Heart Murmur. Hx superficial blood clot rt calf, Colitis. Hx Kidney Stones, Hx Sepsis. RAYNAUD'S. HAS LAP BAND. SL VARICOSE VEINS. 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 History of Any Multi-Drug Resistant Organisms: ESBL Date of last positivie culture/infection: 03/20/16 ESBL-E.coli MDRO Source:: Abdomen WOUND Past Surgical History: Appendectomy, Bariatric Surgery, Breast Surgery, Cho lecystectomy, Heart Catheterization, Hysterectomy Additional Past Surgical History / Comment(s): Colon resection, Colostomy in July 2015, at [facility]/later colostomy reversed, LAPAROTOMY, LYSIS OF ADHESIONS AND DRAINAGE OF ABSCESS, Rt foot surgery, Benign lump removed from left breast, rt knee arthroscopy x 2, lithotripsy. LAP BAND, dilation of colon stricture Past Anesthesia/Blood Transfusion Reactions: Previous Problems w/ Anesthesia, Motion Sickness Additional Past Anesthesia/Blood Transfusion Reaction / Comment(s): WOKE UP DURING COLONOSCOPY, Had 1 episode day after surgery, feeling very SOB and very fatigued. Claustrophobia Smoking Status: Former smoker - Past Family History Mother Family Medical History: Cancer Additional Family Medical History / Comment(s): lung/stomach Father Family Medical History: Cancer Additional Family Medical History / Comment(s): Father at age 80 from leukemia. Sister(s) Additional Family Medical History / Comment(s): Patient has 1 sister with no major medical problems. She does not have any brothers. She has one daughter and one son with no major medical problems. Daughter(s) Family Medical History: Cancer, Pulmonary Embolus Additional Family Medical History / Comment(s): MELANOMA Medications and Allergies Home Medications Medication Instructions Recorded Confirmed Type Folic Acid 1 mg PO DAILY 08/20/15 06/24/18 History Levothyroxine Sodium [Synthroid] 75 mcg PO DAILY 08/20/15 06/23/18 History azaTHIOprine [Imuran] 100 mg PO DAILY 09/17/16 06/23/18 History Docusate [Colace] 100 mg PO DAILY 09/11/17 06/24/18 History L.acidoph,Paracasei, B.lactis 2 each PO DAILY 09/11/17 06/23/18 History [Probiotic] Venlafaxine HCl [Effexor] 100 mg PO DAILY 06/23/18 06/23/18 History Allergies Allergy/AdvReac Type Severity Reaction Status Date / Time amoxicillin [From Augmentin] Allergy Nausea Verified 06/23/18 08:31 clavulanic acid Allergy Nausea Verified 06/23/18 08:31 [From Augmentin] acetaminophen [From Vicodin] AdvReac Itching Verified 06/23/18 08:31 adhesive AdvReac REDNESS, Verified 06/23/18 08:31 SKIN PEALS hydrocodone [From [place]] AdvReac Itching Verified 06/23/18 08:31 AROUND NOSE/MOUTH morphine AdvReac Nausea & Verified 06/23/18 08:31 Vomiting Surgical - Exam - General well developed, well nourished, no distress - Eyes PERRL - ENT normal pinna - Neck no masses - Respiratory normal expansion - Cardiovascular Rhythm: regular - Abdomen Abdomen: soft, non tender Hernia: incisional (Low midline) Assessment and Plan Assessment: Incisional hernia. We'll perform open repair.
[2018-06-24] MEDS ORDERED: SUCCINYLCHOLINE CHLORIDE 100 MG/5 ML SYR IV ONE (07:58)
[2018-06-24] MEDS ORDERED: NEOSTIGMINE 1 MG/ML 10 ML VIAL ONE (07:58)
[2018-06-24] MEDS ORDERED: GLYCOPYRROLATE 0.2 MG/ML 2 ML VIAL ONE (07:58)
[2018-06-24] MEDS ORDERED: PROPOFOL 10 MG/ML 20 ML VIAL IV ONE (07:58)
[2018-06-24] MEDS ORDERED: ROPIVACAINE 5 MG/ML 30 ML VIAL ONE (07:58)
[2018-06-24] MEDS ORDERED: ePHEDrine SULFATE/0.9% NACL/PF 50 MG/5 ML SYRINGE IV ONE (07:58)
[2018-06-24] MEDS ORDERED: MIDAZOLAM 2 MG/2 ML VIAL ONE (07:58)
[2018-06-24] MEDS ORDERED: LIDOCAINE 1% INJ 10MG/ML (20 ML MDV) ONE (07:58)
[2018-06-24] MEDS ORDERED: ROCURONIUM BROMIDE 10 MG/ML 10 ML VIAL IV ONE (07:58)
[2018-06-24] MEDS ORDERED: fentaNYL (PF) 50 MCG/ML 2 ML AMP ONE (07:58)
[2018-06-24] MEDS ORDERED: HYDROmorphone (PF) 1 MG/ML ONE (07:58)
[2018-06-24] MEDS ORDERED: LACTATED RINGERS 1,000 ML IV ONE ×3 (08:00→09:27)
[2018-06-24] MEDS ORDERED: NALOXONE 0.4 MG/ML 1 ML VIAL IV PRN (09:27)
[2018-06-24] MEDS ORDERED: ONDANSETRON 4 MG/2 ML VIAL IVP PRN (09:27)
[2018-06-24] MEDS ORDERED: HYDROmorphone 0.5 MG/0.5 ML SYRINGE IVP ONE ×4 (09:28→12:58)
--- NOTE | 2018-06-24 09:32 | P.OP ---
Date of Procedure: 06/24/18 Preoperative Diagnosis: Incisional hernia Postoperative Diagnosis: Incisional hernia Procedure(s) Performed: (Open repair of Incisional hernia with mesh Anesthesia: PEDRO Surgeon: Taiwo Spears Estimated Blood Loss (ml): 30 Pathology: none sent Condition: stable Disposition: PACU Description of Procedure: The patient's placed the operative table in the supine position. She received general anesthesia. Her abdomen was prepped and draped in usual sterile fashion. A skin incision was made in the low midline position. Using left cautery and blunt sharp dissection the subcutaneous tissues were divided off the hernia. The fascia external oblique was exposed. The patient had multiple hernias along her low midline scar. The hernia sac was inverted and then the fascia was closed with [id number] Ethibond suture. Once the fascia was repaired. The hernia was buttressed with Prolene mesh. This was secured with the secure strap tacker. A NELDA drain is placed through separate stab incision and placed over top of the mesh. Alma Delia's fascia closed with 0 Vicryl. Skin was closed with serafin. Silverlon dressing was applied. Patient top she will was sent to recovery room stable condition.
[2018-06-24] MEDS ORDERED: MEPERIDINE 50 MG/ML SYRINGE IVP ONE ×2 (09:42→10:03)
[2018-06-24] MEDS ORDERED: KETOROLAC 30 MG/ML 1 ML VIAL IVP ONE (10:10)
--- NOTE | 2018-06-24 13:57 | P.ONQ ---
Anesthesiology Proc Note - PNB - Peripheral Nerve Block Performed Bilateral Rectus Abdominis Single Time Out Performed: Yes Procedure Start Time: 08:10 Procedure Stop Time: 08:15 Indication: Acute Post-Operative Pain Sedation Type: Sedate with meaningful contact maintained Preparation: Sterile Prep Catheter: None Needle Types: On-Q Needle Size: 100mm (4") Needle Gauge: 20 Technique: Ultrasound Injectate: 0.5% Ropivacaine (see comment for volume) Pain Paresthesia on Injection Noted: No Resistance on Injection: Normal Events: Uneventful and Well Tolerated (30 ml total solution)
[2018-06-24] MEDS: HYDROmorphone 0.5 MG/0.5 ML SYRINGE IVP PRN ×2 (15:12→18:45)
[2018-06-24] MEDS: KETOROLAC 30 MG/ML 1 ML VIAL IVP SCH ×3 (15:22→23:53)
[2018-06-24] MEDS ORDERED: HYDROmorphone 0.5 MG/0.5 ML SYRINGE IVP PRN (21:01)
[2018-06-24] MEDS: HYDROmorphone 1 MG/ML 1 ML SYRINGE IVP PRN (21:36)
[2018-06-25] MEDS: HYDROmorphone 1 MG/ML 1 ML SYRINGE IVP PRN ×2 (02:44→05:53)
[2018-06-25] MEDS: KETOROLAC 30 MG/ML 1 ML VIAL IVP SCH ×2 (05:54→12:43)
[2018-06-25 06:33] LABS: Basophils % (A) 0 %; Eosinophils # (A) 0.3 k/uL (0-0.7); Eosinophils % (A) 5 %; HCT 37.5 % (34.0-46.0); HGB 12.5 gm/dL (11.4-16.0); Lymphocytes # (A) 1.1 k/uL (1.0-4.8); Lymphocytes % (A) 15 %; MCH 32.4 pg (25.0-35.0); MCHC 33.4 g/dL (31.0-37.0); MCV 97.1 fL (80.0-100.0); Mean Platelet Volume 6.8; Monocytes # (A) 0.5 k/uL (0-1.0); Monocytes % (A) 7 %; Neutrophils % (A) 72 %; Platelet Count 228 k/uL (150-450); RBC 3.86 m/uL (3.80-5.40); RDW 12.9 % (11.5-15.5)
[2018-06-25 08:52] VITALS: PULSE 66; RESP 20
[2018-06-25] MEDS ORDERED: ENOXAPARIN 40 MG/0.4 ML SYRINGE SQ SCH (09:00)
[2018-06-25] MEDS: HYDROcodone/APAP 5-325MG 1 EACH TAB PO PRN ×2 (09:27→14:55)
--- NOTE | 2018-06-25 09:39 | P.DS ---
Providers Date of admission: 06/24/18 18:08 Expected date of discharge: 06/25/18 Attending physician: Taiwo Spears Consults: 06/24/18 09:27 Consult Physician Routine Consulting Provider: Chencho Dowling Reason/Comments: Medical management Do you want consulting provider notified?: Yes Primary care physician: Chencho Dowling [facility] Course: 63-year-old female who underwent open repair of incisional hernia with mesh on 06/24/[address] Spears. Patient is doing well postoperatively without any immediate complications. She is tolerating diet. Denies nausea or vomiting. Vital signs are stable. Patient is stable for discharge home today with NELDA drain. Please see EMR for further hospital course details. Discharge diagnosis 1. Status post repair of incisional hernia Nurse practitioner note has been reviewed by physician. Signing provider agrees with the documented findings, assessment, and plan of care. Plan - Discharge Summary Discharge Rx Participant: Yes New Discharge Prescriptions: No Action Levothyroxine Sodium [Synthroid] 75 mcg PO DAILY Folic Acid 1 mg PO DAILY azaTHIOprine [Imuran] 100 mg PO DAILY Docusate [Colace] 100 mg PO DAILY L.acidoph,Paracasei, B.lactis [Probiotic] 2 each PO DAILY Venlafaxine HCl [Effexor] 100 mg PO DAILY Discharge Medication List Folic Acid 1 mg PO DAILY 08/20/15 [History] Levothyroxine Sodium [Synthroid] 75 mcg PO DAILY 08/20/15 [History] azaTHIOprine [Imuran] 100 mg PO DAILY 09/17/16 [History] Docusate [Colace] 100 mg PO DAILY 09/11/17 [History] L.acidoph,Paracasei, B.lactis [Probiotic] 2 each PO DAILY 09/11/17 [History] Venlafaxine HCl [Effexor] 100 mg PO DAILY 06/23/18 [History] Follow up Appointment(s)/Referral(s): Taiwo Spears MD [STAFF PHYSICIAN] - 07/01/18 3:40 pm
[2018-06-25 12:58] VITALS: BP 112/73; TEMP 98.5
== END 2018-06-25 15:50 | disposition home or self-care (01) ==
LOC: OR 07:08 → 6PED 09:17 → OR 18:10
PROVIDERS: ADMIT Surgery; ATTEND Surgery
DX: K43.2 Incisional hernia without obstruction or gangrene (principal); I69.351 Hemiplegia and hemiparesis following cerebral infarction affecting right dominant side; M79.7 Fibromyalgia; E78.5 Hyperlipidemia, unspecified; M19.90 Unspecified osteoarthritis, unspecified site; G47.30 Sleep apnea, unspecified; Z99.89 Dependence on other enabling machines and devices; E07.9 Disorder of thyroid, unspecified; K75.4 Autoimmune hepatitis; K74.60 Unspecified cirrhosis of liver; I73.00 Raynaud's syndrome without gangrene; Z98.84 Bariatric surgery status; I83.90 Asymptomatic varicose veins of unspecified lower extremity; Z16.24 Resistance to multiple antibiotics; Z90.49 Acquired absence of other specified parts of digestive tract; Z87.442 Personal history of urinary calculi; Z86.19 Personal history of other infectious and parasitic diseases; Z87.891 Personal history of nicotine dependence; Z79.890 Hormone replacement therapy; Z79.899 Other long term (current) drug therapy; Z88.5 Allergy status to narcotic agent; Z88.0 Allergy status to penicillin; Z91.048 Other nonmedicinal substance allergy status; Z80.6 Family history of leukemia; Z80.8 Family history of malignant neoplasm of other organs or systems; Z80.0 Family history of malignant neoplasm of digestive organs; Z80.1 Family history of malignant neoplasm of trachea, bronchus and lung; Z82.49 Family history of ischemic heart disease and other diseases of the circulatory system
CPT/HCPCS: 64486; 85025; 49565; 49568; G0378 ×2; C1781; J1644; J2175; J1650; J1885 ×2; J1170 ×3; J0690

== ENCOUNTER → 2019-03-22 | Outpatient (CLI) | payer BC ==
--- NOTE | 2019-03-22 13:59 | US ---
EXAMINATION TYPE: US liver DATE OF EXAM: 03/22/2019 COMPARISON: CT July 07, 2017 CLINICAL HISTORY: K75.4 AUTOIMMUNE HEPATITIS. Bilateral renal stones with lithotripsy; gallbladder re moved EXAM MEASUREMENTS: Liver Length: 12.3 cm Gallbladder Wall: surgically removed CBD: 0.2 cm Right Kidney: 10.0 x 5..0 x 3.5 cm Pancreas: wnl Liver: nodular border noted left lobe Gallbladder: surgically removed Evidence for sonographic Chamberlain's sign: no CBD: wnl Right Kidney: multiple microcalcifications are noted throughout Pancreas not well seen on images stated, visualized portions are within normal limits but is not visu alized in its entirety. IVC is seen near hepatic dome. There is no greater than 3 cm in small change of proximal abdominal aorta. Visualized liver is heterogeneously hyperechoic without intrahepatic kevan tish dilatation. Evaluation for focal masses suboptimal due to the heterogeneity. Gallbladder surgical ly absent. Right kidney shows nonshadowing hyperechoic foci suspicious for small nonobstructing renal calculi all measuring under 4 mm in size. IMPRESSION: Heterogeneous hyperechoic appearance of liver consistent with underlying hepatocellular d isease. No new ascites. No new ductal dilatation.
== END ==
LOC: RADUSWWP 08:19
PROVIDERS: ATTEND Internal Medicine Gastroenterology
DX: R93.2 Abnormal findings on diagnostic imaging of liver and biliary tract (principal)
CPT/HCPCS: 76705

== ENCOUNTER 2019-05-10 17:31 | Emergency (ER) | payer BC ==
[2019-05-10 17:35] VITALS: PULSE 68; RESP 18; TEMP 97.9
[2019-05-10] MEDS ORDERED: HYDROmorphone 1 MG/ML 1 ML SYRINGE IM STA (17:44)
--- NOTE | 2019-05-10 18:13 | XR ---
EXAMINATION TYPE: XR ribs LT w pa chest xray DATE OF EXAM: 05/10/2019 COMPARISON: NONE HISTORY: Abdominal pain TECHNIQUE: 5 views FINDINGS: Heart and mediastinum are within normal limits. Lungs are clear. Diaphragm is normal. There are no hilar masses. The left ribs appear intact. There is no pleural effusion or pneumothorax. IMPRESSION: No active cardiopulmonary disease. Normal heart. Normal left ribs.
--- NOTE | 2019-05-10 18:18 | XR ---
EXAMINATION TYPE: XR KUB DATE OF EXAM: 05/10/2019 COMPARISON: 07/09/2017 HISTORY: Abdominal pain. Left side pain and rib pain after falling. TECHNIQUE: 2 views upright FINDINGS: There is no sign of intestinal obstruction or pneumoperitoneum. There is (surgery noted. Th ere are clips over the right upper quadrant from cholecystectomy. There is no evidence of a mass. Fec al pattern is normal. Lung bases are clear. IMPRESSION: Nonacute abdomen. No adverse change.
--- NOTE | 2019-05-10 18:19 | ED ---
Fall HPI - General Chief Complaint: Fall Stated Complaint: Poss rib injury Time Seen by Provider: 05/10/19 17:36 Source: patient, RN notes reviewed Mode of arrival: ambulatory Limitations: no limitations - History of Present Illness Initial Comments: This a 63-year-old female presents emergency Department chief complaint left- sided rib pain. Patient states she was reaching inside of a cabinet cleaned out as there getting incontinence. Patient states that she slipped falling onto her ribs. Patient states his happened a few days ago pain is worsened. She states it hurts with any movement hurts to deep inspiration. She does not feel short of breath but only pain with deep inspiration. Patient denies any bruising denies any significant abdominal pain. She states she's had multiple surgeries including lab and surgery and states that her port is disconnected. Patient also has had hernia repair with mesh. - Related Data Home Medications Medication Instructions Recorded Confirmed Folic Acid 1 mg PO DAILY 08/20/15 06/24/18 Levothyroxine Sodium [Synthroid] 75 mcg PO DAILY 08/20/15 06/24/18 azaTHIOprine [Imuran] 100 mg PO DAILY 09/17/16 06/24/18 Docusate [Colace] 100 mg PO DAILY 09/11/17 06/24/18 L.acidoph,Paracasei, B.lactis 2 each PO DAILY 09/11/17 06/24/18 [Probiotic] Venlafaxine HCl [Effexor] 100 mg PO DAILY 06/23/18 06/24/18 Previous Rx's Medication Instructions Recorded HYDROcodone/APAP 7.5-325MG [[place] 1 tab PO Q4H PRN 3 Days #18 tab 06/25/18 7.5-325] HYDROcodone/APAP 7.5-325MG [[place] 1 tab PO Q6HR PRN 3 Days #12 tab 05/10/19 7.5-325] Allergies Allergy/AdvReac Type Severity Reaction Status Date / Time amoxicillin [From Augmentin] Allergy Nausea Verified 05/10/19 17:35 clavulanic acid Allergy Nausea Verified 05/10/19 17:35 [From Augmentin] acetaminophen [From Vicodin] AdvReac Itching Verified 05/10/19 17:35 adhesive AdvReac REDNESS, Verified 05/10/19 17:35 SKIN PEALS hydrocodone [From [place]] AdvReac Itching Verified 05/10/19 17:35 AROUND NOSE/MOUTH morphine AdvReac Nausea & Verified 05/10/19 17:35 Vomiting Review of Systems ROS Statement: Those systems with pertinent positive or pertinent negative responses have been documented in the HPI. ROS Other: All systems not noted in ROS Statement are negative. Past Medical History Past Medical History: CVA/TIA, Fibromyalgia, Hyperlipidemia, Liver Disease, Osteoarthritis (OA), Sleep Apnea/CPAP/BIPAP, Thyroid Disorder Additional Past Medical History / Comment(s): Perforated diverticulum, status post colon resection/colostomy 07/2015, HX OF ABSCESS POST BOWEL RESECTION, REVERSAL COLOSTOMY. CVA AGE 28-SLIGHT WEAKNESS RT HAND. Autoimmune Hepatitis, Cirrhosis Liver Stage 4. MINOR Heart Murmer. Hx superficial blood clot rt calf, Colitis. Hx Kidney Stones, Hx Sepsis. RAYNAUD'S. HAS LAP BAND. SL VARICOSE VEINS. 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 History of Any Multi-Drug Resistant Organisms: ESBL Date of last positivie culture/infection: 03/20/16 ESBL-E.coli MDRO Source:: Abdomen WOUND Past Surgical History: Appendectomy, Bariatric Surgery, Breast Surgery, Cholecystectomy, Heart Catheterization, Hysterectomy Additional Past Surgical History / Comment(s): Colon resection, Colostomy in July 2015, at [facility]/later colostomy reversed, LAPAROTOMY, LYSIS OF ADHESIONS AND DRAINAGE OF ABSCESS, Rt foot surgery, Benign lump removed from left breast, rt knee arthroscopy x 2, lithotripsy. LAP BAND. RECTAL DILATION 09/14/17. Past Anesthesia/Blood Transfusion Reactions: Previous Problems w/ Anesthesia, Motion Sickness Additional Past Anesthesia/Blood Transfusion Reaction / Comment(s): WOKE UP DURING COLONOSCOPY, ALSO STATES UNABLE TO PASS GAS POST COLONOSCOPY. Had 1 episode day after surgery, feeling very SOB and very fatigued. Claustrophobia Past Psychological History: Depression Smoking Status: Current some day smoker Past Alcohol Use History: None Reported Past Drug Use History: Marijuana - Past Family History Mother Family Medical History: Cancer Additional Family Medical History / Comment(s): lung/stomach Father Family Medical History: Cancer Additional Family Medical History / Comment(s): Father at age 80 from leukemia. Sister(s) Additional Family Medical History / Comment(s): Patient has 1 sister with no major medical problems. She does not have any brothers. She has one daughter and one son with no major medical problems. Daughter(s) Family Medical History: Cancer, Pulmonary Embolus Additional Family Medical History / Comment(s): MELANOMA General Exam Limitations: no limitations General appearance: alert, in no apparent distress Head exam: Present: atraumatic, normocephalic, normal inspection Respiratory exam: Present: normal lung sounds bilaterally, chest wall tenderness. Absent: respiratory distress, wheezes, rales, rhonchi, stridor Cardiovascular Exam: Present: regular rate, normal rhythm, normal heart sounds. Absent: systolic murmur, diastolic murmur, rubs, gallop, clicks GI/Abdominal exam: Present: soft, normal bowel sounds. Absent: distended, tenderness, guarding, rebound, rigid Back exam: Absent: CVA tenderness (R), CVA tenderness (L) Skin exam: Present: warm, dry, intact, normal color. Absent: rash Course Vital Signs 05/10/19 17:32 Temperature 97.9 F Pulse Rate 68 Respiratory 18 Rate Blood Pressure 149/76 O2 Sat by Pulse 98 Oximetry Medical Decision Making - Medical Decision Making X-ray are essentially unremarkable lites still have clinical concerns for possible rib fracture left. Patient will be discharged with pain control return parameters were discussed. Disposition Clinical Impression: Fall, Contusion of rib on left side Disposition: HOME SELF-CARE Condition: Stable Instructions (If sedation given, give patient instructions): Rib Fracture (ED) Additional Instructions: Please return to the Emergency Department if symptoms worsen or any other concerns. Prescriptions: HYDROcodone/APAP 7.5-325MG [[place] 7.5-325] 1 tab PO Q6HR PRN 3 Days #12 tab PRN Reason: pain Is patient prescribed a controlled substance at d/c from ED?: Yes When asked, does pt state using other controlled substances?: No If prescribed controlled substance>3 days was MAPS reviewed?: Prescribed <3 Days If opioid is for acute pain is fill amount 7 days or less?: Yes If Rx opioid, was Start Talking consent form obtained?: Yes Referrals: Chencho Dowling MD [Primary Care Provider] - 1-2 days
[2019-05-10 19:01] VITALS: BP 165/85
== END 2019-05-10 19:05 | disposition home or self-care (01) ==
LOC: EC 17:31
DX: S20.212A Contusion of left front wall of thorax, initial encounter (principal); F32.9 Major depressive disorder, single episode, unspecified; E07.9 Disorder of thyroid, unspecified; G47.30 Sleep apnea, unspecified; F17.200 Nicotine dependence, unspecified, uncomplicated; Z88.1 Allergy status to other antibiotic agents; Z88.5 Allergy status to narcotic agent; Z91.048 Other nonmedicinal substance allergy status; Z79.890 Hormone replacement therapy; Z79.899 Other long term (current) drug therapy; Z99.89 Dependence on other enabling machines and devices; Z86.73 Personal history of transient ischemic attack (TIA), and cerebral infarction without residual deficits; W01.0XXA Fall on same level from slipping, tripping and stumbling without subsequent striking against object, initial encounter; Y93.89 Activity, other specified; Y92.009 Unspecified place in unspecified non-institutional (private) residence as the place of occurrence of the external cause
CPT/HCPCS: 71101; 74018; 99283; 96372; J1170

== ENCOUNTER → 2019-10-24 | Outpatient (CLI) | payer BC ==
[2019-10-24 14:25] LABS: Basophils # (A) 0.1 k/uL (0-0.2); Basophils % (A) 2 %; Eosinophils # (A) 0.4 k/uL (0-0.7); Eosinophils % (A) 6 %; HCT 47.8 % (34.0-46.0); HGB 15.7 gm/dL (11.4-16.0); Lymphocytes # (A) 1.4 k/uL (1.0-4.8); Lymphocytes % (A) 19 %; MCHC 32.9 g/dL (31.0-37.0); MCV 100.3 fL (80.0-100.0); Mean Platelet Volume 9.1; Monocytes # (A) 0.4 k/uL (0-1.0); Monocytes % (A) 5 %; Neutrophils # (A) 5.1 k/uL (1.3-7.7); Neutrophils % (A) 68 %; Platelet Count 248 k/uL (150-450); RBC 4.76 m/uL (3.80-5.40); RDW 13.2 % (11.5-15.5); WBC 7.5 k/uL (3.8-10.6)
[2019-10-24 19:50] LABS: African American GFR (CKD) 90.9 (60.0-200.0); Albumin 4.2 g/dL (3.80-4.90); Albumin/Globulin Ratio 1.5 (1.60-3.17); Anion Gap 3.2 mmol/L (4.00-12.00); Calcium 9.6 mg/dL (8.7-10.3); Carbon Dioxide 28.8 mmol/L (21.6-31.8); Globulin 2.8 g/dL (1.6-3.3); Non-African American GFR(CKD) 78.5 (60.0-200.0); Potassium 4.6 mmol/L (3.5-5.5); Total Bilirubin 0.7 mg/dL (0.3-1.2)
== END | disposition home or self-care (01) ==
LOC: LABWHC1 12:50
PROVIDERS: ATTEND Internal Medicine Gastroenterology
DX: K75.4 Autoimmune hepatitis (principal)
CPT/HCPCS: 36415; 80053; 82105; 85025

== ENCOUNTER → 2019-12-02 | Outpatient (CLI) | payer BC ==
--- NOTE | 2019-12-02 10:12 | US ---
EXAMINATION TYPE: US kidneys/renal and bladder DATE OF EXAM: 12/02/2019 COMPARISON: CT 07/07/17 CLINICAL HISTORY: R10.2 pelvic pain. Urinary discomfort and incontinence; Hx of renal stones; lithotr ipsy x 2 with stents EXAM MEASUREMENTS: Right Kidney: 10.2 x 4.1 x 5.0 cm Left Kidney: 10.7 x 5.5 x 4.7 cm Right Kidney: No hydronephrosis or masses seen Left Kidney: No hydronephrosis or masses seen; cyst lower pole 0.9 x 0.6 x 0.6 cm Bladder: Not full Bilateral Jets seen: No When scanning right kidney adjacent liver is heterogeneously hyperechoic suggesting mild diffuse fatt y infiltration. Cortical medullary differentiation maintained bilaterally. No hydronephrosis seen nayan aterally. Technologist bradley probable subcentimeter thin-walled cyst in the left kidney is less well seen on 2018 CT. Bladder poorly distended and thus suboptimally evaluated. IMPRESSION: No hydronephrosis identified currently.
== END | disposition home or self-care (01) ==
LOC: RADUSWWP 08:58
PROVIDERS: ATTEND Internal Medicine Geriatric Medicine
DX: R10.2 Pelvic and perineal pain (principal)
CPT/HCPCS: 76770

== ENCOUNTER → 2020-05-07 | Outpatient (CLI) | payer BC ==
[2020-05-07 18:47] LABS: Basophils # (A) 0.09 X 10*3/uL (0.00-0.10); Basophils % (A) 1.2 %; Eosinophils # (A) 0.52 X 10*3/uL (0.04-0.35); HCT 43.5 % (37.2-46.3); HGB 14.5 g/dL (12.0-15.0); Lymphocytes # (A) 1.44 X 10*3/uL (0.90-5.00); Lymphocytes % (A) 19.4 %; MCH 32.9 pg (27.0-32.0); MCHC 33.3 g/dL (32.0-37.0); MCV 98.6 fL (80.0-97.0); Mean Platelet Volume 10.9 fL (9.5-12.2); Monocytes # (A) 0.53 X 10*3/uL (0.20-1.00); Monocytes % (A) 7.1 %; Neutrophils # (A) 4.84 X 10*3/uL (1.80-7.70); Platelet Count 259 X 10*3/uL (140-440); RBC 4.41 X 10*6/uL (4.10-5.20); RDW 12.9 % (11.5-14.5); WBC 7.44 X 10*3/uL (4.50-10.00)
[2020-05-07 19:56] LABS: African American GFR (CKD) 90.9 (60.0-200.0); Albumin 4.7 g/dL (3.80-4.90); Albumin/Globulin Ratio 1.52 (1.60-3.17); Anion Gap 4.3 mmol/L (4.00-12.00); Calcium 9.9 mg/dL (8.7-10.3); Carbon Dioxide 28.7 mmol/L (21.6-31.8); Chol/HDL Ratio 4.36; Globulin 3.1 g/dL (1.6-3.3); LDL Cholesterol,Calculated 162.6 mg/dL (0.0-131.0); Non-African American GFR(CKD) 78.5 (60.0-200.0); Potassium 4.3 mmol/L (3.5-5.5); Total Bilirubin 0.7 mg/dL (0.2-1.2); Total Protein 7.8 g/dL (6.2-8.2); VLDL Calculation 22.4 mg/dL (5.00-40.00)
== END | disposition home or self-care (01) ==
LOC: LABWHC1 13:22
PROVIDERS: ATTEND Internal Medicine Geriatric Medicine
DX: E78.5 Hyperlipidemia, unspecified (principal); K74.69 Other cirrhosis of liver
CPT/HCPCS: 36415; 80053; 80061; 84443; 85025

== ENCOUNTER → 2020-05-07 | Outpatient (CLI) | payer BC ==
[2020-05-07 15:38] VITALS: BP 156/91; PULSE 57; RESP 18; TEMP 97.5; BMI 22.3
--- NOTE | 2020-05-14 15:27 | P.HPBAR ---
Bariatric H&P - History & Physicial H&P Date: 05/07/20 History & Physicial: Visit/CC: follow up Patient initial contact: Initial weight: Initial weight in pounds: Height: 5 ft 2 in Initial BMI: Last weight: Current weight: 55.338 kg Current weight in pounds: 122.00 Current BMI: 22.3 [place] body weight (based on NIH guidelines): 49.895 kg Excess body weight loss: The patient is a 64 year-old F who presents for Bariatric Assessment. Patient presents today for bariatric follow-up. She has complaints of a mass in her midline incision. Patient states that she isn't tender pain or last several days. Past Medical History Past Medical History: CVA/TIA, Fibromyalgia, Hyperlipidemia, Liver Disease, Osteoarthritis (OA), Sleep Apnea/CPAP/BIPAP, Thyroid Disorder Additional Past Medical History / Comment(s): Perforated diverticulum, status post colon resection/colostomy 07/2015, HX OF ABSCESS POST BOWEL RESECTION, REVERSAL COLOSTOMY. CVA AGE 28-SLIGHT WEAKNESS RT HAND. Autoimmune Hepatitis, Cirrhosis Liver Stage 4. MINOR Heart Murmer. Hx superficial blood clot rt calf, Colitis. Hx Kidney Stones, Hx Sepsis. RAYNAUD'S. HAS LAP BAND. SL VARICOSE VEINS. 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 History of Any Multi-Drug Resistant Organisms: ESBL Year Discovered:: 03/20/16 ESBL-E.coli MDRO Source:: Abdomen WOUND Past Surgical History: Appendectomy, Bariatric Surgery, Breast Surgery, Section, Cholecystectomy, Heart Catheterization, Hysterectomy Additional Past Surgical History / Comment(s): Colon resection, Colostomy in July 2015, at [facility]/later colostomy reversed, LAPAROTOMY, LYSIS OF ADHESIONS AND DRAINAGE OF ABSCESS, Rt foot surgery, Benign lump removed from left breast, rt knee arthroscopy x 2, lithotripsy. LAP BAND. RECTAL DILATION 09/14/17. 06/2018 - hernia repair with mesh Past Anesthesia/Blood Transfusion Reactions: Previous Problems w/ Anesthesia, Motion Sickness Additional Past Anesthesia/Blood Transfusion Reaction / Comm: WOKE UP DURING COLONOSCOPY, ALSO STATES UNABLE TO PASS GAS POST COLONOSCOPY. Had 1 episode day after surgery, feeling very SOB and very fatigued. Claustrophobia Past Psychological History: Depression Additional Psychological History / Comment(s): no current Rx Smoking Status: Former smoker Past Alcohol Use History: None Reported Additional Past Alcohol Use History / Comment(s): Patient was a smoker 1 PPD, X17 years, quit 1985 Past Drug Use History: Marijuana Additional Drug Use History / Comment(s): 1-2X PER WEEK. - Past Family History Mother Family Medical History: Cancer Additional Family Medical History / Comment(s): lung/stomach Father Family Medical History: Cancer Additional Family Medical History / Comment(s): Father at age 80 from leukemia. Sister(s) Additional Family Medical History / Comment(s): Patient has 1 sister with no major medical problems. She does not have any brothers. She has one daughter and one son with no major medical problems. Daughter(s) Family Medical History: Cancer, Pulmonary Embolus Additional Family Medical History / Comment(s): MELANOMA Surgical - Exam Vital Signs Temp Pulse Resp BP 97.5 F L 57 L 18 156/91 05/07/20 15:25 05/07/20 15:25 05/07/20 15:25 05/07/20 15:25 - General well developed, well nourished, no distress - Eyes PERRL - ENT normal pinna - Neck no masses - Respiratory normal expansion - Cardiovascular Rhythm: regular - Abdomen Abdomen: soft Hernia: incisional (10 cm incisional hernia located superior portion of her midline scar) Bariatric Assessment & Plan Plan: Incisional hernia. Patient will be scheduled for elective repair. Bariatric Checklist Checklist: Plan: Checklist: EGD: 1. Hiatal hernia: 2. H. Pylori: HgbA1c: Vitamin D: Smoking: Current some day smoker Primary care physician referral: Dr. Dowling Psychiatry clearance: Cardiology clearance: Sleep study: Diet journal: VTE risk score: VTE risk level: Rehab needs at discharge:
== END ==
LOC: BARWHC3 14:18
PROVIDERS: ATTEND Surgery
DX: Z98.84 Bariatric surgery status (principal); Z46.51 Encounter for fitting and adjustment of gastric lap band; E78.5 Hyperlipidemia, unspecified; E03.9 Hypothyroidism, unspecified; M19.90 Unspecified osteoarthritis, unspecified site; Z98.890 Other specified postprocedural states; Z87.891 Personal history of nicotine dependence
CPT/HCPCS: 99211

== ENCOUNTER → 2020-05-18 | Outpatient (CLI) | payer BC ==
--- NOTE | 2020-05-18 16:18 | CT ---
EXAMINATION TYPE: CT abdomen pelvis w con DATE OF EXAM: 05/18/2020 COMPARISON: 07/07/2017 HISTORY: Lower abdominal pain. CT DLP: 848 mGycm CONTRAST: CT scan of the abdomen and pelvis is performed with Oral Contrast and with IV Contrast, patient injec armando with 100ml mL of Isovue 300. FINDINGS: LUNG BASES-: No visible nodule. No infiltrate. LIVER/GB: No calcified gallstones. No space occupying hepatic lesion. Biliary tree is of normal ca liber. PANCREAS: No inflammation. No distinct mass. SPLEEN: No splenic enlargement. No lesion seen. ADRENALS: No nodule. No thickening. KIDNEYS/BLADDER: No hydronephrosis. No nephrolithiasis. No distinct renal mass. Urinary bladder g rossly unremarkable. BOWEL: Normal appendix. Normal bowel caliber. No inflammation.There is lap band device epigastric r egion felt stable and satisfactory in position. There is focal dilated esophagus just superior to thi s in diaphragm redemonstrated. Previously noted colonic fecal distention has resolved in the interval . GENITAL ORGANS: Hysterectomy changes are noted in the LYMPH NODES: No greater than 1cm abdominal or pelvic lymph nodes are appreciated. AORTA: No significant abnormality. OSSEOUS STRUCTURES: No significant abnormality is seen. OTHER: Small amount of free fluid is seen within the pelvis. No evidence for hernia. IMPRESSION: 1. No evidence for hernia. 2. Stable gastric banding device.
== END | disposition home or self-care (01) ==
LOC: RADCTMAIN 14:03
PROVIDERS: ATTEND Surgery
DX: R10.30 Lower abdominal pain, unspecified (principal); K57.92 Diverticulitis of intestine, part unspecified, without perforation or abscess without bleeding
CPT/HCPCS: 74177; Q9967

== ENCOUNTER → 2020-05-21 | Outpatient (CLI) | payer BC ==
[2020-05-21 14:49] VITALS: BP 151/81; PULSE 69; RESP 18; TEMP 98; BMI 22.0
[2020-05-21 16:15] LABS: Basophils # (A) 0.1 k/uL (0-0.2); Basophils % (A) 1 %; Eosinophils # (A) 0.5 k/uL (0-0.7); Eosinophils % (A) 6 %; HCT 44.3 % (34.0-46.0); HGB 15.4 gm/dL (11.4-16.0); Lymphocytes # (A) 1.7 k/uL (1.0-4.8); Lymphocytes % (A) 21 %; MCH 33.6 pg (25.0-35.0); MCHC 34.8 g/dL (31.0-37.0); MCV 96.7 fL (80.0-100.0); Mean Platelet Volume 7.6; Monocytes # (A) 0.4 k/uL (0-1.0); Monocytes % (A) 5 %; Neutrophils # (A) 5.4 k/uL (1.3-7.7); Neutrophils % (A) 65 %; Platelet Count 299 k/uL (150-450); RBC 4.59 m/uL (3.80-5.40); RDW 12.9 % (11.5-15.5); WBC 8.3 k/uL (3.8-10.6)
[2020-05-22 00:38] LABS: African American GFR (CKD) 106.9 (60.0-200.0); Albumin 4.7 g/dL (3.80-4.90); Albumin/Globulin Ratio 1.38 (1.60-3.17); Anion Gap 6.5 mmol/L (4.00-12.00); BUN/Creat Ratio 12.86 Ratio (12.00-20.00); Calcium 10.1 mg/dL (8.7-10.3); Carbon Dioxide 26.5 mmol/L (21.6-31.8); Globulin 3.4 g/dL (1.6-3.3); Non-African American GFR(CKD) 92.2 (60.0-200.0); Potassium 4.3 mmol/L (3.5-5.5); Total Bilirubin 0.4 mg/dL (0.3-1.2); Total Protein 8.1 g/dL (6.2-8.2)
== END ==
LOC: BARWHC3 14:27
PROVIDERS: ATTEND Surgery
DX: Z01.818 Encounter for other preprocedural examination (principal); F17.200 Nicotine dependence, unspecified, uncomplicated
CPT/HCPCS: 80053; 85025; 93005; 99211

== ENCOUNTER 2020-06-11 07:39 | Day surgery (SDC) | payer BC ==
[2020-06-06 11:49] VITALS: BMI 21.9
[~2020-06-11 07:39] MED LIST changes: -DEXAMETHASONE SOD PHOSPHATE 10 MG/ML 1 ML VIAL IV ONE; -HEPARIN SODIUM,PORCINE 5,000 UNIT/ML 1 ML VIAL SQ ONE; -HYDROmorphone 0.5 MG/0.5 ML SYRINGE IVP PRN; +LIDOCAINE 1% (10MG/ML) FOR IV START INTRADERMA PRN; -LIDOCAINE 1% 20 ML VIAL (10MG/ML) FOR IV START INTRADERMA PRN; +MIDAZOLAM 2 MG/2 ML VIAL IV PRN; -ONDANSETRON 4 MG/2 ML VIAL IVP ONE; -SCOPOLAMINE 1.5MG/72HR PATCH TRANSDERM ONE; -ceFAZolin IN SWFI 2 GM/20 ML SYRINGE IVP ONE
[2020-06-11] MEDS ORDERED: ONDANSETRON 4 MG/2 ML VIAL ONE (08:01)
[2020-06-11] MEDS ORDERED: DEXAMETHASONE SOD PHOSPHATE 4 MG/ML 1 ML VIAL IV ONE (08:12)
[2020-06-11] MEDS ORDERED: ONDANSETRON 4 MG/2 ML VIAL IVP ONE (08:12)
--- NOTE | 2020-06-11 09:37 | P.GSHP ---
History of Present Illness H&P Date: 06/11/20 Chief Complaint: LAP-BAND port malfunction This is a 64-year-old female who presents today for replacement of LAP-BAND port. Patient is LAP-BAND port were all the port. Patient will undergo laparoscopic repair. Past Medical History Past Medical History: CVA/TIA, Fibromyalgia, Hyperlipidemia, Liver Disease, Osteoarthritis (OA), Sleep Apnea/CPAP/BIPAP, Thyroid Disorder Additional Past Medical History / Comment(s): Perforated diverticulum, status post colon resection/colostomy 07/2015, HX OF ABSCESS POST BOWEL RESECTION, REVERSAL COLOSTOMY. CVA AGE 28-SLIGHT WEAKNESS RT HAND. Autoimmune Hepatitis, Cirrhosis Liver Stage 4. MINOR Heart Murmer. Hx superficial blood clot rt calf, Colitis. Hx Kidney Stones, Hx Sepsis. RAYNAUD'S. HAS LAP BAND. SLVARICOSE VEINS. 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.SLEEP APNEA PRIOR TO WEIGHT LOSS , SEVERAL KIDNEY STONES History of Any Multi-Drug Resistant Organisms: ESBL Date of last positivie culture/infection: 03/20/16 ESBL-E.coli MDRO Source:: Abdomen WOUND Past Surgical History: Appendectomy, Bariatric Surgery, Breast Surgery, Section, Cholecystectomy, Heart Catheterization, Hysterectomy Additional Past Surgical History / Comment(s): Colon resection, Colostomy in July 2015, at [facility]/later colostomy reversed, LAPAROTOMY, LYSIS OF ADHESIONS AND DRAINAGE OF ABSCESS, Rt foot surgery, Benign lump removed from left breast, rt knee arthroscopy x 2, lithotripsy. LAP BAND. RECTAL DILATION 09/14/. 06/2018 - hernia repair with mesh Past Anesthesia/Blood Transfusion Reactions: Previous Problems w/ Anesthesia, Motion Sickness Additional Past Anesthesia/Blood Transfusion Reaction / Comment(s): WOKE UP DURING COLONOSCOPY, ALSO STATES UNABLE TO PASS GAS POST COLONOSCOPY. Had 1 episode day after surgery, feeling very SOB and very fatigued. Claustrophobia Smoking Status: Former smoker - Past Family History Mother Family Medical History: Cancer Additional Family Medical History / Comment(s): lung/stomach Father Family Medical History: Cancer Additional Family Medical History / Comment(s): Father at age 80 from leukemia. Sister(s) Additional Family Medical History / Comment(s): Patient has 1 sister with no major medical problems. She does not have any brothers. She has one daughter and one son with no major medical problems. Daughter(s) Family Medical History: Cancer, Pulmonary Embolus Additional Family Medical History / Comment(s): MELANOMA Medications and Allergies Home Medications Medication Instructions Recorded Confirmed Type Folic Acid 1 mg PO DAILY 08/20/15 06/11/20 History Levothyroxine Sodium [Synthroid] 75 mcg PO DAILY 08/20/15 06/11/20 History azaTHIOprine [Imuran] 100 mg PO DAILY 09/17/16 06/11/20 History Venlafaxine HCl [Effexor] 75 mg PO DAILY 06/23/18 06/11/20 History Docusate [Colace] 100 mg PO DAILY 06/06/20 06/11/20 History Allergies Allergy/AdvReac Type Severity Reaction Status Date / Time amoxicillin [From Augmentin] Allergy Nausea Verified 06/11/20 07:55 clavulanic acid Allergy Nausea Verified 06/11/20 07:55 [From Augmentin] acetaminophen [From Vicodin] AdvReac DR SAID Verified 06/11/20 07:55 NOT TO TAKE BECAUSE OF HER LIVER adhesive tape AdvReac BLISTERS,SKIN Verified 06/11/20 07:55 PEELS hydrocodone [From [place]] AdvReac Itching Verified 06/11/20 07:55 AROUND NOSE/MOUTH morphine AdvReac Nausea & Verified 06/11/20 07:55 Vomiting Surgical - Exam Vital Signs Temp Pulse Resp BP Pulse Ox 98.4 F 60 16 158/79 98 06/11/20 07:54 06/11/20 07:54 06/11/20 07:54 06/11/20 07:54 06/11/20 07:54 - General well developed, well nourished, no distress - Eyes PERRL - ENT normal pinna - Neck no masses - Respiratory normal expansion - Cardiovascular Rhythm: regular - Abdomen Abdomen: soft, non tender Assessment and Plan Assessment: LAP-BAND port function. Patient will undergo laparoscopic repair.
[2020-06-11] MEDS ORDERED: MIDAZOLAM 2 MG/2 ML VIAL ONE (09:59)
[2020-06-11] MEDS ORDERED: KETOROLAC 15 MG/ML 1 ML VIAL ONE (09:59)
[2020-06-11] MEDS ORDERED: GLYCOPYRROLATE 0.2 MG/ML 2 ML VIAL ONE (09:59)
[2020-06-11] MEDS ORDERED: SUCCINYLCHOLINE CHLORIDE 100 MG/5 ML SYR IV ONE (09:59)
[2020-06-11] MEDS ORDERED: PROPOFOL 10 MG/ML 20 ML VIAL IV ONE (09:59)
[2020-06-11] MEDS ORDERED: fentaNYL (PF) 50 MCG/ML 2 ML AMP ONE (09:59)
[2020-06-11] MEDS ORDERED: BUPIVACAINE (PF) 0.25% 30 ML VIAL SQ ONE (10:13)
[2020-06-11] MEDS ORDERED: LACTATED RINGERS 1,000 ML IV ONE (10:54)
--- NOTE | 2020-06-11 11:13 | P.OP ---
Date of Procedure: 06/11/20 Preoperative Diagnosis: LAP-BAND port malfunction Postoperative Diagnosis: LAP-BAND port malfunction Procedure(s) Performed: Laparoscopic replacement of LAP-BAND port Anesthesia: PEDRO Surgeon: Taiwo Spears Estimated Blood Loss (ml): 5 Pathology: none sent Condition: stable Disposition: PACU Description of Procedure: The patient's placed on the operative table in supine position. She received general endotracheal tube anesthesia. Her abdomen was prepped and draped usual fashion. A skin incision was made at the LAP-BAND port then using blunt and sharp dissection with cautery the LAP-BAND port was dissected free the port was removed. Using a 5 mm optical trocar the pleural cavity is entered. The abdomen was insufflated. After after adequate insufflation the laparoscope was placed in the peritoneal cavity. A 10 mm trochars placed in the left epigastric position. And then the connecting tube was then found and brought up through this port. The abdomen was insufflated. The connecting tube was then threaded to the LAP-BAND port. The port was secured to the fascia using 0 Nurolon. The port was flushed with 3 mL of normal saline. All the fluid is removed. The skin was then closed interrupted 3-0 Monocryl suture. Dermabond was applied. Patient top procedure well Surgicel applied.
[2020-06-11 11:22] VITALS: TEMP 97.1
[2020-06-11] MEDS ORDERED: HYDROmorphone 0.5 MG/0.5 ML SYRINGE IVP ONE ×2 (11:30→11:35)
[2020-06-11 11:43] VITALS: RESP 18
[2020-06-11] MEDS ORDERED: ACETAMINOPHEN TAB 325 MG TAB ONE (12:20)
[2020-06-11] MEDS ORDERED: ACETAMINOPHEN TAB 325 MG TAB PO ONE (12:23)
[2020-06-11 12:26] VITALS: BP 148/61; PULSE 59
== END 2020-06-11 12:52 | disposition home or self-care (01) ==
LOC: OR 07:39
PROVIDERS: ATTEND Surgery
DX: K95.09 Other complications of gastric band procedure (principal); M79.7 Fibromyalgia; E78.5 Hyperlipidemia, unspecified; K76.9 Liver disease, unspecified; I69.351 Hemiplegia and hemiparesis following cerebral infarction affecting right dominant side; M19.90 Unspecified osteoarthritis, unspecified site; G47.30 Sleep apnea, unspecified; Z99.89 Dependence on other enabling machines and devices; E07.9 Disorder of thyroid, unspecified; Z87.19 Personal history of other diseases of the digestive system; Z90.49 Acquired absence of other specified parts of digestive tract; K75.4 Autoimmune hepatitis; K74.69 Other cirrhosis of liver; R01.1 Cardiac murmur, unspecified; Z86.718 Personal history of other venous thrombosis and embolism; Z87.442 Personal history of urinary calculi; Z86.19 Personal history of other infectious and parasitic diseases; I73.00 Raynaud's syndrome without gangrene; Z90.89 Acquired absence of other organs; Z98.891 History of uterine scar from previous surgery; Z90.710 Acquired absence of both cervix and uterus; Z98.890 Other specified postprocedural states; Z87.891 Personal history of nicotine dependence; F40.240 Claustrophobia; K52.9 Noninfective gastroenteritis and colitis, unspecified; Z80.1 Family history of malignant neoplasm of trachea, bronchus and lung; Z80.0 Family history of malignant neoplasm of digestive organs; Z80.6 Family history of leukemia; Z82.49 Family history of ischemic heart disease and other diseases of the circulatory system; Z80.8 Family history of malignant neoplasm of other organs or systems; Z79.890 Hormone replacement therapy; Z79.899 Other long term (current) drug therapy; Z88.5 Allergy status to narcotic agent; Z88.0 Allergy status to penicillin; Z91.09 Other allergy status, other than to drugs and biological substances
CPT/HCPCS: 43659; C1751; J2250; J1100; J0690; J2405; J3010; J1885; J0330; J2704; J1170

== ENCOUNTER → 2020-06-18 | Outpatient (CLI) | payer BC ==
[2020-06-18 14:10] VITALS: BP 167/83; PULSE 67; RESP 18; TEMP 98.8; BMI 21.2
--- NOTE | 2020-06-18 17:39 | P.HPBAR ---
Bariatric H&P - History & Physicial H&P Date: 06/18/20 History & Physicial: Visit/CC: follow up Patient initial contact: Initial weight: Initial weight in pounds: Height: 5 ft 2 in Initial BMI: Last weight: Current weight: 52.617 kg Current weight in pounds: 116.00 Current BMI: 21.2 [place] body weight (based on NIH guidelines): 49.895 kg Excess body weight loss: The patient is a 65 year-old F who presents for Bariatric Assessment. She presents today for LAP-BAND follow-up. She had her band port recently replaced. As no complaints currently. Past Medical History Past Medical History: CVA/TIA, Fibromyalgia, Hyperlipidemia, Liver Disease, Osteoarthritis (OA), Sleep Apnea/CPAP/BIPAP, Thyroid Disorder Additional Past Medical History / Comment(s): Perforated diverticulum, status post colon resection/colostomy 07/2015, HX OF ABSCESS POST BOWEL RESECTION, REVERSAL COLOSTOMY. CVA AGE 28-SLIGHT WEAKNESS RT HAND. Autoimmune Hepatitis, Cirrhosis Liver Stage 4. MINOR Heart Murmer. Hx superficial blood clot rt calf, Colitis. Hx Kidney Stones, Hx Sepsis. RAYNAUD'S. HAS LAP BAND. SLVARICOSE VEINS. 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.SLEEP APNEA PRIOR TO WEIGHT LOSS , SEVERAL KIDNEY STONES History of Any Multi-Drug Resistant Organisms: ESBL Year Discovered:: 03/20/16 ESBL-E.coli MDRO Source:: Abdomen WOUND Past Surgical History: Appendectomy, Bariatric Surgery, Breast Surgery, Section, Cholecystectomy, Heart Catheterization, Hysterectomy Additional Past Surgical History / Comment(s): Colon resection, Colostomy in July 2015, at [facility]/later colostomy reversed, LAPAROTOMY, LYSIS OF ADHESIONS AND DRAINAGE OF ABSCESS, Rt foot surgery, Benign lump removed from left breast, rt knee arthroscopy x 2, lithotripsy. LAP BAND. RECTAL DILATION 09/14/17. 06/2018 - hernia repair with mesh Past Anesthesia/Blood Transfusion Reactions: Previous Problems w/ Anesthesia, Motion Sickness Additional Past Anesthesia/Blood Transfusion Reaction / Comm: WOKE UP DURING COLONOSCOPY, ALSO STATES UNABLE TO PASS GAS POST COLONOSCOPY. Had 1 episode day after surgery, feeling very SOB and very fatigued. Claustrophobia Past Psychological History: Depression Additional Psychological History / Comment(s): no current Rx Smoking Status: Former smoker Past Alcohol Use History: Rare Additional Past Alcohol Use History / Comment(s): STARTED SMOKING AT AGE 17 , quit 1985, SMOKED 1PPD Past Drug Use History: Marijuana Additional Drug Use History / Comment(s): 1-2X PER WEEK. INSTRUCTED TO HOLD 24 HOURS PRIOR TO PROCEDURE - Past Family History Mother Family Medical History: Cancer Additional Family Medical History / Comment(s): lung/stomach Father Family Medical History: Cancer Additional Family Medical History / Comment(s): Father at age 80 from leukemia. Sister(s) Additional Family Medical History / Comment(s): Patient has 1 sister with no major medical problems. She does not have any brothers. She has one daughter and one son with no major medical problems. Daughter(s) Family Medical History: Cancer, Pulmonary Embolus Additional Family Medical History / Comment(s): MELANOMA Surgical - Exam Vital Signs Temp Pulse Resp BP 98.8 F 67 18 167/83 06/18/20 14:03 06/18/20 14:03 06/18/20 14:03 06/18/20 14:03 - General well developed, well nourished, no distress - Eyes PERRL - ENT normal pinna - Neck no masses - Respiratory normal expansion - Cardiovascular Rhythm: regular - Abdomen Abdomen: soft, non tender Bariatric Assessment & Plan Plan: Status post placement of LAP-BAND port. Patient did quite well. Her incision sites are clean dry intact she will follow-up one month. Bariatric Checklist Checklist: Plan: Checklist: EGD: 1. Hiatal hernia: 2. H. Pylori: HgbA1c: Vitamin D: Smoking: Current some day smoker Primary care physician referral: Dr. Dowling Psychiatry clearance: Cardiology clearance: Sleep study: Diet journal: VTE risk score: VTE risk level: Rehab needs at discharge:
== END | disposition home or self-care (01) ==
LOC: BARWHC3 13:27
PROVIDERS: ATTEND Surgery
DX: Z48.815 Encounter for surgical aftercare following surgery on the digestive system (principal); Z98.84 Bariatric surgery status; Z90.49 Acquired absence of other specified parts of digestive tract
CPT/HCPCS: 99211

== ENCOUNTER → 2020-07-02 | Outpatient (CLI) | payer BC ==
[2020-07-02 14:37] VITALS: BP 155/82; PULSE 64; TEMP 98.2; BMI 22.1
--- NOTE | 2020-07-03 11:34 | P.HPBAR ---
Bariatric H&P - History & Physicial H&P Date: 07/02/20 History & Physicial: Visit/CC: lap band follow up Patient initial contact: Initial weight: Initial weight in pounds: Height: 5 ft 2 in Initial BMI: Last weight: Current weight: 54.885 kg Current weight in pounds: 121.00 Current BMI: 22.1 Belden body weight (based on NIH guidelines): 49.895 kg Excess body weight loss: The patient is a 65 year-old F who presents for Bariatric Assessment. Patient presents today for lab band follow. She had a recent port replacement. She describes the swelling at her old port site. Past Medical History Past Medical History: CVA/TIA, Fibromyalgia, Hyperlipidemia, Liver Disease, Osteoarthritis (OA), Sleep Apnea/CPAP/BIPAP, Thyroid Disorder Additional Past Medical History / Comment(s): Perforated diverticulum, status po st colon resection/colostomy 07/2015, HX OF ABSCESS POST BOWEL RESECTION, REVERSAL COLOSTOMY. CVA AGE 28-SLIGHT WEAKNESS RT HAND. Autoimmune Hepatitis, Cirrhosis Liver Stage 4. MINOR Heart Murmer. Hx superficial blood clot rt calf, Colitis. Hx Kidney Stones, Hx Sepsis. RAYNAUD'S. HAS LAP BAND. SLVARICOSE VEINS. 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.SLEEP APNEA PRIOR TO WEIGHT LOSS , SEVERAL KIDNEY STONES History of Any Multi-Drug Resistant Organisms: ESBL Year Discovered:: 03/20/16 ESBL-E.coli MDRO Source:: Abdomen WOUND Past Surgical History: Appendectomy, Bariatric Surgery, Breast Surgery, Section, Cholecystectomy, Heart Catheterization, Hysterectomy Additional Past Surgical History / Comment(s): Colon resection, Colostomy in July 2015, at [facility]/later colostomy reversed, LAPAROTOMY, LYSIS OF ADHESIONS AND DRAINAGE OF ABSCESS, Rt foot surgery, Benign lump removed from left breast, rt knee arthroscopy x 2, lithotripsy. LAP BAND. RECTAL DILATION 09/14/17. 06/2018 - hernia repair with mesh Past Anesthesia/Blood Transfusion Reactions: Previous Problems w/ Anesthesia, Motion Sickness Additional Past Anesthesia/Blood Transfusion Reaction / Comm: WOKE UP DURING COLONOSCOPY, ALSO STATES UNABLE TO PASS GAS POST COLONOSCOPY. Had 1 episode day after surgery, feeling very SOB and very fatigued. Claustrophobia Past Psychological History: Depression Additional Psychological History / Comment(s): no current Rx Smoking Status: Former smoker Past Alcohol Use History: Rare Additional Past Alcohol Use History / Comment(s): STARTED SMOKING AT AGE 17 , quit 1985, SMOKED 1PPD Past Drug Use History: Marijuana Additional Drug Use History / Comment(s): 1-2X PER WEEK. INSTRUCTED TO HOLD 24 HOURS PRIOR TO PROCEDURE - Past Family History Mother Family Medical History: Cancer Additional Family Medical History / Comment(s): lung/stomach Father Family Medical History: Cancer Additional Family Medical History / Comment(s): Father at age 80 from leukemia. Sister(s) Additional Family Medical History / Comment(s): Patient has 1 sister with no ma sabrina medical problems. She does not have any brothers. She has one daughter and one son with no major medical problems. Daughter(s) Family Medical History: Cancer, Pulmonary Embolus Additional Family Medical History / Comment(s): MELANOMA Surgical - Exam Vital Signs Temp Pulse BP 98.2 F 64 155/82 07/02/20 14:32 07/02/20 14:32 07/02/20 14:32 - General no distress - Eyes PERRL - ENT normal pinna - Neck no masses - Respiratory normal expansion - Cardiovascular Rhythm: regular - Abdomen Abdomen: soft, non tender Bariatric Assessment & Plan Plan: Patient's lap band port site was examined. A 10 mL seroma was aspirated from the old port site. Her incisions are clean. She'll follow-up in 4 weeks. Bariatric Checklist Checklist: Plan: Checklist: EGD: 1. Hiatal hernia: 2. H. Pylori: HgbA1c: Vitamin D: Smoking: Current some day smoker Primary care physician referral: Dr. Dowling Psychiatry clearance: Cardiology clearance: Sleep study: Diet journal: VTE risk score: VTE risk level: Rehab needs at discharge:
== END ==
LOC: BARWHC3 13:29
PROVIDERS: ATTEND Surgery
DX: Z09 Encounter for follow-up examination after completed treatment for conditions other than malignant neoplasm (principal); E78.5 Hyperlipidemia, unspecified; M19.90 Unspecified osteoarthritis, unspecified site; F32.9 Major depressive disorder, single episode, unspecified; Z87.891 Personal history of nicotine dependence; Z98.84 Bariatric surgery status; Z86.73 Personal history of transient ischemic attack (TIA), and cerebral infarction without residual deficits
CPT/HCPCS: 99211

== ENCOUNTER → 2020-10-10 | Outpatient (CLI) | payer BC ==
[2020-10-10 20:02] LABS: Basophils # (A) 0.12 X 10*3/uL (0.00-0.10); Basophils % (A) 1.3 %; Eosinophils % (A) 6.5 %; HCT 46.2 % (37.2-46.3); HGB 15.4 g/dL (12.0-15.0); Lymphocytes % (A) 21.8 %; MCH 32.4 pg (27.0-32.0); MCHC 33.3 g/dL (32.0-37.0); MCV 97.3 fL (80.0-97.0); Mean Platelet Volume 10.4 fL (9.5-12.2); Monocytes # (A) 0.64 X 10*3/uL (0.20-1.00); Neutrophils # (A) 5.81 X 10*3/uL (1.80-7.70); Neutrophils % (A) 63.3 %; Platelet Count 287 X 10*3/uL (140-440); RBC 4.75 X 10*6/uL (4.10-5.20); RDW 13.3 % (11.5-14.5); WBC 9.18 X 10*3/uL (4.50-10.00)
[2020-10-10 22:13] LABS: African American GFR (CKD) 78.3 (60.0-200.0); Albumin 4.5 g/dL (3.80-4.90); Albumin/Globulin Ratio 1.18 (1.60-3.17); Anion Gap 7.9 mmol/L (4.00-12.00); Calcium 9.7 mg/dL (8.7-10.3); Carbon Dioxide 27.1 mmol/L (21.6-31.8); Chol/HDL Ratio 4.21; Globulin 3.8 g/dL (1.6-3.3); LDL Cholesterol,Calculated 162.2 mg/dL (0.0-131.0); Non-African American GFR(CKD) 67.6 (60.0-200.0); Potassium 4.9 mmol/L (3.5-5.5); Total Bilirubin 0.6 mg/dL (0.3-1.2); Total Protein 8.3 g/dL (6.2-8.2); VLDL Calculation 23.8 mg/dL (5.00-40.00)
== END | disposition home or self-care (01) ==
LOC: LABWHC1 13:55
PROVIDERS: ATTEND Internal Medicine Geriatric Medicine
DX: E78.5 Hyperlipidemia, unspecified (principal); K74.69 Other cirrhosis of liver
CPT/HCPCS: 36415; 80053; 80061; 84443; 85025

== ENCOUNTER → 2021-03-19 | Outpatient (CLI) | payer BC ==
--- NOTE | 2021-03-19 23:35 | XR ---
EXAMINATION TYPE: XR thoracic spine complete, 3 views DATE OF EXAM: 03/19/2021 Comparison: None Clinical History: 65-year-old female M54.9 BACK PAIN Findings: 12 rib-bearing thoracic vertebral bodies. Lap band device is present and appears appropriately positi oned. All pedicles are visualized. There is right paratracheal and right suprahilar asymmetric promin ence further evaluated with CT of the chest. Moderate degenerative disc disease with disc space narro wing and endplate spondylosis in the mid thoracic spine. Vertebral body heights are preserved and ali gnment is maintained. On the swimmer's view, a degenerative grade 1 anterolisthesis is noted at C4-C5 and C6-C7. Degenerative grade 1 retrolisthesis at C5-C6. Impression: 1. Moderate degenerative disc disease midthoracic spine. No vertebral compression collapse or malalig nment in the thoracic spine. 2. There is right paratracheal and right suprahilar asymmetric prominence incidentally noted. Recomme nd contrast enhanced CT of the chest to exclude mediastinal or hilar abnormality. 3. Some degenerative grade 1 spondylolistheses within the mid and lower cervical spine.
--- NOTE | 2021-03-20 08:43 | MM ---
Reason for exam: clinical finding. Last mammogram was performed 3 years and 11 months ago. History: Patient is postmenopausal. Family history of breast cancer in paternal grandmother at age 65, breast cancer in paternal aunt, and breast cancer in paternal cousin at age 40. Benign excisional biopsy of the left breast, August 23, 1999. Took hormonal contraceptives for 6 months beginning at age 22. Indicated problem(s): palpable abnormality in the left breast. Physical Findings: Nurse Summary: 0.5 x 0.5cm nodule in the left breast at the posterior nipple (nurse ts). MG Diagnostic Mammo w CAD INGE Bilateral CC and MLO view(s) were taken. Prior study comparison: April 28, 2017, bilateral MG 3d screening mammo w/cad. November 09, 2014, bilateral MG screening mammo w CAD. There are scattered fibroglandular densities. Post excision change left breast. Stable 12 o'clock focal asymmetry left breast and fat necrosis calcifications 6 o'clock centrally. Palpable marker near the nipple. No significant new findings when compared with previous films. These results were verbally communicated with the patient and result sheet given to the patient on 03/19/21. ASSESSMENT: Incomplete: need additional imaging evaluation, BI-RAD 0 RECOMMENDATION: Ultrasound of the left breast. (nurse palpated and two physician palpated areas)
--- NOTE | 2021-03-20 08:46 | USB ---
Reason for exam: additional evaluation requested from abnormal screening. History: Patient is postmenopausal. Family history of breast cancer in paternal grandmother at age 65, breast cancer in paternal aunt, and breast cancer in paternal cousin at age 40. Benign excisional biopsy of the left breast, August 23, 1999. Took hormonal contraceptives for 6 months beginning at age 22. US Breast Limited LT Technologist: Omayra Lyons Left limited breast ultrasound including focal area of concern, retroareolar and axilla demonstrates a 0.7 x 0.6cm solid calcification at 6 o'clock BB, corresponds to the large fat necrosis calcification. Additional scanning at the physician palpated 11 o'clock area zone B/C, no cystic or solid lesion. Scanned 11 o'clock patient palpable and 6 o'clock zone A area of BB. These results were verbally communicated with the patient and result sheet given to the patient on 03/19/21. ASSESSMENT: Benign, BI-RAD 2 RECOMMENDATION: Routine screening mammogram of both breasts in 1 year. Manage on a clinical basis with regard to any suspicious palpable abnormality.
== END | disposition home or self-care (01) ==
LOC: RADMAMWWP 10:18
PROVIDERS: ATTEND Internal Medicine Geriatric Medicine
DX: M51.34 Other intervertebral disc degeneration, thoracic region (principal); M43.12 Spondylolisthesis, cervical region; N63.0 Unspecified lump in unspecified breast; Z78.0 Asymptomatic menopausal state; Z80.3 Family history of malignant neoplasm of breast
CPT/HCPCS: 72072; 77066

== ENCOUNTER → 2021-04-03 | Outpatient (CLI) | payer BC ==
--- NOTE | 2021-04-03 13:52 | CT ---
EXAMINATION TYPE: CT chest w con DATE OF EXAM: 04/03/2021 COMPARISON: None HISTORY: 65-year-old female R93.89, Abnormal findings on Thoracic Spine xrays TECHNIQUE: Contiguous axial scanning of the chest after the administration of 100 mL of Isovue 300. Coronal/sagittal reconstructions performed. CT DLP: 167.3mGycm. Automatic exposure control utilized for a dose reduction. FINDINGS: Heart normal size without pericardial effusion. Scattered three-vessel coronary artery calcifications are present in remarkable for coronary artery disease. Minimal aortic valvular calcifications. Bovine configuration to the aortic arch. No thoracic lymphadenopathy by CT size criteria. Lungs show minimal dependent atelectasis along with some strandy basilar areas of atelectasis. No con solidation or pleural effusion. No suspicious pulmonary nodule or mass. There is a moderate-sized hiatal hernia. Lap band device is demonstrated and appears appropriate posi tion. Suspect some mild fatty infiltration of the liver. Mild low density thickening left adrenal gla nd probably reflects underlying adrenal hyperplasia. Cholecystectomy clips. Bones: Slightly accentuated lower thoracic kyphosis with mild anterior endplate spondylosis. Grade 1 anterolisthesis C6-C7 and C7-T1. IMPRESSION: 1. No mediastinal/hilar lymphadenopathy or suspicious lung mass. Radiographic findings compatible wit h projectional artifact. 2. Moderate sized hiatal hernia and lap band device in place.
== END | disposition home or self-care (01) ==
LOC: RADCTMAIN 12:35
PROVIDERS: ATTEND Internal Medicine Geriatric Medicine
DX: K44.9 Diaphragmatic hernia without obstruction or gangrene (principal); Z98.84 Bariatric surgery status
CPT/HCPCS: 71260; Q9967

== ENCOUNTER → 2021-04-26 | Outpatient (CLI) | payer BC ==
[2021-04-26 18:57] LABS: Basophils # (A) 0.11 X 10*3/uL (0.00-0.10); Basophils % (A) 1.6 %; Eosinophils # (A) 0.57 X 10*3/uL (0.04-0.35); Eosinophils % (A) 8.4 %; HCT 42.7 % (37.2-46.3); HGB 14.2 g/dL (12.0-15.0); Immature Grans, Automated 0.3 %; Lymphocytes # (A) 1.71 X 10*3/uL (0.90-5.00); Lymphocytes % (A) 25.2 %; MCH 32.3 pg (27.0-32.0); MCHC 33.3 g/dL (32.0-37.0); MCV 97.3 fL (80.0-97.0); Mean Platelet Volume 10.3 fL (9.5-12.2); Monocytes # (A) 0.57 X 10*3/uL (0.20-1.00); Monocytes % (A) 8.4 %; NRBC Per 100 WBC 0 /100 WBCS (0.0-0.0); Neutrophils % (A) 56.1 %; Platelet Count 307 X 10*3/uL (140-440); RBC 4.39 X 10*6/uL (4.10-5.20); RDW 13.6 % (11.5-14.5); WBC 6.78 X 10*3/uL (4.50-10.00)
[2021-04-26 19:31] LABS: African American GFR (CKD) 90.3 (60.0-200.0); Albumin 4.3 g/dL (3.8-4.9); Albumin/Globulin Ratio 1.02 (1.60-3.17); BUN/Creat Ratio 10.13 Ratio (12.00-20.00); Blood Urea Nitrogen 8.1 mg/dL (9.0-27.0); Calcium 9.7 mg/dL (8.7-10.3); Globulin 4.2 g/dL (1.6-3.3); Non-African American GFR(CKD) 77.9 (60.0-200.0); Potassium 4.2 mmol/L (3.5-5.5); Total Bilirubin 0.3 mg/dL (0.30-1.20); Total Protein 8.5 g/dL (6.2-8.2)
== END | disposition home or self-care (01) ==
LOC: LABWHC1 13:38
PROVIDERS: ATTEND Nurse Practitioner Family
DX: K75.4 Autoimmune hepatitis (principal)
CPT/HCPCS: 36415; 80053; 82105; 85025

== ENCOUNTER → 2021-05-16 | Outpatient (CLI) | payer BC ==
--- NOTE | 2021-05-16 15:44 | US ---
EXAMINATION TYPE: US liver DATE OF EXAM: 05/16/2021 COMPARISON: NONE CLINICAL HISTORY: K75.4 Autoimmune hepatitis. Autoimmune hepatitis, cholecystectomy, hernia repair, l ap band surgery. EXAM MEASUREMENTS: Liver Length: 14.5 cm Gallbladder Wall: Surgically absent cm CBD: 0.8 cm Right Kidney: 10.8 x 5.5 x 3.3 cm Pancreas: Tail obscured by overlying bowel gas Liver: Coarse echotexture. Gallbladder: Surgically absent Evidence for sonographic Chamberlain's sign: No CBD: wnl Right Kidney: No hydronephrosis or masses seen IMPRESSION: 1. No acute ultrasound abdomen abnormality
== END | disposition home or self-care (01) ==
LOC: RADUSWWP 07:38
PROVIDERS: ATTEND Internal Medicine Gastroenterology
DX: K75.4 Autoimmune hepatitis (principal); Z90.49 Acquired absence of other specified parts of digestive tract; Z98.84 Bariatric surgery status
CPT/HCPCS: 76705

== ENCOUNTER → 2021-10-21 | Outpatient (CLI) | payer SELFPAY ==
[2021-10-21 15:37] LABS: Basophils # (A) 0.06 X 10*3/uL (0.00-0.10); Basophils % (A) 0.8 %; Eosinophils % (A) 5.6 %; HCT 40.4 % (37.2-46.3); HGB 13.7 g/dL (12.0-15.0); Immature Grans, Automated 0.3 %; Lymphocytes # (A) 1.24 X 10*3/uL (0.90-5.00); Lymphocytes % (A) 17.4 %; MCH 33.3 pg (27.0-32.0); MCHC 33.9 g/dL (32.0-37.0); MCV 98.3 fL (80.0-97.0); Mean Platelet Volume 10.8 fL (9.5-12.2); Monocytes # (A) 0.46 X 10*3/uL (0.20-1.00); Monocytes % (A) 6.5 %; NRBC Per 100 WBC 0 /100 WBCS (0.0-0.0); Neutrophils # (A) 4.95 X 10*3/uL (1.80-7.70); Neutrophils % (A) 69.4 %; Platelet Count 307 X 10*3/uL (140-440); RBC 4.11 X 10*6/uL (4.10-5.20); RDW 13.4 % (11.5-14.5); WBC 7.13 X 10*3/uL (4.50-10.00)
[2021-10-21 16:56] LABS: % Iron Saturation 40.77 (12.00-45.00); ALT 8 U/L (8-44); AST 22 U/L (13-35); African American GFR (CKD) 89.7 (60.0-200.0); Albumin 4.2 g/dL (3.8-4.9); Albumin/Globulin Ratio 1.24 (1.60-3.17); Alkaline Phosphatase 73 U/L (41-126); Blood Urea Nitrogen 7.6 mg/dL (9.0-27.0); Calcium 9.6 mg/dL (8.7-10.3); Carbon Dioxide 27.4 mmol/L (20.0-27.5); Chloride 103 mmol/L (96-109); Chol/HDL Ratio 3.66 Ratio; Globulin 3.4 g/dL (1.6-3.3); Glucose 89 mg/dL (70-110); Iron 121 ug/dL (50-170); LDL Cholesterol,Calculated 92.4 mg/dL (0.0-131.0); Non-African American GFR(CKD) 77.4 (60.0-200.0); Potassium 4.5 mmol/L (3.5-5.5); Sodium 140 mmol/L (135-145); Total Iron Binding Capacity 297 ug/dL (228-460); Total Protein 7.6 g/dL (6.2-8.2)
== END | disposition home or self-care (01) ==
LOC: LABWHC1 10:36
PROVIDERS: ATTEND Internal Medicine Geriatric Medicine
DX: K75.4 Autoimmune hepatitis (principal); E78.5 Hyperlipidemia, unspecified; R73.9 Hyperglycemia, unspecified; D50.9 Iron deficiency anemia, unspecified; E03.9 Hypothyroidism, unspecified
CPT/HCPCS: 36415; 80053; 80061; 82607; 83036; 83540; 83550; 84439; 84443; 85025

== ENCOUNTER → 2023-03-25 | Outpatient (CLI) | payer MEDICARE ==
--- NOTE | 2023-03-25 12:31 | CA ---
Transthoracic Echo Report Name: Randa Wadsworth Age: 67 Gender: F : 1955 Exam Date: 03/25/2023 08:41 Exam Location: [facility] Ht (in): 62 Wt (lb): 132 Ordering Physician: Chencho Dowling MD Attending/Referring Phys: Sandra Franco [facility] [employer] Berta Barrientos RDCS Procedure CPT: Indications: I34.0 VALVE INSUFFIC K75.4 AUTO IMMUNE HEPATITIS Cardiac Hx: Hx of smoking Technical Quality: Fair Contrast 1: Total Dose (mL): Contrast 2: Total Dose (mL): MEASUREMENTS (Male / Female) Normal Values 2D ECHO LV Diastolic Diameter PLAX 4.0 cm 4.2 - 5.9 / 3.9 - 5.3 cm LV Systolic Diameter PLAX 2.7 cm IVS Diastolic Thickness 1.2 cm 0.6 - 1.0 / 0.6 - 0.9 cm LVPW Diastolic Thickness 1.2 cm 0.6 - 1.0 / 0.6 - 0.9 cm LV Relative Wall Thickness 0.6 RV Internal Dim ED PLAX 2.8 cm LVOT Diameter 2.1 cm LA Systolic Diameter LX 3.4 cm 3.0 - 4.0 / 2.7 - 3.8 cm LV Diastolic Volume MOD 4C 92.5 cm??? LV Systolic Volume MOD 4C 37.4 cm??? LV Ejection Fraction MOD 4C 59.6 % LV Cardiac Index MOD 4C 2674.5 cm???/min???m??? LV Diastolic Length 4C 7.3 cm LV Systolic Length 4C 5.5 cm LV Diastolic Volume MOD 2C 91.7 cm??? LV Systolic Volume MOD 2C 40.3 cm??? LV Ejection Fraction MOD 2C 56.1 % LV Cardiac Index MOD 2C 2493.1 cm???/min???m??? LV Diastolic Length 2C 7.4 cm LV Systolic Length 2C 5.8 cm LA Volume 50.2 cm??? 18 - 58 / 22 - 52 cm??? LA Volume Index 30.8 cm???/m??? 16 - 28 cm???/m??? M-MODE Aortic Root Diameter MM 3.5 cm MV E Point Septal Separation 0.6 cm AV Cusp Separation MM 0.9 cm DOPPLER AV Peak Velocity 229.1 cm/s AV Peak Gradient 21.0 mmHg AV Mean Velocity 158.0 cm/s AV Mean Gradient 11.3 mmHg AV Velocity Time Integral 56.1 cm LVOT Peak Velocity 110.4 cm/s LVOT Peak Gradient 4.9 mmHg AV Area Cont Eq pk 1.6 cm??? MV Area PHT 3.3 cm??? Mitral E Point Velocity 98.7 cm/s Mitral A Point Velocity 92.8 cm/s Mitral E to A Ratio 1.1 MV Deceleration Time 233.0 ms MV E' Velocity 6.4 cm/s Mitral E to MV E' Ratio 15.5 TR Peak Velocity 289.0 cm/s TR Peak Gradient 33.4 mmHg Right Ventricular Systolic Press 38.4 mmHg FINDINGS Left Ventricle Left ventricular ejection fraction is estimated at 55-60 %. Left ventricular cavity size normal. Mild concentric LVH Right Ventricle Normal right ventricular size. Mild pulmonary hypertension. Right ventricular systolic pressure estimated at 38 mm hg. Right Atrium Normal right atrial size. Left Atrium Mildly increased left atrial volume. Mitral Valve Mitral valve thickened. Mild mitral annular calcification. Trace to mild mitral regurgitation. Aortic Valve Trileaflet aortic valve. Aortic valve sclerosis. Mild aortic stenosis with a peak gradient of 21 mmHg and a mean gradient of 11 mmHg. Tricuspid Valve Structurally normal tricuspid valve. Mild tricuspid regurgitation. Pulmonic Valve Structurally normal pulmonic valve. No pulmonic regurgitation. Pericardium No pericardial effusion. Aorta Normal size aortic root and proximal ascending aorta. CONCLUSIONS Left ventricular ejection fraction is estimated at 55-60 %. Mild concentric LVH. Normal right ventricular size. Right ventricular systolic pressure estimated at 38 mm hg. Mild aortic stenosis with mean gradient of 11 mmHg Mild MR No pericardial effusion Previewed by: Dr Jose Freedman (Electronically Signed) Final Date: 25 March 2023 12:30
== END | disposition home or self-care (01) ==
LOC: RADUSWWP 08:00
PROVIDERS: ATTEND Internal Medicine Geriatric Medicine
DX: I34.0 Nonrheumatic mitral (valve) insufficiency (principal); I51.7 Cardiomegaly; I35.0 Nonrheumatic aortic (valve) stenosis; K75.4 Autoimmune hepatitis
CPT/HCPCS: 93306

== ENCOUNTER → 2023-03-25 | Outpatient (CLI) | payer MEDICARE ==
--- NOTE | 2023-03-25 08:46 | US ---
EXAMINATION TYPE: US abdomen complete DATE OF EXAM: 03/25/2023 COMPARISON: NONE CLINICAL INDICATION: Female, 67 years old with history of K75.4 AUTOIMMUNE HEPATITIS; Abdominal pain, hepatitis, cholecystectomy TECHNIQUE: Multiple sonographic images of the abdomen are obtained. FINDINGS: EXAM MEASUREMENTS: Liver Length: 13.8 cm Gallbladder Wall: Surgically absent CBD: 0.9 cm Spleen: 9.1 cm Right Kidney: 10.9 x 3.1 x 6.7 cm Left Kidney: 10.9 x 5.0 x 5.1 cm [employer] NOTES: *Technical limitations due to large amount of overlying bowel gas Pancreas: Tail obscured by overlying bowel gas Liver: lobulated contour to caudate lobe Gallbladder: Surgically absent Evidence for sonographic Chamberlain's sign: no CBD: wnl Spleen: appears wnl Right Kidney: no evidence of hydronephrosis or mass Left Kidney: anechoic lesion mid = 0.9 x 1.1 x 1.0cm Upper IVC: wnl Abd Aorta: distal appears dilated compared to mid measuring 2.4 x 2.3cm The liver is homogenous. The intrahepatic portion of the IVC and proximal abdominal aorta are within normal limits. There is no evidence of cholelithiasis. Common bile duct is unremarkable. The visu alized portions of the pancreas are homogenous. The spleen is unremarkable. Kidneys are symmetric a nd free of hydronephrosis. No solid renal lesions are seen. IMPRESSION: 1. Simple cyst left kidney. 2. Nonspecific lobulated contour of the caudate lobe.
--- NOTE | 2023-03-25 13:57 | BD ---
EXAMINATION TYPE: Axial Bone Density DATE OF EXAM: 03/25/2023 CLINICAL HISTORY: 67 years old Female. ICD-10 CODE: M89.9 DISORDER OF BONE, UNSPEC Height: 61.4 Weight: 130 FRAX RISK QUESTIONS: Family History (Parent hip fracture): yes mother History of Fracture in Adulthood: yes 3. Menopause before 45: no at 50 yrs old 5. Chronic liver disease: yes, stage 4 failure, hepatitis Current Tobacco Use: yes RISK FACTORS HISTORY OF: rt ankle fx as an adult MEDICATIONS: Thyroid Medications: yes, synthroid product for about 30 yrs takes vitamin d EXAM MEASUREMENTS: Bone mineral densitometry was performed using the Mytrus System. Bone mineral density as measured about the Lumbar spine is: ----- L1-L4(G/cm2): 0.987 T Score Values are as follows: ----- L1: -2.4 ----- L2: -2.8 ----- L3: -1.9 ----- L4: 0.3 ----- L1-L4: -1.7 Z Score Values are as follows: ----- L1: -0.5 ----- L2: -1.0 ----- L3: -0.1 ----- L4: 2.1 ----- L1-L4: 0.1 Bone mineral density has: Decreased -4.6% since study of: 04.28.2017 Bone mineral density about the R hip (g/cm2): 0.813 Bone mineral density about the L hip (g/cm2): 0.850 T Score values are as follows: -----R Neck: -2.0 -----L Neck: -1.7 -----R Total: -1.5 -----L Total: -1.2 Z Score values are as follows: -----R Neck: -0.3 -----L Neck: 0.0 -----R Total: -0.1 -----L Total: 0.2 Bone mineral density has: Decreased -9.5% since study of: FRAX%s: The graph provided illustrates a 28.8% chance for a major osteoporotic fx and a 8.9% chance f or the hips probability for fx in 10 years time. IMPRESSION: Osteopenia (T Score between -2.5 and -1). There is slightly increased risk of fracture and the patient may be considered for treatment. Re-Screen 2-5 years. NOTE: T-SCORE=SD OF THE YOUNG ADULT MEAN.
--- NOTE | 2023-03-26 10:06 | MM ---
Reason for Exam: Screening (asymptomatic). Last mammogram was performed 2 year(s) and 0 month(s) ago. Patient History: Menarche at age 12. First Full-Term at age 21. Hysterectomy at age 46. Postmenopausal. Hormonal Contraceptives for 6 months from age 22 until age 21. 08/23/1999, Benign Excisional Biopsy on the left side. Paternal grandmother had breast cancer, age 65. Paternal cousin had breast cancer, age 40. Paternal aunt had breast cancer. Risk Values: Lynette 5 year model risk: 1.9%. NCI Lifetime model risk: 7.0%. Prior Study Comparison: 11/09/2014 Bilateral Screening Mammogram, [facility]. 04/28/2017 Bilateral Screening Mammogram, [facility]. 03/19/2021 Bilateral Diagnostic Mammogram, [facility]. Tissue Density: The breast tissue is heterogeneously dense. This may lower the sensitivity of mammography. Findings: Analyzed By CAD. There is no suspicious group of microcalcifications or new suspicious mass. Benign-appearing calcifications bilaterally. Overall Assessment: Benign, BI-RAD 2 Management: Screening Mammogram of both breasts in [address] [facility] will attempt to contact patient to return for supplemental views and ultrasound if indicated. Patient should continue monthly self-breast exams. A clinical breast exam by your physician is recommended on an annual basis. This exam should not preclude additional follow-up of suspicious palpable abnormalities. Note on Lynette scores and lifetime risk: 1. A Lynette score greater than 3% is considered moderate risk. If this is the case, consider specialist referral to assess eligibility for a risk reducing agent. 2. If overall lifetime risk for the development of breast cancer is 20% or higher, the patient may qualify for future screening with alternating mammogram and breast MRI. Electronically signed and approved by: Charles Fraire DO
== END | disposition home or self-care (01) ==
LOC: RADMAMWWP 07:05
PROVIDERS: ATTEND Internal Medicine Geriatric Medicine
DX: Z12.31 Encounter for screening mammogram for malignant neoplasm of breast (principal); M81.0 Age-related osteoporosis without current pathological fracture; M85.89 Other specified disorders of bone density and structure, multiple sites; N28.1 Cyst of kidney, acquired; K76.89 Other specified diseases of liver; I34.0 Nonrheumatic mitral (valve) insufficiency; K75.4 Autoimmune hepatitis; Z80.3 Family history of malignant neoplasm of breast; Z78.0 Asymptomatic menopausal state; Z90.49 Acquired absence of other specified parts of digestive tract
CPT/HCPCS: 76700; 77063; 77067; 77080